=== PATIENT | female | born 1960 | race Caucasian/White ===

== ENCOUNTER 2020-05-25 11:56 | Outpatient (REF) | payer MEDICARE, MEDICAID, SELFPAY ==
--- NOTE | 2020-05-25 12:17 | XR_ITS ---
EXAMINATION: XR RIGHT FOOT XR LEFT FOOT CLINICAL INFORMATION: Bilateral pain COMPARISON: None TECHNIQUE: 3 weightbearing views of the right foot. 3 weightbearing views of the left foot. FINDINGS: Right Foot: There is a plate transfixed to the lateral aspect of the distal fibula by multiple screws. Additional screws transfix the expected region of the medial malleolus. There is hallux valgus deformity with some proliferative changes in the medial aspect of the distal 1st metatarsal. No abnormal soft tissue calcification. There is dorsiflexion at the MTP joint possibly sparing the 1st MTP joint. Left Foot: There are 2 screws transfixing the distal 1st metatarsal. There is remodeling deformity suggesting previous osteotomy. There is a faintly opaque prosthesis at the 2nd MTP joint. The 2nd proximal phalanx is not well evaluated. There is dorsiflexion at the MTP joint. XR/XR foot RT min 3V IMPRESSION: Evidence of instrumentation around the right ankle. Hallux valgus with proliferative changes in the region of the 1st MTP joint. Postoperative changes in the distal left 1st metatarsal and left 2nd MTP joint. Dorsiflexion at the MTP joint.
--- NOTE | 2020-05-25 12:17 | XR_ITS ---
EXAMINATION: XR RIGHT FOOT XR LEFT FOOT CLINICAL INFORMATION: Bilateral pain COMPARISON: None TECHNIQUE: 3 weightbearing views of the right foot. 3 weightbearing views of the left foot. FINDINGS: Right Foot: There is a plate transfixed to the lateral aspect of the distal fibula by multiple screws. Additional screws transfix the expected region of the medial malleolus. There is hallux valgus deformity with some proliferative changes in the medial aspect of the distal 1st metatarsal. No abnormal soft tissue calcification. There is dorsiflexion at the MTP joint possibly sparing the 1st MTP joint. Left Foot: There are 2 screws transfixing the distal 1st metatarsal. There is remodeling deformity suggesting previous osteotomy. There is a faintly opaque prosthesis at the 2nd MTP joint. The 2nd proximal phalanx is not well evaluated. There is dorsiflexion at the MTP joint. XR/XR foot LT min 3V IMPRESSION: Evidence of instrumentation around the right ankle. Hallux valgus with proliferative changes in the region of the 1st MTP joint. Postoperative changes in the distal left 1st metatarsal and left 2nd MTP joint. Dorsiflexion at the MTP joint.
== END 2020-05-25 11:57 | disposition home or self-care (01) ==
LOC: HO.XRAY 11:56
PROVIDERS: PCP Family Medicine; Visit Provider Podiatrist Foot & Ankle Surgery
DX: M20.12 Hallux valgus (acquired), left foot (principal); M20.42 Other hammer toe(s) (acquired), left foot; M20.11 Hallux valgus (acquired), right foot; M20.41 Other hammer toe(s) (acquired), right foot
CPT/HCPCS: 73630

== ENCOUNTER 2020-06-06 09:57 | Outpatient (REF) | payer MEDICARE, MEDICAID, SELFPAY ==
[2020-06-06 12:26] LABS: Free T4 (Free Thyroxine) 0.93 ng/dL (0.71-1.85); Thyroid Stimulating Hormone 0.01 uIU/mL (0.32-4.0)
[2020-06-07 08:12] LABS: Triiodothyronine T3 Total 158 ng/dL (76-181)
== END 2020-06-06 09:58 | disposition home or self-care (01) ==
LOC: HO.LAB 09:57
PROVIDERS: PCP Family Medicine; Visit Provider Internal Medicine
DX: E05.00 Thyrotoxicosis with diffuse goiter without thyrotoxic crisis or storm (principal)
CPT/HCPCS: 84439; 84443; 84480

== ENCOUNTER → 2020-06-13 09:23 | Outpatient (BNVA) | payer MEDICARE, MEDICAID, SELFPAY | PROVIDERS: PCP Family Medicine; Referring Provider Family Medicine; Visit Provider Internal Medicine | DX: Z13.89 Encounter for screening for other disorder (principal) | CPT/HCPCS: Q3014 ==

== ENCOUNTER 2020-07-08 09:11 | Outpatient (REF) | payer MEDICARE, MEDICAID, SELFPAY ==
--- NOTE | 2020-07-08 09:38 | XR_ITS ---
EXAMINATION: XR CHEST CLINICAL INFORMATION: Preop. COMPARISON: CT chest 01/01/2020 TECHNIQUE: 2 views of the chest were obtained. FINDINGS: The lungs are well-expanded and clear of acute pneumonic process. Mild increased interstitial markings seen without confluent infiltrate. Heart size and pulmonary vascularity is normal. There is mild dextroscoliosis of dorsal spine. There is old healed left eighth rib fracture. The fracture was noted on previous CT chest exam. XR/XR chest 2V IMPRESSION: No acute cardiopulmonary process.
[2020-07-08 10:19] LABS: MANUAL DIFF FLAG NO
[2020-07-08 10:29] LABS: INTERNATIONAL NORM RATIO 1.1 (0.9-1.1); Prothrombin Time 12.6 SEC (10.8-13.0)
[2020-07-08 10:34] LABS: Basophils Absolute Auto 0.1 X10*3/uL (0.0-0.2); Basophils Percent Auto 0.9 % (0-2); Eosinophils Absolute Auto 0.3 X10*3/uL (0.0-0.4); Eosinophils Percent Auto 3.7 % (0-4); Hematocrit 37.8 % (37-47); Hemoglobin 12.3 g/dl (12.0-16.0); Imm Gran Abs Auto 0.01 X10*3/uL (0.00-0.03); Imm Gran Pct Auto 0.1 % (0.0-0.4); Lymphocytes Absolute Auto 3.5 X10*3/uL (1.2-4.9); Lymphocytes Percent Auto 46.2 % (20-40); Mean Corpuscular HGB Conc 32.5 g/dl (31.0-35.0); Mean Corpuscular Hemoglobin 30.8 pg (27.0-33.0); Mean Corpuscular Volume 94.5 fL (80-98); Mean Platelet Volume 10.8 fL (9.4-12.3); Monocytes Absolute Auto 0.8 X10*3/uL (0.1-1.2); Monocytes Percent Auto 10.6 % (2-11); Neutrophils Absolute Auto 2.9 X10*3/uL (2.0-8.3); Neutrophils Percent Auto 38.5 % (45-73); Platelet Count 335 X10*3/uL (160-400); Red Cell Distribution Width 12.8 % (11.0-16.0); White Blood Count 7.5 X10*3/uL (4.8-10.8)
[2020-07-08 10:56] LABS: Anion Gap 12 (12-20); Blood Urea Nitrogen 11 mg/dL (9-16); Calcium 9.4 mg/dL (8.4-10.2); Carbon Dioxide 26 mmol/L (22-29); Chloride 106 mmol/L (96-108); Estimated Glomerular Filt Rate > 60; Glucose Random 91 mg/dL (60-115); Potassium 4.6 mmol/l (3.3-5.1); Sodium 139 mmol/L (135-145)
== END 2020-07-08 09:12 | disposition home or self-care (01) ==
LOC: HO.LAB 09:11
PROVIDERS: Absent Provider Podiatrist Foot & Ankle Surgery; PCP Family Medicine; Referring Provider Internal Medicine; Visit Provider Family Medicine
DX: Z01.810 Encounter for preprocedural cardiovascular examination (principal); Z87.09 Personal history of other diseases of the respiratory system
CPT/HCPCS: 36415; 71046; 80048; 85025; 85610

== ENCOUNTER 2020-07-27 11:48 | Outpatient (REF) | payer MEDICARE, MEDICAID, SELFPAY ==
[2020-07-27 13:18] LABS: Free T4 (Free Thyroxine) 0.96 ng/dL (0.71-1.85); Thyroid Stimulating Hormone < 0.01 uIU/mL (0.32-4.0)
[2020-07-28 02:32] LABS: Triiodothyronine T3 Total 149 ng/dL (76-181)
== END 2020-07-27 11:49 | disposition home or self-care (01) ==
LOC: HO.LAB 11:48
PROVIDERS: PCP Family Medicine; Visit Provider Internal Medicine
DX: E05.00 Thyrotoxicosis with diffuse goiter without thyrotoxic crisis or storm (principal)
CPT/HCPCS: 36415; 84439; 84443; 84480

== ENCOUNTER → 2020-07-28 08:47 | Outpatient (BNVA) | payer MEDICARE, MEDICAID, SELFPAY | PROVIDERS: PCP Family Medicine; Visit Provider Internal Medicine | DX: Z76.89 Persons encountering health services in other specified circumstances (principal) | CPT/HCPCS: Q3014 ==

== ENCOUNTER 2020-08-11 08:56 | Outpatient (REF) | payer MEDICARE, MEDICAID, SELFPAY ==
[2020-08-11 10:50] LABS: Free T4 (Free Thyroxine) 0.85 ng/dL (0.71-1.85)
[2020-08-12 04:51] LABS: Triiodothyronine T3 Total 164 ng/dL (76-181)
== END 2020-08-11 08:57 | disposition home or self-care (01) ==
LOC: HO.LAB 08:56
PROVIDERS: PCP Family Medicine; Visit Provider Internal Medicine
DX: E05.00 Thyrotoxicosis with diffuse goiter without thyrotoxic crisis or storm (principal)
CPT/HCPCS: 36415; 84439; 84480

== ENCOUNTER 2020-08-12 10:43 | Outpatient (REF) | payer MEDICARE, MEDICAID, SELFPAY | END 2020-08-12 10:44 | disposition home or self-care (01) | LOC: HO.LNP 10:43 | PROVIDERS: Visit Provider Family Medicine | DX: Z20.822 Contact with and (suspected) exposure to COVID-19 (principal); R05 Cough | CPT/HCPCS: U0003; U0005 ==

== ENCOUNTER → 2020-09-01 13:07 | Outpatient (BNVA) | payer MEDICARE, MEDICAID, SELFPAY | PROVIDERS: PCP Family Medicine; Visit Provider Internal Medicine | CPT/HCPCS: Q3014 ==

== ENCOUNTER 2020-09-07 10:40 | Outpatient (REF) | payer MEDICARE, MEDICAID, SELFPAY ==
--- NOTE | ~2020-09-07 | XR_ITS ---
EXAMINATION: XR FOOT, LEFT CLINICAL INFORMATION: Radha COMPARISON: Previous x-ray May 2020 TECHNIQUE: AP, lateral, and oblique views of the left foot. FINDINGS: Bone alignment is normal. No acute fracture or dislocation is seen. There are postsurgical changes to the right first metatarsal bone. There is postsurgical change to the second MTP joint. There is interval resection of the head of the fifth metatarsal bone. There are contractures of the toes, greatest at the second and fourth toes. Soft tissues are unremarkable. XR/XR foot LT min 3V IMPRESSION: Postsurgical changes. Contractures of the toes.
== END 2020-09-07 10:41 | disposition home or self-care (01) ==
LOC: HO.XRAY 10:40
PROVIDERS: PCP Family Medicine; Visit Provider Podiatrist Foot & Ankle Surgery
DX: M20.42 Other hammer toe(s) (acquired), left foot (principal)
CPT/HCPCS: 73630

== ENCOUNTER 2020-09-26 08:50 | Outpatient (REF) | payer MEDICARE, MEDICAID, SELFPAY ==
[2020-09-26 10:32] LABS: Free T4 (Free Thyroxine) 0.81 ng/dL (0.71-1.85); Thyroid Stimulating Hormone < 0.01 uIU/mL (0.32-4.0)
[2020-09-27 09:11] LABS: Triiodothyronine T3 Total 125 ng/dL (76-181)
== END 2020-09-26 08:51 | disposition home or self-care (01) ==
LOC: HO.LAB 08:50
PROVIDERS: PCP Family Medicine; Visit Provider Internal Medicine
DX: E05.00 Thyrotoxicosis with diffuse goiter without thyrotoxic crisis or storm (principal)
CPT/HCPCS: 36415; 84439; 84443; 84480

== ENCOUNTER 2020-10-14 07:35 | Outpatient (REF) | payer MEDICARE, MEDICAID, SELFPAY ==
--- NOTE | ~2020-10-14 | XR_ITS ---
EXAMINATION: XR SHOULDER, RIGHT CLINICAL INFORMATION: Pain COMPARISON: Previous x-ray July 2015 TECHNIQUE: Three views of the right shoulder. FINDINGS: Bone alignment is normal. No fracture or dislocation is seen. The glenohumeral joint is normal. There is arthritis at the acromioclavicular joint. There is a undersurface acromial osteophyte. XR/XR shoulder RT min 2V IMPRESSION: Arthritis at the acromioclavicular joint and undersurface acromial osteophyte.
== END 2020-10-14 07:36 | disposition home or self-care (01) ==
LOC: HO.HOSX 07:35
PROVIDERS: Visit Provider Physician Assistant
DX: M75.41 Impingement syndrome of right shoulder (principal); M19.011 Primary osteoarthritis, right shoulder; M25.511 Pain in right shoulder
CPT/HCPCS: 20610; 73030; 99202; J1040

== ENCOUNTER 2020-11-30 09:50 | Outpatient (REF) | payer MEDICARE, MEDICAID, SELFPAY ==
--- NOTE | ~2020-11-30 | US_ITS ---
EXAMINATION: US EXTRACRANIAL CAROTID DUPLEX, BILATERAL CLINICAL INFORMATION: Follow-up carotid stenosis COMPARISON: 10/13/2019 TECHNIQUE: Real-time ultrasound and Doppler techniques (integrating B-mode 2-D vascular images, Doppler spectral analysis and color-flow Doppler imaging) were utilized to interrogate the extracranial carotid arteries, the vertebral arteries and proximal subclavian arteries bilaterally. The degree of stenosis is determined by criteria similar to NASCET. FINDINGS: Right Side: 1. There is mild atherosclerotic plaque seen in the bifurcation/proximal ICA region. 2. The common carotid artery PSV proximally is 68 cm/s and distally 60 cm/s. 3. The proximal internal carotid artery velocities are 61 cm/s systolic and 32 cm/s diastolic. 4. The proximal external carotid artery PSV is 77 cm/s. 5. The vertebral artery shows antegrade flow. 6. The subclavian artery waveforms are normal. Left Side: 1. There is mild atherosclerotic plaque seen in the bifurcation/proximal ICA region. 2. The common carotid artery PSV proximally is 60 cm/s and distally 40 cm/s. 3. The proximal internal carotid artery velocities are 66 cm/s systolic and 27 cm/s diastolic. 4. The proximal external carotid artery PSV is 72 cm/s. 5. The vertebral artery shows antegrade flow. 6. The subclavian artery waveforms are normal. US/US carotid duplex BI IMPRESSION: 1. RIGHT: Minimal, non-hemodynamically significant stenosis of the proximal right internal carotid artery corresponding to a 0-49% stenosis by velocity criteria. 2. LEFT: Minimal, non-hemodynamically significant stenosis of the proximal left internal carotid artery corresponding to a 0-49% stenosis by velocity criteria. 3. There is no change in the category severity of disease when compared to the previous study dated 10/13/2019.
== END 2020-11-30 09:51 | disposition home or self-care (01) ==
LOC: HO.US 09:50
PROVIDERS: Visit Provider Surgery Vascular Surgery
DX: E05.00 Thyrotoxicosis with diffuse goiter without thyrotoxic crisis or storm (principal); I65.23 Occlusion and stenosis of bilateral carotid arteries; J44.9 Chronic obstructive pulmonary disease, unspecified; R63.5 Abnormal weight gain; Z79.82 Long term (current) use of aspirin; Z79.899 Other long term (current) drug therapy; Z98.890 Other specified postprocedural states
CPT/HCPCS: 93880; Q3014

== ENCOUNTER 2020-12-02 09:35 | Outpatient (REF) | payer MEDICARE, MEDICAID, SELFPAY ==
[2020-12-02 11:30] LABS: Free T4 (Free Thyroxine) 0.54 ng/dL (0.71-1.85); Thyroid Stimulating Hormone 4.24 uIU/mL (0.32-4.0)
[2020-12-03 07:37] LABS: Triiodothyronine T3 Total 69 ng/dL (76-181)
== END 2020-12-02 09:36 | disposition home or self-care (01) ==
LOC: HO.LAB 09:35
PROVIDERS: PCP Family Medicine; Visit Provider Internal Medicine
DX: E05.00 Thyrotoxicosis with diffuse goiter without thyrotoxic crisis or storm (principal)
CPT/HCPCS: 36415; 84439; 84443; 84480

== ENCOUNTER → 2020-12-06 09:31 | Outpatient (BNVA) | payer MEDICARE, MEDICAID, SELFPAY | PROVIDERS: PCP Family Medicine; Visit Provider Surgery Vascular Surgery | DX: I65.23 Occlusion and stenosis of bilateral carotid arteries (principal); I83.11 Varicose veins of right lower extremity with inflammation | CPT/HCPCS: 99212 ==

== ENCOUNTER 2020-12-14 12:56 | Outpatient (REF) | payer MEDICARE, MEDICAID, SELFPAY ==
--- NOTE | ~2020-12-14 | US_ITS ---
EXAMINATION: RIGHT and LEFT LOWER EXTREMITY VENOUS ULTRASOUND (Reflux Exam) CLINICAL INDICATION: leg pain and varicose veins, right. COMPARISON: None. TECHNIQUE: Color flow triplex imaging and compression Doppler was performed to evaluate both the deep and the superficial systems bilaterally. To evaluate the superficial system, the examination was performed in the upright position. Color-flow Doppler ultrasound and compression ultrasound were utilized. In addition, maneuvers were utilized to demonstrate reflux. FINDINGS: 1. DEEP VENOUS ULTRASOUND OF THE RIGHT LOWER EXTREMITY: Respiratory variation, normal compression and augmented flow are noted in the right common femoral vein as well as the right popliteal vein and there is no evidence of deep venous thrombosis at these locations. There is no evidence of reflux in the deep system in either the common femoral vein or the popliteal vein. There is no evidence of a Young's cyst. 2. SUPERFICIAL ULTRASOUND WITH DOPPLER OF RIGHT LOWER EXTREMITY: The right great saphenous vein at the saphenofemoral junction measures 9 mm, at the mid thigh 2 mm, [id number]-[id number] 2 mm, ftgbl-fla-[id number] 2 mm, at mid calf 2 mm and at the ankle measures 3 mm. There is a accessory lateral greater saphenous vein that measures 2 to 3 mm. There is no reflux demonstrated in the right great saphenous vein. The right small saphenous vein measures 2-3 mm and shows no reflux. There is a anesthesiology resident in the distal thigh that measures 2 mm and does not demonstrate reflux. There is a varicosity in the proximal 5 and measures 3 mm and does not demonstrate reflux. 3. DEEP VENOUS ULTRASOUND OF THE LEFT LOWER EXTREMITY: Respiratory variation, normal compression and augmented flow are noted in the left common femoral vein as well as the left popliteal vein and there is no evidence of deep venous thrombosis at these locations. There is no evidence of reflux in the deep system in either the common femoral vein or the popliteal vein. . There is no evidence of a Young's cyst. 4. SUPERFICIAL ULTRASOUND WITH DOPPLER OF LEFT LOWER EXTREMITY: Left great saphenous vein at the saphenofemoral junction measures 9 mm, at the mid thigh 6 mm, xulxg-dqf-fces 3 mm, puuxy-hdo-asro 3 mm, at mid calf 3 mm and at the ankle measures 3 mm. There is no reflux demonstrated in the left great saphenous vein. The left small saphenous vein measures 2 mm and shows no reflux. There is a anesthesiology resident in the calf that measures 2 mm and does not demonstrate reflux. There are varicosities in the thigh and calf that measure 3 mm and do not demonstrate reflux. US/US venous duplex LE BI IMPRESSION: 1. No evidence of reflux or thrombus in the common femoral veins or popliteal veins bilaterally. 2. The saphenous systems are competent bilaterally.
== END 2020-12-14 12:57 | disposition home or self-care (01) ==
LOC: HO.US 12:56
PROVIDERS: Visit Provider Surgery Vascular Surgery
DX: I83.893 Varicose veins of bilateral lower extremities with other complications (principal); I83.11 Varicose veins of right lower extremity with inflammation
CPT/HCPCS: 93970

== ENCOUNTER → 2020-12-20 09:37 | Outpatient (BNVA) | payer MEDICARE, MEDICAID, SELFPAY | PROVIDERS: PCP Family Medicine; Visit Provider Surgery Vascular Surgery | DX: I83.12 Varicose veins of left lower extremity with inflammation (principal) | CPT/HCPCS: 99212 ==

== ENCOUNTER → 2021-01-13 08:26 | Outpatient (BNVA) | payer MEDICARE, MEDICAID, SELFPAY | PROVIDERS: PCP Family Medicine; Visit Provider Surgery Vascular Surgery | DX: I83.12 Varicose veins of left lower extremity with inflammation (principal) | CPT/HCPCS: 37765 ==

== ENCOUNTER → 2021-01-31 08:52 | Outpatient (BNVA) | payer MEDICARE, MEDICAID, SELFPAY | PROVIDERS: PCP Family Medicine; Referring Provider Family Medicine; Visit Provider Surgery Vascular Surgery | DX: I83.12 Varicose veins of left lower extremity with inflammation (principal); I65.23 Occlusion and stenosis of bilateral carotid arteries | CPT/HCPCS: 99212 ==

== ENCOUNTER 2021-02-06 08:49 | Outpatient (REF) | payer MEDICARE, MEDICAID, SELFPAY ==
--- NOTE | ~2021-02-06 | MM_ITS ---
EXAMINATION: MM SCREENING DIGITAL BREAST TOMOSYNTHESIS, BILATERAL CLINICAL INFORMATION: Screening. Asymptomatic. The lifetime risk of breast cancer based on the Tyrer-Cuzick Model is 11%. COMPARISON: Mammography: 02/03/2020, 01/28/2019, 01/08/2018 TECHNIQUE: Digital breast tomosynthesis is performed in both the craniocaudal and mediolateral oblique views along with computer-aided detection (CAD). Synthesized 2D images are generated from the tomosynthesis. Additional left CC view is provided. FINDINGS: The breasts are almost entirely fatty (ACR BI-RADS breast composition Category a). There are no significant masses, abnormal calcifications, or other abnormalities. Stromal markings are stable. Mild asymmetry of the breasts, left larger, similar to prior studies. The axilla and skin contours are unremarkable. MM/MM tomosynthesis screening BI IMPRESSION: No mammographic evidence of malignancy. ASSESSMENT: BI-RADS 2: Benign RECOMMENDATION: Routine annual mammography screening. This patient's information was entered into a reminder system with a target due date for their next mammogram.
== END 2021-02-06 08:50 | disposition home or self-care (01) ==
LOC: HO.MAMMO 08:49
PROVIDERS: Visit Provider Family Medicine
DX: Z12.31 Encounter for screening mammogram for malignant neoplasm of breast (principal)
CPT/HCPCS: 77063; 77067

== ENCOUNTER 2021-04-04 11:35 | Outpatient (REF) | payer MEDICARE, MEDICAID, SELFPAY ==
[2021-04-04 12:22] LABS: COVID-19 Test Negative (Negative)
== END 2021-04-04 11:36 | disposition home or self-care (01) ==
LOC: HO.LAB 11:35
PROVIDERS: PCP Family Medicine; Visit Provider Internal Medicine
DX: Z20.822 Contact with and (suspected) exposure to COVID-19 (principal)
CPT/HCPCS: 36415; 87635; C9803

== ENCOUNTER 2021-07-17 09:00 | Outpatient (RCR) | payer MEDICARE, MEDICAID, SELFPAY ==
[2021-07-06 07:01] VITALS: BP 115/66; PULSE 69; O2SAT 95
== END 2021-08-08 09:19 | disposition home or self-care (01) ==
LOC: HO.PT 09:00
PROVIDERS: PCP Family Medicine; Visit Provider Podiatrist Foot & Ankle Surgery
DX: M76.812 Anterior tibial syndrome, left leg (principal)
CPT/HCPCS: 97110; 97140; 97162

== ENCOUNTER 2021-08-08 13:02 | Outpatient (REF) | payer MEDICARE, MEDICAID, SELFPAY ==
--- NOTE | ~2021-08-08 | CT_ITS ---
EXAMINATION: CT CHEST SCREENING CLINICAL INFORMATION: Smoking history COMPARISON: Previous chest CT December 2019 TECHNIQUE: Multidetector volumetric CT imaging of the chest is performed without contrast using low dose technique. Additional 2D coronal and sagittal reformatted images and axial 3D maximum intensity projection (MIP) images are generated on the CT workstation. This CT examination was performed using dose optimization techniques as appropriate, variously including the following: *Automated exposure control *Adjustment of mA and/or kV according to patient size (this includes techniques or standardized protocols for targeted exams where dose is matched to indication/reason for exam; i.e. extremities or head) *Use of iterative reconstruction technique DLP: 55 mGy-cm FINDINGS: LUNGS: There is evidence of emphysema. There is a new small peripheral or subpleural 4 mm left lower lobe nodule axial image 376 series 5. This probably represents a subpleural lymph node. There is minimal scarring or subsegmental atelectasis. The lungs are otherwise clear. No evidence of bronchiectasis or interstitial disease or endobronchial or endotracheal lesion is seen. MEDIASTINUM: The right lobe of the thyroid gland is prominent. There is mild coronary artery calcification. The mediastinum is otherwise normal. PLEURA: There is no pleural effusion. No pleural mass or thickening. AXILLA: No lymphadenopathy. UPPER ABDOMEN: Unremarkable OSSEOUS STRUCTURES: There is an old posterior lateral eighth rib fracture. There are degenerative changes of the spine. CT/CT lung screening IMPRESSION: Emphysema. Small left lower lobe nodule probably representing a subpleural lymph node. Prominent right lobe of the thyroid gland similar to previous exams. Mild coronary artery calcification. ASSESSMENT: Lung-RADS category 2: Benign RECOMMENDATION: Annual low-dose chest CT follow-up recommended.
== END 2021-08-08 13:03 | disposition home or self-care (01) ==
LOC: HO.CT 13:02
PROVIDERS: PCP Family Medicine; Visit Provider Physician Assistant Medical
DX: Z12.2 Encounter for screening for malignant neoplasm of respiratory organs (principal); Z87.891 Personal history of nicotine dependence
CPT/HCPCS: 71271

== ENCOUNTER 2021-08-20 12:03 | Inpatient (IN) | payer MEDICARE, MEDICAID, SELFPAY ==
[2021-08-20] VITALS (9 sets, daily range): BP systolic 112–156; BP diastolic 68–92; PULSE 91–133; RESP 16–22; TEMP 36.7–37.7; O2SAT 95–99; BMI 29.4
--- NOTE | 2021-08-20 | ECG_ITS ---
Test Reason : dyspnea Blood Pressure : / mmHG Vent. Rate : 138 BPM Atrial Rate : 000 BPM P-R Int : 000 ms QRS Dur : 070 ms QT Int : 298 ms P-R-T Axes : 000 002 -10 degrees QTc Int : 451 ms Atrial fibrillation with rapid ventricular response Abnormal ECG When compared with ECG of 08-MAR-2017 07:53, Atrial fibrillation has replaced Sinus rhythm Vent. rate has increased BY [address] now depressed in Inferior leads Referred By: Generic ED Physician Electronically Signed By:KINGS KRISHNAMURTHY MD
--- NOTE | ~2021-08-20 | XR_ITS ---
EXAMINATION: XR CHEST CLINICAL INFORMATION: Dyspnea, tachycardia COMPARISON: X-ray 07/08/2020 TECHNIQUE: Frontal view of the chest was obtained. FINDINGS: Stable cardiomediastinal silhouette. Lungs are symmetric expanded. Opacity projected over the left midlung, overlying the rib, appears slightly more prominent as compared to prior radiograph of 07/08/2020, could be related to overlapping densities superimposed on underlying rib abnormality.. No new focal consolidation is seen. No effusion, edema or pneumothorax. XR/XR chest 1V IMPRESSION: No new focal consolidation. Opacity projected over the left mid lung overlying the rib, appearing slightly more prominent as compared to the prior radiograph, could be related to overlapping densities overlying the underlying rib abnormality rather than airspace disease. Recommend short-term follow-up imaging for reassessment.
--- NOTE | 2021-08-20 12:40 | ED.SOB ---
HPI - SOB/Dyspnea General Chief Complaint: Dyspnea Stated Complaint: SOB Time Seen by Provider: 08/20/21 12:19 Source: patient Mode of arrival: ambulatory Limitations: no limitations History of Present Illness HPI Narrative: 61-year-old female with a history of depression, anxiety, COPD, former smoking history, high cholesterol here with reports of shortness of breath with palpitations for the last 4 days. Patient was seen at urgent care and was referred into the emergency department as she was noted to have an irregular pulse. Patient denies any history of AFib. She is taking an aspirin 81 mg daily. She denies any chest pain, cough, fever, leg swelling or pain. Related Data Home Medications Medication Instructions Recorded Confirmed aspirin 81 mg tablet,delayed 81 mg PO DAILY 06/13/20 08/20/21 release quetiapine 50 mg tablet 50 mg PO BEDTIME 08/20/21 08/20/21 ropinirole 5 mg tablet 5 mg PO DAILY@1230 08/20/21 08/20/21 sertraline 100 mg tablet 50 mg PO DAILY 08/20/21 08/20/21 Previous Rx's Medication Instructions Recorded furosemide 40 mg tablet 40 mg PO DAILY PRN #90 cap 06/20/21 lorazepam 1 mg tablet 1 mg PO BEDTIME PRN 30 Days #30 tab 06/20/21 rosuvastatin 20 mg tablet 20 mg PO DAILY #90 tab 08/07/21 meloxicam 15 mg tablet 15 mg PO DAILY 30 Days #30 tab 08/09/21 omeprazole 20 mg capsule,delayed 20 mg PO DAILY #90 cap 08/14/21 release valacyclovir 500 mg tablet 500 mg PO DAILY PRN 30 Days #30 tab 08/14/21 Allergies Allergy/AdvReac Type Severity Reaction Status Date / Time No Known Allergies Allergy Verified 08/20/21 12:16 Review of Systems Review of Systems: Yes all other systems are reviewed and are negative Constitutional: Constitutional: Reports no additional constitutional complaints, Denies body ache(s), Denies chills, Denies fever(s), Denies headache(s) and Denies weakness Eyes: Eyes: Reports no additional eye complaints and Denies change in vision ENT: Reports system reviewed and no additional complaints, except as documented, Denies dizziness, Denies headache(s), Denies nasal congestion, Denies nasal discharge and Denies neck pain Cardiovascular: Cardiovascular: Reports no additional cardiovascular complaints, Denies chest pain, Denies leg edema, Reports palpitations and Reports dyspnea Respiratory: Respiratory: Reports no additional respiratory complaints, Denies cough and Reports dyspnea Gastrointestinal: Gastrointestinal: Reports no additional gastrointestinal complaints, Denies abdominal pain, Denies diarrhea, Denies nausea and Denies vomiting Genitourinary: Genitourinary: Reports no additional female genitourinary complaints and Denies urinary incontinence Musculoskeletal: Musculoskeletal: Reports no additional musculoskeletal complaints, Denies back pain, Denies arthralgias, Denies joint swelling, Denies neck pain, Denies numbness and Denies tingling Integumentary/Breasts: Skin/Breast: Reports system reviewed and no additional complaints, except as docu and Denies rash Neurologic: Reports system reviewed and no additional complaints, except as documented, Denies Abnormal speech present, Denies dizziness, Denies headache(s), Denies numbness, Denies tingling and Denies weakness Endocrine: Endocrine: Reports palpitations PMFSH Past Medical History Attestation statement: The following information was validated with the patient. Source: old records reviewed and nursing notes reviewed Medical History (Updated 08/20/21 @ 15:01 by Marco Newell MD) Depression GERD (gastroesophageal reflux disease) Graves disease History of COPD HLD (hyperlipidemia) Surgical History H/O foot surgery History of ankle surgery History of back surgery History of carotid endarterectomy History of salpingectomy History of surgery on right wrist Hx of colonoscopy Hx of rotator cuff surgery Family History Family History Father CVD (cardiovascular disease) Hypertension Mother CVA (cerebral vascular accident) Paternal Grandmother Breast cancer Social History Social History Housing: House Patient Tobacco Use Status: Never used Tobacco e-Cigarette/Vaping Use: Never Used Advance Directives: No Advance Directives Information Provided: No Patient : No service: No Current occupational status: employed 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 Current occupational exposures/hazards: No Cognitive needs: No Hearing needs: No Vision needs: No Physical Exam Vital Signs: Vital Signs: Last Vital Signs Temp 98.5 F 08/20/21 15:04 Pulse 106 H 08/20/21 15:04 Resp 18 08/20/21 15:04 BP 130/82 08/20/21 15:04 Pulse Ox 95 08/20/21 15:04 BMI result Body Mass Index 29.4 Const: General: cooperative, healthy appearing, comfortable and no acute distress Orientation/consciousness: patient oriented x3 Limitations: no limitations HENMT: Head: Yes normal to inspection Ears: hearing grossly normal bilaterally General nose exam: Normal external nose present Face and sinus: Yes normal facial exam Mouth: Normal oral and palatal mucosa present Throat: Yes posterior oropharynx normal Eyes: General: appearance normal, both eyes and all related structures Pupils: Equal, round and reactive pupils present Neck: Neck: Yes normal visual inspection Chest: Chest palpation & inspection: normal inspection of the chest Resp: Other: Tachypnea with a rate of 22, inspiratory and expiratory wheezing throughout Cardio: Rate: regular rate Rhythm: abnormal rhythm irregularly irregular Peripheral pulses: Peripheral pulses 2+ throughout GI: Inspection: Yes normal to inspection Palpation (GI): Soft to palpation and nontender Auscultation: normal bowel sounds Back/Spine/Pelvis: Thoracic/Lumbar Spine: thoracic and lumbar spine normal to inspection Skin: General skin exam: no rashes or lesions noted Neuro: General: patient oriented x3, no focal motor deficits and normal sensation to monofilament Cranial nerves: Yes Equal, round and reactive pupils present Cognition (Neuro): normal cognition Speech: No Abnormal speech present Gait exam (Neuro): Normal gait present Motor exam (neuro): 5/5 motor strength present throughout Extrem: General: Yes normal to inspection, Yes no pedal edema and Yes no calf tenderness Course Course Course Narrative: 61-year-old female with a history of COPD here with reports of shortness of breath, palpitations for 4 days. On arrival the patient is noted to have an irregularly irregular pulse with tachypnea and wheezing. EKG shows AFib with RVR with a rate of 138. Blood pressure is stable. Patient has no history of same. Will check labs, chest x-ray, COVID screen. Plan for DuoNeb, Cardizem, aspirin Anticipate admission 1340-reviewed labs. Indeterminate troponin likely secondary tachycardia not for ischemia. Plan to trend. Heart rate initially was bonded down to 90-100 after 1 dose of Cardizem. After some time the rate elevated to 130 use 140s. Plan to initiate Cardizem drip. Will discuss with Medicine for admission Reviewed x-ray which read as possible left mid lobe opacity versus overlying densities. Patient has no reports of cough, fever. She does have some slight wheezing with underlying COPD. I independently reviewed the x-ray which does not appear to show pneumonia. Elevated respiratory rate is from chronic lung disease and not from infection. CHADS score 1 so AC therapy deferred to admission team. MDM - SOB/Dyspnea MDM Narrative Medical decision making narrative: AFib, COPD Medical Records Attestation: I reviewed the patient's medical records. Lab Data Attestation: I reviewed the patient's lab results. Result diagrams: 08/20/21 12:48 08/20/21 12:48 Labs: Lab Results 08/20/21 08/20/21 08/20/21 Range/Units 12:48 12:48 12:48 WBC 12.6 H (4.8-10.8) X10*3/uL RBC 4.17 L (4.20-5.50) X10*6/uL Hgb 12.5 (12.0-16.0) g/dl Hct 37.8 (37.0-47.0) % MCV 90.6 (80.0-98.0) fL MCH 30.0 (27.0-33.0) pg MCHC 33.1 (31.0-35.0) g/dl RDW 13.5 (11.0-16.0) % Plt Count 310 (160-400) X10*3/uL MPV 10.6 (9.4-12.3) fL Immature Gran % (Auto) 0.2 (0.0-0.4) % Neut % (Auto) 67.7 (45-73) % Lymph % (Auto) 21.5 (20-40) % Gregory % (Auto) 9.3 (2-11) % Eos % (Auto) 0.7 (0-4) % Baso % (Auto) 0.6 (0-2) % Lymph # (Auto) 2.7 (1.2-4.9) X10*3/uL Gregory # (Auto) 1.2 (0.1-1.2) X10*3/uL Eos # (Auto) 0.1 (0.0-0.4) X10*3/uL Baso # (Auto) 0.1 (0.0-0.2) X10*3/uL Abs Immat Gran (auto) 0.03 (0.00-0.03) X10*3/uL Absolute Neuts (auto) 8.6 H (2.0-8.3) x10*3/uL Absolute Nucleated RBC 0.000 (0.0-0.012) X10*3/uL Nucleated RBC % (auto) 0.0 (0.0-0.2) /100WBC PT 12.9 (9.9-13.0) SEC INR 1.1 (0.9-1.1) Sodium 138 (135-145) mmol/L Potassium 4.1 (3.3-5.1) mmol/L Chloride 107 (96-108) mmol/L Carbon Dioxide 22 (22-29) mmol/L Anion Gap 13 (12-20) BUN 15 (9-16) mg/dL Creatinine 0.63 (0.5-1.4) mg/dL Estim Creat Clear Calc 114.5 Estimated GFR > 60 Random Glucose 115 (60-115) mg/dL Calcium 10.0 D (8.4-10.2) mg/dL Magnesium 1.8 (1.6-2.6) mg/dL Total Bilirubin 0.6 (0.0-1.0) mg/dL Direct Bilirubin 0.3 (0.0-0.5) mg/dL AST 29 (5-31) U/L ALT 25 (0-31) U/L Alkaline Phosphatase 71 (39-117) U/L Troponin I High Sens (<3.5-17.0) ng/L Total Protein 6.6 (6.5-8.0) g/dL Albumin 4.0 (3.5-5.0) g/dL TSH < 0.01 L (0.32-4.0) uIU/mL COVID-19 ([facility]) (Negative) COVID-19 Clin Com 08/20/21 08/20/21 Range/Units 12:48 12:52 WBC (4.8-10.8) X10*3/uL RBC (4.20-5.50) X10*6/uL Hgb (12.0-16.0) g/dl Hct (37.0-47.0) % MCV (80.0-98.0) fL MCH (27.0-33.0) pg MCHC (31.0-35.0) g/dl RDW (11.0-16.0) % Plt Count (160-400) X10*3/uL MPV (9.4-12.3) fL Immature Gran % (Auto) (0.0-0.4) % Neut % (Auto) (45-73) % Lymph % (Auto) (20-40) % Gregory % (Auto) (2-11) % Eos % (Auto) (0-4) % Baso % (Auto) (0-2) % Lymph # (Auto) (1.2-4.9) X10*3/uL Gregory # (Auto) (0.1-1.2) X10*3/uL Eos # (Auto) (0.0-0.4) X10*3/uL Baso # (Auto) (0.0-0.2) X10*3/uL Abs Immat Gran (auto) (0.00-0.03) X10*3/uL Absolute Neuts (auto) (2.0-8.3) x10*3/uL Absolute Nucleated RBC (0.0-0.012) X10*3/uL Nucleated RBC % (auto) (0.0-0.2) /100WBC PT (9.9-13.0) SEC INR (0.9-1.1) Sodium (135-145) mmol/L Potassium (3.3-5.1) mmol/L Chloride (96-108) mmol/L Carbon Dioxide (22-29) mmol/L Anion Gap (12-20) BUN (9-16) mg/dL Creatinine (0.5-1.4) mg/dL Estim Creat Clear Calc Estimated GFR Random Glucose (60-115) mg/dL Calcium (8.4-10.2) mg/dL Magnesium (1.6-2.6) mg/dL Total Bilirubin (0.0-1.0) mg/dL Direct Bilirubin (0.0-0.5) mg/dL AST (5-31) U/L ALT (0-31) U/L Alkaline Phosphatase (39-117) U/L Troponin I High Sens 13.1 (<3.5-17.0) ng/L Total Protein (6.5-8.0) g/dL Albumin (3.5-5.0) g/dL TSH (0.32-4.0) uIU/mL COVID-19 ([facility]) Negative (Negative) COVID-19 Clin Com See Note Imaging Data Chest x-ray: Attestation: I personally reviewed and interpreted this imaging study as follows: Radiologist's impression: FINDINGS: Stable cardiomediastinal silhouette. Lungs are symmetric expanded. Opacity projected over the left midlung, overlying the rib, appears slightly more prominent as compared to prior radiograph of 07/08/2020, could be related to overlapping densities superimposed on underlying rib abnormality.. No new focal consolidation is seen. No effusion, edema or pneumothorax. XR/XR chest 1V IMPRESSION: No new focal consolidation. Opacity projected over the left mid lung overlying the rib, appearing slightly more prominent as compared to the prior radiograph, could be related to overlapping densities overlying the underlying rib abnormality rather than airspace disease. Recommend short-term follow-up imaging for reassessment. ECG Data Attestation: I personally reviewed and interpreted this ECG as follows: ECG interpretation date: 08/20/21 ECG interpretation time: 12:24 Interpretation: AFib with RVR with a rate of 138, normal QRS, normal QT Discharge Plan Discharge Clinical Impression: Atrial fibrillation Patient Disposition: Admitted As Inpatient
[2021-08-20] MEDS: dilTIAZem HCL 50 MG/10 ML VIAL 10 MG IVPUSH (12:46)
[2021-08-20] MEDS: 0.9 % Sodium Chloride 500 ML 999 ML IV (12:46)
[2021-08-20] MEDS: Aspirin 81 MG TAB.CHEW 243 MG PO (12:46)
[2021-08-20 12:52] LABS: MANUAL DIFF FLAG NO
[2021-08-20 12:56] LABS: Basophils Absolute Auto 0.1 X10*3/uL (0.0-0.2); Basophils Percent Auto 0.6 % (0-2); Eosinophils Absolute Auto 0.1 X10*3/uL (0.0-0.4); Eosinophils Percent Auto 0.7 % (0-4); Hematocrit 37.8 % (37.0-47.0); Hemoglobin 12.5 g/dl (12.0-16.0); Imm Gran Abs Auto 0.03 X10*3/uL (0.00-0.03); Imm Gran Pct Auto 0.2 % (0.0-0.4); Lymphocytes Absolute Auto 2.7 X10*3/uL (1.2-4.9); Lymphocytes Percent Auto 21.5 % (20-40); Mean Corpuscular HGB Conc 33.1 g/dl (31.0-35.0); Mean Corpuscular Volume 90.6 fL (80.0-98.0); Mean Platelet Volume 10.6 fL (9.4-12.3); Monocytes Absolute Auto 1.2 X10*3/uL (0.1-1.2); Monocytes Percent Auto 9.3 % (2-11); Neutrophils Absolute Auto 8.6 x10*3/uL (2.0-8.3); Neutrophils Percent Auto 67.7 % (45-73); Platelet Count 310 X10*3/uL (160-400); Red Blood Count 4.17 X10*6/uL (4.20-5.50); Red Cell Distribution Width 13.5 % (11.0-16.0); White Blood Count 12.6 X10*3/uL (4.8-10.8)
[2021-08-20 13:01] LABS: INTERNATIONAL NORM RATIO 1.1 (0.9-1.1); Prothrombin Time 12.9 SEC (9.9-13.0)
[2021-08-20 13:17] LABS: Troponin-I High Sensitivity 13.1 ng/L (<3.5-17.0)
[2021-08-20 13:18] LABS: COVID-19 Test Negative (Negative); IDNOW Serial# 16C4AD1C
[2021-08-20 13:23] LABS: Alanine Aminotransferase 25 U/L (0-31); Alkaline Phosphatase 71 U/L (39-117); Anion Gap 13 (12-20); Aspartate Amino Transferase 29 U/L (5-31); Bilirubin Direct 0.3 mg/dL (0.0-0.5); Bilirubin Total 0.6 mg/dL (0.0-1.0); Blood Urea Nitrogen 15 mg/dL (9-16); Carbon Dioxide 22 mmol/L (22-29); Chloride 107 mmol/L (96-108); Creatinine Clr Calc Pharmacy 114.5; Estimated Glomerular Filt Rate > 60; Glucose Random 115 mg/dL (60-115); Magnesium 1.8 mg/dL (1.6-2.6); Potassium 4.1 mmol/L (3.3-5.1); Sodium 138 mmol/L (135-145); Total Protein 6.6 g/dL (6.5-8.0)
[2021-08-20] MEDS: dilTIAZem HCL 125 MG in 0.9 % Sodium Chloride 100 ML IVCONT (14:16)
[2021-08-20] MEDS: rOPINIRole HCL 2 MG TABLET 5 MG PO (14:16)
--- NOTE | 2021-08-20 14:27 | PC.NURSE ---
Pt received: Pt AOX4 and offers c/o generalized abd pain. Heart sounds normal and lungs clear. Pt abd soft and non-tender. Pt denies N/V/D.
--- NOTE | 2021-08-20 14:29 | PC.NURSE ---
Pt received: Pt AOX4 and states after feeling some palpitations, she went to [facility] where she was noted to have irregular pulse. Baby ASN given prior to arrival. AFib with RVR noted on monitor. IVP cardizem given, pt remains in uncontrolled AFib, but improved HR. Lungs rhonchi and wet, moist cough. Pt abd soft and non-tender. Pt now receiving IV drip cardizem. Pt deneis any CP, SOB, N/V/D.
--- NOTE | 2021-08-20 14:52 | PM.IMHP ---
History of Present Illness Date of Service: 08/20/21 Chief Complaint: Palpitations 61-year-old female with a history of depression, anxiety, COPD, former smoking history, high cholesterol who is presenting to the ED with sob and palpitations. She has been having intermittent palpitations and SOB worse with exertion for the last 4 days and went to an Urgent care today and was advised to ED for further evaluation. ECG in the ED shows AFIB with RVR and this is new to her. She is given IV cardizem and heart rate remains high. She reports no fever or chills, no chest pain and no dizzness Review of Systems Review of Systems: Gen: no fever Resp: no sob, no cough CV: no chest, no MEDINA, no leg edema GI: No n/v, no abd pain Neuro: No confusion Yes all other systems are reviewed and are negative [facility] Medical History Depression GERD (gastroesophageal reflux disease) Graves disease History of COPD HLD (hyperlipidemia) Family History Father CVD (cardiovascular disease) Hypertension Mother CVA (cerebral vascular accident) Paternal Grandmother Breast cancer Surgical History H/O foot surgery History of ankle surgery History of back surgery History of carotid endarterectomy History of salpingectomy History of surgery on right wrist Hx of colonoscopy Hx of rotator cuff surgery Social History Housing: House Patient Tobacco Use Status: Never used Tobacco e-Cigarette/Vaping Use: Never Used Advance Directives: No Advance Directives Information Provided: No Patient : No service: No Current occupational status: employed 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 Current occupational exposures/hazards: No Cognitive needs: No Hearing needs: No Vision needs: No Meds Allergies Allergy/AdvReac Type Severity Reaction Status Date / Time No Known Allergies Allergy Verified 08/20/21 12:16 Active Medications: Current Medications Acetaminophen (Acetaminophen 325 Mg Tablet) 650 mg PO Q6H PRN PRN Reason: Pain, Mild (Pain Scale 1-3) Aspirin (Aspirin Enteric Coated 81 Mg Tablet.Dr) 81 mg PO DAILY [facility] Furosemide (Furosemide 40 Mg Tablet) 40 mg PO DAILY PRN; Protocol PRN Reason: edema Diltiazem HCl 125 mg/ Sodium (Chloride) 125 mls @ 0 mls/hr IVCONT .Q0M SYLWIA; Protocol Last Admin: 08/20/21 14:16 Dose: 5 mg/hr, 5 mls/hr Documented by: Lorazepam (Lorazepam 1 Mg Tablet) 1 mg PO BEDTIME PRN PRN Reason: anxiety Magnesium Hydroxide (Milk Of Magnesia 30 Ml Oral.Susp) 30 ml PO DAILY PRN PRN Reason: Constipation Melatonin (Melatonin 3 Mg Tablet) 6 mg PO BEDTIME PRN PRN Reason: Insomnia Non-Formulary Medication (Meloxicam) 15 mg PO DAILY [facility] Non-Formulary Medication (Ropinirole) 5 mg PO DAILY@1230 [facility] Non-Formulary Medication (Rosuvastatin) 20 mg PO DAILY [facility] Omeprazole (Omeprazole 20 Mg Capsule.Dr) 20 mg PO DAILY [facility] Ondansetron HCl (Ondansetron Hcl 4 Mg/2 Ml Vial) 4 mg IVPUSH Q8H PRN PRN Reason: Nausea and Vomiting Pharmacy Consult (Consult Rx Perform Med Rec) 1 each MISCELLANE ONCE PRN PRN Reason: Consult order Quetiapine Fumarate (Quetiapine Fumarate 50 Mg Tablet) 50 mg PO BEDTIME [facility] Sertraline HCl (Sertraline Hcl 50 Mg Tablet) 50 mg PO DAILY [facility] Sodium Chloride (0.9 % Sodium Chloride Flush 3 Ml Syringe) 3 ml IVFLUSH QSHIFT SYLWIA Valacyclovir HCl (Valacycyclovir Hcl 500 Mg Tablet) 500 mg PO DAILY PRN PRN Reason: cold sores Home Medications Medication Instructions Recorded Confirmed Last Taken Type aspirin 81 mg tablet,delayed 81 mg PO DAILY 06/13/20 08/20/21 Unknown History release quetiapine 50 mg tablet 50 mg PO BEDTIME 08/20/21 08/20/21 Unknown History ropinirole 5 mg tablet 5 mg PO DAILY@1230 08/20/21 08/20/21 Unknown History sertraline 100 mg tablet 50 mg PO DAILY 08/20/21 08/20/21 Unknown History Physical Exam Vital Signs and Narrative: Vital Signs: Last Vital Signs Temp 98.1 F 08/20/21 12:31 Pulse 106 H 08/20/21 14:21 Resp 20 08/20/21 14:21 BP 156/81 H 08/20/21 14:21 Pulse Ox 97 08/20/21 14:21 BMI result Body Mass Index 29.4 Const: Other: Constitutional: Alert, in no distress, Mental Status: Oriented to person, place and time. Eyes: Pupils are equal, Ear, Nose and Throat:no deformity, trachea midline Respiratory: Clear to auscultation. No wheezing, rales or rhonchi. Cardiovascular: S1 S2 ireregular. No murmurs, rubs or gallops. Gastrointestinal: Abdomen soft, non-tender, non-distended. Normal bowel sounds.? Neurologic: Cranial nerves II-XII grossly intact. No focal neurological deficits. Moves all extremities spontaneously.? Skin: No rashes or lesions.? Musculoskeletal: No cyanosis or clubbing. Psychiatric: Normal mood and affect? Results Labs CBC and Chem 7: 08/20/21 12:48 08/20/21 12:48 Labs: Laboratory Results - last 24 hr 08/20/21 08/20/21 08/20/21 12:48 12:48 12:48 MCV 90.6 MCH 30.0 MCHC 33.1 RDW 13.5 Plt Count 310 MPV 10.6 Immature Gran % (Auto) 0.2 Neut % (Auto) 67.7 Lymph % (Auto) 21.5 Cavalier % (Auto) 9.3 Eos % (Auto) 0.7 Baso % (Auto) 0.6 Lymph # (Auto) 2.7 Cavalier # (Auto) 1.2 Eos # (Auto) 0.1 Baso # (Auto) 0.1 Abs Immat Gran (auto) 0.03 Absolute Neuts (auto) 8.6 H Absolute Nucleated RBC 0.000 Nucleated RBC % (auto) 0.0 PT 12.9 INR 1.1 Anion Gap 13 Estim Creat Clear Calc 114.5 Estimated GFR > 60 Random Glucose 115 Calcium 10.0 D Magnesium 1.8 Total Bilirubin 0.6 Direct Bilirubin 0.3 AST 29 ALT 25 Alkaline Phosphatase 71 Total Protein 6.6 Albumin 4.0 COVID-19 ([facility]) COVID-19 Clin Com 08/20/21 12:52 MCV MCH MCHC RDW Plt Count MPV Immature Gran % (Auto) Neut % (Auto) Lymph % (Auto) Cavalier % (Auto) Eos % (Auto) Baso % (Auto) Lymph # (Auto) Cavalier # (Auto) Eos # (Auto) Baso # (Auto) Abs Immat Gran (auto) Absolute Neuts (auto) Absolute Nucleated RBC Nucleated RBC % (auto) PT INR Anion Gap Estim Creat Clear Calc Estimated GFR Random Glucose Calcium Magnesium Total Bilirubin Direct Bilirubin AST ALT Alkaline Phosphatase Total Protein Albumin COVID-19 ([facility]) Negative COVID-19 Clin Com See Note Imaging Radiologist's Impressions: Impressions Chest X-Ray 08/20/21 13:02 IMPRESSION: No new focal consolidation. Opacity projected over the left mid lung overlying the rib, appearing slightly more prominent as compared to the prior radiograph, could be related to overlapping densities overlying the underlying rib abnormality rather than airspace disease. Recommend short-term follow-up imaging for reassessment. Assessment and Plan (1) Atrial fibrillation: Status: Acute Plan 61/F with HLD, graves disease here with new onset of AFIB with RVR with symptoms of shortness of breath 1/New AFIB with RVR--IV cardiazem, check TSH, to get Echo tomorroow, cardiology consult, start anticoagulation with eliquis. Cardiology consult 2/ HLD--continue statin 3/Depression Seroquel, Sertraline 4/GERD--PPI 5/ Not sure why she is on lasix no signs of symptoms of heart failure Quality Stroke Does the patient have a stroke diagnosis?: No VTE Prior VTE?: No VTE Risk Level:: Medical - moderate - high VTE Device Contraindication: Treatment Not Indicated VTE Drug Contraindication: N/A - Med Ordered
[2021-08-20 15:24] LABS: Thyroid Stimulating Hormone < 0.01 uIU/mL (0.32-4.0)
[2021-08-20] MEDS: QUEtiapine Fumarate 50 MG TABLET PO (21:29)
[2021-08-20] MEDS: Apixaban 5 MG TABLET PO (21:29)
[2021-08-21] VITALS (7 sets, daily range): BP systolic 95–132; BP diastolic 62–85; PULSE 86–107; RESP 16–24; TEMP 36.6–36.7; O2SAT 94–97
--- NOTE | 2021-08-21 07:34 | PC.NURSE ---
Pt received from night shft: Pt AOX4 and offers no complaints. AFib noted and lungs diminished. Pt abd soft and non-tedner.
[2021-08-21] MEDS: Omeprazole 20 MG CAPSULE.DR PO (07:40)
[2021-08-21] MEDS: Aspirin Enteric Coated 81 MG TABLET.DR PO (09:08)
[2021-08-21] MEDS: Metoprolol Tartrate 25 MG TABLET PO ×3 (09:08→20:27)
[2021-08-21] MEDS: Apixaban 5 MG TABLET PO ×2 (09:09→20:28)
[2021-08-21] MEDS: NaPROXEN 500 MG TABLET PO ×2 (09:09→20:27)
[2021-08-21] MEDS: Sertraline HCL 50 MG TABLET PO (09:09)
--- NOTE | 2021-08-21 09:54 | P.CONCA_ITS ---
History of Present Illness History of Present Illness Date of Service: 08/21/21 Requesting physician: Marco [facility] Consult reason: atrial fibrillation and shortness of breath Chief complaint: new afib Narrative: I was consulted to see Matilde in cardiology consultation today for new onset atrial fibrillation. 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 She then decided to take her pulse and she was noted to be rapid and irregular. She therefore was advised by client to go to urgent care but urgent care said she should go to the emergency room via ambulance. Her brought with ambulance. She was note d to be in atrial fibrillation rapid ventricular response. She was then given medications to slower down. The symptoms have improved. However she says while walking to the bathroom status still gets short of breath. Denies any chest pain, lightheadedness, syncope. She says however she has been short of breath for about a week, associated with some wheezing at nighttime when she is lying down. She has no leg edema, abdominal distension, PND. She also has dry cough nonproductive of phlegm. No fever or chills at home. She has prior history of mild bilateral carotid disease. No history of hypertension, diabetes, stroke, heart attack. Review of Systems Constitutional: Constitutional: Reports no additional constitutional complaints Eyes: Eyes: Reports no additional eye complaints Cardiovascular: Cardiovascular: Denies chest pain, Denies syncope, Reports rapid heart rate, Reports irregular heart rhythm, Denies lightheadedness, Denies Loss of Consciousness, Reports palpitations, Reports dyspnea and Reports dyspnea on exertion Respiratory: Respiratory: Reports cough, Reports dyspnea and Reports dyspnea on exertion Gastrointestinal: Gastrointestinal: Reports no additional gastrointestinal complaints Genitourinary: Genitourinary: Reports no additional female genitourinary complaints Musculoskeletal: Musculoskeletal: Reports no additional musculoskeletal complaints Integumentary/Breasts: Skin/Breast: Reports system reviewed and no additional complaints, except as docu Neurologic: Reports system reviewed and no additional complaints, except as documented and Denies syncope Psychiatric: Psychiatric: Reports no additional psychiatric complaints Endocrine: Endocrine: Reports no additional endocrine complaints and Reports palpitations Hematologic/Lymphatic: Hematologic/Lymphatic: Reports no additional hematologic/lymphatic complaints PMFSH Past Medical History Medical History Depression GERD (gastroesophageal reflux disease) Graves disease History of COPD HLD (hyperlipidemia) Family History Family History Father CVD (cardiovascular disease) Hypertension Mother CVA (cerebral vascular accident) Paternal Grandmother Breast cancer Surgical History Surgical History H/O foot surgery History of ankle surgery History of back surgery History of carotid endarterectomy History of salpingectomy History of surgery on right wrist Hx of colonoscopy Hx of rotator cuff surgery Social History Social History Housing: House Patient Tobacco Use Status: Never used Tobacco e-Cigarette/Vaping Use: Never Used Advance Directives: No Advance Directives Information Provided: No Patient : No service: No Current occupational status: employed 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 Current occupational exposures/hazards: No Cognitive needs: No Hearing needs: No Vision needs: No Meds Allergies Allergy/AdvReac Type Severity Reaction Status Date / Time No Known Allergies Allergy Verified 08/20/21 12:16 Active Medications: Current Medications Acetaminophen (Acetaminophen 325 Mg Tablet) 650 mg PO Q6H PRN PRN Reason: Pain, Mild (Pain Scale 1-3) Apixaban (Apixaban 5 Mg Tablet) 5 mg PO BID [facility] Last Admin: 08/21/21 09:09 Dose: 5 mg Documented by: Aspirin (Aspirin Enteric Coated 81 Mg Tablet.) 81 mg PO DAILY [facility] Last Admin: 08/21/21 09:08 Dose: 81 mg Documented by: Atorvastatin Calcium (Atorvastatin Calcium 80 Mg Tablet) 80 mg PO BEDTIME [facility] Furosemide (Furosemide 40 Mg Tablet) 40 mg PO DAILY PRN; Protocol PRN Reason: edema Diltiazem HCl 125 mg/ Sodium (Chloride) 125 mls @ 0 mls/hr IVCONT .Q0M [facility]; Protocol Last Titration: 08/21/21 00:30 Dose: 0 mg/hr, 0 mls/hr Documented by: Lorazepam (Lorazepam 1 Mg Tablet) 1 mg PO BEDTIME PRN PRN Reason: anxiety Magnesium Hydroxide (Milk Of Magnesia 30 Ml Oral.Susp) 30 ml PO DAILY PRN PRN Reason: Constipation Melatonin (Melatonin 3 Mg Tablet) 6 mg PO BEDTIME PRN PRN Reason: Insomnia Metoprolol Tartrate (Metoprolol Tartrate 25 Mg Tablet) 25 mg PO TID [facility]; Protoc ol Last Admin: 08/21/21 09:08 Dose: 25 mg Documented by: Naproxen (Naproxen 500 Mg Tablet) 500 mg PO BID [facility] Last Admin: 08/21/21 09:09 Dose: 500 mg Documented by: Omeprazole (Omeprazole 20 Mg Capsule.Dr) 20 mg PO DAILY@0630 [facility] Last Admin: 08/21/21 07:40 Dose: 20 mg Documented by: Ondansetron HCl (Ondansetron Hcl 4 Mg/2 Ml Vial) 4 mg IVPUSH Q8H PRN PRN Reason: Nausea and Vomiting Pharmacy Consult (Consult Rx Perform Med Rec) 1 each MISCELLANE ONCE PRN PRN Reason: Consult order Quetiapine Fumarate (Quetiapine Fumarate 50 Mg Tablet) 50 mg PO BEDTIME [facility] Last Admin: 08/20/21 21:29 Dose: 50 mg Documented by: Ropinirole HCl (Ropinirole Hcl 2 Mg Tablet) 5 mg PO DAILY@1230 [facility] Sertraline HCl (Sertraline Hcl 50 Mg Tablet) 50 mg PO DAILY [facility] Last Admin: 08/21/21 09:09 Dose: 50 mg Documented by: Sodium Chloride (0.9 % Sodium Chloride Flush 3 Ml Syringe) 3 ml IVFLUSH QSHIFT [facility] Last Admin: 08/21/21 07:13 Dose: Not Given Documented by: Valacyclovir HCl (Valacycyclovir Hcl 500 Mg Tablet) 500 mg PO DAILY PRN PRN Reason: cold sores Home Medications Medication Instructions Recorded Confirmed Last Taken Type aspirin 81 mg tablet,delayed 81 mg PO DAILY 06/13/20 08/20/21 Unknown History release quetiapine 50 mg tablet 50 mg PO BEDTIME 08/20/21 08/20/21 Unknown History ropinirole 5 mg tablet 5 mg PO DAILY@1230 08/20/21 08/20/21 Unknown History sertraline 100 mg tablet 50 mg PO DAILY 08/20/21 08/20/21 Unknown History Physical Exam Vital Signs: Vital Signs: Last Vital Signs Temp 98.1 F 08/21/21 05:28 Pulse 96 08/21/21 07:34 Resp 18 08/21/21 07:34 BP 128/83 08/21/21 07:34 Pulse Ox 96 08/21/21 07:34 BMI result Body Mass Index 29.4 Const: General: cooperative, comfortable, no acute distress, well developed, a lert and awake Nutritional Appearance: overweight Orientat ion/consciousness: patient oriented x3 Limitations: no limitations HENMT: Head: Yes normocephalic and Yes atraumatic Neck: Neck: Yes trachea midline, Yes supple and Yes no JVD Chest: Chest palpation & inspection: normal inspection of the chest Resp: Effort & Inspection: normal respiratory effort Auscultation: clear to auscultation bilaterally Cardio: Jugular venous distension: no JVD Palpation: normal PMI Rate: regular rate Rhythm: abnormal rhythm irregularly irregular Heart sounds: S1 normal heart sound present, S2 normal heart sound present, no click, no gallops, no murmurs and no rubs GI: Auscultation: normal bowel sounds Skin: General skin exam: no rashes or lesions noted Neuro: General: patient oriented x3 and no focal motor deficits Extrem: General: Yes no clubbing, cyanosis or edema Psych: Appearance: grossly normal Objective Labs and Meds Result diagrams: 08/20/21 12:48 08/20/21 12:48 Lab results: Laboratory Results - last 24 hr 08/20/21 08/20/21 08/20/21 12:48 12:48 12:48 WBC 12.6 H RBC 4.17 L Hgb 12.5 Hct 37.8 MCV 90.6 MCH 30.0 MCHC 33.1 RDW 13.5 Plt Count 310 MPV 10.6 Immature Gran % (Auto) 0.2 Neut % (Auto) 67.7 Lymph % (Auto) 21.5 Love % (Auto) 9.3 Eos % (Auto) 0.7 Baso % (Auto) 0.6 Lymph # (Auto) 2.7 Love # (Auto) 1.2 Eos # (Auto) 0.1 Baso # (Auto) 0.1 Abs Immat Gran (auto) 0.03 Absolute Neuts (auto) 8.6 H Absolute Nucleated RBC 0.000 Nucleated RBC % (auto) 0.0 PT 12.9 INR 1.1 Sodium 138 Potassium 4.1 Chloride 107 Carbon Dioxide 22 Anion Gap 13 BUN 15 Creatinine 0.63 Estim Creat Clear Calc 114.5 Estimated GFR > 60 Random Glucose 115 Calcium 10.0 D Magnesium 1.8 Total Bilirubin 0.6 Direct Bilirubin 0.3 AST 29 ALT 25 Alkaline Phosphatase 71 Troponin I High Sens Total Protein 6.6 Albumin 4.0 TSH < 0.01 L COVID-19 ([facility]) COVID-19 Clin Com 08/20/21 08/20/21 12:48 12:52 WBC RBC Hgb Hct MCV MCH MCHC RDW Plt Count MPV Immature Gran % (Auto) Neut % (Auto) Lymph % (Auto) Love % (Auto) Eos % (Auto) Baso % (Auto) Lymph # (Auto) Love # (Auto) Eos # (Auto) Baso # (Auto) Abs Immat Gran (auto) Absolute Neuts (auto) Absolute Nucleated RBC Nucleated RBC % (auto) PT INR Sodium Potassium Chloride Carbon Dioxide Anion Gap BUN Creatinine Estim Creat Clear Calc Estimated GFR Random Glucose Calcium Magnesium Total Bilirubin Direct Bilirubin AST ALT Alkaline Phosphatase Troponin I High Sens 13.1 Total Protein Albumin TSH COVID-19 ([facility]) Negative COVID-19 Clin Com See Note Imaging Radiologist's impression: Impressions Chest X-Ray 08/20/21 13:02 IMPRESSION: No new focal consolidation. Opacity projected over the left mid lung overlying the rib, appearing slightly more prominent as compared to the prior radiograph, could be related to overlapping densities overlying the underlying rib abnormality rather than airspace disease. Recommend short-term follow-up imaging for reassessment. Assessment and Plan (1) Atrial fibrillation: Status: Acute Symptomatic new onset atrial fibrillation rapid ventricular response this symptoms of sudden-onset shortness of breath. No overt signs of congestive heart failure at this point in time. No signs of acute myocardial damage as well with rapid heart rate. Symptoms clearly only appear to be secondary to atrial fibrillation. She has been symptomatic for about a week with increasing shortness with exertion with some wheezing COPD exacerbation however she does not have any bronchospasm on today's exam. Rate is better controlled his symptoms are better controlled. However given that persistent shortness of was exertion going to the bathroom most likely related to loss of AV synchrony. She has been started on oral anticoagulation with Eliquis and got her 1st dose last night. Continue Eliquis 5 mg b.i.d.. Continue current rate control with metoprolol. Increased to 25 mg p.o. q.6 hours. Echocardiogram today. However I think patient will benefit from conversion to sinus rhythm. Exact duration of atrial fibrillation is unclear, appears to be clinically started yesterday ho wever she is not sure and could have been about a week ago when she started noticing exertional shortness of breath. However prior to cardioversion she will require a KRISHAN to rule out intracardiac thrombi. This was discussed with her. We discussed about risks, benefits, alternatives to the procedure. She understands and agrees. Will keep her NPO today and try to perform this later today. Will continue to follow with the patient. Thank you for allowing me to partake in the care Procedures Date of Service Date of Service: 08/21/21
--- NOTE | 2021-08-21 10:41 | PC.NURSE ---
Called made SSS to verify estimated time of cardioversion. SSS states it will be after 1600 as pt had breakfast this morning. Pt still pending KRISHAN and ECHO prior to. RN will continue to monitor. Until then, pt remains NPO.
--- NOTE | 2021-08-21 10:42 | P.PNIM_ITS ---
Subjective Subjective Date of Service: 08/21/21 Interval History: Seen in follow-up for AFib with RVR. Persistent atrial fibrillation rapid ventricular response although heart rate has improved overnight On IV Cardizem Review of Systems no chest, no palpitation, no fever no shortness Physical Exam Vital Signs: Vital Signs: Last Vital Signs Temp 98.1 F 08/21/21 05:28 Pulse 96 08/21/21 07:34 Resp 18 08/21/21 07:34 BP 128/83 08/21/21 07:34 Pulse Ox 96 08/21/21 07:34 BMI result Body Mass Index 29.4 Const: Other: General: AO X 3, no acute distress Resp: CTA bilateral CVS: S1,S2, irregular irregular GI: +BS, NT, no distention Skin: No rash Neuro: motor grossly intact Psych: appropriate affect Objective Data Active Medications Acetaminophen (Acetaminophen 325 Mg Tablet) 650 mg PO Q6H PRN PRN Reason: Pain, Mild (Pain Scale 1-3) Apixaban (Apixaban 5 Mg Tablet) 5 mg PO BID [facility] Last Admin: 08/21/21 09:09 Dose: 5 mg Documented by: HELENA Aspirin (Aspirin Enteric Coated 81 Mg Tablet.) 81 mg PO DAILY [facility] Last Admin: 08/21/21 09:08 Dose: 81 mg Documented by: HELENA Atorvastatin Calcium (Atorvastatin Calcium 80 Mg Tablet) 80 mg PO BEDTIME SYLWIA Furosemide (Furosemide 40 Mg Tablet) 40 mg PO DAILY PRN; Protocol PRN Reason: edema Diltiazem HCl 125 mg/ Sodium (Chloride) 125 mls @ 0 mls/hr IVCONT .Q0M [facility]; Protocol Last Titration: 08/21/21 00:30 Dose: 0 mg/hr, 0 mls/hr Documented by: DORIS Lorazepam (Lorazepam 1 Mg Tablet) 1 mg PO BEDTIME PRN PRN Reason: anxiety Magnesium Hydroxide (Milk Of Magnesia 30 Ml Oral.Susp) 30 ml PO DAILY PRN PRN Reason: Constipation Melatonin (Melatonin 3 Mg Tablet) 6 mg PO BEDTIME PRN PRN Reason: Insomnia Metoprolol Tartrate (Metoprolol Tartrate 25 Mg Tablet) 25 mg PO TID [facility]; Protocol Last Admin: 08/21/21 09:08 Dose: 25 mg Documented by: HELENA Naproxen (Naproxen 500 Mg Tablet) 500 mg PO BID [facility] Last Admin: 08/21/21 09:09 Dose: 500 mg Documented by: HELENA Omeprazole (Omeprazole 20 Mg Capsule.Dr) 20 mg PO DAILY@0630 [facility] Last Admin: 08/21/21 07:40 Dose: 20 mg Documented by: HELENA Ondansetron HCl (Ondansetron Hcl 4 Mg/2 Ml Vial) 4 mg IVPUSH Q8H PRN PRN Reason: Nausea and Vomiting Pharmacy Consult (Consult Rx Perform Med Rec) 1 each MISCELLANE ONCE PRN PRN Reason: Consult order Quetiapine Fumarate (Quetiapine Fumarate 50 Mg Tablet) 50 mg PO BEDTIME [facility] Last Admin: 08/20/21 21:29 Dose: 50 mg Documented by: DORIS Ropinirole HCl (Ropinirole Hcl 2 Mg Tablet) 5 mg PO DAILY@1230 [facility] Sertraline HCl (Sertraline Hcl 50 Mg Tablet) 50 mg PO DAILY [facility] Last Admin: 08/21/21 09:09 Dose: 50 mg Documented by: HELENA Sodium Chloride (0.9 % Sodium Chloride Flush 3 Ml Syringe) 3 ml IVFLUSH QSHIFT [facility] Last Admin: 08/21/21 07:13 Dose: Not Given Documented by: HELENA Non-Admin Reason: Med Not Available Valacyclovir HCl (Valacycyclovir Hcl 500 Mg Tablet) 500 mg PO DAILY PRN PRN Reason: cold sores Labs CBC & Chem 7: 08/20/21 12:48 08/20/21 12:48 Labs: Laboratory Results - last 24 hr 08/20/21 08/20/21 08/20/21 12:48 12:48 12:48 MCV 90.6 MCH 30.0 MCHC 33.1 RDW 13.5 Plt Count 310 MPV 10.6 Immature Gran % (Auto) 0.2 Neut % (Auto) 67.7 Lymph % (Auto) 21.5 [place] % (Auto) 9.3 Eos % (Auto) 0.7 Baso % (Auto) 0.6 Lymph # (Auto) 2.7 [place] # (Auto) 1.2 Eos # (Auto) 0.1 Baso # (Auto) 0.1 Abs Immat Gran (auto) 0.03 Absolute Neuts (auto) 8.6 H Absolute Nucleated RBC 0.000 Nucleated RBC % (auto) 0.0 PT 12.9 INR 1.1 Anion Gap 13 Estim Creat Clear Calc 114.5 Estimated GFR > 60 Random Glucose 115 Calcium 10.0 D Magnesium 1.8 Total Bilirubin 0.6 Direct Bilirubin 0.3 AST 29 ALT 25 Alkaline Phosphatase 71 Total Protein 6.6 Albumin 4.0 TSH < 0.01 L COVID-19 ([facility]) COVID-19 Clin Com 08/20/21 12:52 MCV MCH MCHC RDW Plt Count MPV Immature Gran % (Auto) Neut % (Auto) Lymph % (Auto) [place] % (Auto) Eos % (Auto) Baso % (Auto) Lymph # (Auto) [place] # (Auto) Eos # (Auto) Baso # (Auto) Abs Immat Gran (auto) Absolute Neuts (auto) Absolute Nucleated RBC Nucleated RBC % (auto) PT INR Anion Gap Estim Creat Clear Calc Estimated GFR Random Glucose Calcium Magnesium Total Bilirubin Direct Bilirubin AST ALT Alkaline Phosphatase Total Protein Albumin TSH COVID-19 ([facility]) Negative COVID-19 Clin Com See Note Assessment and Plan (1) Atrial fibrillation: Status: Acute (2) Hyperthyroidism: Status: Acute Plan 61/F with HLD, graves disease here with new onset of AFIB with RVR with symptoms of shortness of breath #New AFIB with RVR--IV cardiazem, start Meoprolol , to get Echo today, anticoagulation with eliquis. Cardiology to perform cardioversion later today. Keep NPO #Supressed TSH <0.01 (Hyperthyroidism), check FT4, could be trigering afib # HLD--continue statin #Depression Seroquel, Sertraline #GERD--PPI # Not sure why she is on lasix no signs of symptoms of heart failure Quality Stroke Does the patient have a stroke diagnosis?: No VTE Prior VTE?: No VTE Risk Level:: Medical - moderate - high VTE Device Contraindication: Treatment Not Indicated VTE Drug Contraindication: N/A - Med Ordered
[2021-08-21 11:44] LABS: Free T4 (Free Thyroxine) 2.73 ng/dL (0.71-1.85)
--- NOTE | 2021-08-21 12:22 | MHC.CM.PN ---
PT REPORTS SHE LIVES AT HOME WITH HER AND IS INDEPENDENT WITH CARE PT DENIES USE OF DME OR HOME/COMMUNITY SERVICES PT REPORTS SHE HAS A HCP SHE BELIEVES IN ON FILE, NAMING HER , ESEQUIEL, HER AGENT PT CONFIRMS HER PCP IS NIRAJ MORA PT REPORTS SHE IS VACCINATED AGAINST COVID-19 WITH MODERNA X 3 IMM DELIVERED, COPY SENT TO [facility] CURRENT DC PLAN IS HOME WITH NO SERVICES TO TRANSPORT
[2021-08-21] MEDS: rOPINIRole HCL 2 MG TABLET 5 MG PO (12:37)
--- NOTE | 2021-08-21 14:12 | PC.NURSE ---
Called received from MD Newell that pt will no longer be having a cardioversion, due to scheduling conflict. Pt no longer needing to be NPO. Pt made aware. Order for diet changed.
--- NOTE | 2021-08-21 16:15 | PC.NURSE ---
Pt A&Ox3, LCA, A fib on the monitor, no complaints of CP/SOB at this time. Pt ambulatory with no assistance. Plan for NPO at midnight and cardioversion tomorrow. Call calabrese within reach. Will continue to monitr.
[2021-08-21] MEDS: QUEtiapine Fumarate 50 MG TABLET PO (20:27)
[2021-08-21] MEDS: Atorvastatin Calcium 80 MG TABLET PO (20:28)
[2021-08-21] MEDS: 0.9 % Sodium Chloride Flush 3 ML SYRINGE IVFLUSH (22:46)
[2021-08-22] VITALS (10 sets, daily range): BP systolic 85–122; BP diastolic 51–75; PULSE 72–109; RESP 16–20; TEMP 36.3–36.8; O2SAT 93–98
--- NOTE | 2021-08-22 04:56 | PC.NURSE ---
This rn took over patient's care at 1900. Patient is alert and oriented x3, offers no complaints at this time. L/s clear, abd soft, vital signs stable. Patient ambulates to bathroom independently with steady gait, reports mild sob with ambulation. Patient aware of plan for npo at midnight 08/22, plan for cardioversion 08/22. Call calabrese within reach.
[2021-08-22] MEDS: Omeprazole 20 MG CAPSULE.DR PO (05:59)
--- NOTE | 2021-08-22 06:20 | PC.NURSE ---
Short stay called for report, report given to short stay rn, plan for patient to go to short stay at 0700. Patient updated
[2021-08-22] MEDS: Lactated Ringers 1,000 ML 50 ML IVCONT (07:16)
--- NOTE | 2021-08-22 07:17 | PC.NURSE ---
Pt off unit at short stay for cardioversion at this time.
--- NOTE | 2021-08-22 07:37 | HO.ANESPROP2 ---
HPI - Anesthesia Eval Consult details Narrative: New Onset A-fib PMFSH Active Problems Active Problems: All Active Problems (Updated 08/21/21 @ 10:54 by Marco Newell MD) Hyperthyroidism (Acute) Atrial fibrillation (Acute) Depression with anxiety (Acute) Shoulder pain (Acute) Right knee pain (Acute) Acne (Acute) Rash (Acute) Ringworm (Acute) Varicose veins of left lower extremity with inflammation (Acute) Varicose veins of right lower extremity with inflammation (Acute) Bilateral carotid artery stenosis (Acute) Herpes zoster infection of oral mucosa (Acute) Arthritis of shoulder region, right, degenerative (Acute) Impingement syndrome of right shoulder (Acute) Abscess (Acute) Furuncle, unspecified (Acute) Cough (Acute) Low back pain (Acute) Preop cardiovascular exam (Acute) Graves disease (Acute) Hammer toe of left foot (Acute) Plantar wart of both feet (Acute) Bilateral bunions (Acute) Foot pain, bilateral (Acute) Cellulitis of arm (Acute) Past Medical History Medical History Depression GERD (gastroesophageal reflux disease) Graves disease History of COPD HLD (hyperlipidemia) Family History Family History Father CVD (cardiovascular disease) Hypertension Mother CVA (cerebral vascular accident) Paternal Grandmother Breast cancer Family history of problems with anesthesia: No Surgical History Surgical History H/O foot surgery History of ankle surgery History of back surgery History of carotid endarterectomy History of salpingectomy History of surgery on right wrist Hx of colonoscopy Hx of rotator cuff surgery History of Problems with Anesthesia: No Social History Social History Housing: House Patient Tobacco Use Status: Never used Tobacco e-Cigarette/Vaping Use: Never Used Second Hand Smoke Exposure: No Use of substances other than those prescribed or required for medical reasons: Yes Substance Use Frequency: Daily Are you DNR?: No Advance Directives: No Advance Directives Information Provided: No Advance Directives on File: No Patient : No : No service: No Current occupational status: employed 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 Current occupational exposures/hazards: No Cognitive needs: No Hearing needs: No Vision needs: No Meds Allergies Allergy/AdvReac Type Severity Reaction Status Date / Time No Known Allergies Allergy Verified 08/20/21 12:16 Active Medications: Current Medications Acetaminophen (Acetaminophen 325 Mg Tablet) 650 mg PO Q6H PRN PRN Reason: Pain, Mild (Pain Scale 1-3) Apixaban (Apixaban 5 Mg Tablet) 5 mg PO BID [facility] Last Admin: 08/21/21 20:28 Dose: 5 mg Documented by: Aspirin (Aspirin Enteric Coated 81 Mg Tablet.) 81 mg PO DAILY [facility] Last Admin: 08/21/21 09:08 Dose: 81 mg Documented by: Atorvastatin Calcium (Atorvastatin Calcium 80 Mg Tablet) 80 mg PO BEDTIME [facility] Last Admin: 08/21/21 20:28 Dose: 80 mg Documented by: Furosemide (Furosemide 40 Mg Tablet) 40 mg PO DAILY PRN; Protocol PRN Reason: edema Diltiazem HCl 125 mg/ Sodium (Chloride) 125 mls @ 0 mls/hr IVCONT .Q0M [facility]; Protocol Last Titration: 08/21/21 00:30 Dose: 0 mg/hr, 0 mls/hr Documented by: Lactated Ringer's (Lr) 1,000 mls @ 50 mls/hr IVCONT .Q20H [facility] Last Admin: 08/22/21 07:16 Dose: 50 mls/hr Documented by: Lorazepam (Lorazepam 1 Mg Tablet) 1 mg PO BEDTIME PRN PRN Reason: anxiety Magnesium Hydroxide (Milk Of Magnesia 30 Ml Oral.Susp) 30 ml PO DAILY PRN PRN Reason: Constipation Melatonin (Melatonin 3 Mg Tablet) 6 mg PO BEDTIME PRN PRN Reason: Insomnia Metoprolol Tartrate (Metoprolol Tartrate 25 Mg Tablet) 25 mg PO TID [facility]; Protocol Last Admin: 08/21/21 20:27 Dose: 25 mg Documented by: Naproxen (Naproxen 500 Mg Tablet) 500 mg PO BID [facility] Last Admin: 08/21/21 20:27 Dose: 500 mg Documented by: Omeprazole (Omeprazole 20 Mg Capsule.) 20 mg PO DAILY@0630 [facility] Last Admin: 08/22/21 05:59 Dose: 20 mg Documented by: Ondansetron HCl (Ondansetron Hcl 4 Mg/2 Ml Vial) 4 mg IVPUSH Q8H PRN PRN Reason: Nausea and Vomiting Pharmacy Consult (Consult Rx Perform Med Rec) 1 each MISCELLANE ONCE PRN PRN Reason: Consult order Quetiapine Fumarate (Quetiapine Fumarate 50 Mg Tablet) 50 mg PO BEDTIME [facility] Last Admin: 08/21/21 20:27 Dose: 50 mg Documented by: Ropinirole HCl (Ropinirole Hcl 2 Mg Tablet) 5 mg PO DAILY@1230 [facility] Last Admin: 08/21/21 12:37 Dose: 5 mg Documented by: Sertraline HCl (Sertraline Hcl 50 Mg Tablet) 50 mg PO DAILY [facility] Last Admin: 08/21/21 09:09 Dose: 50 mg Documented by: Sodium Chloride (0.9 % Sodium Chloride Flush 3 Ml Syringe) 3 ml IVFLUSH QSHIFT [facility] Last Admin: 08/21/21 22:46 Dose: 3 ml Documented by: Valacyclovir HCl (Valacycyclovir Hcl 500 Mg Tablet) 500 mg PO DAILY PRN PRN Reason: cold sores Home Medications Medication Instructions Recorded Confirmed Last Taken Type aspirin 81 mg tablet,delayed 81 mg PO DAILY 06/13/20 08/20/21 Unknown History release quetiapine 50 mg tablet 50 mg PO BEDTIME 08/20/21 08/20/21 Unknown History ropinirole 5 mg tablet 5 mg PO DAILY@1230 08/20/21 08/20/21 Unknown History sertraline 100 mg tablet 50 mg PO DAILY 08/20/21 08/20/21 Unknown History Exam Exam Date and Time: August 22, 2021 0737 Height,Weight and Vital Signs: Height 5 ft 10 in Weight 93.1 kg Last Vital Signs Temp 97.4 F 08/22/21 07:13 Pulse 109 H 08/22/21 07:13 Resp 16 08/22/21 07:13 BP 103/75 08/22/21 07:13 Pulse Ox 96 08/22/21 07:13 Pertinent Lab Results Pertinent Lab Results: Laboratory Tests 08/20/21 08/20/21 08/20/21 12:48 12:48 12:48 WBC 12.6 H RBC 4.17 L Hgb 12.5 Hct 37.8 MCV 90.6 MCH 30.0 MCHC 33.1 RDW 13.5 Plt Count 310 MPV 10.6 Immature Gran % (Auto) 0.2 Neut % (Auto) 67.7 Lymph % (Auto) 21.5 Island % (Auto) 9.3 Eos % (Auto) 0.7 Baso % (Auto) 0.6 Lymph # (Auto) 2.7 Island # (Auto) 1.2 Eos # (Auto) 0.1 Baso # (Auto) 0.1 Abs Immat Gran (auto) 0.03 Absolute Neuts (auto) 8.6 H Absolute Nucleated RBC 0.000 Nucleated RBC % (auto) 0.0 PT 12.9 INR 1.1 Sodium 138 Potassium 4.1 Chloride 107 Carbon Dioxide 22 Anion Gap 13 BUN 15 Creatinine 0.63 Estim Creat Clear Calc 114.5 Estimated GFR > 60 Random Glucose 115 Calcium 10.0 D Magnesium 1.8 Total Bilirubin 0.6 Direct Bilirubin 0.3 AST 29 ALT 25 Alkaline Phosphatase 71 Troponin I High Sens Total Protein 6.6 Albumin 4.0 TSH < 0.01 L Free T4 2.73 H COVID-19 ([facility]) COVID-19 [facility] Com 08/20/21 08/20/21 12:48 12:52 WBC RBC Hgb Hct MCV MCH MCHC RDW Plt Count MPV Immature Gran % (Auto) Neut % (Auto) Lymph % (Auto) Island % (Auto) Eos % (Auto) Baso % (Auto) Lymph # (Auto) Island # (Auto) Eos # (Auto) Baso # (Auto) Abs Immat Gran (auto) Absolute Neuts (auto) Absolute Nucleated RBC Nucleated RBC % (auto) PT INR Sodium Potassium Chloride Carbon Dioxide Anion Gap BUN Creatinine Estim Creat Clear Calc Estimated GFR Random Glucose Calcium Magnesium Total Bilirubin Direct Bilirubin AST ALT Alkaline Phosphatase Troponin I High Sens 13.1 Total Protein Albumin TSH Free T4 COVID-19 ([facility]) Negative COVID-19 Clin Com See Note Airway Mallampati Class: II TM Dist: >3cm Neck ROM: Full Loose/Missing/Broken Teeth: No Heart: irreg irreg s1s2 Lungs: cta b/l Assessment and Plan Final Anesthetic Review Family History of Problems with Anesthesia: No History of Problems with Anesthesia: No NPO: Yes ASA Class: III Final Preanesthetic Review: No Changes in Pt Med Stat, Meds/Allgs Chart Reviewed, Consent Obtained/Reviewed and Anes Risks/Benef Reviewed Patient Risk: Intermediate Procedure Risk: Intermediate Assessment/Block/Sedation in SS: Assess/Block/Sedation-SS Anesthetic Plan Anesthetic Plan: MAC: and Agree w/ Assess. and Plan Disposition: Standard PACU
--- NOTE | 2021-08-22 08:35 | ECG_ITS ---
Test Reason : post cardioversion Blood Pressure : / mmHG Vent. Rate : 076 BPM Atrial Rate : 076 BPM P-R Int : 178 ms QRS Dur : 080 ms QT Int : 386 ms P-R-T Axes : 068 -01 034 degrees QTc Int : 434 ms Normal sinus rhythm Normal ECG When compared with ECG of 20-AUG-2021 12:24, Sinus rhythm has replaced Atrial fibrillation Vent. rate has decreased BY [address] no longer depressed in Inferior leads Referred By: Javier Sharp Electronically Signed By:JAVIER SHARP MD
--- NOTE | 2021-08-22 09:16 | HO.CARDIVERS ---
Cardioversion Procedure Note Cardioversion Date of Procedure: 08/22/2021 Ordering Provider: Myself Performing Provider: Myself Indication for Procedure: Symptomatic persistent atrial fibrillation Pre-Op Diagnosis: Same Post-Op Diagnosis: Sinus rhythm Performed with Transesophageal Echo: Yes KRISHAN findings (if KRISHAN Performed): Details dictated separately. No intracardiac thrombi noted History: See my consult from yesterday Consent: Verbal and Written consent was obtained from the patient before starting and confirming oral anticoagulation use The patient was made aware of the risk of of synchronized cardioversion including risk, benefits, alternatives and 2nd opinion to the procedure. Procedure: After consent obtained, cardioversion pads were attached in AP configuration and the patient was sedated by the anesthesia team. Once adequate sedation achieved, patient was delivered 200 joules of biphasic synchronized energy in anteroposterior configuration Complications: None Impression: Successful conversion to sinus rhythm Recommendations: 1. 12 lead EKG 2. Continue full oral anticoagulation 3. If QTC on post conversion EKG is less than 500 millisecond start Multaq 400 mg b.i.d.. Repeat EKG after 1st dose of Multaq.
--- NOTE | 2021-08-22 09:18 | PM.PNCARD ---
Subjective Subjective Date of Service: 08/22/21 Principal diagnosis: Persistent atrial fibrillation Interval history: Patient remains in rate control atrial fibrillation but symptoms of shortness of breath with going to the bathroom. Heart rate also goes up to 130 beats per minute. No new other symptoms. No orthopnea, PND, chest pain, palpitations. No lightheadedness, syncope. No bleeding issues. Review of Systems Constitutional: Reports no additional constitutional complaints Cardiovascular: Denies rapid heart rate, Denies leg edema, Denies lightheadedness, Denies palpitations and Reports dyspnea on exertion Respiratory: Reports no additional respiratory complaints and Reports dyspnea on exertion Gastrointestinal: Reports no additional gastrointestinal complaints Genitourinary: Reports no additional female genitourinary complaints Skin/Breast: Reports system reviewed and no additional complaints, except as docu Reports system reviewed and no additional complaints, except as documented Endocrine: Denies palpitations Physical Exam Vital Signs: Last Vital Signs Temp 98.3 F 08/22/21 09:07 Pulse 73 08/22/21 09:07 Resp 18 08/22/21 09:07 BP 98/74 08/22/21 09:07 Pulse Ox 98 08/22/21 09:07 BMI result Body Mass Index 29.4 Const General: cooperative, comfortable, no acute distress, alert and awake Nutritional Appearance: overweight Orientation/consciousness: patient oriented x3 Neck Neck: Yes trachea midline, Yes supple and Yes no JVD Chest Chest palpation & inspection: normal inspection of the chest Resp Effort & Inspection: normal respiratory effort Auscultation: clear to auscultation bilaterally Cardio Jugular venous distension: no JVD Palpation: normal PMI Rate: regular rate Rhythm: regular rhythm Heart sounds: S1 normal heart sound present, S2 normal heart sound present, no click, no gallops, no murmurs and no rubs GI Auscultation: normal bowel sounds Skin General skin exam: no rashes or lesions noted Neuro General: patient oriented x3 and no focal motor deficits Extrem General: Yes no clubbing, cyanosis or edema Objective Labs and Meds Result diagrams: 08/20/21 12:48 08/20/21 12:48 Lab results: Laboratory Results - last 24 hr 08/20/21 12:48 Free T4 2.73 H Progress Note: A&P Assessment and plan (1) Atrial fibrillation: Status: Acute Assessment and Plan: New onset atrial fibrillation with symptoms with persistent atrial fibrillation. Status post KRISHAN guided cardioversion. Converted to sinus rhythm. Noted low TSH and elevated T4. This is suggestive of hyperthyroidism. There is no listed replacement therapy. Should consult endocrine for possible starting of medicines to control her hyperthyroidism such as methimazole. From cardiac perspective 12 lead EKG and if this does not show any significant QTC prolongation, start Multaq 400 mg b.i.d.. Continue full oral anticoagulation with Eliquis 5 mg b.i.d.. If repeat EKG later today after Multaq does is showing normal QTC interval can be discharged home. Will follow up as outpatient. Fall Risk Details Current Medications: Current Medications Acetaminophen (Acetaminophen 325 Mg Tablet) 650 mg PO Q6H PRN PRN Reason: Pain, Mild (Pain Scale 1-3) Acetaminophen (Acetaminophen 325 Mg Tablet) 650 mg PO ONCE PRN PRN Reason: Pain, Mild (Pain Scale 1-3) Apixaban (Apixaban 5 Mg Tablet) 5 mg PO BID [facility] Last Admin: 08/21/21 20:28 Dose: 5 mg Documented by: Atorvastatin Calcium (Atorvastatin Calcium 80 Mg Tablet) 80 mg PO BEDTIME [facility] Last Admin: 08/21/21 20:28 Dose: 80 mg Documented by: Furosemide (Furosemide 40 Mg Tablet) 40 mg PO DAILY PRN; Protocol PRN Reason: edema Diltiazem HCl 125 mg/ Sodium (Chloride) 125 mls @ 0 mls/hr IVCONT .Q0M [facility]; Protocol Last Titration: 08/21/21 00:30 Dose: 0 mg/hr, 0 mls/hr Documented by: Lactated Ringer's (Lr) 1,000 mls @ 50 mls/hr IVCONT .Q20H [facility] Last Infusion: 08/22/21 09:11 Dose: Infused Documented by: Lorazepam (Lorazepam 1 Mg Tablet) 1 mg PO BEDTIME PRN PRN Reason: anxiety Magnesium Hydroxide (Milk Of Magnesia 30 Ml Oral.Susp) 30 ml PO DAILY PRN PRN Reason: Constipation Melatonin (Melatonin 3 Mg Tablet) 6 mg PO BEDTIME PRN PRN Reason: Insomnia Metoprolol Tartrate (Metoprolol Tartrate 25 Mg Tablet) 25 mg PO TID [facility]; Protocol Last Admin: 08/21/21 20:27 Dose: 25 mg Documented by: Naproxen (Naproxen 500 Mg Tablet) 500 mg PO BID [facility] Last Admin: 08/21/21 20:27 Dose: 500 mg Documented by: Omeprazole (Omeprazole 20 Mg Capsule.Dr) 20 mg PO DAILY@0630 [facility] Last Admin: 08/22/21 05:59 Dose: 20 mg Documented by: Ondansetron HCl (Ondansetron Hcl 4 Mg/2 Ml Vial) 4 mg IVPUSH Q8H PRN PRN Reason: Nausea and Vomiting Ondansetron HCl (Ondansetron Hcl 4 Mg/2 Ml Vial) 4 mg IVPUSH ONCE PRN PRN Reason: Nausea and Vomiting Oxycodone HCl (Oxycodone Hcl Immed Release 5 Mg Tablet) 10 mg PO ONCE PRN PRN Reason: Pain, Severe (Pain Scale 7-10) Pharmacy Consult (Consult Rx Perform Med Rec) 1 each MISCELLANE ONCE PRN PRN Reason: Consult order Quetiapine Fumarate (Quetiapine Fumarate 50 Mg Tablet) 50 mg PO BEDTIME [facility] Last Admin: 08/21/21 20:27 Dose: 50 mg Documented by: Ropinirole HCl (Ropinirole Hcl 2 Mg Tablet) 5 mg PO DAILY@1230 [facility] Last Admin: 08/21/21 12:37 Dose: 5 mg Documented by: Sertraline HCl (Sertraline Hcl 50 Mg Tablet) 50 mg PO DAILY [facility] Last Admin: 08/21/21 09:09 Dose: 50 mg Documented by: Sodium Chloride (0.9 % Sodium Chloride Flush 3 Ml Syringe) 3 ml IVFLUSH QSHIFT [facility] Last Admin: 08/22/21 09:15 Dose: Not Given Documented by: Valacyclovir HCl (Valacycyclovir Hcl 500 Mg Tablet) 500 mg PO DAILY PRN PRN Reason: cold sores Time Spent With Patient Time: Total time spent is greater than 50% in coordination of care (as documented) at patient's floor/unit and/or counseling patient: Time with patient: 25 - 35 minutes Progress Note: Quality Stroke Does the patient have a stroke diagnosis?: No Procedures Date of Service Date of Service: 08/22/21
--- NOTE | 2021-08-22 10:04 | CA_ITS ---
Transesophageal Echocardiogram Patient (Last, First, Middle): Matilde Son M Gender: Female Date of : 1960 Age: 61 Procedure Date: 08/22/2021 Procedure Type: Transesophageal Echocardiogram Location: [facility] [place] Height: 177.8 cm Weight: 92.99 kg BSA: 2.11 m2 Heart Rate: bpm Review Scheduling Coordinator: DENYS Referring MD: Javier Sharp MD Network Security Engineer: Javier Sharp MD Symptoms: Pre cardioversion Conclusion: ??? 1. No left atrial or left atrial appendage thrombi or intracardiac shunting 2. Normal LV systolic function 3. No intracardiac vegetation or masses 4. Mild mitral regurgitation 5. Mild atherosclerotic changes noted in descending thoracic aorta 6. No gross pericardial effusion Findings Procedure Information Consent was obtained prior to the procedure. Pre KRISHAN oral cavity was checked and revealed mild overcrowding. The adult 3D probe was passed with no difficulty. Left Ventricle Normal left ventricular size, thickness, and systolic function. The visually estimated ejection fraction is between 55-60%. E/E prime ratio is <8, consistent with normal filling pressures. Right Ventricle Normal right ventricular cavity size and systolic function. Atria The left atrium is mildly dilated. There is no evidence of interatrial shunt. There is no evidence of a patent foramen ovale. Left atrium was identified in multiple view. Left atrium showed no filling defect suggestive clot. There was no significant smoke formation seen. Left atrial appendage was identified in multiple view. There was no significant smoke formation or clots seen. The left atrial appendage ejection velocity is noted to be greater than 40 cm risk for 2nd. The left upper, right upper and right lower pulmonary vein drain normally into the left atrium. The right atrium is normal in size. The right atrium was identified in multiple views.. The right atrium shows no significant clot formation or smoke formation seen. There is a very prominent eustachian valve which extends from the IVC RA junction attached to the interatrial septum, very uncommon, But a normal variant. right atrial appendage is identified with no clot formation seen. The interatrial septum is intact. the IVC and SVC drain normally into the right atrium. Aortic Valve Normal aortic valve structure and function. There is no aortic valve stenosis. There is no evidence of a mass on the aortic valve. There is no aortic valve regurgitation. Mitral Valve Normal mitral valve structure and function. There is no mitral valve prolapse. There is no mitral valve regurgitation. There is no mitral valve stenosis. There is no mass noted on the mitral valve. Pulmonic Valve The pulmonic valve is likely normal. There is trace pulmonic valve regurgitation. Tricuspid Valve Normal tricuspid valve structure. There is no evidence of tricuspid valve prolapse. There is trace tricuspid valve regurgitation. There is no evidence of a mass on the tricuspid valve. Great Vessels All visible segments of the aorta are normal in size. Small plaque is seen in the arch and descending thoracic aorta. Venous The inferior vena cava is normal in size. Pericardium/Pleural There is no evidence of pericardial effusion. Measurements Mitral Valve MV Pk E: 0.69 MV Decel Time: 119.00 E'Lateral: 11.30 E'Medial: 10.10 E/E' Med: 6.90 E/E' Lat: 6.10 PHT: 35.00 MVA PHT: 6.29 Decel [place]: 5.83 Diastolic Function MV Pk E: 0.69 E'Medial: 10.10 E/E' Med: 6.90 E' Laterial: 11.30 E/E' Lat: 6.10 Updated by Javier Sharp on 05:22 PM with Status of Final Javier Sharp MD electronically signed on 08/22/2021 5:22:31 PM with status of Final
[2021-08-22] MEDS: methIMAzole 10 MG TABLET 20 MG PO (10:11)
[2021-08-22] MEDS: Apixaban 5 MG TABLET PO (10:11)
[2021-08-22] MEDS: NaPROXEN 500 MG TABLET PO (10:11)
[2021-08-22] MEDS: Sertraline HCL 50 MG TABLET PO (10:11)
[2021-08-22] MEDS: Metoprolol Tartrate 25 MG TABLET PO ×2 (10:11→16:54)
--- NOTE | 2021-08-22 11:37 | PC.NURSE ---
Pt back from SSS, A&Ox4, rhonchi and wet cough present, pt is a smoker. NSR on monitor, no c/o pain or SOB or palpatations. Ambulates with no assistance. Call calabrese within reach. Will continue to monitor.
[2021-08-22] MEDS: rOPINIRole HCL 2 MG TABLET 5 MG PO (12:58)
[2021-08-22] MEDS: Dronedarone HCl 400 MG TABLET PO (12:58)
--- NOTE | 2021-08-22 13:30 | ECG_ITS ---
Test Reason : CP Blood Pressure : / mmHG Vent. Rate : 079 BPM Atrial Rate : 079 BPM P-R Int : 192 ms QRS Dur : 078 ms QT Int : 366 ms P-R-T Axes : 071 006 057 degrees QTc Int : 419 ms Normal sinus rhythm Normal ECG When compared with ECG of 22-AUG-2021 08:51, No significant change was found Referred By: Chetna Arellano Electronically Signed By:KINGS KRISHNAMURTHY MD
--- NOTE | 2021-08-22 16:17 | PM.DS ---
DS: Providers Provider Date of Service: 08/22/21 Date of admission: 08/20/21 14:47 Primary care physician: Mil Hadley MD Consults: 08/20/21 14:47 Consult to Cardiology Routine Consulting Provider: Javier Sharp Reason for consultation: New AFIB Has provider been notified: No DS: Diagnosis Discharge Diagnosis (1) Atrial fibrillation: Status: Acute DS: Summary Hospital Course Hospital Course: 61-year-old female with a history of depression, anxiety, COPD, former smoking history, high cholesterol who is presenting to the ED with sob and palpitations. She has been having intermittent palpitations and SOB worse with exertion for the last 4 days and went to an Urgent care today and was advised to ED for further evaluation. ECG in the ED shows AFIB with RVR and this is new to her. ? She is given IV cardizem and heart rate remains high. She reports no fever or chills, no chest pain and no dizzness. Hospital course: Patient came to the hospital because of afib with rvr and started on IV cardizem , po metoprolol-her heart rate was fluctuating and subsequently seen by Cardiology and required cardioversion-afterwards her heart rate seems to be improved regular: Started medication Multaq- qtc seems in 430's after multaq and started on Eliquis for stroke prevention. In addition patient has history of hyperthyroidism(Graves disease): She said she was on for her methimazole-she she did not follow-up with her natural resources extension educator Dr. Partida: Discussed with Dr. Cornejo office: Recommended to start methimazole back-monitor CBC, BMP, LFT, TSH, free T4 outpatiently. Above management discussed with the patient in detail length her and her Mr Tee -they understand and in agreement with the above plan, time spent 50 minutes and 50% time spent on counseling. Significant findings: As above. Procedures performed: None. Treatment and response: As above. Complications: None. Time Spent with Patient Time attestation: Total time spent providing and/or coordinating discharge services: Discharge coordination time: Greater than 30 minutes Quality: Stroke Does the patient have a stroke diagnosis?: No Physical Exam Vital Signs: Vital Signs: Last Vital Signs Temp 98.0 F 08/22/21 16:00 Pulse 72 08/22/21 16:00 Resp 17 08/22/21 16:00 BP 119/73 03/08/22 16:00 Pulse Ox 98 08/22/21 16:00 BMI result Body Mass Index 29.4 Appearance: Alert.? Oriented X3.? not in distress.? Eyes: Pupils equal, round and reactive to light.? Sclera nonicteric.? ENT: Pharynx normal.? Moist mucous membranes. cvs: rrr, [id number]. res: clear to auscultation ,no rhonchii or wheezing abd: no rebound or guarding ,nt, bs present. ext pulses present , no cyanosis ,. neuro: axo3 , nonfocal. DS: Data Additional Comments Additional comments: 08/20/21 08/20/21 08/20/21 ? 12:48 12:48 12:48 MCV ?90.6 ? ? MCH ?30.0 ? ? MCHC ?33.1 ? ? RDW ?13.5 ? ? Plt Count ?310 ? ? MPV ?10.6 ? ? Immature Gran % (Auto) ?0.2 ? ? Neut % (Auto) ?67.7 ? ? Lymph % (Auto) ?21.5 ? ? [place] % (Auto) ?9.3 ? ? Eos % (Auto) ?0.7 ? ? Baso % (Auto) ?0.6 ? ? Lymph # (Auto) ?2.7 ? ? Madison # (Auto) ?1.2 ? ? Eos # (Auto) ?0.1 ? ? Baso # (Auto) ?0.1 ? ? Abs Immat Gran (auto) ?0.03 ? ? Absolute Neuts (auto) ?8.6 H ? ? Absolute Nucleated RBC ?0.000 ? ? Nucleated RBC % (auto) ?0.0 ? ? PT ? ?12.9 ? INR ? ?1.1 ? Anion Gap ? ? ?13 Estim Creat Clear Calc ? ? ?114.5 Estimated GFR ? ? ?> 60 Random Glucose ? ? ?115 Calcium ? ? ?10.0? D Magnesium ? ? ?1.8 Total Bilirubin ? ? ?0.6 Direct Bilirubin ? ? ?0.3 AST ? ? ?29 ALT ? ? ?25 Alkaline Phosphatase ? ? ?71 Total Protein ? ? ?6.6 Albumin ? ? ?4.0 TSH ? ? ?< 0.01 L COVID-19 ([facility]) ? ? ? COVID-19 Clin Com ? ? ? Discharge Plan Discharge Patient Disposition: Home, Self-Care Discharge Diagnosis: afib , hyperthyroidism ( graves dis) Referrals: Mil Hadley MD [Primary Care Provider] - 1 Week Adia Martinez DO [Physician] - 1 Week (Folllow up outpatiently) Discharge Medications: New Eliquis 5 mg Tablet 5 mg PO BID Qty: 60 0RF methimazole 10 mg Tablet 20 mg PO DAILY Qty: 60 0RF Multaq 400 mg Tablet 400 mg PO BID Qty: 60 0RF metoprolol succinate [Toprol XL] 50 mg tablet extended release 24 hr 75 mg PO DAILY Qty: 30 0RF Continued furosemide 40 mg tablet 40 mg PO DAILY PRN (Reason: edema) Qty: 90 1RF lorazepam 1 mg tablet 1 mg PO BEDTIME PRN (Reason: anxiety) 30 Days Qty: 30 0RF Rx Instructions: [facility] verified. Partial refill upon request. rosuvastatin 20 mg tablet 20 mg PO DAILY Qty: 90 3RF valacyclovir 500 mg tablet 500 mg PO DAILY PRN (Reason: cold sores) 30 Days Qty: 30 1RF omeprazole 20 mg capsule,delayed release(DR/EC) 20 mg PO DAILY Qty: 90 3RF sertraline 100 mg tablet 50 mg PO DAILY 0RF ropinirole 5 mg tablet 5 mg PO DAILY@1230 0RF Rx Instructions: administer 1-3 hours before bedtime quetiapine 50 mg tablet 50 mg PO BEDTIME 0RF meloxicam 15 mg tablet 15 mg PO DAILY 30 Days Qty: 30 1RF aspirin 81 mg tablet,delayed release (DR/EC) 81 mg PO DAILY 0RF Discharge Orders: Discharge Order (Routine); Ordered 08/22/21 Ordered By: Chetna Arellano Diet: advance to usual diet Activity on Discharge: As tolerated Stand Alone Forms: Patient Portal Discharge page Other Ambulatory Orders: Basic Metabolic Panel (Routine) Timeframe: 1 Week Facility: [facility] - Location: Laboratory Ordered By: Chetna Arellano Complete Blood Count no Diff (Routine) Timeframe: 1 Week Facility: [facility] - Location: Laboratory Ordered By: Chetna Arellano Liver Panel (Routine) Timeframe: 1 Week Facility: [facility] - Location: Laboratory Ordered By: Chetna Arellano Free T4 (Free Thyroxine) (Routine) Timeframe: 1 Week Facility: [facility] - Location: Laboratory Ordered By: Chetna Arellano Thyroid Stimulating Hormone (Routine) Timeframe: 1 Week Facility: [facility] - Location: Laboratory Ordered By: Chetna Arellano Care Plan Goals: Patient came to the hospital because of irregular heartbeat and started on IV heart rate control medication-her heart rate was fluctuating and subsequently seen by Cardiology and required cardioversion-afterwards her heart rate seems to be improved regular: Started on a new heart rate medication Multaq. Also patient was started on Eliquis for stroke prevention. In addition patient has history of hyperthyroidism(Graves disease): She said she was on for her methimazole-she she did not follow-up with her natural resources extension educator Dr. Partida: Discussed with Dr. Cornejo office: Recommended to start methimazole back-monitor CBC, BMP, LFT, TSH, free T4 outpatiently. Health Concerns: As above. Plan of Treatment: As above. Assessment: As above.
--- NOTE | 2021-08-22 16:18 | MHC.CM.PN ---
Patient has been medically cleared for dc to home, no services.
== END 2021-08-22 17:38 | disposition home or self-care (01) | DRG 309 ==
LOC: HO.ED 14:26 → HO.EDOVER 14:54
PROVIDERS: Internal Medicine Cardiovascular Disease; Nurse Practitioner Family; Admitting Provider Internal Medicine; Emergency Provider Emergency Medicine; PCP Family Medicine; Visit Provider Internal Medicine
PROC: 5A2204Z Restoration of Cardiac Rhythm, Single (ICD-10-PCS; principal; 2021-08-22 08:00)
DX: I48.91 Unspecified atrial fibrillation (principal); J47.0 Bronchiectasis with acute lower respiratory infection; B44.9 Aspergillosis, unspecified; K21.9 Gastro-esophageal reflux disease without esophagitis; E05.00 Thyrotoxicosis with diffuse goiter without thyrotoxic crisis or storm; F32.A Depression, unspecified; E78.5 Hyperlipidemia, unspecified; Z91.19 Patient's noncompliance with other medical treatment and regimen; Z20.822 Contact with and (suspected) exposure to COVID-19; Z79.1 Long term (current) use of non-steroidal anti-inflammatories (NSAID); Z79.01 Long term (current) use of anticoagulants; Z79.82 Long term (current) use of aspirin; Z79.899 Other long term (current) drug therapy
CPT/HCPCS: 36415; 71045; 80048; 80076; 83735; 84439; 84443; 84484; 85025; 85610; 87635; 92960; 93005; 93312; 94640; 99285; J2250

== ENCOUNTER 2021-08-29 06:36 | Outpatient (REF) | payer MEDICARE, MEDICAID, SELFPAY ==
[2021-08-29 07:36] LABS: Hematocrit 38.8 % (37.0-47.0); Mean Corpuscular HGB Conc 30.9 g/dl (31.0-35.0); Mean Corpuscular Hemoglobin 29.1 pg (27.0-33.0); Mean Corpuscular Volume 93.9 fL (80.0-98.0); Mean Platelet Volume 11.4 fL (9.4-12.3); Platelet Count 311 X10*3/uL (160-400); Red Blood Count 4.13 X10*6/uL (4.20-5.50); Red Cell Distribution Width 13.3 % (11.0-16.0); White Blood Count 7.6 X10*3/uL (4.8-10.8)
[2021-08-29 08:03] LABS: Alanine Aminotransferase 68 U/L (0-31); Albumin Level 3.8 g/dL (3.5-5.0); Alkaline Phosphatase 75 U/L (39-117); Anion Gap 13 (12-20); Aspartate Amino Transferase 67 U/L (5-31); Bilirubin Direct 0.4 mg/dL (0.0-0.5); Bilirubin Total 0.7 mg/dL (0.0-1.0); Blood Urea Nitrogen 14 mg/dL (9-16); Carbon Dioxide 25 mmol/L (22-29); Chloride 109 mmol/L (96-108); Cholesterol 99 mg/dL; Estimated Glomerular Filt Rate > 60; Glucose Random 126 mg/dL (60-115); HDL Cholesterol 39 mg/dL; LDL Cholesterol Calculated 46 mg/dl; Potassium 5.1 mmol/L (3.3-5.1); Sodium 142 mmol/L (135-145); Total Protein 6.6 g/dL (6.5-8.0); Triglycerides 70 mg/dL
[2021-08-29 08:14] LABS: Free T4 (Free Thyroxine) 2.42 ng/dL (0.71-1.85)
[2021-08-29 08:21] LABS: Thyroid Stimulating Hormone < 0.01 uIU/mL (0.32-4.0)
[2021-08-29 09:08] LABS: Appearance Urine HAZY; Color Urine YELLOW; Glucose Urine UA NEG (NEG); Leukocyte Esterase Urine TRACE (NEG); Nitrite Urine NEG (NEG); PH 5.5 (5.0-8.0); Specific Gravity - Urine >= 1.030 (1.005-1.025); Urine Blood 1+ (NEG); Urine Ketones NEG (NEG); Urine Protein NEG (NEG-TRACE)
[2021-08-29 09:44] LABS: Bacteria Urine TRACE /LPF; Calcium Oxalate Crystals Urine 2+ /LPF; RBC Urine 0-2 /HPF (0); Squamous Epithelial Cell Urine TRACE /LPF
[2021-08-29 09:45] LABS: Creatinine Urine 144.48 mg/dL; Microalbum/Creatinine Ratio Ur 7.6 ug/mg cr
[2021-08-30 20:37] LABS: Triiodothyronine T3 Total 386 ng/dL (76-181)
== END 2021-08-29 06:37 | disposition home or self-care (01) ==
LOC: HO.LAB 06:36
PROVIDERS: Internal Medicine; PCP Family Medicine; Visit Provider Family Medicine
DX: Z00.00 Encounter for general adult medical examination without abnormal findings (principal); E03.9 Hypothyroidism, unspecified; E05.00 Thyrotoxicosis with diffuse goiter without thyrotoxic crisis or storm; I10 Essential (primary) hypertension; I48.91 Unspecified atrial fibrillation
CPT/HCPCS: 36415; 80048; 80061; 80076; 81001; 81003; 82043; 84439; 84443; 84480; 85027

== ENCOUNTER 2021-08-30 10:36 | Outpatient (REF) | payer MEDICARE, MEDICAID, SELFPAY ==
--- NOTE | ~2021-08-30 | XR_ITS ---
EXAMINATION: XR CHEST CLINICAL INFORMATION: R09.89 - Other specified symptoms and signs. Opacity overlying left posterior eighth rib. Follow-up. COMPARISON: Chest radiographs 08/20/2021, 07/08/2020, 11/15/2016, 05/24/2016; CT lung screening 08/08/2021. TECHNIQUE: 2 views of the chest were obtained. FINDINGS: The subtle opacity overlying left posterior lateral eighth rib is similar to prior studies dating back to 05/24/2016 and corresponds to an ununited rib fracture on recent CT. There is no increasing density in this area. The lungs are clear. The vascularity is normal. The costophrenic sulci are well-defined. The heart is normal in size. The hilar and mediastinal contours are normal. No visible acute bony abnormality. XR/XR chest 2V IMPRESSION: 1. Lungs clear. No airspace consolidation or effusion. No acute intrathoracic disease. 2. 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
== END 2021-08-30 10:37 | disposition home or self-care (01) ==
LOC: HO.XRAY 10:36
PROVIDERS: PCP Family Medicine; Visit Provider Family Medicine
DX: J18.9 Pneumonia, unspecified organism (principal); R06.02 Shortness of breath; R09.89 Other specified symptoms and signs involving the circulatory and respiratory systems
CPT/HCPCS: 71046

== ENCOUNTER → 2021-09-07 08:56 | Outpatient (BNVA) | payer MEDICARE, MEDICAID, SELFPAY | PROVIDERS: PCP Family Medicine; Referring Provider Family Medicine; Visit Provider Internal Medicine | DX: I48.0 Paroxysmal atrial fibrillation (principal); I65.23 Occlusion and stenosis of bilateral carotid arteries; E05.90 Thyrotoxicosis, unspecified without thyrotoxic crisis or storm; Z51.81 Encounter for therapeutic drug level monitoring; Z79.899 Other long term (current) drug therapy | CPT/HCPCS: 93005; 99212 ==

== ENCOUNTER → 2021-11-22 07:39 | Outpatient (REF) | payer MEDICARE, MEDICAID, SELFPAY ==
--- NOTE | ~2021-11-22 | NM_ITS ---
Myocardial perfusion study Indication: Atrial fibrillation to evaluate for myocardial ischemia Technique: The patient was brought in for a Lexiscan perfusion study on 11/22/2021. Patient performed low-level exercise and was injected 0.4 mg of Lexiscan intravenously. Within a minute of injection, 30 mCi of sestamibi was given intravenously. Images were obtained using the SPECT gamma camera interlaced with the gating device. Images were obtained in supine position. Resting perfusion study was performed on 11/23/2021. Patient was administered 30 mCi of sestamibi intravenously at rest. Images were then obtained in supine position. Images obtained with and without CT attenuation. Total DLP 101 mGy-cm. Images were processed with the software and compared side to side in short axis, horizontal long axis and vertical long axis views. Findings: The stress perfusion study showed non attenuated images show mildly reduced uptake in the basal and mid inferior wall as well as minimally reduced septal wall of the LV myocardium. Remainder of the LV myocardium is normally perfused. Attenuation corrected images show mildly reduced uptake in the apex of LV myocardium as well as moderately reduced uptake in the basal inferior wall of the LV myocardium.. The gated study shows normal LV systolic function with calculated LVEF of 68%. LV cavity is normal in size. The gated study shows normal systolic wall thickening and contraction of segments. Resting study shows no change in perfusion pattern compared to stress perfusion study. Gating at rest reveals normal systolic wall motion with ejection fraction at 71%. The findings are consistent with normal myocardial perfusion. NM/NM dee perf SPECT rest & str Impression: 1. Myocardial perfusion imaging study shows normal myocardial perfusion 2. Gated LVEF is 68% 3. Transient ischemic dilatation not present EKG is nondiagnostic for ischemia
--- NOTE | 2021-11-22 07:42 | CA_ITS ---
Acquisition Time: 2021-11-22 08:12:09 Total Exercise Time: 00:02:00 Test Indications: AFIB Medications: ELIQUIS ASA MULTAQ LORAZAPAM MELOXICAM SERTRALINE ROSUVASTATIN METOPROLOL OMEPRAZOLE Protocol: LEXISCAN Max HR: 088 BPM 55% of Pred: 158 BPM Max BP: 116/066 mmHG Max Work Load: 1.6 METS Pharmacological stress test with Lexiscan injection, while walking slow on treadmill, with mild sob, no chest discomfort, with isolated PVC, with normotensive response to injection, with nondiagnostic EKG for ischemia. In recovery she reported abdominal cramping and was treated with Aminophylline 75mg IVP to reverse Lexiscan with resolution of symptom. Nuclear images pending. Test reviewed with Dr Gutierres. Referred By: Javier Sharp Overread By: YARITZA PRETTY
== END ==
LOC: HO.CARD 07:39
PROVIDERS: PCP Family Medicine; Visit Provider Internal Medicine Cardiovascular Disease
DX: I48.91 Unspecified atrial fibrillation (principal); Z79.82 Long term (current) use of aspirin; Z79.899 Other long term (current) drug therapy
CPT/HCPCS: 78452; 93017; A9500; J0280; J2785

== ENCOUNTER → 2021-11-23 08:07 | Outpatient (REF) | payer MEDICARE, MEDICAID, SELFPAY ==
--- NOTE | 2021-11-23 08:15 | HM_ITS ---
Conclusion: 1. Patient was monitored for total period of 3 days and 1 hour 2. Baseline was normal sinus rhythm with average heart of 82 beats per minute 3. No significant pauses or bradycardia noted 4. Occasional ectopy with total burden of about 0.5%, both for PACs and PVCs 5. Multiple short burst of SVT the longest lasting 21 beats at about 160 beats per minute 6. No patient reported events MTDD
== END ==
LOC: HO.CARD 08:07
PROVIDERS: PCP Family Medicine; Visit Provider Internal Medicine Cardiovascular Disease
DX: I48.91 Unspecified atrial fibrillation (principal)
CPT/HCPCS: 93242

== ENCOUNTER 2021-12-05 06:58 | Outpatient (REF) | payer MEDICARE, MEDICAID, SELFPAY ==
[2021-12-05 07:15] LABS: MANUAL DIFF FLAG NO
[2021-12-05 07:30] LABS: Basophils Percent Auto 0.6 % (0-2); Eosinophils Absolute Auto 0.4 X10*3/uL (0.0-0.4); Eosinophils Percent Auto 6.6 % (0-4); Hemoglobin 12.7 g/dl (12.0-16.0); Imm Gran Abs Auto 0.02 X10*3/uL (0.00-0.03); Imm Gran Pct Auto 0.3 % (0.0-0.4); Lymphocytes Absolute Auto 2.8 X10*3/uL (1.2-4.9); Mean Corpuscular HGB Conc 31.8 g/dl (31.0-35.0); Mean Corpuscular Hemoglobin 28.7 pg (27.0-33.0); Mean Corpuscular Volume 90.5 fL (80.0-98.0); Mean Platelet Volume 10.9 fL (9.4-12.3); Monocytes Absolute Auto 0.7 X10*3/uL (0.1-1.2); Monocytes Percent Auto 11.1 % (2-11); Neutrophils Absolute Auto 2.3 x10*3/uL (2.0-8.3); Neutrophils Percent Auto 36.4 % (45-73); Platelet Count 281 X10*3/uL (160-400); Red Blood Count 4.42 X10*6/uL (4.20-5.50); Red Cell Distribution Width 13.5 % (11.0-16.0); White Blood Count 6.2 X10*3/uL (4.8-10.8)
[2021-12-05 07:50] LABS: Appearance Urine CLEAR; Color Urine YELLOW; Glucose Urine UA 100 MG/DL (NEG); Leukocyte Esterase Urine 1+ (NEG); Nitrite Urine NEG (NEG); PH 5.5 (5.0-8.0); Urine Blood TRACE (NEG); Urine Ketones NEG (NEG); Urine Protein NEG (NEG-TRACE)
[2021-12-05 08:03] LABS: Alanine Aminotransferase 16 U/L (0-31); Albumin Level 3.8 g/dL (3.5-5.0); Alkaline Phosphatase 85 U/L (39-117); Anion Gap 11 (12-20); Aspartate Amino Transferase 15 U/L (5-31); Bilirubin Total 0.3 mg/dL (0.0-1.0); Blood Urea Nitrogen 11 mg/dL (9-16); Calcium 9.2 mg/dL (8.4-10.2); Carbon Dioxide 25 mmol/L (22-29); Chloride 110 mmol/L (96-108); Cholesterol 105 mg/dL; Estimated Glomerular Filt Rate > 60; Glucose Fasting 110 mg/dL (60-99); HDL Cholesterol 41 mg/dL; LDL Cholesterol Calculated 52 mg/dl; Potassium 5.3 mmol/L (3.3-5.1); Sodium 141 mmol/L (135-145); Total Protein 6.5 g/dL (6.5-8.0); Triglycerides 60 mg/dL
[2021-12-05 08:05] LABS: RBC Urine 0-2 /HPF (0); Squamous Epithelial Cell Urine 1+ /LPF
[2021-12-05 08:11] LABS: Free T4 (Free Thyroxine) 1.34 ng/dL (0.71-1.85); Thyroid Stimulating Hormone < 0.01 uIU/mL (0.32-4.0)
[2021-12-05 08:17] LABS: TSH reflex Free T4 < 0.01 uIU/mL (0.32-4.0)
[2021-12-07 08:21] LABS: Triiodothyronine T3 Total 328 ng/dL (76-181)
== END 2021-12-05 06:59 | disposition home or self-care (01) ==
LOC: HO.LAB 06:58
PROVIDERS: Absent Provider Internal Medicine; PCP Family Medicine; Visit Provider Family Medicine
DX: Z00.00 Encounter for general adult medical examination without abnormal findings (principal); E05.00 Thyrotoxicosis with diffuse goiter without thyrotoxic crisis or storm; E03.9 Hypothyroidism, unspecified
CPT/HCPCS: 36415; 80053; 80061; 81001; 84439; 84443; 84480; 85025

== ENCOUNTER → 2021-12-20 08:57 | Outpatient (BNVA) | payer MEDICARE, MEDICAID, SELFPAY | PROVIDERS: PCP Family Medicine; Visit Provider Internal Medicine | DX: E05.00 Thyrotoxicosis with diffuse goiter without thyrotoxic crisis or storm (principal); Z79.899 Other long term (current) drug therapy | CPT/HCPCS: Q3014 ==

== ENCOUNTER 2021-12-29 07:52 | Outpatient (REF) | payer MEDICARE, SELFPAY ==
[2021-12-29 09:28] LABS: Free T4 (Free Thyroxine) 1.37 ng/dL (0.71-1.85)
[2021-12-31 01:17] LABS: Triiodothyronine T3 Total 325 ng/dL (76-181)
== END 2021-12-29 07:53 | disposition home or self-care (01) ==
LOC: HO.LAB 07:52
PROVIDERS: PCP Family Medicine; Visit Provider Internal Medicine
DX: E05.00 Thyrotoxicosis with diffuse goiter without thyrotoxic crisis or storm (principal)
CPT/HCPCS: 36415; 84439; 84480

== ENCOUNTER 2022-01-15 06:30 | Outpatient (REF) | payer MEDICARE, SELFPAY ==
[2022-01-15 08:11] LABS: Free T4 (Free Thyroxine) 1.23 ng/dL (0.71-1.85); Thyroid Stimulating Hormone < 0.01 uIU/mL (0.32-4.0)
[2022-01-17 05:15] LABS: Triiodothyronine T3 Total 229 ng/dL (76-181)
== END 2022-01-15 06:31 | disposition home or self-care (01) ==
LOC: HO.LAB 06:30
PROVIDERS: PCP Family Medicine; Visit Provider Internal Medicine
DX: E05.00 Thyrotoxicosis with diffuse goiter without thyrotoxic crisis or storm (principal)
CPT/HCPCS: 36415; 84439; 84443; 84480

== ENCOUNTER → 2022-01-17 13:09 | Outpatient (BNVA) | payer MEDICARE, SELFPAY | PROVIDERS: PCP Family Medicine; Visit Provider Internal Medicine | DX: E05.00 Thyrotoxicosis with diffuse goiter without thyrotoxic crisis or storm (principal) | CPT/HCPCS: 99212 ==

== ENCOUNTER → 2022-01-24 07:53 | Outpatient (BNVA) | payer MEDICARE, SELFPAY | PROVIDERS: PCP Family Medicine; Referring Provider Family Medicine; Visit Provider Nurse Practitioner | DX: Z01.818 Encounter for other preprocedural examination (principal); I48.91 Unspecified atrial fibrillation; J44.9 Chronic obstructive pulmonary disease, unspecified; Z79.01 Long term (current) use of anticoagulants | CPT/HCPCS: 99202 ==

== ENCOUNTER → 2022-01-29 10:53 | Outpatient (BNVA) | payer MEDICARE, SELFPAY | PROVIDERS: PCP Family Medicine; Referring Provider Family Medicine; Visit Provider Internal Medicine | DX: I48.0 Paroxysmal atrial fibrillation (principal); E05.90 Thyrotoxicosis, unspecified without thyrotoxic crisis or storm; I65.23 Occlusion and stenosis of bilateral carotid arteries | CPT/HCPCS: 93005; 99212 ==

== ENCOUNTER → 2022-01-30 07:07 | Outpatient (REF) | payer MEDICARE, SELFPAY ==
--- NOTE | ~2022-01-30 | US_ITS ---
EXAMINATION: US EXTRACRANIAL CAROTID DUPLEX, BILATERAL CLINICAL INFORMATION: Occlusion and stenosis of bilateral carotid arteries, right carotid endarterectomy in 2017 COMPARISON: Carotid ultrasound on 11/30/2020 TECHNIQUE: Real-time ultrasound and Doppler techniques (integrating B-mode 2-D vascular images, Doppler spectral analysis and color-flow Doppler imaging) were utilized to interrogate the extracranial carotid arteries, the vertebral arteries and proximal subclavian arteries bilaterally. The degree of stenosis is determined by criteria similar to NASCET. FINDINGS: Right Side: 1. There is no significant atherosclerotic plaque seen in the bifurcation/proximal ICA region. 2. The common carotid artery PSV proximally is 97 cm/s and distally 95 cm/s. 3. The proximal internal carotid artery velocities are 79 cm/s systolic and 31 cm/s diastolic. 4. The proximal external carotid artery PSV is 108 cm/s. 5. The vertebral artery shows antegrade flow. 6. The subclavian artery waveforms are normal. Left Side: 1. There is mild atherosclerotic plaque seen in the bifurcation/proximal ICA region. 2. The common carotid artery PSV proximally is 102 cm/s and distally 88 cm/s. 3. The proximal internal carotid artery velocities are 112 cm/s systolic and 47 cm/s diastolic. 4. The proximal external carotid artery PSV is 134 cm/s. 5. The vertebral artery shows antegrade flow. 6. The subclavian artery waveforms are normal. US/US carotid duplex BI IMPRESSION: 1. RIGHT: Minimal, non-hemodynamically significant stenosis of the proximal right internal carotid artery corresponding to a 0-49% stenosis by velocity criteria. 2. LEFT: Minimal, non-hemodynamically significant stenosis of the proximal left internal carotid artery corresponding to a 0-49% stenosis by velocity criteria. 3. There is no change in the category severity of disease when compared to the previous study dated 11/30/2020.
--- NOTE | 2022-01-30 13:02 | HM_ITS ---
* Total monitoring time 2 days and 21 hours. * Underlying rhythm is atrial fibrillation. * Average rate 95/Min. Range 63 to 158/Min. * About 21% of the time, rate greater than 100/Min. * Rare ventricular ectopy with minimal burden. * No patient events. * Atrial fibrillation rate control less than optimal. MTDD
== END ==
LOC: HO.CARD 07:07
PROVIDERS: PCP Family Medicine; Visit Provider Internal Medicine
DX: I65.23 Occlusion and stenosis of bilateral carotid arteries (principal); I48.0 Paroxysmal atrial fibrillation
CPT/HCPCS: 93242; 93880

== ENCOUNTER 2022-02-02 12:02 | Outpatient (REF) | payer MEDICARE, SELFPAY ==
[2022-02-02 13:30] LABS: Free T4 (Free Thyroxine) 0.61 ng/dL (0.71-1.85); Thyroid Stimulating Hormone < 0.01 uIU/mL (0.32-4.0)
[2022-02-05 06:48] LABS: Triiodothyronine T3 Total 142 ng/dL (76-181)
== END 2022-02-02 12:03 | disposition home or self-care (01) ==
LOC: HO.LAB 12:02
PROVIDERS: PCP Family Medicine; Visit Provider Internal Medicine
DX: E05.90 Thyrotoxicosis, unspecified without thyrotoxic crisis or storm (principal)
CPT/HCPCS: 36415; 84439; 84443; 84480

== ENCOUNTER 2022-02-08 14:42 | Outpatient (REF) | payer MEDICARE, SELFPAY ==
--- NOTE | ~2022-02-08 | MM_ITS ---
EXAMINATION: MM SCREENING DIGITAL BREAST TOMOSYNTHESIS, BILATERAL CLINICAL INFORMATION: Screening. Asymptomatic. The lifetime risk of breast cancer based on the Tyrer-Cuzick Model is 14%. COMPARISON: Mammography: February 06, 2021 and studies dating back to September 16, 2013 TECHNIQUE: Digital breast tomosynthesis is performed in both the craniocaudal and mediolateral oblique views along with computer-aided detection (CAD). Synthesized 2D images are generated from the tomosynthesis. FINDINGS: The breasts are almost entirely fatty (ACR BI-RADS breast composition Category a). There are no significant masses, abnormal calcifications, or other abnormalities. MM/MM tomosynthesis screening BI IMPRESSION: No significant changes from prior exam. ASSESSMENT: BI-RADS 1: Negative RECOMMENDATION: Routine annual mammography screening. This patient's information was entered into a reminder system with a target due date for their next mammogram.
== END 2022-02-08 14:43 | disposition home or self-care (01) ==
LOC: HO.MAMMO 14:42
PROVIDERS: PCP Family Medicine; Visit Provider Family Medicine
DX: Z12.31 Encounter for screening mammogram for malignant neoplasm of breast (principal)
CPT/HCPCS: 77063; 77067

== ENCOUNTER → 2022-02-12 07:41 | Outpatient (BNVA) | payer MEDICARE, SELFPAY | PROVIDERS: PCP Family Medicine; Visit Provider Internal Medicine | DX: E05.00 Thyrotoxicosis with diffuse goiter without thyrotoxic crisis or storm (principal); Z79.899 Other long term (current) drug therapy | CPT/HCPCS: 99212 ==

== ENCOUNTER 2022-03-02 06:54 | Outpatient (REF) | payer MEDICARE, SELFPAY ==
[2022-03-04 18:46] LABS: Triiodothyronine T3 Total 46 ng/dL (76-181)
== END 2022-03-02 06:55 | disposition home or self-care (01) ==
LOC: HO.LAB 06:54
PROVIDERS: PCP Family Medicine; Visit Provider Internal Medicine
DX: E05.90 Thyrotoxicosis, unspecified without thyrotoxic crisis or storm (principal)
CPT/HCPCS: 36415; 84439; 84480

== ENCOUNTER 2022-03-20 11:30 | Outpatient (REF) | payer MEDICARE, SELFPAY ==
[2022-03-20 12:55] LABS: Free T4 (Free Thyroxine) 0.41 ng/dL (0.71-1.85)
[2022-03-22 03:13] LABS: Triiodothyronine T3 Total 29 ng/dL (76-181)
== END 2022-03-20 11:31 | disposition home or self-care (01) ==
LOC: HO.LAB 11:30
PROVIDERS: PCP Family Medicine; Visit Provider Internal Medicine
DX: E05.90 Thyrotoxicosis, unspecified without thyrotoxic crisis or storm (principal); I65.23 Occlusion and stenosis of bilateral carotid arteries; I83.11 Varicose veins of right lower extremity with inflammation
CPT/HCPCS: 36415; 84439; 84480; 99212

== ENCOUNTER → 2022-03-22 15:01 | Outpatient (BNVA) | payer MEDICARE, SELFPAY | PROVIDERS: PCP Family Medicine; Visit Provider Internal Medicine | DX: I48.0 Paroxysmal atrial fibrillation (principal); I65.23 Occlusion and stenosis of bilateral carotid arteries; E05.90 Thyrotoxicosis, unspecified without thyrotoxic crisis or storm | CPT/HCPCS: 93005; 99212 ==

== ENCOUNTER 2022-03-27 | Outpatient (REF) | payer MEDICARE, SELFPAY ==
--- NOTE | ~2022-03-27 | XR_ITS ---
EXAMINATION: XR SHOULDER, LEFT CLINICAL INFORMATION: Pain COMPARISON: Chest x-ray most recent August 2021 and left shoulder x-ray December 2018 TECHNIQUE: 3 views of the left shoulder. FINDINGS: Bone alignment is normal. No fracture or dislocation is seen. The glenohumeral joint is normal. There is arthritis at the acromioclavicular joint. There is old trauma of the left posterior eighth rib. There is a calcification with lucent center in the soft tissues of the left lateral breast or axilla. XR/XR shoulder LT min 2V IMPRESSION: Arthritis at the acromioclavicular joint.
== END 2022-03-27 00:01 ==
LOC: HO.HOSX
PROVIDERS: Visit Provider Physician Assistant
DX: M25.512 Pain in left shoulder (principal); M54.2 Cervicalgia
CPT/HCPCS: 73030; 99212

== ENCOUNTER 2022-03-29 06:45 | Outpatient (REF) | payer MEDICARE, SELFPAY ==
[2022-03-29 07:39] LABS: Anion Gap 20 (12-20); Blood Urea Nitrogen 13 mg/dL (9-16); Carbon Dioxide 26 mmol/L (22-29); Chloride 98 mmol/L (96-108); Estimated Glomerular Filt Rate 45; Glucose Random 133 mg/dL (60-115); Potassium 5.5 mmol/L (3.3-5.1); Sodium 138 mmol/L (135-145)
[2022-03-29 09:17] LABS: Free T4 (Free Thyroxine) 0.42 ng/dL (0.71-1.85)
== END 2022-03-29 06:46 | disposition home or self-care (01) ==
LOC: HO.LAB 06:45
PROVIDERS: Absent Provider Internal Medicine; PCP Family Medicine; Visit Provider Internal Medicine
DX: Z00.00 Encounter for general adult medical examination without abnormal findings (principal); R73.03 Prediabetes; I10 Essential (primary) hypertension; I48.0 Paroxysmal atrial fibrillation; E05.90 Thyrotoxicosis, unspecified without thyrotoxic crisis or storm
CPT/HCPCS: 36415; 80048; 84439; 84480

== ENCOUNTER 2022-03-30 12:43 | Day surgery (SDC) | payer MEDICARE, SELFPAY ==
--- NOTE | 2022-03-29 09:35 | P.CONAN_ITS ---
Documented by User: Anita Collins NP 03/29/22 09:37 HPI - Anesthesia Eval Consult details Narrative: 61yo F for Cardioversion s/p KRISHAN cardioversion 08/2021 with KELLEY Rios for afib ETOH abuse PMFSH Active Problems Active Problems: All Active Problems (Updated 03/27/22 @ 09:34 by Violet Carpenter PA-C) Cervicalgia (Acute) Preop examination (Acute) Thoracic degenerative disc disease (Acute) Degenerative disc disease, lumbar (Acute) Cervicalgia (Acute) Shoulder pain, left (Acute) Pre-diabetes (Acute) Screening for cervical cancer (Acute) Breast cancer screening by mammogram (Acute) Hyperkalemia (Acute) Screening for colon cancer (Acute) Elevated fasting glucose (Acute) Annual physical exam (Acute) Encounter for monitoring anti-arrhythmic therapy (Acute) Status post carotid endarterectomy (Acute) PAF (paroxysmal atrial fibrillation) (Acute) Pneumonia (Acute) Abnormal lung sounds (Acute) Shortness of breath (Acute) Atrial fibrillation status post cardioversion (Acute) Hyperthyroidism (Acute) Atrial fibrillation (Acute) Depression with anxiety (Acute) Shoulder pain (Acute) Right knee pain (Acute) Acne (Acute) Rash (Acute) Ringworm (Acute) Varicose veins of left lower extremity with inflammation (Acute) Varicose veins of right lower extremity with inflammation (Acute) Bilateral carotid artery stenosis (Acute) Herpes zoster infection of oral mucosa (Acute) Arthritis of shoulder region, right, degenerative (Acute) Impingement syndrome of right shoulder (Acute) Abscess (Acute) Furuncle, unspecified (Acute) Cough (Acute) Low back pain (Acute) Preop cardiovascular exam (Acute) Graves disease (Acute) Hammer toe of left foot (Acute) Plantar wart of both feet (Acute) Bilateral bunions (Acute) Foot pain, bilateral (Acute) Cellulitis of arm (Acute) Past Medical History Medical History Alcohol abuse Depression GERD (gastroesophageal reflux disease) Graves disease History of COPD HLD (hyperlipidemia) Hypothyroid PAF (paroxysmal atrial fibrillation) Pelvic fracture Family History Family History Father CVD (cardiovascular disease) Hypertension Mother CVA (cerebral vascular accident) Paternal Grandmother Breast cancer Family history of problems with anesthesia: No Surgical History Surgical History H/O foot surgery History of ankle surgery History of back surgery History of carotid endarterectomy History of salpingectomy History of surgery on right wrist Hx of colonoscopy Hx of rotator cuff surgery History of Problems with Anesthesia: No Social History Social History Housing: House Patient Tobacco Use Status: Former Tobacco user Quit Date: 4-5 years ago e-Cigarette/Vaping Use: Never Used Second Hand Smoke Exposure: No Use of substances other than those prescribed or required for medical reasons: Yes Are you DNR?: No Advance Directives: No Advance Directives Information Provided: Yes service: No Current occupational status: employed 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 Current occupational exposures/hazards: No Cognitive needs: No Hearing needs: No Vision needs: No Meds Allergies Allergy/AdvReac Type Severity Reaction Status Date / Time No Known Allergies Allergy Verified 03/27/22 09:07 Home Medications Medication Instructions Recorded Confirmed Last Taken Type aspirin 81 mg tablet,delayed 81 mg PO DAILY 06/13/20 03/26/22 03/30/22 History release methimazole 10 mg tablet 20 mg PO BID 03/20/22 03/26/22 Unknown History Exam Exam Date and Time: March 29, [id number] Assessment and Plan Assessment Anesthesia Assessment: Chart Reviewed Final Anesthetic Review Family History of Problems with Anesthesia: No History of Problems with Anesthesia: No Documented by User: Rayshawn Elaine MD 03/30/22 14:07 [facility] Past Medical History Medical History Alcohol abuse Depression GERD (gastroesophageal reflux disease) Graves disease History of COPD HLD (hyperlipidemia) Hypothyroid PAF (paroxysmal atrial fibrillation) Pelvic fracture Family History Family History Father CVD (cardiovascular disease) Hypertension Mother CVA (cerebral vascular accident) Paternal Grandmother Breast cancer Surgical History Surgical History H/O foot surgery History of ankle surgery History of back surgery History of carotid endarterectomy History of salpingectomy History of surgery on right wrist Hx of colonoscopy Hx of rotator cuff surgery Social History Social History Housing: House Patient Tobacco Use Status: Former Tobacco user Quit Date: 4-5 years ago e-Cigarette/Vaping Use: Never Used Second Hand Smoke Exposure: No Use of substances other than those prescribed or required for medical reasons: Yes Are you DNR?: No Advance Directives: No Advance Directives Information Provided: Yes service: No Current occupational status: employed 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 Current occupational exposures/hazards: No Cognitive needs: No Hearing needs: No Vision needs: No Meds Allergies Allergy/AdvReac Type Severity Reaction Status Date / Time No Known Allergies Allergy Verified 03/27/22 09:07 Home Medications Medication Instructions Recorded Confirmed Last Taken Type aspirin 81 mg tablet,delayed 81 mg PO DAILY 06/13/20 03/26/22 03/30/22 History release methimazole 10 mg tablet 20 mg PO BID 03/20/22 03/26/22 Unknown History Exam Airway Mallampati Class: III TM Dist: >3cm Neck ROM: Full Loose/Missing/Broken Teeth: No Heart: irre irreg s1s2 Lungs: cta b/l Assessment and Plan Assessment Anesthesia Assessment: Anesthesia Plan Discussed Final Anesthetic Review NPO: Yes ASA Class: III Final Preanesthetic Review: No Changes in Pt Med Stat, Meds/Allgs Chart Reviewed, Consent Obtained/Reviewed and Anes Risks/Benef Reviewed Patient Risk: Intermediate Procedure Risk: Intermediate Assessment/Block/Sedation in SS: Assess/Block/Sedation-SS Anesthetic Plan Anesthetic Plan: GA and Agree w/ Assess. and Plan Disposition: Standard PACU
[2022-03-30] VITALS (7 sets, daily range): BP systolic 96–113; BP diastolic 68–78; PULSE 60–92; RESP 18–20; TEMP 36.2–37.2; O2SAT 95–98; BMI 28.5
[2022-03-30] MEDS: Lactated Ringers 1,000 ML 100 ML IVCONT (13:44)
[2022-03-30 13:49] LABS: Anion Gap 18 (12-20); Blood Urea Nitrogen 18 mg/dL (9-16); Calcium 9.8 mg/dL (8.4-10.2); Carbon Dioxide 26 mmol/L (22-29); Chloride 97 mmol/L (96-108); Creatinine Clr Calc Pharmacy 60.9; Estimated Glomerular Filt Rate 44; Glucose Random 92 mg/dL (60-115); Sodium 136 mmol/L (135-145)
--- NOTE | 2022-03-30 14:10 | MHC.SHP ---
Pre-Procedural Eval Section A Date of Service: 03/30/22 The patient is an INPATIENT: No Section B Chief Complaint: afib Allergies: Allergies Allergy/AdvReac Type Severity Reaction Status Date / Time No Known Allergies Allergy Verified 03/27/22 09:07 Plan I have reviewed the history and physical and performed a pertinent physical examination on my patient. No changes have occurred unless specified.
--- NOTE | 2022-03-30 14:19 | ECG_ITS ---
Test Reason : post cardioversion Blood Pressure : / mmHG Vent. Rate : 063 BPM Atrial Rate : 063 BPM P-R Int : 220 ms QRS Dur : 096 ms QT Int : 420 ms P-R-T Axes : 052 -09 069 degrees QTc Int : 429 ms Sinus rhythm with 1st degree A-V block Incomplete right bundle branch block T wave abnormality, consider anterior ischemia Nonspecific ST abnormality Lateral leads Abnormal ECG When compared with ECG of 22-AUG-2021 14:57, ST-T wave changes have appeared Referred By: Nishant Gutierres Electronically Signed By:ROBYN FLOYD MD
[2022-03-30] MEDS: Flecainide Acetate 50 MG TABLET PO (14:34)
--- NOTE | 2022-03-30 15:00 | HO.CARDIVERS ---
Cardioversion Procedure Note Cardioversion Date of Procedure: 03/30/2022 Ordering Provider: Dr. Gutierres Performing Provider: Dr. Gutierres Indication for Procedure: Atrial fibrillation, highly symptomatic Pre-Op Diagnosis: Atrial fibrillation Post-Op Diagnosis: Sinus rhythm KRISHAN findings (if KRISHAN Performed): Not performed History: See office note Consent: Informed consent obtained. Procedure: After informed consent was obtained, patient was taken to the PACU. The patient was then positioned appropriately. The cardioversion pads were placed in anteroposterior position. Once under anesthesia, 120 joules of synchronized shock was administered. The rhythm converted from atrial fibrillation to sinus rhythm. Patient remained in sinus rhythm after the end of procedure. Complications: None Impression: Successful cardioversion from atrial fibrillation to sinus rhythm. Recommendations: Start flecainide 50 mg b.i.d.. Continue anticoagulation. Will get Holter monitor and sleep study. Outpatient follow-up.
== END 2022-03-30 16:05 | disposition home or self-care (01) ==
PROVIDERS: PCP Family Medicine; Visit Provider Internal Medicine
PROC: 5A2204Z Restoration of Cardiac Rhythm, Single (ICD-10-PCS; principal; 2022-03-30 14:30)
DX: I48.0 Paroxysmal atrial fibrillation (principal); Z79.01 Long term (current) use of anticoagulants; E05.90 Thyrotoxicosis, unspecified without thyrotoxic crisis or storm; K21.9 Gastro-esophageal reflux disease without esophagitis; Z79.899 Other long term (current) drug therapy; Z79.82 Long term (current) use of aspirin; Z87.891 Personal history of nicotine dependence
CPT/HCPCS: 36415; 80048; 92960; 93005; J0171; J0330; J0461; J2370

== ENCOUNTER → 2022-04-11 08:40 | Outpatient (REF) | payer MEDICARE, SELFPAY ==
--- NOTE | 2022-04-11 08:43 | HM_ITS ---
Conclusion: 1. Patient was monitored for total period of 3 days 2. Baseline was normal sinus rhythm with average heart rate of 55 beats per minute with lowest heart rate of 40 beats per minute 3. Frequent sinus bradycardia with 75% of the heart rate below 60 beats per minute 4. No significant pauses noted 5. Rare ectopy noted 6. Patient reported multiple symptoms, all shortness of breath correlated with sinus rhythm MTDD
== END ==
LOC: HO.CARD 08:40
PROVIDERS: PCP Family Medicine; Visit Provider Internal Medicine
DX: I48.91 Unspecified atrial fibrillation (principal)
CPT/HCPCS: 93242

== ENCOUNTER 2022-04-12 07:38 | Outpatient (REF) | payer MEDICARE, SELFPAY ==
[2022-04-12 09:48] LABS: Alanine Aminotransferase 17 U/L (0-31); Albumin Level 4.6 g/dL (3.5-5.0); Alkaline Phosphatase 104 U/L (39-117); Anion Gap 17 (12-20); Aspartate Amino Transferase 26 U/L (5-31); Bilirubin Total 0.5 mg/dL (0.0-1.0); Blood Urea Nitrogen 13 mg/dL (9-16); Calcium 9.5 mg/dL (8.4-10.2); Carbon Dioxide 26 mmol/L (22-29); Chloride 103 mmol/L (96-108); Estimated Glomerular Filt Rate 56; Glucose Fasting 89 mg/dL (60-99); Potassium 5.1 mmol/L (3.3-5.1); Sodium 141 mmol/L (135-145); Total Protein 7.6 g/dL (6.5-8.0)
[2022-04-12 09:53] LABS: Anion Gap 18 (12-20); Blood Urea Nitrogen 13 mg/dL (9-16); Calcium 9.5 mg/dL (8.4-10.2); Carbon Dioxide 26 mmol/L (22-29); Chloride 102 mmol/L (96-108); Estimated Glomerular Filt Rate 55; Glucose Random 89 mg/dL (60-115); Potassium 5.7 mmol/L (3.3-5.1); Sodium 140 mmol/L (135-145)
[2022-04-12 10:17] LABS: Free T4 (Free Thyroxine) < 0.40 ng/dL (0.71-1.85)
[2022-04-12 10:35] LABS: Creatinine Urine 144.38 mg/dL; Microalbum/Creatinine Ratio Ur 12.4 ug/mg cr
[2022-04-12 16:57] LABS: Free T4 (Free Thyroxine) < 0.40 ng/dL (0.71-1.85)
[2022-04-14 07:03] LABS: Triiodothyronine T3 Total <25 ng/dL (76-181)
[2022-04-14 07:03] LABS: Triiodothyronine T3 Total <25 ng/dL (76-181)
== END 2022-04-12 07:39 | disposition home or self-care (01) ==
LOC: HO.LAB 07:38
PROVIDERS: PCP Family Medicine; Visit Provider Internal Medicine
DX: Z00.00 Encounter for general adult medical examination without abnormal findings (principal); E87.5 Hyperkalemia; E05.90 Thyrotoxicosis, unspecified without thyrotoxic crisis or storm; I10 Essential (primary) hypertension; R73.03 Prediabetes
CPT/HCPCS: 36415; 80048; 80053; 82043; 84439; 84480

== ENCOUNTER → 2022-05-03 14:51 | Outpatient (BNVA) | payer MEDICARE, SELFPAY | PROVIDERS: PCP Family Medicine; Referring Provider Family Medicine; Visit Provider Internal Medicine | DX: I48.0 Paroxysmal atrial fibrillation (principal); I65.23 Occlusion and stenosis of bilateral carotid arteries; E78.5 Hyperlipidemia, unspecified; E05.90 Thyrotoxicosis, unspecified without thyrotoxic crisis or storm | CPT/HCPCS: 93005; 99212 ==

== ENCOUNTER → 2022-05-07 08:34 | Outpatient (REF) | payer MEDICARE, SELFPAY | LOC: HO.SL 08:34 | PROVIDERS: PCP Family Medicine; Visit Provider Internal Medicine | DX: G47.33 Obstructive sleep apnea (adult) (pediatric) (principal); M54.2 Cervicalgia; M48.12 Ankylosing hyperostosis [Forestier], cervical region; M62.838 Other muscle spasm; I48.0 Paroxysmal atrial fibrillation | CPT/HCPCS: 95806; 99202 ==

== ENCOUNTER 2022-05-16 07:15 | Outpatient (REF) | payer MEDICARE, SELFPAY ==
[2022-05-16 09:04] LABS: Anion Gap 15 (12-20); Blood Urea Nitrogen 14 mg/dL (9-16); Carbon Dioxide 25 mmol/L (22-29); Chloride 106 mmol/L (96-108); Estimated Glomerular Filt Rate > 60; Glucose Random 103 mg/dL (60-115); Potassium 5.5 mmol/L (3.3-5.1); Sodium 140 mmol/L (135-145)
[2022-05-16 09:18] LABS: Digoxin 0.6 ng/mL (0.8-2.0)
[2022-05-16 09:28] LABS: Free T4 (Free Thyroxine) 1.19 ng/dL (0.71-1.85)
[2022-05-18 03:39] LABS: Triiodothyronine T3 Total 236 ng/dL (76-181)
== END 2022-05-16 07:16 | disposition home or self-care (01) ==
LOC: HO.LAB 07:15
PROVIDERS: Absent Provider Internal Medicine; PCP Family Medicine; Visit Provider Internal Medicine
DX: E05.90 Thyrotoxicosis, unspecified without thyrotoxic crisis or storm (principal); I48.19 Other persistent atrial fibrillation; E87.5 Hyperkalemia
CPT/HCPCS: 36415; 80048; 80162; 84439; 84480

== ENCOUNTER 2022-05-18 12:47 | Outpatient (REF) | payer MEDICARE, SELFPAY ==
--- NOTE | ~2022-05-18 | US_ITS ---
EXAMINATION: US VENOUS REFLUX/INSUFFICIENCY CLINICAL INFORMATION: This is a 61-year-old woman with right lower extremity varicosities and inflammation. COMPARISON: Bilateral lower extremity venous ultrasound dated 12/15/2020. TECHNIQUE: Bilateral lower extremity and venous insufficiency ultrasound was performed with velocity measurements. Color flow Doppler imaging was performed. FINDINGS: RIGHT SIDE: GREATER SAPHENOUS VEIN: The saphenofemoral junction diameter is 0.7 cm. There is no reflux The proximal thigh diameter is 0.5 cm. There is no reflux. The mid thigh diameter is 0.1 cm. There is no reflux. The above-knee diameter is 0.1 cm. There is no reflux The at-knee and below-knee segments are not visualized. The mid calf diameter is 0.2 cm. There is no reflux. The ankle diameter is 0.5 cm. There is no reflux ACCESSORY GREATER SAPHENOUS VEIN (LATERAL): The saphenofemoral junction diameter is 0.4 cm. There is no reflux. The mid thigh diameter is 0.2 cm. There is no reflux. LESSER SAPHENOUS VEIN: The saphenopopliteal junction diameter is 0.3 cm. There is no reflux. The mid calf diameter is 0.2 cm. There is no reflux. The distal calf diameter is 0.2 cm there is no reflux. LEFT SIDE: GREATER SAPHENOUS VEIN: The saphenofemoral junction diameter is 0.8 cm. There is no reflux The proximal thigh diameter is 0.5 cm. There is no reflux. The mid thigh diameter is 0.3 cm. There is no reflux. The above-knee diameter is 0.3 cm. There is no reflux The at knee diameter is 0.3 cm. There is no reflux. The below-knee diameter is 0.2 cm. There is no reflux. The mid calf diameter is 0.2 cm. There is no reflux. The ankle diameter is 0.2 cm. There is no reflux ACCESSORY GREATER SAPHENOUS VEIN (LATERAL): The saphenofemoral junction diameter is 0.3 cm. There is no reflux. The mid thigh diameter is 0.2 cm. There is no reflux. LESSER SAPHENOUS VEIN: The saphenopopliteal junction diameter is 0.5 cm. There is no reflux. The mid calf diameter is 0.3 cm. There is no reflux. The distal calf diameter is 0.1 cm there is no reflux. BILATERAL DEEP VENOUS SYSTEMS: There is no deep insufficiency or thrombosis on the right. There is no deep insufficiency or thrombosis on the left. US/US venous duplex LE BI IMPRESSION: Unremarkable examination. No superficial or deep venous insufficiency is seen bilaterally. There is no deep venous thrombosis noted.
== END 2022-05-18 12:48 | disposition home or self-care (01) ==
LOC: HO.US 12:47
PROVIDERS: Visit Provider Surgery Vascular Surgery
DX: I83.11 Varicose veins of right lower extremity with inflammation (principal)
CPT/HCPCS: 93970

== ENCOUNTER → 2022-05-24 09:00 | Outpatient (BNVA) | payer MEDICARE, SELFPAY | PROVIDERS: PCP Family Medicine; Visit Provider Surgery Vascular Surgery | DX: I83.11 Varicose veins of right lower extremity with inflammation (principal); I65.23 Occlusion and stenosis of bilateral carotid arteries | CPT/HCPCS: 99212 ==

== ENCOUNTER 2022-06-05 07:27 | Day surgery (SDC) | payer MEDICARE, SELFPAY ==
--- NOTE | 2022-06-04 10:38 | HO.ANESPROP2 ---
Documented by User: Anita Collins NP 06/04/22 10:55 HPI - Anesthesia Eval Consult details Narrative: 61yo F for Colonoscopy Eliquis for afib s/p cardioversion 03/30/22 ETOH abuse PMFSH Active Problems Active Problems: All Active Problems (Updated 05/31/22 @ 13:32 by Randa Koenig RN) Cellulitis of arm (Acute) Foot pain, bilateral (Acute) Bilateral bunions (Acute) Plantar wart of both feet (Acute) Hammer toe of left foot (Acute) Preop cardiovascular exam (Acute) Low back pain (Acute) Cough (Acute) Furuncle, unspecified (Acute) Abscess (Acute) Impingement syndrome of right shoulder (Acute) Arthritis of shoulder region, right, degenerative (Acute) Herpes zoster infection of oral mucosa (Acute) Bilateral carotid artery stenosis (Acute) Varicose veins of right lower extremity with inflammation (Acute) Varicose veins of left lower extremity with inflammation (Acute) Ringworm (Acute) Rash (Acute) Acne (Acute) Right knee pain (Acute) Shoulder pain (Acute) Depression with anxiety (Acute) Atrial fibrillation (Acute) Hyperthyroidism (Acute) Atrial fibrillation status post cardioversion (Acute) Shortness of breath (Acute) Abnormal lung sounds (Acute) Pneumonia (Acute) Status post carotid endarterectomy (Acute) Encounter for monitoring anti-arrhythmic therapy (Acute) Annual physical exam (Acute) Elevated fasting glucose (Acute) Screening for colon cancer (Acute) Hyperkalemia (Acute) Breast cancer screening by mammogram (Acute) Screening for cervical cancer (Acute) Pre-diabetes (Acute) Shoulder pain, left (Acute) Cervicalgia (Acute) Degenerative disc disease, lumbar (Acute) Thoracic degenerative disc disease (Acute) Preop examination (Acute) Cervicalgia (Acute) Hyperkalemia (Acute) Cervical spondylosis (Acute) Muscle spasms of head or neck (Acute) PAF (paroxysmal atrial fibrillation) (Acute) Graves disease (Acute) Past Medical History Medical History Alcohol abuse Depression GERD (gastroesophageal reflux disease) Graves disease History of cardioversion History of COPD HLD (hyperlipidemia) Hypothyroid On anticoagulant therapy On beta sabine at home PAF (paroxysmal atrial fibrillation) Pelvic fracture Family History Family History Father CVD (cardiovascular disease) Hypertension Mother CVA (cerebral vascular accident) Paternal Grandmother Breast cancer Family history of problems with anesthesia: No Surgical History Surgical History H/O foot surgery History of ankle surgery History of back surgery History of carotid endarterectomy History of salpingectomy History of surgery on right wrist Hx of colonoscopy Hx of rotator cuff surgery History of Problems with Anesthesia: No Social History Social History Housing: House Patient Tobacco Use Status: Former Tobacco user Quit Date: 4-5 years ago e-Cigarette/Vaping Use: Never Used Second Hand Smoke Exposure: No Are you DNR?: No Advance Directives: No Advance Directives Information Provided: Yes service: No Current occupational status: employed 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 Current occupational exposures/hazards: No Cognitive needs: No Hearing needs: No Vision needs: No Meds Allergies Allergy/AdvReac Type Severity Reaction Status Date / Time No Known Allergies Allergy Verified 05/24/22 09:04 Home Medications Medication Instructions Recorded Confirmed Last Taken Type methimazole 10 mg tablet 10 mg PO DAILY 04/25/22 05/31/22 Unknown History ropinirole 5 mg tablet 5 mg PO BEDTIME 05/31/22 05/31/22 Unknown History Exam Exam Date and Time: June 04, 2022 1038 Pertinent Lab Results Pertinent Lab Results: Laboratory Tests 12/05/21 05/16/22 07:13 07:37 WBC 6.2 Hgb 12.7 Hct 40.0 Plt Count 281 Carbon Dioxide 25 BUN 14 Creatinine 0.71 Narrative Narrative: EKG 04/2022 atrial fibrillation or flutter with variable block at 98/Min Holter 03/2022 Conclusion: 1. Patient was monitored for total period of 3 days 2. Baseline was normal sinus rhythm with average heart rate of 55 beats per minute with lowest heart rate of 40 beats per minute 3. Frequent sinus bradycardia with 75% of the heart rate below 60 beats per minute 4. No significant pauses noted 5. Rare ectopy noted 6. Patient reported multiple symptoms, all shortness of breath correlated with sinus rhythm US carotid duplex BI 01/2022 IMPRESSION: 1. RIGHT: Minimal, non-hemodynamically significant stenosis of the proximal right internal carotid artery corresponding to a 0-49% stenosis by velocity criteria. ? 2. LEFT: Minimal, non-hemodynamically significant stenosis of the proximal left internal carotid artery corresponding to a 0-49% stenosis by velocity criteria. ? 3. There is no change in the category severity of disease when compared to the previous study dated 11/30/2020. US venous duplex LE 05/2022 IMPRESSION: Unremarkable examination. No superficial or deep venous insufficiency is seen bilaterally. There is no deep venous thrombosis noted. Assessment and Plan Assessment Anesthesia Assessment: Chart Reviewed Final Anesthetic Review Family History of Problems with Anesthesia: No History of Problems with Anesthesia: No Documented by User: Kosta Doty MD 06/05/22 08:29 [facility] Past Medical History Medical History Alcohol abuse Depression GERD (gastroesophageal reflux disease) Graves disease History of cardioversion History of COPD HLD (hyperlipidemia) Hypothyroid On anticoagulant therapy On beta sabine at home PAF (paroxysmal atrial fibrillation) Pelvic fracture Family History Family History Father CVD (cardiovascular disease) Hypertension Mother CVA (cerebral vascular accident) Paternal Grandmother Breast cancer Surgical History Surgical History H/O foot surgery History of ankle surgery History of back surgery History of carotid endarterectomy History of salpingectomy History of surgery on right wrist Hx of colonoscopy Hx of rotator cuff surgery Social History Social History Housing: House Patient Tobacco Use Status: Former Tobacco user Quit Date: 4-5 years ago e-Cigarette/Vaping Use: Never Used Second Hand Smoke Exposure: No Are you DNR?: No Advance Directives: No Advance Directives Information Provided: Yes service: No Current occupational status: employed 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 Current occupational exposures/hazards: No Cognitive needs: No Hearing needs: No Vision needs: No Meds Allergies Allergy/AdvReac Type Severity Reaction Status Date / Time No Known Allergies Allergy Verified 05/24/22 09:04 Home Medications Medication Instructions Recorded Confirmed Last Taken Type methimazole 10 mg tablet 10 mg PO DAILY 04/25/22 05/31/22 Unknown History ropinirole 5 mg tablet 5 mg PO BEDTIME 05/31/22 05/31/22 Unknown History Exam Airway Mallampati Class: III Loose/Missing/Broken Teeth: Yes Assessment and Plan Final Anesthetic Review NPO: Yes ASA Class: III Documented by User: Rayshawn Elaine MD 06/05/22 08:34 PMFSH Past Medical History Medical History Alcohol abuse Depression GERD (gastroesophageal reflux disease) Graves disease History of cardioversion History of COPD HLD (hyperlipidemia) Hypothyroid On anticoagulant therapy On beta sabine at home PAF (paroxysmal atrial fibrillation) Pelvic fracture Family History Family History Father CVD (cardiovascular disease) Hypertension Mother CVA (cerebral vascular accident) Paternal Grandmother Breast cancer Surgical History Surgical History H/O foot surgery History of ankle surgery History of back surgery History of carotid endarterectomy History of salpingectomy History of surgery on right wrist Hx of colonoscopy Hx of rotator cuff surgery Social History Social History Housing: House Patient Tobacco Use Status: Former Tobacco user Quit Date: 4-5 years ago e-Cigarette/Vaping Use: Never Used Second Hand Smoke Exposure: No Are you DNR?: No Advance Directives: No Advance Directives Information Provided: Yes service: No Current occupational status: employed 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 Current occupational exposures/hazards: No Cognitive needs: No Hearing needs: No Vision needs: No Meds Allergies Allergy/AdvReac Type Severity Reaction Status Date / Time No Known Allergies Allergy Verified 05/24/22 09:04 Home Medications Medication Instructions Recorded Confirmed Last Taken Type methimazole 10 mg tablet 10 mg PO DAILY 04/25/22 05/31/22 Unknown History ropinirole 5 mg tablet 5 mg PO BEDTIME 05/31/22 05/31/22 Unknown History Exam Airway TM Dist: >3cm Neck ROM: Full Heart: [id number] Lungs: cta b/l Assessment and Plan Assessment Anesthesia Assessment: Anesthesia Plan Discussed Final Anesthetic Review Final Preanesthetic Review: No Changes in Pt Med Stat, Meds/Allgs Chart Reviewed, Consent Obtained/Reviewed and Anes Risks/Benef Reviewed Patient Risk: Intermediate Procedure Risk: Intermediate Assessment/Block/Sedation in SS: Assess/Block/Sedation-SS Anesthetic Plan Anesthetic Plan: MAC: and Agree w/ Assess. and Plan Disposition: Standard PACU
[2022-06-05 06:11] VITALS: BMI 27.8
--- NOTE | 2022-06-05 06:51 | MHC.SHP ---
Pre-Procedural Eval Section A Date of Service: 06/05/22 Section B Chief Complaint: screening Relevant Family History (Specify if Yes): No Relevant Social History: Other (specify) (THC ) Present Medications: see Short Stay Collaborative assessment Medical History: Significant History (Alcohol abuse Depression GERD (gastroesophageal reflux disease) Graves disease History of cardioversion History of COPD HLD (hyperlipidemia) Hypothyroid On anticoagulant therapy On beta sabine at home PAF (paroxysmal atrial fibrillation) Pelvic fracture) History of Previous Operations: Relevant previous surgery/procedure and date(s) (H/O foot surgery History of ankle surgery History of back surgery History of carotid endarterectomy History of salpingectomy History of surgery on right wrist Hx of colonoscopy Hx of rotator cuff surgery) Allergies: Allergies Allergy/AdvReac Type Severity Reaction Status Date / Time No Known Allergies Allergy Verified 05/24/22 09:04 Review of Systems Sugical H&P ROS: Negative: Constitution, Cardiovascular, Respiratory, Neurological, Psychiatric, Hem-Onc, Allergic/Immunologic, Gastrointestinal, Genitourinary, Musculoskeletal, Integumentary, Endocrine and Eyes/Ears/Nose/Throat Exam Surgical H&P Exam: Normal: HEENT, Normal: Heart, Normal: Lungs, Normal: Extremities, Normal: Abdomen, Normal: Skin and Normal: Neurological Plan Diagnosis/Plan: Unchanged I have reviewed the history and physical and performed a pertinent physical examination on my patient. No changes have occurred unless specified. Time Spent With Patient Time: Total time managing care of this patient today ____ minutes.
[2022-06-05 07:33] VITALS: BP 124/77; PULSE 72; RESP 18; TEMP 36.6; O2SAT 97
[2022-06-05] MEDS: Lactated Ringers 1,000 ML 50 ML IVCONT (07:47)
[2022-06-05 08:08] LABS: Anion Gap 13 (12-20); Carbon Dioxide 26 mmol/L (22-29); Chloride 107 mmol/L (96-108); Potassium 4.8 mmol/L (3.3-5.1); Sodium 141 mmol/L (135-145)
--- NOTE | 2022-06-05 08:22 | W.PM.OPN ---
Operative Note Operative Note Date of Service: 06/05/22 Narrative: Operative Information Procedure Description: Colonoscopy Indication: screening Anesthesia: MAC COLONOSCOPY Instrument: Olympus variable stiffness pediatric scope 190L Colonoscopy Monitoring: Vital signs and clinical assessment, continuous EKG monitoring, Pulse oximetry, Carbon Dioxide monitoring and blood pressure monitoring were done throughout the procedure. Colon withdrawal time was 8 minutes. Procedure: The patient was placed in the left lateral decubitis position and pre-procedure medications were administered. After a digital rectal examination of the ano-rectum, the video colonoscope was inserted into the rectum and advanced through the colon to the cecum/TI. The colonoscope was slowly withdrawn in a retrograde panoramic fashion and the colon mucosa was carefully examined including a retroflexed view of the rectum. Findings and interventions are described below. Procedure Difficulty: easy Findings: Terminal Ileum-normal Cecum:normal Ascending Colon: normal Transverse Colon -normal Descending Colon:normal Sigmoid Colon: 10 mm sessile polyp removed with cold snare, mild diverticulosis noted Rectum: Retroflexion with small internal hemorrhoids, grade I Anorectum - normal Colon preparation: [place] Bowel Preparation Scale Right colon; 2 Transverse colon: 2 Left colon; 2 (0 = Unprepared colon segment with mucosa not seen due to solid stool that cannot be cleared. 1 = Portion of mucosa of the colon segment seen, but other areas of the colon segment not well seen due to staining, residual stool and/or opaque liquid. 2 = Minor amount of residual staining, small fragments of stool and/or opaque liquid, but mucosa of colon segment seen well. 3 = Entire mucosa of colon segment seen well with no residual staining, small fragments of stool or opaque liquid) Impression and Post Procedure Diagnosis: polyp internal hemorrhoids diverticular disease Plan: High fiber diet leaflet Avoid straining at stool, epsom salts and sitz bath, anusol supps or cream Repeat Colonoscopy in 5-7 years due to adenomatous appearing polyp removed or earlier if clinically indicated Above findings were reviewed with the patient and relevant handouts were provided if indicated.
[2022-06-05 08:59] VITALS: BP 92/51; PULSE 76; RESP 16; TEMP 36.1; O2SAT 98
[2022-06-05 09:14] VITALS: BP 114/80; PULSE 77; RESP 16; TEMP 36.1; O2SAT 100
== END 2022-06-05 09:39 | disposition home or self-care (01) ==
PROVIDERS: Nurse Practitioner; PCP Family Medicine; Visit Provider Internal Medicine Gastroenterology
PROC: 0DJD8ZZ Inspection of Lower Intestinal Tract, Via Natural or Artificial Opening Endoscopic (ICD-10-PCS; CPT 45378; principal; 2022-06-05 08:30)
DX: Z12.11 Encounter for screening for malignant neoplasm of colon (principal); D12.5 Benign neoplasm of sigmoid colon; K57.30 Diverticulosis of large intestine without perforation or abscess without bleeding; K64.0 First degree hemorrhoids; F10.10 Alcohol abuse, uncomplicated; K21.9 Gastro-esophageal reflux disease without esophagitis; E78.00 Pure hypercholesterolemia, unspecified; E78.5 Hyperlipidemia, unspecified; J44.9 Chronic obstructive pulmonary disease, unspecified; I48.0 Paroxysmal atrial fibrillation; E05.00 Thyrotoxicosis with diffuse goiter without thyrotoxic crisis or storm; R73.03 Prediabetes; Z79.01 Long term (current) use of anticoagulants; Z79.899 Other long term (current) drug therapy; Z87.891 Personal history of nicotine dependence
CPT/HCPCS: 45385; 36415; 80051; 88305

== ENCOUNTER 2022-06-08 06:55 | Outpatient (REF) | payer MEDICARE, SELFPAY ==
[2022-06-08 12:02] LABS: Alanine Aminotransferase 16 U/L (0-31); Albumin Level 4.1 g/dL (3.5-5.0); Alkaline Phosphatase 84 U/L (39-117); Anion Gap 14 (12-20); Aspartate Amino Transferase 17 U/L (5-31); Bilirubin Total 0.6 mg/dL (0.0-1.0); Blood Urea Nitrogen 10 mg/dL (9-16); Calcium 9.8 mg/dL (8.4-10.2); Carbon Dioxide 25 mmol/L (22-29); Chloride 109 mmol/L (96-108); Estimated Glomerular Filt Rate > 60; Glucose Random 124 mg/dL (60-115); Potassium 5.2 mmol/L (3.3-5.1); Sodium 143 mmol/L (135-145); Total Protein 6.6 g/dL (6.5-8.0)
[2022-06-08 12:24] LABS: Free T4 (Free Thyroxine) 1.38 ng/dL (0.71-1.85)
[2022-06-09 18:04] LABS: Triiodothyronine T3 Total 306 ng/dL (76-181)
== END 2022-06-08 06:56 | disposition home or self-care (01) ==
LOC: HO.LAB 06:55
PROVIDERS: PCP Family Medicine; Visit Provider Internal Medicine
DX: E87.5 Hyperkalemia (principal)
CPT/HCPCS: 36415; 80053; 84439; 84480

== ENCOUNTER 2022-06-13 14:34 | Emergency (ER) | payer MEDICARE, SELFPAY ==
--- NOTE | ~2022-06-13 | XR_ITS ---
EXAMINATION: XR ANKLE, RIGHT CLINICAL INFORMATION: Right ankle swelling. COMPARISON: None TECHNIQUE: AP, lateral, and mortise views of the right ankle. FINDINGS: The patient is status post distal fibular and medial malleolus ORIF showing good anatomic alignment and no evidence for hardware malfunction. Mild soft tissue swelling is seen laterally overlying of the lateral malleolus. No acute fracture or erosive changes are seen. The tarsal bones are normally aligned. XR/XR ankle RT min 3V IMPRESSION: Mild soft tissue swelling laterally without acute underlying osseous or hardware abnormality.
--- NOTE | ~2022-06-13 | XR_ITS ---
EXAMINATION: XR CHEST CLINICAL INFORMATION: Cough. COMPARISON: 08/30/2021 chest radiographs, chest CT scan dated 08/08/2021. TECHNIQUE: No acute cardiopulmonary process. 2 views of the chest were obtained. FINDINGS: The lungs are clear. There are no pleural effusions. The heart and mediastinal structures are unremarkable. Old left posterolateral eighth rib fracture without significant change. XR/XR chest 2V IMPRESSION: No acute cardiopulmonary process.
[2022-06-13 15:53] VITALS: BP 132/87; PULSE 92; RESP 16; TEMP 36.5; O2SAT 95; BMI 27.3
--- NOTE | 2022-06-13 15:53 | ED_ITS ---
HPI - Extremity Injury (Lower) General Chief Complaint: Extremity Problem <RUSSELL Bonilla - Last Filed: 06/13/22 15:59> Stated Complaint: R ankle swollen, old inj <RUSSELL Bonilla - Last Filed: 06/13/22 15:59> Time Seen by Provider: 06/13/22 18:59 <RUSSELL Bonilla - Last Filed: 06/13/22 15:59> Source: patient <Karen Preston MD - Last Filed: 06/13/22 21:09> Mode of arrival: ambulatory <Karen Preston MD - Last Filed: 06/13/22 21:09> Limitations: no limitations <Karen Preston MD - Last Filed: 06/13/22 21:09> History of Present Illness HPI Narrative: Patient comes to the emergency room complaining of right ankle swelling for about a week. Patient states that this is painful to touch, especially she wears a shoe over it. Patient denies fever or chills. <Karen Preston MD - Last Filed: 06/13/22 21:09> Related Data Home Medications: Home Medications Medication Instructions Recorded Confirmed methimazole 10 mg tablet 10 mg PO DAILY 04/25/22 05/31/22 ropinirole 5 mg tablet 5 mg PO BEDTIME 05/31/22 05/31/22 Previous Rx's Medication Instructions Recorded furosemide 40 mg tablet 40 mg PO DAILY PRN edema #90 caps 06/20/21 lorazepam 1 mg tablet 1 mg PO BEDTIME PRN anxiety 30 06/20/21 days #30 tabs rosuvastatin 20 mg tablet 20 mg PO DAILY #90 tabs 08/07/21 omeprazole 20 mg capsule,delayed 20 mg PO DAILY #90 caps 08/14/21 release valacyclovir 500 mg tablet 500 mg PO DAILY PRN cold sores 30 08/14/21 days #30 tabs apixaban 5 mg tablet (Eliquis) 5 mg PO BID 90 days #180 tabs 09/20/21 metoprolol tartrate 50 mg tablet 50 mg PO BID 90 days #180 tabs 01/29/22 quetiapine 50 mg tablet 50 mg PO BEDTIME 30 days #30 tabs 03/22/22 sertraline 100 mg tablet 50 mg PO DAILY 30 days #15 tabs 03/22/22 sodium zirconium cyclosilicate 10 10 g PO DAILY 30 days #30 ea 04/12/22 gram oral powder packet (Lokelma) digoxin 125 mcg (0.125 mg) tablet 125 mcg PO DAILY #90 tabs 05/03/22 (Digox) methocarbamol 500 mg tablet 500 mg PO TID PRN muscle spasm 30 05/07/22 days #90 tabs <RUSSELL Bonilla - Last Filed: 06/13/22 15:59> Allergies/Adverse Reactions: Allergies Allergy/AdvReac Type Severity Reaction Status Date / Time No Known Allergies Allergy Verified 06/13/22 15:58 <RUSSELL Bonilla - Last Filed: 06/13/22 15:59> Review of Systems Review of Systems: Constitutional : No Weight loss, No Fever, No Chills, No Night Sweats, No Fatigue, No Malaise ENT/Mouth : No Hearing loss, No Ear Pain, No Nasal Congestion, No Sinus Pain, No Hoarseness, No sore throat, No Rhinorrhea, No Swallowing Difficulty Eyes: No Eye Pain, No Swelling, No Redness, No Foreign Body, No Discharge, No Vision Changes Cardiovascular : No Chest Pain, No SOB, No Dyspnea on Exertion, No Orthopnea, No Edema, No Palpitations Respiratory : No Cough, No Sputum, No Wheezing, No Smoke Exposure, No Dyspnea Gastrointestinal : No Nausea, No Vomiting, No Diarrhea, No Constipation, No abdominal Pain, No Hematochezia, No Melena Genitourinary : no irregular bleeding, No Dysuria, No Urinary Frequency, No Hematuria, No Urinary Incontinence, No Urgency, No Flank Pain, No Urinary Flow Changes, No Hesitancy Musculoskeletal : No joint pain, No Myalgias, No Joint Swelling Skin : Abscess on the lateral aspect of the right ankle Neuro : No Weakness, No Numbness, No Paresthesias, No Loss of Consciousness, No Dizziness, No Headache Psych : No Anxiety/Panic, No Depression, No SI/HI/AH/VH, No Social Issues, Heme/Lymph: No Bruising, No Bleeding,No Lymphadenopathy Endocrine : No Polyuria, No Polydipsia, No Temperature Intolerance <Karen Preston MD - Last Filed: 06/13/22 21:09> FOR[facility]LY [facility] Past Medical History Medical History: Medical History Alcohol abuse Depression GERD (gastroesophageal reflux disease) Graves disease History of cardioversion History of COPD HLD (hyperlipidemia) Hypothyroid On anticoagulant therapy On beta sabine at home PAF (paroxysmal atrial fibrillation) Pelvic fracture <RUSSELL Bonilla - Last Filed: 06/13/22 15:59> Surgical History: Surgical History H/O foot surgery History of ankle surgery History of back surgery History of carotid endarterectomy History of salpingectomy History of surgery on right wrist Hx of colonoscopy Hx of rotator cuff surgery <RUSSELL Bonilla - Last Filed: 06/13/22 15:59> Family History Family History: Family History Father CVD (cardiovascular disease) Hypertension Mother CVA (cerebral vascular accident) Paternal Grandmother Breast cancer <RUSSELL Bonilla - Last Filed: 06/13/22 15:59> Social History Social History: Social History Housing: House Patient Tobacco Use Status: Former Tobacco user Quit Date: 4-5 years ago e-Cigarette/Vaping Use: Never Used Second Hand Smoke Exposure: No Advance Directives: Yes Advance Directives Information Provided: No Advance Directives on File: No service: No Current occupational status: employed 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 Current occupational exposures/hazards: No Cognitive needs: No Hearing needs: No Vision needs: No <RUSSELL Bonilla - Last Filed: 06/13/22 15:59> Physical Exam Vital Signs: Vital Signs: Last Vital Signs Temp 97.7 F 06/13/22 15:53 Pulse 85 06/13/22 20:04 Resp 18 06/13/22 20:04 BP 116/85 06/13/22 20:04 Pulse Ox 98 06/13/22 20:04 O2 Del Method 06/13/22 20:04 BMI result Body Mass Index 27.3 <RUSSELL Bonilla - Last Filed: 06/13/22 15:59> Vital Signs: Last Vital Signs Temp 97.7 F 06/13/22 15:53 Pulse 85 06/13/22 20:04 Resp 18 06/13/22 20:04 BP 116/85 06/13/22 20:04 Pulse Ox 98 06/13/22 20:04 O2 Del Method 06/13/22 20:04 BMI result Body Mass Index 27.3 <Karen Preston MD - Last Filed: 06/13/22 21:09> Const: Other: Appearance: Alert. Oriented X3. No acute distress. Eyes: Pupils equal, round and reactive to light. ENT: Pharynx normal. Neck: Normal inspection. Neck supple. No lymph nodes noted. No crepitus CVS: Normal heart rate and rhythm. Pulses normal. Normal S1 and S2 Respiratory: No respiratory distress. Breath sounds normal. No Wheezing. No rales Abdomen: Soft and nontender. No rigidity. No distention. Skin: Skin warm and dry. Normal skin color. Normal skin turgor. Extremities: No lower extremity edema. There is mild swelling around the left ankle with a 1 cm x 1 cm lump on the foot. Ultrasound shows small amount of fluid and cobblestone pattern Neuro: Oriented X 3. No motor deficit. No sensory deficit. Moving all extremities. No slurred speech. CN 2 through 12 grossly intact Psych: calm, cooperative, normal affect <Karen Preston MD - Last Filed: 06/13/22 21:09> Course Course Course Narrative: 15:54 - 61 yo female with history of afib on eliquis, hyperthyroidism with planned thyroidectomy in August, history of trimalleloar fracture and repair in 1991 at [facility] coming in with right ankle pain, swelling, redness and warmth that has been worsening for the last week. No recent trauma. Not feeling well and has been in bed the last few days. +cough and body aches as well. - concern for possible hardware infection. she is ambulatory however. will check labs, culture, inflammatory markers, x-rays and viral swabs. <RUSSELL Bonilla - Last Filed: 06/13/22 15:59> 15:54 - 61 yo female with history of afib on eliquis, hyperthyroidism with planned thyroidectomy in August, history of trimalleloar fracture and repair in 1991 at [facility] coming in with right ankle pain, swelling, redness and warmth that has been worsening for the last week. No recent trauma. Not feeling well and has been in bed the last few days. +cough and body aches as well. - concern for possible hardware infection. she is ambulatory however. will check labs, culture, inflammatory markers, x-rays and viral swabs. Patient's white blood cell count is slightly bumped, 11.7, ESR and CRP within normal limits, patient is able to flex and extend the ankle and rotate. Septic joint is not suspected. The lesion was infiltrated with 2% lidocaine. Initially, needle aspiration was attempted, no fluid obtained, then the wound was incised with a #11 blade, A small amount of pus was drained from the incision. Patient drove here, given p.o. doxycycline, Keflex, and Tylenol. Prescription sent to patient's pharmacy. <Karen Preston MD - Last Filed: 06/13/22 21:09> Medical Decision Making Differential Diagnosis Differential Diagnoses: The differential diagnosis associated with the presentation includes (Septic joint, abscess, tophus) <Karen Preston MD - Last Filed: 06/13/22 21:09> Lab Data MDM Lab Attestation statement: I reviewed the patient's lab results. <Karen Preston MD - Last Filed: 06/13/22 21:09> Result Diagrams: : 06/13/22 16:37 06/13/22 16:36 <RUSSELL Bonilla - Last Filed: 06/13/22 15:59> Labs: Lab Results 06/13/22 06/13/22 06/13/22 Range/Units 16:36 16:36 16:36 WBC (4.8-10.8) X10*3/uL RBC (4.20-5.50) X10*6/uL Hgb (12.0-16.0) g/dl Hct (37.0-47.0) % MCV (80.0-98.0) fL MCH (27.0-33.0) pg MCHC (31.0-35.0) g/dl RDW (11.0-16.0) % Plt Count (160-400) X10*3/uL MPV (9.4-12.3) fL Immature Gran % (Auto) (0.0-0.4) % Neut % (Auto) (45-73) % Lymph % (Auto) (20-40) % Butts % (Auto) (2-11) % Eos % (Auto) (0-4) % Baso % (Auto) (0-2) % Lymph # (Auto) (1.2-4.9) X10*3/uL Butts # (Auto) (0.1-1.2) X10*3/uL Eos # (Auto) (0.0-0.4) X10*3/uL Baso # (Auto) (0.0-0.2) X10*3/uL Abs Immat Gran (auto) (0.00-0.03) X10*3/uL Absolute Neuts (auto) (2.0-8.3) x10*3/uL Absolute Nucleated RBC (0.0-0.012) X10*3/uL Nucleated RBC % (auto) (0.0-0.2) /100WBC ESR (0-20) MM/HR Sodium 140 (135-145) mmol/L Potassium 4.2 (3.3-5.1) mmol/L Chloride 107 (96-108) mmol/L Carbon Dioxide 26 (22-29) mmol/L Anion Gap 11 L (12-20) BUN 13 (9-16) mg/dL Creatinine 0.66 (0.5-1.4) mg/dL Estim Creat Clear Calc 112.3 Estimated GFR > 60 Random Glucose 121 H (60-115) mg/dL Lactic Acid 0.9 (0.5-2.0) mmol/L Calcium 9.2 D (8.4-10.2) mg/dL Magnesium 1.7 (1.6-2.6) mg/dL Total Bilirubin 0.4 (0.0-1.0) mg/dL Direct Bilirubin 0.2 (0.0-0.5) mg/dL AST 17 (5-31) U/L ALT 14 (0-31) U/L Alkaline Phosphatase 82 (39-117) U/L C-Reactive Protein 0.16 (< or = 0.50) mg/dL B-Natriuretic Peptide 415 H (<100) pg/mL Total Protein 6.4 L (6.5-8.0) g/dL Albumin 3.8 (3.5-5.0) g/dL Influenza Type A (PCR) (Negative) Influenza Type B (PCR) (Negative) RSV RNA Qual (PCR) (Negative) SARS-CoV-2 RNA (RT-PCR) (Negative) 06/13/22 06/13/22 06/13/22 Range/Units 16:36 16:37 16:37 WBC 11.7 H (4.8-10.8) X10*3/uL RBC 4.00 L (4.20-5.50) X10*6/uL Hgb 12.3 (12.0-16.0) g/dl Hct 38.0 (37.0-47.0) % MCV 95.0 (80.0-98.0) fL MCH 30.8 (27.0-33.0) pg MCHC 32.4 (31.0-35.0) g/dl RDW 12.5 (11.0-16.0) % Plt Count 298 (160-400) X10*3/uL MPV 10.7 (9.4-12.3) fL Immature Gran % (Auto) 0.3 (0.0-0.4) % Neut % (Auto) 49.7 (45-73) % Lymph % (Auto) 37.4 (20-40) % Butts % (Auto) 8.7 (2-11) % Eos % (Auto) 3.4 (0-4) % Baso % (Auto) 0.5 (0-2) % Lymph # (Auto) 4.4 (1.2-4.9) X10*3/uL Butts # (Auto) 1.0 (0.1-1.2) X10*3/uL Eos # (Auto) 0.4 (0.0-0.4) X10*3/uL Baso # (Auto) 0.1 (0.0-0.2) X10*3/uL Abs Immat Gran (auto) 0.04 H (0.00-0.03) X10*3/uL Absolute Neuts (auto) 5.8 (2.0-8.3) x10*3/uL Absolute Nucleated RBC 0.000 (0.0-0.012) X10*3/uL Nucleated RBC % (auto) 0.0 (0.0-0.2) /100WBC ESR 10 (0-20) MM/HR Sodium (135-145) mmol/L Potassium (3.3-5.1) mmol/L Chloride (96-108) mmol/L Carbon Dioxide (22-29) mmol/L Anion Gap (12-20) BUN (9-16) mg/dL Creatinine (0.5-1.4) mg/dL Estim Creat Clear Calc Estimated GFR Random Glucose (60-115) mg/dL Lactic Acid (0.5-2.0) mmol/L Calcium (8.4-10.2) mg/dL Magnesium (1.6-2.6) mg/dL Total Bilirubin (0.0-1.0) mg/dL Direct Bilirubin (0.0-0.5) mg/dL AST (5-31) U/L ALT (0-31) U/L Alkaline Phosphatase (39-117) U/L C-Reactive Protein (< or = 0.50) mg/dL B-Natriuretic Peptide (<100) pg/mL Total Protein (6.5-8.0) g/dL Albumin (3.5-5.0) g/dL Influenza Type A (PCR) NEGATIVE (Negative) Influenza Type B (PCR) NEGATIVE (Negative) RSV RNA Qual (PCR) NEGATIVE (Negative) SARS-CoV-2 RNA (RT-PCR) NEGATIVE (Negative) <RUSSELL Bonilla - Last Filed: 06/13/22 15:59> Lab Results 06/13/22 06/13/22 06/13/22 Range/Units 16:36 16:36 16:36 WBC (4.8-10.8) X10*3/uL RBC (4.20-5.50) X10*6/uL Hgb (12.0-16.0) g/dl Hct (37.0-47.0) % MCV (80.0-98.0) fL MCH (27.0-33.0) pg MCHC (31.0-35.0) g/dl RDW (11.0-16.0) % Plt Count (160-400) X10*3/uL MPV (9.4-12.3) fL Immature Gran % (Auto) (0.0-0.4) % Neut % (Auto) (45-73) % Lymph % (Auto) (20-40) % Butts % (Auto) (2-11) % Eos % (Auto) (0-4) % Baso % (Auto) (0-2) % Lymph # (Auto) (1.2-4.9) X10*3/uL Butts # (Auto) (0.1-1.2) X10*3/uL Eos # (Auto) (0.0-0.4) X10*3/uL Baso # (Auto) (0.0-0.2) X10*3/uL Abs Immat Gran (auto) (0.00-0.03) X10*3/uL Absolute Neuts (auto) (2.0-8.3) x10*3/uL Absolute Nucleated RBC (0.0-0.012) X10*3/uL Nucleated RBC % (auto) (0.0-0.2) /100WBC ESR (0-20) MM/HR Sodium 140 (135-145) mmol/L Potassium 4.2 (3.3-5.1) mmol/L Chloride 107 (96-108) mmol/L Carbon Dioxide 26 (22-29) mmol/L Anion Gap 11 L (12-20) BUN 13 (9-16) mg/dL Creatinine 0.66 (0.5-1.4) mg/dL Estim Creat Clear Calc 112.3 Estimated GFR > 60 Random Glucose 121 H (60-115) mg/dL Lactic Acid 0.9 (0.5-2.0) mmol/L Calcium 9.2 D (8.4-10.2) mg/dL Magnesium 1.7 (1.6-2.6) mg/dL Total Bilirubin 0.4 (0.0-1.0) mg/dL Direct Bilirubin 0.2 (0.0-0.5) mg/dL AST 17 (5-31) U/L ALT 14 (0-31) U/L Alkaline Phosphatase 82 (39-117) U/L C-Reactive Protein 0.16 (< or = 0.50) mg/dL B-Natriuretic Peptide 415 H (<100) pg/mL Total Protein 6.4 L (6.5-8.0) g/dL Albumin 3.8 (3.5-5.0) g/dL Influenza Type A (PCR) (Negative) Influenza Type B (PCR) (Negative) RSV RNA Qual (PCR) (Negative) SARS-CoV-2 RNA (RT-PCR) (Negative) 06/13/22 06/13/22 06/13/22 Range/Units 16:36 16:37 16:37 WBC 11.7 H (4.8-10.8) X10*3/uL RBC 4.00 L (4.20-5.50) X10*6/uL Hgb 12.3 (12.0-16.0) g/dl Hct 38.0 (37.0-47.0) % MCV 95.0 (80.0-98.0) fL MCH 30.8 (27.0-33.0) pg MCHC 32.4 (31.0-35.0) g/dl RDW 12.5 (11.0-16.0) % Plt Count 298 (160-400) X10*3/uL MPV 10.7 (9.4-12.3) fL Immature Gran % (Auto) 0.3 (0.0-0.4) % Neut % (Auto) 49.7 (45-73) % Lymph % (Auto) 37.4 (20-40) % Butts % (Auto) 8.7 (2-11) % Eos % (Auto) 3.4 (0-4) % Baso % (Auto) 0.5 (0-2) % Lymph # (Auto) 4.4 (1.2-4.9) X10*3/uL Butts # (Auto) 1.0 (0.1-1.2) X10*3/uL Eos # (Auto) 0.4 (0.0-0.4) X10*3/uL Baso # (Auto) 0.1 (0.0-0.2) X10*3/uL Abs Immat Gran (auto) 0.04 H (0.00-0.03) X10*3/uL Absolute Neuts (auto) 5.8 (2.0-8.3) x10*3/uL Absolute Nucleated RBC 0.000 (0.0-0.012) X10*3/uL Nucleated RBC % (auto) 0.0 (0.0-0.2) /100WBC ESR 10 (0-20) MM/HR Sodium (135-145) mmol/L Potassium (3.3-5.1) mmol/L Chloride (96-108) mmol/L Carbon Dioxide (22-29) mmol/L Anion Gap (12-20) BUN (9-16) mg/dL Creatinine (0.5-1.4) mg/dL Estim Creat Clear Calc Estimated GFR Random Glucose (60-115) mg/dL Lactic Acid (0.5-2.0) mmol/L Calcium (8.4-10.2) mg/dL Magnesium (1.6-2.6) mg/dL Total Bilirubin (0.0-1.0) mg/dL Direct Bilirubin (0.0-0.5) mg/dL AST (5-31) U/L ALT (0-31) U/L Alkaline Phosphatase (39-117) U/L C-Reactive Protein (< or = 0.50) mg/dL B-Natriuretic Peptide (<100) pg/mL Total Protein (6.5-8.0) g/dL Albumin (3.5-5.0) g/dL Influenza Type A (PCR) NEGATIVE (Negative) Influenza Type B (PCR) NEGATIVE (Negative) RSV RNA Qual (PCR) NEGATIVE (Negative) SARS-CoV-2 RNA (RT-PCR) NEGATIVE (Negative) <Karen Preston MD - Last Filed: 06/13/22 21:09> Radiology Impression Discussion of test interpretation with radiology: I have reviewed the radiologist's reading. <Karen Preston MD - Last Filed: 06/13/22 21:09> Radiologist Impression: The patient is status post distal fibular and medial malleolus ORIF showing good anatomic alignment and no evidence for hardware malfunction. Mild soft tissue swelling is seen laterally overlying of the lateral malleolus. No acute fracture or erosive changes are seen. The tarsal bones are normally aligned. XR/XR ankle RT min 3V IMPRESSION: Mild soft tissue swelling laterally without acute underlying osseous or hardware abnormal FINDINGS: The lungs are clear. There are no pleural effusions. The heart and mediastinal structures are unremarkable. Old left posterolateral eighth rib fracture without significant change. XR/XR chest 2V IMPRESSION: No acute cardiopulmonary process. <Karen Preston MD - Last Filed: 06/13/22 21:09> Procedures Abscess I/D Site: foot <Karen Preston MD - Last Filed: 06/13/22 21:09> Side (if applicable): right <Karen Preston MD - Last Filed: 06/13/22 21:09> Local Anesthetic: lidocaine 2% <Karen Preston MD - Last Filed: 06/13/22 21:09> Amount of anesthesia used (mL): 10 <Kaern Preston MD - Last Filed: 06/13/22 21:09> Technique: needle aspiration and incised with blade <Karen Preston MD - Last Filed: 06/13/22 21:09> Amount of fluid expressed (mL): 1 <Karen Preston MD - Last Filed: 06/13/22 21:09> Sent for culture/gram staining?: No <Karen Preston MD - Last Filed: 06/13/22 21:09> Packing used?: none <Karen Preston MD - Last Filed: 06/13/22 21:09> Discharge Plan Discharge Clinical Impression: Abscess <RUSSELL Bonilla - Last Filed: 06/13/22 15:59> Patient Disposition: Home, Self-Care <RUSSELL Bonilla - Last Filed: 06/13/22 15:59> Instructions: Abscess (ED) <RUSSELL Bonilla - Last Filed: 06/13/22 15:59> Additional Instructions: Please follow-up with your primary care physician tomorrow. If you have any worsening or new symptoms, please return to the emergency room or call 911 <RUSSELL Bonilla - Last Filed: 06/13/22 15:59> Prescriptions: No Action furosemide 40 mg tablet 40 mg PO DAILY PRN (Reason: edema) Qty: 90 1RF lorazepam 1 mg tablet 1 mg PO BEDTIME PRN (Reason: anxiety) 30 Days Qty: 30 0RF Rx Instructions: [facility] verified. Partial refill upon request. rosuvastatin 20 mg tablet 20 mg PO DAILY Qty: 90 3RF valacyclovir 500 mg tablet 500 mg PO DAILY PRN (Reason: cold sores) 30 Days Qty: 30 1RF omeprazole 20 mg capsule,delayed release(DR/EC) 20 mg PO DAILY Qty: 90 3RF Eliquis 5 mg tablet 5 mg PO BID 90 Days Qty: 180 2RF quetiapine 50 mg tablet 50 mg PO BEDTIME 30 Days Qty: 30 3RF sertraline 100 mg tablet 50 mg PO DAILY 30 Days Qty: 15 3RF Lokelma 10 gram powder in packet 10 g PO DAILY 30 Days Qty: 30 0RF Rx Instructions: take today; tomorrow am. methimazole 10 mg tablet 10 mg PO DAILY ropinirole 5 mg tablet 5 mg PO BEDTIME Rx Instructions: administer 1-3 hours before bedtime metoprolol tartrate 50 mg tablet 50 mg PO BID 90 Days Qty: 180 3RF digoxin [Digox] 125 mcg (0.125 mg) tablet 125 mcg PO DAILY Qty: 90 3RF methocarbamol 500 mg tablet 500 mg PO TID PRN (Reason: muscle spasm) 30 Days Qty: 90 0RF <RUSSELL Bonilla - Last Filed: 06/13/22 15:59>
[2022-06-13 16:46] LABS: MANUAL DIFF FLAG NO
[2022-06-13 16:51] LABS: Basophils Absolute Auto 0.1 X10*3/uL (0.0-0.2); Basophils Percent Auto 0.5 % (0-2); Eosinophils Absolute Auto 0.4 X10*3/uL (0.0-0.4); Eosinophils Percent Auto 3.4 % (0-4); Hemoglobin 12.3 g/dl (12.0-16.0); Imm Gran Abs Auto 0.04 X10*3/uL (0.00-0.03); Imm Gran Pct Auto 0.3 % (0.0-0.4); Lymphocytes Absolute Auto 4.4 X10*3/uL (1.2-4.9); Lymphocytes Percent Auto 37.4 % (20-40); Mean Corpuscular HGB Conc 32.4 g/dl (31.0-35.0); Mean Corpuscular Hemoglobin 30.8 pg (27.0-33.0); Mean Platelet Volume 10.7 fL (9.4-12.3); Monocytes Percent Auto 8.7 % (2-11); Neutrophils Absolute Auto 5.8 x10*3/uL (2.0-8.3); Neutrophils Percent Auto 49.7 % (45-73); Platelet Count 298 X10*3/uL (160-400); Red Cell Distribution Width 12.5 % (11.0-16.0); White Blood Count 11.7 X10*3/uL (4.8-10.8)
[2022-06-13 17:02] LABS: Lactic Acid 0.9 mmol/L (0.5-2.0)
[2022-06-13 17:06] LABS: Alanine Aminotransferase 14 U/L (0-31); Albumin Level 3.8 g/dL (3.5-5.0); Alkaline Phosphatase 82 U/L (39-117); Anion Gap 11 (12-20); Aspartate Amino Transferase 17 U/L (5-31); Bilirubin Direct 0.2 mg/dL (0.0-0.5); Bilirubin Total 0.4 mg/dL (0.0-1.0); Blood Urea Nitrogen 13 mg/dL (9-16); C Reactive Protein 0.16 mg/dL (< or = 0.50); Calcium 9.2 mg/dL (8.4-10.2); Carbon Dioxide 26 mmol/L (22-29); Chloride 107 mmol/L (96-108); Creatinine Clr Calc Pharmacy 112.3; Estimated Glomerular Filt Rate > 60; Glucose Random 121 mg/dL (60-115); Magnesium 1.7 mg/dL (1.6-2.6); Potassium 4.2 mmol/L (3.3-5.1); Sodium 140 mmol/L (135-145); Total Protein 6.4 g/dL (6.5-8.0)
[2022-06-13 17:10] LABS: B Type Natriuretic Peptide 415 pg/mL (<100)
[2022-06-13 17:26] LABS: Influenza A PCR NEGATIVE (Negative); Influenza B PCR NEGATIVE (Negative); Resp Syncy Virus RNA Qual PCR NEGATIVE (Negative); SARS COV2 PCR INHOUSE NEGATIVE (Negative)
[2022-06-13 17:38] LABS: Erythrocyte Sedimentation Rate 10 MM/HR (0-20)
[2022-06-13 20:04] VITALS: BP 116/85; PULSE 85; RESP 18; O2SAT 98
[2022-06-13] MEDS: Lidocaine HCl 2 % MPF 5 ML VIAL 10 ML INFILTRATI (21:34)
[2022-06-13] MEDS: Acetaminophen 325 MG TABLET 975 MG PO (21:34)
[2022-06-13] MEDS: cephALEXin 500 MG CAPSULE PO (21:35)
[2022-06-13] MEDS: Doxycycline Monohydrate 100 MG CAPSULE PO (21:35)
== END 2022-06-13 21:43 | disposition home or self-care (01) ==
PROVIDERS: Physician Assistant; Emergency Provider Emergency Medicine; PCP Family Medicine
DX: L02.415 Cutaneous abscess of right lower limb (principal); M25.571 Pain in right ankle and joints of right foot; R60.0 Localized edema; R06.02 Shortness of breath; Z79.899 Other long term (current) drug therapy; Z20.822 Contact with and (suspected) exposure to COVID-19
CPT/HCPCS: 0241U; 10060; 36415; 71046; 73610; 80048; 80076; 83605; 83735; 83880; 85025; 85652; 86140; 87040; 99284

== ENCOUNTER → 2022-06-19 07:25 | Outpatient (REF) | payer MEDICARE, SELFPAY ==
--- NOTE | 2022-06-19 07:27 | HM_ITS ---
Conclusion: 1. Patient was monitored for total period of 3 days 2. Baseline was atrial fibrillation with average heart of 88 beats per minute with overall adequate rate control 3. No significant pauses noted 4. Rare PVCs noted 5. Patient reported 1 episode of shortness of breath after climbing 13 flights of stairs, associated with atrial fibrillation MTDD
== END ==
LOC: HO.CARD 07:25
PROVIDERS: PCP Family Medicine; Visit Provider Internal Medicine
DX: I48.91 Unspecified atrial fibrillation (principal)
CPT/HCPCS: 93242

== ENCOUNTER → 2022-06-26 10:01 | Outpatient (BNVA) | payer MEDICARE, SELFPAY | PROVIDERS: PCP Family Medicine; Visit Provider Internal Medicine | DX: G47.33 Obstructive sleep apnea (adult) (pediatric) (principal); I48.0 Paroxysmal atrial fibrillation | CPT/HCPCS: 99202 ==

== ENCOUNTER 2022-06-27 12:08 | Outpatient (REF) | payer MEDICARE, SELFPAY ==
--- NOTE | ~2022-06-27 | XR_ITS ---
EXAMINATION: XR CHEST CLINICAL INFORMATION: R06.2 - Wheezing. Cough, shortness of breath. COMPARISON: Chest radiographs 06/13/2022, 08/30/2021 TECHNIQUE: 2 views of the chest were obtained. FINDINGS: No airspace consolidation or groundglass opacity or effusion. The costophrenic sulci are clear. The heart is normal in size. The vascularity is normal. The hilar and mediastinal contours are unremarkable. No acute bony abnormality. XR/XR chest 2V IMPRESSION: No acute intrathoracic disease.
[2022-06-27 12:57] LABS: Basophils Absolute Auto 0.1 X10*3/uL (0.0-0.2); Basophils Percent Auto 0.6 % (0-2); Eosinophils Absolute Auto 0.5 X10*3/uL (0.0-0.4); Eosinophils Percent Auto 4.1 % (0-4); Hematocrit 39.9 % (37.0-47.0); Hemoglobin 12.9 g/dl (12.0-16.0); Imm Gran Pct Auto 0.9 % (0.0-0.4); Lymphocytes Absolute Auto 5.1 X10*3/uL (1.2-4.9); MANUAL DIFF FLAG SCAN; Mean Corpuscular HGB Conc 32.3 g/dl (31.0-35.0); Mean Corpuscular Hemoglobin 30.9 pg (27.0-33.0); Mean Corpuscular Volume 95.7 fL (80.0-98.0); Mean Platelet Volume 11.1 fL (9.4-12.3); Monocytes Absolute Auto 1.1 X10*3/uL (0.1-1.2); Monocytes Percent Auto 9.8 % (2-11); Neutrophils Absolute Auto 4.2 x10*3/uL (2.0-8.3); Neutrophils Percent Auto 38.2 % (45-73); Platelet Count 360 X10*3/uL (160-400); Red Blood Count 4.17 X10*6/uL (4.20-5.50); Red Cell Distribution Width 12.4 % (11.0-16.0); SCAN SMEAR FLAG 1
[2022-06-27 13:53] LABS: Lymphocytes Percent Auto 46.4 % (20-40)
[2022-06-27 13:54] LABS: SLIDE REVIEW VERIFIED
[2022-06-27 13:59] LABS: Alanine Aminotransferase 12 U/L (0-31); Alkaline Phosphatase 88 U/L (39-117); Anion Gap 14 (12-20); Aspartate Amino Transferase 18 U/L (5-31); Bilirubin Total 0.4 mg/dL (0.0-1.0); Blood Urea Nitrogen 13 mg/dL (9-16); Carbon Dioxide 27 mmol/L (22-29); Chloride 105 mmol/L (96-108); Estimated Glomerular Filt Rate > 60; Glucose Random 90 mg/dL (60-115); Potassium 5.2 mmol/L (3.3-5.1); Sodium 141 mmol/L (135-145); Total Protein 6.9 g/dL (6.5-8.0)
[2022-06-27 14:14] LABS: B Type Natriuretic Peptide 286 pg/mL (<100)
[2022-06-27 14:20] LABS: TSH reflex Free T4 < 0.01 uIU/mL (0.32-4.0)
[2022-06-27 15:18] LABS: Free T4 (Free Thyroxine) 1.41 ng/dL (0.71-1.85)
== END 2022-06-27 12:09 | disposition home or self-care (01) ==
LOC: HO.LAB 12:08
PROVIDERS: PCP Family Medicine; Visit Provider Family Medicine
DX: Z00.00 Encounter for general adult medical examination without abnormal findings (principal); R06.2 Wheezing; I50.9 Heart failure, unspecified; I48.91 Unspecified atrial fibrillation; E05.90 Thyrotoxicosis, unspecified without thyrotoxic crisis or storm; L02.91 Cutaneous abscess, unspecified
CPT/HCPCS: 36415; 71046; 80053; 83880; 84439; 84443; 85025

== ENCOUNTER 2022-07-10 08:22 | Outpatient (REF) | payer MEDICARE, SELFPAY ==
[2022-07-10 10:38] LABS: Free T4 (Free Thyroxine) 1.02 ng/dL (0.71-1.85)
[2022-07-11 09:33] LABS: Triiodothyronine T3 Total 194 ng/dL (76-181)
== END 2022-07-10 08:23 | disposition home or self-care (01) ==
LOC: HO.LAB 08:22
PROVIDERS: PCP Family Medicine; Visit Provider Internal Medicine
DX: E05.90 Thyrotoxicosis, unspecified without thyrotoxic crisis or storm (principal); M54.2 Cervicalgia; M47.812 Spondylosis without myelopathy or radiculopathy, cervical region; M25.471 Effusion, right ankle
CPT/HCPCS: 36415; 84439; 84480; 99212

== ENCOUNTER 2022-07-27 06:45 | Outpatient (REF) | payer MEDICARE, SELFPAY ==
[2022-07-27 08:31] LABS: Free T4 (Free Thyroxine) 0.75 ng/dL (0.71-1.85)
[2022-07-29 08:23] LABS: Triiodothyronine T3 Total 148 ng/dL (76-181)
== END 2022-07-27 06:46 | disposition home or self-care (01) ==
LOC: HO.LAB 06:45
PROVIDERS: PCP Family Medicine; Visit Provider Internal Medicine
DX: E05.90 Thyrotoxicosis, unspecified without thyrotoxic crisis or storm (principal)
CPT/HCPCS: 36415; 84439; 84480

== ENCOUNTER → 2022-07-30 08:42 | Outpatient (BNVA) | payer MEDICARE, SELFPAY | PROVIDERS: PCP Family Medicine; Visit Provider Internal Medicine | DX: I48.19 Other persistent atrial fibrillation (principal); I65.23 Occlusion and stenosis of bilateral carotid arteries; E87.5 Hyperkalemia; E05.00 Thyrotoxicosis with diffuse goiter without thyrotoxic crisis or storm; G47.33 Obstructive sleep apnea (adult) (pediatric) | CPT/HCPCS: 99212 ==

== ENCOUNTER 2022-08-02 06:45 | Outpatient (REF) | payer MEDICARE, SELFPAY ==
[2022-08-02 08:34] LABS: Free T4 (Free Thyroxine) 0.58 ng/dL (0.71-1.85); Thyroid Stimulating Hormone < 0.01 uIU/mL (0.32-4.0)
[2022-08-03 22:58] LABS: Triiodothyronine T3 Free 3.1 pg/mL (2.3-4.2)
== END 2022-08-02 06:46 | disposition home or self-care (01) ==
LOC: HO.LAB 06:45
PROVIDERS: PCP Family Medicine; Visit Provider Surgery
DX: E05.00 Thyrotoxicosis with diffuse goiter without thyrotoxic crisis or storm (principal)
CPT/HCPCS: 36415; 84439; 84443; 84481

== ENCOUNTER 2022-09-07 11:00 | Outpatient (REF) | payer MEDICARE, SELFPAY ==
--- NOTE | ~2022-09-07 | CT_ITS ---
EXAMINATION: LUNG CANCER SCREENING CT CHEST WITHOUT CONTRAST CLINICAL INFORMATION: Former smoker with 45 pack year history, quit 5 years ago COMPARISON: 08/08/2021 TECHNIQUE: Multidetector volumetric CT imaging of the chest was obtained noncontrast using low dose screening CT technique. Axial thin section 0.625 mm reformations in soft tissue and lung windows were obtained. Sagittal and coronal reformations were obtained. Axial MIP images were also created and reviewed. This CT examination was performed using dose optimization techniques as appropriate, variously including the following: *Automated exposure control *Adjustment of mA and/or kV according to patient size (this includes techniques or standardized protocols for targeted exams where dose is matched to indication/reason for exam; i.e. extremities or head) *Use of iterative reconstruction technique TOTAL EXAM DLP: 61 mGy-cm. FINDINGS: PULMONARY NODULES: No suspicious pulmonary nodules. Stable punctate nodule in the left upper lobe. LUNGS / PLEURA: Mild emphysema. Diffuse mild bronchial wall thickening without bronchiectasis. No pleural effusion or pneumothorax. MEDIASTINUM / KIMBERLY: Heart normal in size without pericardial effusion. Great vessels normal caliber. No lymphadenopathy. Coronary calcifications absent. Interval thyroidectomy. CHEST WALL / AXILLA: Unremarkable. UPPER ABDOMEN: Included portions grossly unremarkable allowing for limitations in technique. OSSEOUS STRUCTURES: No acute or suspicious osseous abnormalities. CT/CT lung screening IMPRESSION: * No evidence of pulmonary malignancy. * Mild emphysema and chronic airways disease. ASSESSMENT: Lung RADS category: 2. Benign appearance or behavior. Nodules with a very low likelihood of becoming a clinically active cancer due to size or lack of growth. Continue annual screening with low-dose CT in 12 months. Probability of malignancy less than 1%. INCIDENTAL FINDINGS (S CATEGORY): None. RECOMMENDATION: Follow up low dose CT chest in 1 year.
== END 2022-09-07 11:01 | disposition home or self-care (01) ==
LOC: HO.CT 11:00
PROVIDERS: Visit Provider Physician Assistant Medical
DX: Z12.2 Encounter for screening for malignant neoplasm of respiratory organs (principal); Z87.891 Personal history of nicotine dependence
CPT/HCPCS: 71271

== ENCOUNTER → 2022-09-10 08:56 | Outpatient (BNVA) | payer MEDICARE, SELFPAY | PROVIDERS: PCP Family Medicine; Visit Provider Orthopaedic Surgery | DX: L02.415 Cutaneous abscess of right lower limb (principal); Z87.81 Personal history of (healed) traumatic fracture; Z96.9 Presence of functional implant, unspecified | CPT/HCPCS: 99212 ==

== ENCOUNTER 2022-09-25 11:51 | Day surgery (SDC) | payer MEDICARE, SELFPAY ==
[2022-09-13 11:25] VITALS: BMI 28.7
--- NOTE | 2022-09-24 10:06 | P.CONAN_ITS ---
Documented by User: Anita Collins NP 09/24/22 10:07 HPI - Anesthesia Eval Consult details Narrative: 62yo F for Removal Orthopedic Hardware ankle Eliquis for afib ETOH abuse PMFSH Active Problems Active Problems: All Active Problems (Updated 09/10/22 @ 09:45 by Chente Mitchell) Cellulitis of arm (Acute) Foot pain, bilateral (Acute) Bilateral bunions (Acute) Plantar wart of both feet (Acute) Hammer toe of left foot (Acute) Preop cardiovascular exam (Acute) Low back pain (Acute) Cough (Acute) Furuncle, unspecified (Acute) Abscess (Acute) Impingement syndrome of right shoulder (Acute) Arthritis of shoulder region, right, degenerative (Acute) Herpes zoster infection of oral mucosa (Acute) Bilateral carotid artery stenosis (Acute) Varicose veins of right lower extremity with inflammation (Acute) Varicose veins of left lower extremity with inflammation (Acute) Ringworm (Acute) Rash (Acute) Acne (Acute) Right knee pain (Acute) Shoulder pain (Acute) Depression with anxiety (Acute) Atrial fibrillation (Acute) Hyperthyroidism (Acute) Atrial fibrillation status post cardioversion (Acute) Shortness of breath (Acute) Abnormal lung sounds (Acute) Pneumonia (Acute) Status post carotid endarterectomy (Acute) Encounter for monitoring anti-arrhythmic therapy (Acute) Annual physical exam (Acute) Elevated fasting glucose (Acute) Screening for colon cancer (Acute) Hyperkalemia (Acute) Breast cancer screening by mammogram (Acute) Screening for cervical cancer (Acute) Pre-diabetes (Acute) Shoulder pain, left (Acute) Cervicalgia (Acute) Degenerative disc disease, lumbar (Acute) Thoracic degenerative disc disease (Acute) Preop examination (Acute) Cervicalgia (Acute) Hyperkalemia (Acute) Cervical spondylosis (Acute) Muscle spasms of head or neck (Acute) Encounter for follow-up surveillance of skin cancer (Acute) Tubular adenoma of colon (Acute) Right ankle swelling (Acute) Persistent atrial fibrillation (Acute) Retained orthopedic hardware (Acute) History of fracture of right ankle (Acute) Cutaneous abscess of right ankle (Acute) Vitamin D deficiency (Acute) DARIUSZ (obstructive sleep apnea) (Acute) PAF (paroxysmal atrial fibrillation) (Acute) Graves disease (Acute) Past Medical History Medical History Alcohol abuse Depression GERD (gastroesophageal reflux disease) Graves disease History of cardioversion History of COPD HLD (hyperlipidemia) Hypothyroid On anticoagulant therapy On beta sabine at home DARIUSZ (obstructive sleep apnea) PAF (paroxysmal atrial fibrillation) Pelvic fracture Vitamin D deficiency Family History Family History Father CVD (cardiovascular disease) Hypertension Mother CVA (cerebral vascular accident) Paternal Grandmother Breast cancer Family history of problems with anesthesia: No Surgical History Surgical History H/O foot surgery History of ankle surgery History of back surgery History of carotid endarterectomy History of salpingectomy History of surgery on right wrist History of thyroidectomy (08/20/22) Hx of colonoscopy Hx of rotator cuff surgery History of Problems with Anesthesia: No Social History Social History Housing: House Are you a primary medical care administrator to a significant other at home: No Do you presently have visiting nurse or other home services: No Patient Tobacco Use Status: Former Tobacco user Quit Date: 5 yrs ago Tobacco use type: Cigarette e-Cigarette/Vaping Use: Never Used Second Hand Smoke Exposure: No Advance Directives Date on File: 04/03/17 service: No Current occupational status: employed 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 Current occupational exposures/hazards: No Cognitive needs: No Hearing needs: No Vision needs: No Meds Allergies Allergy/AdvReac Type Severity Reaction Status Date / Time No Known Allergies Allergy Verified 09/25/22 12:04 Home Medications Medication Instructions Recorded Confirmed Last Taken Type levothyroxine 150 mcg tablet 150 mcg PO DAILY 09/10/22 09/13/22 09/25/22 07:00 History ropinirole 5 mg tablet 5 mg PO 1100 09/13/22 09/13/22 Unknown History acetaminophen 325 mg tablet 650 mg PO Q4H PRN Pain 09/17/22 09/17/22 Unknown History Exam Exam Date and Time: September 24, 2022 1006 Height,Weight and Vital Signs: Height 6 ft Weight 96.162 kg Pertinent Lab Results Pertinent Lab Results: Laboratory Tests 06/27/22 12:21 WBC 11.0 H Hgb 12.9 Hct 39.9 Plt Count 360 Narrative Narrative: EKG 04/2022 atrial fibrillation or flutter with variable block at 98/Min Holter 03/2022 Conclusion: 1. Patient was monitored for total period of 3 days 2. Baseline was normal sinus rhythm with average heart rate of 55 beats per minute with lowest heart rate of 40 beats per minute 3. Frequent sinus bradycardia with 75% of the heart rate below 60 beats per minute 4. No significant pauses noted 5. Rare ectopy noted 6. Patient reported multiple symptoms, all shortness of breath correlated with sinus rhythm US carotid duplex 01/2022 IMPRESSION: 1. RIGHT: Minimal, non-hemodynamically significant stenosis of the proximal right internal carotid artery corresponding to a 0-49% stenosis by velocity criteria. ? 2. LEFT: Minimal, non-hemodynamically significant stenosis of the proximal left internal carotid artery corresponding to a 0-49% stenosis by velocity criteria. ? 3. There is no change in the category severity of disease when compared to the previous study dated 11/30/2020. US venous duplex LE 05/2022 IMPRESSION: Unremarkable examination. No superficial or deep venous insufficiency is seen bilaterally. There is no deep venous thrombosis noted. Assessment and Plan Assessment Anesthesia Assessment: Chart Reviewed Final Anesthetic Review Family History of Problems with Anesthesia: No History of Problems with Anesthesia: No Documented by User: Kosta Doty MD 09/25/22 17:02 HPI - Anesthesia Eval Consult details Narrative: 62yo F for Removal Orthopedic Hardware ankle right recent thyroid surgery Eliquis for afib ETOH abuse PMFSH Past Medical History Medical History Alcohol abuse Depression GERD (gastroesophageal reflux disease) Graves disease History of cardioversion History of COPD HLD (hyperlipidemia) Hypothyroid On anticoagulant therapy On beta sabine at home DARIUSZ (obstructive sleep apnea) PAF (paroxysmal atrial fibrillation) Pelvic fracture Vitamin D deficiency Functional capacity: independent ambulation Family History Family History Father CVD (cardiovascular disease) Hypertension Mother CVA (cerebral vascular accident) Paternal Grandmother Breast cancer Surgical History Surgical History H/O foot surgery History of ankle surgery History of back surgery History of carotid endarterectomy History of salpingectomy History of surgery on right wrist History of thyroidectomy (08/20/22) Hx of colonoscopy Hx of rotator cuff surgery Social History Social History Housing: House Are you a primary medical care administrator to a significant other at home: No Do you presently have visiting nurse or other home services: No Patient Tobacco Use Status: Former Tobacco user Quit Date: 5 yrs ago Tobacco use type: Cigarette e-Cigarette/Vaping Use: Never Used Second Hand Smoke Exposure: No Advance Directives Date on File: 04/03/17 service: No Current occupational status: employed 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 Current occupational exposures/hazards: No Cognitive needs: No Hearing needs: No Vision needs: No Meds Allergies Allergy/AdvReac Type Severity Reaction Status Date / Time No Known Allergies Allergy Verified 09/25/22 12:04 Home Medications Medication Instructions Recorded Confirmed Last Taken Type levothyroxine 150 mcg tablet 150 mcg PO DAILY 09/10/22 09/13/22 09/25/22 07:00 History ropinirole 5 mg tablet 5 mg PO 1100 09/13/22 09/13/22 Unknown History acetaminophen 325 mg tablet 650 mg PO Q4H PRN Pain 09/17/22 09/17/22 Unknown History Exam Airway Mallampati Class: IV Neck ROM: Full Loose/Missing/Broken Teeth: Yes Assessment and Plan Assessment Anesthesia Assessment: Anesthesia Plan Discussed Final Anesthetic Review NPO: Yes ASA Class: III Final Preanesthetic Review: Meds/Allgs Chart Reviewed, Consent Obtained/Reviewed and Anes Risks/Benef Reviewed Patient Risk: Intermediate Procedure Risk: Intermediate Anesthetic Plan Anesthetic Plan: GA Disposition: Standard PACU
[2022-09-25] VITALS (10 sets, daily range): BP systolic 103–148; BP diastolic 72–94; PULSE 73–98; RESP 12–17; TEMP 36.5–36.9; O2SAT 93–98
--- NOTE | ~2022-09-25 | FL_ITS ---
EXAMINATION: XR FLUOROSCOPY WITH IMAGES CLINICAL INFORMATION: Removal of orthopedic hardware right ankle. COMPARISON: 06/13/2022 TECHNIQUE: Fluoroscopy Supervised By: Dr. Baldemar Busby. Fluoroscopy Time: 0 minutes. Cumulative Dose: 0.028 mGy. DAP: 0.991063 Gy-cm2. Images: 1. FINDINGS: Single C-arm view demonstrates 3 screws about the medial aspect of the tibia. Since previous study plate and side screws have been removed from the fibula. FL/FL guidance in OR IMPRESSION: Intraoperative fluoroscopy for orthopedic procedure.
[2022-09-25] MEDS: Lactated Ringers 1,000 ML 100 ML IVCONT (12:30)
[2022-09-25 13:16] LABS: Anion Gap 12 (12-20); Blood Urea Nitrogen 11 mg/dL (9-16); Carbon Dioxide 27 mmol/L (22-29); Chloride 108 mmol/L (96-108); Estimated Glomerular Filt Rate > 60; Glucose Fasting 90 mg/dL (60-99); Sodium 142 mmol/L (135-145)
--- NOTE | 2022-09-25 13:47 | MHC.SHP ---
Pre-Procedural Eval Section A Date of Service: 09/25/22 The patient is an INPATIENT: No Changes since office visit: No Cold of Flu in the past 2 weeks, No New Medical Problems, No Changes in Medication and No Patient answered all questions The History & Physical has been completed within 30 days and I have reviewed it.: Yes Section B Chief Complaint: Presence of functional implant, unspecified Allergies: Allergies Allergy/AdvReac Type Severity Reaction Status Date / Time No Known Allergies Allergy Verified 09/25/22 12:04 Plan I have reviewed the history and physical and performed a pertinent physical examination on my patient. No changes have occurred unless specified. Time Spent With Patient Time: Total time managing care of this patient today ____ minutes.
[2022-09-25] MEDS: HYDROmorphone HCl 0.5 MG/0.5 ML SYRINGE 0.25 MG IVPUSH (15:29)
[2022-09-25] MEDS: oxyCODONE HCl Immed Release 5 MG TABLET PO (15:47)
--- NOTE | 2022-09-25 16:55 | P.BOP_ITS ---
Brief Operative Note Date of Service: 09/25/22 Pre-op diagnosis: RETAINED ORTHO HARDWARE Post-op diagnosis: same Procedure: Removal of hardware left ankle Surgeon: Baldemar Busby MD Anesthesia: GETA and local Was an Business Information Consultant used for this Procedure?: Yes Business Information Consultant: Estefani Mendoza Estimated blood loss (mL): 5 Tourniquet time (min): 25 Pathology: other (Culture x 2) Condition: stable Disposition: PACU
--- NOTE | 2022-09-27 14:38 | W.PM.OPN ---
Operative Note Operative Note Date of Service: 09/25/22 Narrative: Date of Service: 09/25/22 Pre-op diagnosis: RETAINED ORTHO HARDWARE Post-op diagnosis: same Procedure: Removal of hardware left ankle Surgeon: Baldemar Busby MD Anesthesia: GETA and local Was an Per Diem Physical Therapist used for this Procedure?: Yes Per Diem Physical Therapist: Estefani Mendoza Estimated blood loss (mL): 5 Tourniquet time (min): 25 Pathology: other (Culture x 2) Condition: stable Disposition: PACU Patient was brought to the operating room and placed supine on the surgical table. She was prepped and draped in standard sterile fashion and a time out was called to identify proper site, proper procedure and IV antibiotics were held. I made a standard lateral incision over the prior incision and dissected full-thickness flap down to the plate. Plate was easily removed. There was purulence fluid however over the plate approximately 3 cm from the distal tip of the lateral malleolus. There was no obvious fluid cul action per se but I definitely encountered abnormal appearing fluid. The bone did not appear abnormal and there was no obvious necrosis. I irrigated the screw holes out copiously and irrigated copiously with pulse lavage. I then closed with monofilament nylon. Patient was administered antibiotics after cultures were taken. She was placed in sterile dressing extubated brought to recovery room in a stable condition there were no known complications.
== END 2022-09-25 16:57 | disposition home or self-care (01) ==
PROVIDERS: Nurse Practitioner; PCP Family Medicine; Visit Provider Orthopaedic Surgery
PROC: (CPT 20680; principal; 2022-09-25 14:00)
DX: T84.84XA Pain due to internal orthopedic prosthetic devices, implants and grafts, initial encounter (principal); L02.415 Cutaneous abscess of right lower limb; Z96.9 Presence of functional implant, unspecified; M25.571 Pain in right ankle and joints of right foot; M25.471 Effusion, right ankle; Y79.3 Surgical instruments, materials and orthopedic devices (including sutures) associated with adverse incidents; Y92.9 Unspecified place or not applicable; J44.9 Chronic obstructive pulmonary disease, unspecified; G47.33 Obstructive sleep apnea (adult) (pediatric); I48.0 Paroxysmal atrial fibrillation; E03.9 Hypothyroidism, unspecified; E55.9 Vitamin D deficiency, unspecified; F10.10 Alcohol abuse, uncomplicated; Z87.81 Personal history of (healed) traumatic fracture; Z87.891 Personal history of nicotine dependence
CPT/HCPCS: 20680; 36415; 80048; 87070; 87077; 87186; 87205; J0690; J1170; J2250; J2370; J2405; J2795; J3010

== ENCOUNTER 2022-09-28 08:04 | Outpatient (REF) | payer MEDICARE, SELFPAY ==
[2022-09-28 09:19] LABS: Alanine Aminotransferase 7 U/L (0-31); Albumin Level 4.2 g/dL (3.5-5.0); Alkaline Phosphatase 90 U/L (39-117); Anion Gap 15 (12-20); Aspartate Amino Transferase 11 U/L (5-31); Blood Urea Nitrogen 10 mg/dL (9-16); Calcium 9.8 mg/dL (8.4-10.2); Carbon Dioxide 23 mmol/L (22-29); Chloride 109 mmol/L (96-108); Estimated Glomerular Filt Rate > 60; Glucose Random 113 mg/dL (60-115); Phosphorus 3.2 mg/dL (2.7-4.5); Potassium 4.6 mmol/L (3.3-5.1); Sodium 142 mmol/L (135-145)
[2022-09-28 09:31] LABS: Free T4 (Free Thyroxine) 1.67 ng/dL (0.71-1.85); Thyroid Stimulating Hormone 0.09 uIU/mL (0.32-4.0)
[2022-09-28 10:33] LABS: Vitamin D 25-OH Total 47.1 ng/mL (>30)
[2022-10-01 11:03] LABS: Calcium (PTHI) 9.8 mg/dL (8.6-10.4); PTHI 100 pg/mL (16-77)
== END 2022-09-28 08:05 | disposition home or self-care (01) ==
LOC: HO.LAB 08:04
PROVIDERS: PCP Family Medicine; Visit Provider Internal Medicine
DX: E55.9 Vitamin D deficiency, unspecified (principal); E05.00 Thyrotoxicosis with diffuse goiter without thyrotoxic crisis or storm; E05.90 Thyrotoxicosis, unspecified without thyrotoxic crisis or storm
CPT/HCPCS: 36415; 80053; 82306; 83970; 84100; 84439; 84443

== ENCOUNTER 2022-10-08 09:13 | Outpatient (REF) | payer MEDICARE, SELFPAY ==
--- NOTE | ~2022-10-08 | XR_ITS ---
EXAMINATION: XR ANKLE, LEFT CLINICAL INFORMATION: Pain COMPARISON: Previous x-ray most recent May 2022 TECHNIQUE: AP, lateral, and mortise views of the left ankle. FINDINGS: There are 3 screws seen in the medial malleolus that appear unchanged. Orthopedic hardware in the distal fibular shaft has been removed. No acute fracture or dislocation. The ankle mortise is normal. There is lateral soft tissue swelling. XR/XR ankle LT min 3V IMPRESSION: Interval removal of orthopedic hardware in the distal fibular shaft. Stable screws in the medial malleolus. Lateral soft tissue swelling.
== END 2022-10-08 09:14 | disposition home or self-care (01) ==
LOC: HO.HOSX 09:13
PROVIDERS: Visit Provider Physician Assistant
DX: L02.416 Cutaneous abscess of left lower limb (principal); Z87.81 Personal history of (healed) traumatic fracture
CPT/HCPCS: 73610

== ENCOUNTER → 2022-10-22 10:08 | Outpatient (BNVA) | payer MEDICARE, SELFPAY | PROVIDERS: PCP Family Medicine; Visit Provider Physician Assistant | DX: L02.415 Cutaneous abscess of right lower limb (principal); Z87.81 Personal history of (healed) traumatic fracture | CPT/HCPCS: 99212 ==

== ENCOUNTER 2022-11-09 13:36 | Outpatient (REF) | payer MEDICARE, SELFPAY ==
[2022-11-09 14:40] LABS: Alanine Aminotransferase 9 U/L (0-31); Albumin Level 4.1 g/dL (3.5-5.0); Alkaline Phosphatase 87 U/L (39-117); Anion Gap 11 (12-20); Aspartate Amino Transferase 14 U/L (5-31); Bilirubin Total 0.8 mg/dL (0.0-1.0); Blood Urea Nitrogen 10 mg/dL (9-16); Calcium 9.6 mg/dL (8.4-10.2); Carbon Dioxide 28 mmol/L (22-29); Chloride 106 mmol/L (96-108); Estimated Glomerular Filt Rate > 60; Glucose Random 87 mg/dL (60-115); Phosphorus 3.5 mg/dL (2.7-4.5); Sodium 140 mmol/L (135-145); Total Protein 6.9 g/dL (6.5-8.0)
[2022-11-09 14:59] LABS: Free T4 (Free Thyroxine) 0.91 ng/dL (0.71-1.85); Thyroid Stimulating Hormone 0.09 uIU/mL (0.32-4.0); Vitamin D 25-OH Total 38.9 ng/mL (>30)
[2022-11-12 07:24] LABS: Triiodothyronine T3 Total 105 ng/dL (76-181)
[2022-11-14 19:59] LABS: Calcium (PTHI) 9.5 mg/dL (8.6-10.4); PTHI 194 pg/mL (16-77)
== END 2022-11-09 13:37 | disposition home or self-care (01) ==
LOC: HO.LAB 13:36
PROVIDERS: PCP Family Medicine; Visit Provider Internal Medicine
DX: E05.00 Thyrotoxicosis with diffuse goiter without thyrotoxic crisis or storm (principal); E55.9 Vitamin D deficiency, unspecified; E89.0 Postprocedural hypothyroidism
CPT/HCPCS: 36415; 80053; 82306; 83970; 84100; 84439; 84443; 84480

== ENCOUNTER 2022-12-03 15:02 | Outpatient (REF) | payer MEDICARE, SELFPAY ==
[2022-12-03 17:10] LABS: Alanine Aminotransferase 10 U/L (0-31); Albumin Level 4.3 g/dL (3.5-5.0); Alkaline Phosphatase 93 U/L (39-117); Anion Gap 16 (12-20); Aspartate Amino Transferase 18 U/L (5-31); Bilirubin Total 0.8 mg/dL (0.0-1.0); Blood Urea Nitrogen 12 mg/dL (9-16); Calcium 9.5 mg/dL (8.4-10.2); Carbon Dioxide 21 mmol/L (22-29); Chloride 105 mmol/L (96-108); Estimated Glomerular Filt Rate > 60; Glucose Random 81 mg/dL (60-115); Potassium 4.2 mmol/L (3.3-5.1); Sodium 138 mmol/L (135-145); Total Protein 7.6 g/dL (6.5-8.0)
== END 2022-12-03 15:03 | disposition home or self-care (01) ==
LOC: HO.LAB 15:02
PROVIDERS: PCP Family Medicine; Visit Provider Internal Medicine Hypertension Specialist
DX: E87.5 Hyperkalemia (principal)
CPT/HCPCS: 36415; 80053

== ENCOUNTER 2022-12-06 08:14 | Outpatient (REF) | payer MEDICARE, SELFPAY ==
[2022-12-06 08:55] LABS: Appearance Urine Clear; Color Urine Yellow; Glucose Urine UA Negative (Negative); Leukocyte Esterase Urine Trace (Negative); Nitrite Urine Negative (Negative); Specific Gravity - Urine <= 1.005 (1.005-1.025); UMIC TRIGGER UA YES; Urine Blood Negative (Negative); Urine Ketones Negative (Negative); Urine Protein Negative (Neg-Trace)
[2022-12-06 08:59] LABS: Bacteria Urine None Seen (None Seen); Hyaline Casts Urine 0-2 /LPF (0-2); RBC Urine 0-2 /HPF (0-2); Squamous Epithelial Cell Urine 0-2 /HPF (0-2); WBC Urine 0-5 /HPF (0-5)
== END 2022-12-06 08:15 | disposition home or self-care (01) ==
LOC: HO.LNP 08:14
PROVIDERS: Visit Provider Internal Medicine Hypertension Specialist
DX: E87.5 Hyperkalemia (principal)
CPT/HCPCS: 81001

== ENCOUNTER 2022-12-13 13:44 | Outpatient (REF) | payer MEDICARE, SELFPAY ==
--- NOTE | ~2022-12-13 | US_ITS ---
EXAMINATION: US RETROPERITONEAL LIMITED (RENAL ONLY) CLINICAL INFORMATION: Hyperkalemia. COMPARISON: None available. TECHNIQUE: Real-time imaging of the kidneys. FINDINGS: RIGHT KIDNEY: 11.7 x 5.4 x 6.6 cm (SAG x AP x TRV). The kidney is normal in size, contour, and echogenicity. Renal cortical thickness is normal. No calculi or focal parenchymal lesions. No hydronephrosis. LEFT KIDNEY: 11.4 x 6.0 x 4.7 cm (SAG x AP x TRV). The kidney is normal in size, contour, and echogenicity. Renal cortical thickness is normal. No calculi or focal parenchymal lesions. No hydronephrosis. US/US renal BI IMPRESSION: Unremarkable examination.
== END 2022-12-13 13:45 | disposition home or self-care (01) ==
LOC: HO.US 13:44
PROVIDERS: PCP Family Medicine; Visit Provider Internal Medicine Hypertension Specialist
DX: E87.5 Hyperkalemia (principal)
CPT/HCPCS: 76775

== ENCOUNTER 2023-01-14 08:59 | Outpatient (AMB) | payer MEDICARE, SELFPAY ==
--- NOTE | 2023-01-14 09:53 | AM.OFFVISNUR ---
Intake Intake Visit Reasons: EKG Intake Note: EKG Allergies No Known Allergies Allergy (Verified 01/14/23 09:52) Nursing Note Patient stopped by office because she felt she was in AFIB w/ shortness of breath. EKG shows atrial fibrillation w/ a heart rate of [address] Gutierres reviewed EKG. Office Procedures EKG [id number], Complete Coding Diagnoses CPT Codes EKG - CPT: 20574-[id number], Complete ([id number]) Assessment & Plan Assessment & Plan Medications: Discontinued ropinirole administer 1-3 hours before bedtime 5 mg PO BEDTIME 90 days 90 tabs 3RF
== END 2023-01-14 09:15 | disposition home or self-care (01) ==
LOC: HO.HCS 08:59
PROVIDERS: PCP Family Medicine; Visit Provider Internal Medicine
DX: I48.91 Unspecified atrial fibrillation (principal); R94.31 Abnormal electrocardiogram [ECG] [EKG]
CPT/HCPCS: 93010

== ENCOUNTER → 2023-01-14 08:59 | Outpatient (BNVA) | payer MEDICARE, SELFPAY | PROVIDERS: PCP Family Medicine; Visit Provider Internal Medicine | DX: I48.91 Unspecified atrial fibrillation (principal); R06.02 Shortness of breath | CPT/HCPCS: 93005 ==

== ENCOUNTER 2023-02-11 10:05 | Outpatient (AMB) | payer MEDICARE, SELFPAY ==
--- NOTE | 2023-02-11 10:15 | MHC.OFFVIS ---
Intake Vital Signs 02/11/23 10:16 Height 6 ft Weight 220 lb 0.341 oz BMI 29.8 BP 112/64 Blood Pressure Location Lt brachial Position Sitting Pulse 63 Intake Visit Reasons: 6 mth fu Intake Note: 6 month follow up Emergency Department Nurse Required: No Accompanied by: Self / Same As Patient Allergies No Known Allergies Allergy (Verified 02/11/23 10:17) Medication List - Last Reconciled 02/11/23 by Nishant Gutierres MD acetaminophen 650 mg PO Q4H PRN apixaban (Eliquis) 5 mg PO BID 90 days digoxin (Digox) 125 mcg PO DAILY furosemide 40 mg PO DAILY PRN levothyroxine 137 mcg PO DAILY 30 days lorazepam 1 mg PO BEDTIME PRN 30 days methocarbamol 500 mg PO TID PRN metoprolol tartrate 50 mg PO BID 90 days omeprazole 20 mg PO DAILY oxycodone 5 mg PO Q8H PRN 7 days quetiapine 50 mg PO BEDTIME 30 days ropinirole 5 mg PO BEDTIME PRN 30 days rosuvastatin 20 mg PO DAILY sertraline 50 mg (1/2 x 100 mg) PO DAILY 30 days valacyclovir 500 mg PO DAILY PRN 30 days HPI HPI Comments History of Present Illness Details Matilde returns for follow-up regarding atrial fibrillation. To recall, in 2017 she had visual symptoms that led to a diagnosis of severe carotid disease requiring urgent right carotid endarterectomy. She was then doing okay from cardiac standpoint till recently when she had a hospitalization for atrial fibrillation and rapid rate. Then underwent KRISHAN and cardioversion. She was then placed on Multaq but in spite of this she had still had recurrent atrial fibrillation. Had another cardioversion and went on flecainide. However, still returned to atrial fibrillation. Hence now managed by rate control. Some shortness of breath off and on. She has also gained some weight. Still not having the CPAP although she has underlying obstructive sleep apnea. Had thyroid surgery for the hyperthyroidism and that seems improved. [facility] Medical History Alcohol abuse Depression GERD (gastroesophageal reflux disease) Graves disease History of cardioversion History of COPD HLD (hyperlipidemia) Hypothyroid On anticoagulant therapy On beta sabine at home DARIUSZ (obstructive sleep apnea) PAF (paroxysmal atrial fibrillation) Pelvic fracture Postoperative hypothyroidism Vitamin D deficiency Surgical History H/O foot surgery History of ankle surgery History of back surgery History of carotid endarterectomy History of salpingectomy History of surgery on right wrist History of thyroidectomy (08/20/22) Hx of colonoscopy Hx of rotator cuff surgery Family History Father CVD (cardiovascular disease) Hypertension Mother CVA (cerebral vascular accident) Paternal Grandmother Breast cancer Social History Housing: House Are you a primary child care coordinator to a significant other at home: No Do you presently have visiting nurse or other home services: No Patient Tobacco Use Status: Former Tobacco user Quit Date: 5 yrs ago Tobacco use type: Cigarette e-Cigarette/Vaping Use: Never Used Second Hand Smoke Exposure: No Advance Directives Date on File: 04/03/17 service: No Current occupational status: employed 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 Current occupational exposures/hazards: No Cognitive needs: No Hearing needs: No Vision needs: No Review of Systems Const Denies weakness ENT Denies dizziness Card Denies chest pain, Denies chest pain with activity, Denies syncope, Denies rapid heart rate, Denies pedal edema, Denies edema, Denies leg edema, Denies lightheadedness, Denies palpitations, Denies dyspnea, Denies dyspnea on exertion and Denies orthopnea Resp Denies cough, Denies dyspnea and Denies dyspnea on exertion GI Denies hematochezia and Denies change in stool character Musc Denies abnormal gait, Denies muscle cramps, Denies muscle weakness, Denies numbness, Denies radiating pain into limb and Denies tingling Neuro Denies abnormal gait, Denies dizziness, Denies syncope, Denies numbness, Denies tingling and Denies weakness Endo Denies palpitations Physical Exam Vital Signs: Last Vital Signs Pulse 63 02/11/23 10:16 BP 112/64 02/11/23 10:16 BMI result Body Mass Index 29.8 Const General: comfortable and no acute distress Orientation/consciousness: patient oriented x3 HEENT Other: Unremarkable Head: Yes normal to inspection Neck Neck: Yes normal visual inspection Chest Chest palpation & inspection: normal inspection of the chest Resp Auscultation: clear to auscultation bilaterally Cardio Palpation: normal PMI Heart sounds: S1 normal heart sound present, S2 normal heart sound present, no gallops, no murmurs and no rubs GI Palpation (GI): Soft to palpation Back/Spine/Pelvis Other: unremarkable Skin General skin exam: no rashes or lesions noted Neuro General: patient oriented x3 Extrem General: Yes normal to inspection Psych Mental Status: mental status grossly normal Assessment & Plan Assessment & Plan (1) Persistent atrial fibrillation: Code(s): I48.19 - Other persistent atrial fibrillation Plan: Has been cardioverted twice. Failed Multaq, flecainide. Hence continue rate control with beta-blockers and digoxin. Check digoxin levels. Continue anticoagulation. Most recent Holter with adequate rate control. At her age, still preferable to be under rhythm control than rate control. Hence we will refer to EP for consideration of atrial fibrillation ablation. We will check an echocardiogram as it has been awhile. Cardiac testing- Myocardial perfusion imaging shows normal perfusion. In the transesophageal echocardiogram seem to have normal LVEF, 55-60%. (2) Hyperthyroidism: Code(s): E05.90 - Thyrotoxicosis, unspecified without thyrotoxic crisis or storm Plan: Thyroid issues are likely causing atrial fibrillation. It seems that she underwent total thyroidectomy in August at [facility]. Will check with Endocrine if she is actually euthyroid or not. That is important before proceeding with any atrial fibrillation ablation. (3) Bilateral carotid artery stenosis: Comment: 11/16/2016 - right carotid endarterectomy Code(s): I65.23 - Occlusion and stenosis of bilateral carotid arteries Plan: Last carotid ultrasound does not show any significant stenosis. She can remain on statins. Last LDL 52 mg/dL (4) DARIUSZ (obstructive sleep apnea): Code(s): G47.33 - Obstructive sleep apnea (adult) (pediatric) Plan: She still does not have CPAP. Advised to go to pulmonary office today and ensure she gets it soon. Orders: Orders Digoxin Today I48.91 - Unspecified atrial fibrillation CA echo transthoracic complete Today I48.19 - Other persistent atrial fibrillation Referrals Cardiac Electrophysiology Referral I48.19 - Other persistent atrial fibrillation Medications: Changed From methocarbamol 500 mg PO TID 30 days PRN 90 tabs 0RF muscle spasm M47.812 - Spondylosis without myelopathy or radiculopathy, cervical region, M62.838 - Other muscle spasm To methocarbamol 500 mg PO TID PRN M47.812 - Spondylosis without myelopathy or radiculopathy, cervical region, M62.838 - Other muscle spasm Discontinued ropinirole administer 1-3 hours before bedtime 5 mg PO BEDTIME 90 days 90 tabs 3RF Coding Level of Care Code Est Pt Level 4 (84548) Diagnoses Persistent atrial fibrillation I48.19 Hyperthyroidism E05.90 Bilateral carotid artery stenosis I65.23 DARIUSZ (obstructive sleep apnea) G47.33
[2023-02-11 10:16] VITALS: BP 112/64; PULSE 63; BMI 29.8
== END 2023-02-11 10:50 | disposition home or self-care (01) ==
PROVIDERS: PCP Family Medicine; Referring Provider Family Medicine; Visit Provider Internal Medicine
DX: I48.19 Other persistent atrial fibrillation (principal); E05.90 Thyrotoxicosis, unspecified without thyrotoxic crisis or storm; I65.23 Occlusion and stenosis of bilateral carotid arteries; G47.33 Obstructive sleep apnea (adult) (pediatric)
CPT/HCPCS: 99214

== ENCOUNTER → 2023-02-11 10:05 | Outpatient (BNVA) | payer MEDICARE, SELFPAY | PROVIDERS: PCP Family Medicine; Referring Provider Family Medicine; Visit Provider Internal Medicine | DX: I48.19 Other persistent atrial fibrillation (principal); E05.90 Thyrotoxicosis, unspecified without thyrotoxic crisis or storm; I65.23 Occlusion and stenosis of bilateral carotid arteries; G47.33 Obstructive sleep apnea (adult) (pediatric); Z79.01 Long term (current) use of anticoagulants; Z79.899 Other long term (current) drug therapy | CPT/HCPCS: 99212 ==

== ENCOUNTER 2023-02-12 10:55 | Outpatient (AMB) | payer OTHER, SELFPAY ==
[2023-02-12 11:16] VITALS: BP 102/70; PULSE 75; O2SAT 96
--- NOTE | 2023-02-12 11:16 | MHC.OFFVIS ---
Intake Vital Signs 02/12/23 11:16 Height 6 ft Weight 221 lb 9.033 oz BMI 30.0 BP 102/70 Blood Pressure Location Lt brachial Position Sitting Pulse 75 Pulse Oximetry (%) 96 Oxygen Delivery Method Room Air Intake Visit Reasons: Obstructive sleep apnea Intake Note: pt is here for follow up and states she needs refill on her inhalers, she is aware she needs cpap per her photographer motion picture. Scanning Tech Required: No Allergies No Known Allergies Allergy (Verified 02/12/23 11:41) Medication List - Last Reconciled 02/12/23 by Avery Alonso MD acetaminophen 650 mg PO Q4H PRN apixaban (Eliquis) 5 mg PO BID 90 days betamethasone dipropionate 0.05% 1 appl topical DAILY PRN digoxin (Digox) 125 mcg PO DAILY furosemide 40 mg PO DAILY PRN levothyroxine 137 mcg PO DAILY 30 days lorazepam 1 mg PO BEDTIME PRN 30 days metoprolol tartrate 50 mg PO BID 90 days omeprazole 20 mg PO DAILY quetiapine 50 mg PO BEDTIME 30 days ropinirole 5 mg PO DAILY rosuvastatin 20 mg PO DAILY sertraline 50 mg (1/2 x 100 mg) PO DAILY 30 days valacyclovir 500 mg PO DAILY PRN 30 days Do you need a note to return to daycare/school/sports/work: No HPI Obstructive sleep apnea HPI Details 62 YEARS OLD FEMALE TALL AND MODERATELY OBESE, BMI 30, WAS LAST SEEN IN JUNE 2022, AFTER SHE HAD A HOME-BASED SLEEP STUDY, BECAUSE OF PAROXYSMAL ATRIAL FIBRILLATION. SHE HAD A MILD DEGREE OF OBSTRUCTIVE SLEEP APNEA WITH TOTAL SLEEP TIME AHI 8.9. HOWEVER BECAUSE OF HER HISTORY OF PAROXYSMAL ATRIAL FIBRILLATION, IT WAS FELT THAT SHE SHOULD BENEFIT FROM THE USE OF CPAP. CPAP WAS HER ORDERED, BUT UNFORTUNATELY SHE HAS NOT GOTTEN THE DEVICE YET DUE TO INSURANCE ISSUES. SHE STILL SAY IS SHE SLEEPS OKAY, BUT SHE DOES SNORE ACCORDING TO HER . SHE WAS RECENTLY SEEN BY SUPERVISOR CUTTING AND BONING DR. PENNINGTON, WHO HAS STRONGLY RECOMMENDED THAT SHE SHOULD GO ON CPAP THERAPY. TODAY SHE ALSO GIVES HISTORY OF GETTING SHORT OF BREATH ON MINIMAL EXERTION, AND INTERMITTENT WHEEZING. SHE SAY IS THAT MANY YEARS AGO SHE WAS ON A LONG-ACTING AND SHORT-ACTING BRONCHODILATOR INHALER. SHE IS ASKING FOR A PRESCRIPTION, THAT HER PRIMARY CARE PHYSICIAN DID NOT GIVE HER. I DO NOT HAVE ANY RECORD OF PREVIOUS PULMONARY FUNCTION TEST IN OUR [employer] [facility]. SO WILL DO A QUICK SPIROMETRY TODAY A BASELINE. [facility] Medical History (Updated 02/12/23 @ 12:11 by Avery Alonso MD) Alcohol abuse COPD (chronic obstructive pulmonary disease) Depression GERD (gastroesophageal reflux disease) Graves disease History of cardioversion History of COPD HLD (hyperlipidemia) Hypothyroid On anticoagulant therapy On beta sabine at home DARIUSZ (obstructive sleep apnea) PAF (paroxysmal atrial fibrillation) Pelvic fracture Postoperative hypothyroidism Vitamin D deficiency Surgical History H/O foot surgery History of ankle surgery History of back surgery History of carotid endarterectomy History of salpingectomy History of surgery on right wrist History of thyroidectomy (08/20/22) Hx of colonoscopy Hx of rotator cuff surgery Family History Father CVD (cardiovascular disease) Hypertension Mother CVA (cerebral vascular accident) Paternal Grandmother Breast cancer Social History (Reviewed 02/12/23 @ 11:22 by Kourtney Paez [facility]) Housing: House Are you a primary career development coordinator to a significant other at home: No Do you presently have visiting nurse or other home services: No Patient Tobacco Use Status: Former Tobacco user Quit Date: 5 yrs ago Tobacco use type: Cigarette e-Cigarette/Vaping Use: Never Used Second Hand Smoke Exposure: No Advance Directives Date on File: 04/03/17 service: No Current occupational status: employed 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 Current occupational exposures/hazards: No Cognitive needs: No Hearing needs: No Vision needs: No Review of Systems Const All systems reviewed & are unremarkable except as noted in HPI and below Eyes Reports no additional complaints ENT Reports no additional complaints Card Denies chest pain at rest, Reports irregular heart rhythm and Denies leg edema Resp Reports no additional complaints GI Reports heartburn (BEING TREATED WITH OMEPRAZOLE) Reports no additional complaints Musc Reports no additional complaints Skin/Breast Reports system reviewed and no additional complaints, except as documented Neuro Reports no additional complaints Psych Reports anxiety and Reports depression Endo Reports no additional complaints Nabil/Lymph Reports no additional complaints Aller/Immun Reports no additional complaints Physical Exam Vital Signs: Last Vital Signs Pulse 75 02/12/23 11:16 BP 102/70 02/12/23 11:16 Pulse Ox 96 02/12/23 11:16 Oxygen Delivery Method Room Air 02/12/23 11:16 BMI result Body Mass Index 30.0 Const General: healthy appearing, comfortable, no acute distress, alert and awake Orientation/consciousness: patient oriented x3 HEENT Other: PATIENT DOES HAVE PROMINENT RETROGANTHIA OF THE LOWER JAW. MALLAMPATI SCALE 3 Head: Yes normal to inspection General nose exam: No nasal polyps present and No nasal discharge present Face and sinus: Yes sinuses nontender Mouth: oropharynx normal Teeth and gingiva: other (RETROGANTHIA OF LOWER JAW) Throat: Yes posterior oropharynx normal Eyes General: appearance normal, both eyes and all related structures Neck Neck: Yes normal visual inspection, Yes no lymphadenopathy, Yes trachea midline and Yes no JVD Thyroid: Thyroid normal Chest Chest palpation & inspection: normal inspection of the chest, normal palpation of entire chest wall and no tenderness Resp Other: PERCUSSION NOTE IS RESONANT, SHE DOES HAVE EQUAL BREATH SOUNDS ON BOTH SIDES. I HEARD A FEW EXPIRATORY WHEEZES OVER THE RIGHT UPPER CHEST AREA, NO CREPITATIONS Cardio Palpation: normal PMI Rate: regular rate Rhythm: regular rhythm Heart sounds: Gallop heart sound present and Murmur heart sound present Peripheral pulses: Peripheral pulses 2+ throughout GI Palpation (GI): Soft to palpation, nontender, No hepatosplenomegaly present and no masses Auscultation: normal bowel sounds Back/Spine/Pelvis Thoracic/Lumbar Spine: thoracic and lumbar spine normal to inspection Skin General skin exam: no rashes or lesions noted Neuro General: patient oriented x3 and no focal motor deficits Cranial nerves: Yes CN's II-XII intact bilaterally Extrem General: Yes normal to inspection, Yes no clubbing, cyanosis or edema and Yes no calf tenderness Psych Appearance: grossly normal and well kempt Speech and movement: Normal speech and movement present Results Reviewed Results Reviewed: SPIROMETRY FVC=64 % FEV1= 56 % FEF 25-75 = 43 % C/W MODERATELY SEVERE OBSTRUCTIVE AIRWAY DISORDER. Assessment & Plan Assessment & Plan (1) PAF (paroxysmal atrial fibrillation): Comment: HISTORY OF PAROXYSMAL ATRIAL FIBRILLATION, PAST HISTORY OF CARDIOVERSION X2 IN 2021 PATIENT FOLLOWED BY CARDIOLOGY SERVICE. Code(s): I48.0 - Paroxysmal atrial fibrillation (2) DARIUSZ (obstructive sleep apnea): Comment: PATIENT DOES HAVE OBSTRUCTIVE SLEEP APNEA, MILD, PER HOME-BASED SLEEP STUDY. IN VIEW OF HER PAROXYSMAL ATRIAL FIBRILLATION, SHE DOES NEED TO USE CPAP. CPAP DEVICE HAS ALREADY BEEN ORDERED. THERE IS AN INSURANCE ISSUE WHICH WE ARE GOING TO LOOK INTO. PATIENT IS ENCOURAGED TO START USING THE CPAP SOON SHE CAN GET THE DEVICE. . WILL BE RECHECKED IN 2 MONTHS Code(s): G47.33 - Obstructive sleep apnea (adult) (pediatric) (3) COPD (chronic obstructive pulmonary disease): Comment: SHE HAS HISTORY OF GETTING SHORT OF BREATH ON MILD TO MODERATE EXERTION, SHE DOES HAVE HISTORY OF SMOKING IN THE PAST, CURRENTLY SMOKES ONLY PART. SPIROMETRY IN THE OFFICE TODAY IS CONSISTENT WITH MODERATE DEGREE OF OBSTRUCTIVE AIRWAY DISORDER. I WILL ORDER A LAMA/LABA AGENT A LONG-ACTING INHALER,( ANORO ELLIPTA ) AND PROAIR 2 PUFFS Q 6 HOURS P.R.N. A SHORT-ACTING INHALOR . Code(s): J44.9 - Chronic obstructive pulmonary disease, unspecified Medications: New albuterol sulfate 90 mcg/actuation 2 puffs inhalation Q4-6H PRN 8.5 grams 3RF shortness of breath or wheezing 30 days umeclidinium-vilanterol 62.5-25 mcg/actuation (Anoro Ellipta) 1 inh inhalation DAILY 60 ea 3RF COPD 30 days Discontinued ropinirole administer 1-3 hours before bedtime 5 mg PO BEDTIME 90 days 90 tabs 3RF Coding Level of Care Code Est Pt Level 4 (72288) Diagnoses PAF (paroxysmal atrial fibrillation) I48.0 DARIUSZ (obstructive sleep apnea) G47.33 COPD (chronic obstructive pulmonary disease) J44.9
== END 2023-02-12 12:04 | disposition home or self-care (01) ==
PROVIDERS: PCP Family Medicine; Visit Provider Internal Medicine
DX: I48.0 Paroxysmal atrial fibrillation (principal); G47.33 Obstructive sleep apnea (adult) (pediatric); J44.9 Chronic obstructive pulmonary disease, unspecified
CPT/HCPCS: 99214

== ENCOUNTER → 2023-02-12 10:55 | Outpatient (BNVA) | payer MEDICARE, SELFPAY | PROVIDERS: PCP Family Medicine; Visit Provider Internal Medicine ==

== ENCOUNTER 2023-02-13 08:16 | Outpatient (REF) | payer OTHER, SELFPAY | END 2023-02-13 08:17 | disposition home or self-care (01) | LOC: HO.MAMMO 08:16 | PROVIDERS: PCP Family Medicine; Visit Provider Family Medicine | DX: Z12.31 Encounter for screening mammogram for malignant neoplasm of breast (principal) | CPT/HCPCS: 77063; 77067 ==

== ENCOUNTER → 2023-02-13 08:30 | Outpatient (BNV) | payer OTHER, SELFPAY | PROVIDERS: PCP Family Medicine; Visit Provider Radiology Diagnostic Radiology | DX: Z12.31 Encounter for screening mammogram for malignant neoplasm of breast (principal) | CPT/HCPCS: 77063; 77067 ==

== ENCOUNTER 2023-03-18 06:00 | Outpatient (REF) | payer OTHER, SELFPAY ==
[2023-03-18 08:55] LABS: Alanine Aminotransferase 13 U/L (0-31); Albumin Level 4.3 g/dL (3.5-5.0); Alkaline Phosphatase 80 U/L (39-117); Anion Gap 16 (12-20); Aspartate Amino Transferase 19 U/L (5-31); Bilirubin Total 0.6 mg/dL (0.0-1.0); Blood Urea Nitrogen 17 mg/dL (9-16); Calcium 10.2 mg/dL (8.4-10.2); Carbon Dioxide 26 mmol/L (22-29); Chloride 106 mmol/L (96-108); Estimated Glomerular Filt Rate > 60; Glucose Random 87 mg/dL (60-115); Phosphorus 3.8 mg/dL (2.7-4.5); Potassium 4.9 mmol/L (3.3-5.1); Sodium 143 mmol/L (135-145); Total Protein 7.4 g/dL (6.5-8.0)
[2023-03-18 08:57] LABS: Free T4 (Free Thyroxine) 0.97 ng/dL (0.71-1.85); Thyroid Stimulating Hormone 0.76 uIU/mL (0.32-4.0); Vitamin D 25-OH Total 42.3 ng/mL (>30)
[2023-03-18 08:59] LABS: Digoxin 1.3 ng/mL (0.8-2.0)
[2023-03-19 14:43] LABS: Calcium (PTHI) 9.8 mg/dL (8.6-10.4); PTHI 83 pg/mL (16-77)
== END 2023-03-18 06:01 | disposition home or self-care (01) ==
LOC: HO.LAB 06:00
PROVIDERS: Internal Medicine; PCP Family Medicine; Referring Provider Family Medicine; Visit Provider Internal Medicine
DX: I48.91 Unspecified atrial fibrillation (principal); E55.9 Vitamin D deficiency, unspecified; E05.00 Thyrotoxicosis with diffuse goiter without thyrotoxic crisis or storm
CPT/HCPCS: 36415; 80053; 80162; 82306; 83970; 84100; 84439; 84443

== ENCOUNTER 2023-03-18 10:40 | Outpatient (AMB) | payer MEDICARE, SELFPAY ==
--- NOTE | 2023-03-18 11:06 | MHC.PC.OV ---
Vital Signs 03/18/23 11:07 Height 6 ft Weight 219 lb 6 oz BMI 29.7 BP 130/78 Blood Pressure Location Lt brachial Position Sitting Respiration 12 Pulse 84 Pulse Source Pulse Oximeter Temp 97 F Temp Source Temporal Artery Scan Pulse Oximetry (%) 98 Oxygen Delivery Method Room Air Intake Visit Reasons: Annual PE Intake Note: Patient would like a copy of [employer] physical for a job. Patient would like a refill for her ropinirole. Systems Analyst Required: No Accompanied by: Self / Same As Patient Allergies No Known Allergies Allergy (Verified 03/18/23 11:12) Tobacco use date assessed: 03/18/23 Dental Screening Dental Screen Date: 03/18/23 Did you have a dental visit in the last 12 months?: Yes Did you have a dental problem in the last 6 months where you did not have access to dental care?: No Was dental information given to patient?: Patient has dentist HPI Annual PE HPI Details 62 y/o female presents for a CPE with f/u labs and health maintenance. Hx of AFib and follows up with Cardiology Dr. Gutierres. No recent CPE-labs to review. Last A1c in pre-diabetes range. She notes she does not have the time to get her A1c checked today. Pt reports she had just gotten her CPAP machine last week. [facility] Medical History COPD (chronic obstructive pulmonary disease) Postoperative hypothyroidism Vitamin D deficiency DARIUSZ (obstructive sleep apnea) On anticoagulant therapy On beta sabine at home History of cardioversion Hypothyroid Pelvic fracture Alcohol abuse PAF (paroxysmal atrial fibrillation) GERD (gastroesophageal reflux disease) Depression HLD (hyperlipidemia) History of COPD Graves disease Surgical History History of thyroidectomy (08/20/22) H/O foot surgery History of carotid endarterectomy History of salpingectomy Hx of rotator cuff surgery History of surgery on right wrist Hx of colonoscopy History of back surgery History of ankle surgery Family History Father CVD (cardiovascular disease) Hypertension Mother CVA (cerebral vascular accident) Paternal Grandmother Breast cancer Social History Housing: House Are you a primary college and career counselor to a significant other at home: No Do you presently have visiting nurse or other home services: No Patient Tobacco Use Status: Former Tobacco user Quit Date: 5 yrs ago Tobacco use type: Cigarette e-Cigarette/Vaping Use: Never Used Second Hand Smoke Exposure: No Advance Directives Date on File: 04/03/17 service: No Current occupational status: employed 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 1. Little interest or pleasure in doing things: not at all 2. Feeling down, depressed, or hopeless: not at all 3. Trouble falling or staying asleep, or sleeping too much: not at all 4. Feeling tired or having little energy: not at all 5. Poor appetite or overeating: nearly every day 6. Feeling bad about yourself - or that you are a failure or have let yourself or your family down: not at all 7. Trouble concentrating on things, such as reading the newspaper or watching television: not at all 8. Moving or speaking so slowly that other people could have noticed. Or the opposite - being so fidgety or restless that you have been moving around a lot more than usual: not at all 9. Thoughts that you would be better off or of hurting yourself in some way: not at all Total score: 3 Depression Screening Interpretation: Negative 53759 - PHQ-9 Billing: Yes Source: Developed by Drs. Mickey Woods, Sophie Moore, Cristobal Franks and colleagues, with an educational khloe from [employer]. Thrive Questionnaire Date Thrive assessed: 03/18/23 I am a: Patient What is your living situation today?: I have a steady place to live Within the past 12 months, did the food you bought not last and you didn't have the money to get more?: Never true Within the past 12 months, did you worry whether your food would run out before you got money to buy more?: Never true Do you have trouble paying for medicines?: No Do you have trouble getting transportation to medical appointments?: No Do you have trouble paying your heating and electricity bill?: No Do you have trouble taking care of your child, family member or friend?: No Do you have trouble with day-to-day activities such as bathing, preparing meals, shopping, managing finances, etc.?: No Are you currently unemployed and looking for a job?: Yes Are you interested in more education?: No Please select the resources that you would like help with: None Currently or been in a relationship where the following occur: no concerns reported GEORGE-7 AMB Questionnaire GEORGE-7 Date GEORGE - 7 assessed: 03/18/23 Feeling nervous, anxious, or on edge: 0 = Not at all Not being able to stop or control worryin = Not at all Worrying too much about different things: 1 = Several days Trouble relaxin = Several days Being so restless that it is hard to sit still: 1 = Several days Becoming easily annoyed or irritable: 1 = Several days Feeling afraid as if something awful might happen: 0 = Not at all Total GEORGE-7 score (0-4 normal; 5-9 mild; 10-14 moderate; 15-21 severe): 4 Source: Developed by Drs. Mickey Woods, Sophie Moore, Cristobal Franks and colleagues, with an educational khloe from [employer]. GEORGE-7 Assessment Billing GEORGE-7 Assessment Tool: GEORGE-7 Assessment 13034 Review of Systems Const Denies chills, Denies fatigue, Denies fever(s), Denies headache(s) and Denies weakness Eyes Denies change in vision ENT Denies dizziness, Denies headache(s), Denies hearing loss, Denies nasal congestion, Denies sinus pain, Denies sinus pressure and Denies sore throat Card Denies chest pain, Denies lightheadedness, Denies dyspnea and Denies other (palpitations) Resp Denies cough, Denies dyspnea and Denies wheezing GI Denies abdominal pain, Denies melena, Denies hematochezia, Denies change in bowel habits, Denies dyspepsia and Denies nausea Denies hematuria and Denies dysuria Musc Denies abnormal gait, Denies myalgias, Denies arthralgias, Denies numbness and Denies tingling Skin/Breast Denies rash, Denies unusual bruising and Denies wounds Neuro Denies abnormal gait, Denies dizziness, Denies headache(s), Denies memory loss, Denies numbness, Denies Sensory deficit (Neuro), Denies tingling and Denies weakness Psych Denies anxiety, Denies depression and Denies memory loss Endo Denies cold intolerance, Denies fatigue, Denies heat intolerance, Denies polydipsia and Denies polyuria Nabil/Lymph Denies easy bleeding and Denies easy bruising Aller/Immun Denies wheezing Physical exam (Primary Care) Vital Signs: Last Vital Signs Temp 97 F 03/18/23 11:07 Pulse 84 03/18/23 11:07 Resp 12 03/18/23 11:07 BP 130/78 03/18/23 11:07 Pulse Ox 98 03/18/23 11:07 Oxygen Delivery Method Room Air 03/18/23 11:07 BMI result Body Mass Index 29.7 Tobacco/Smoking Status: Tobacco use Status Tobacco use date assessed 03/18/23 03/18/23 11:14 Patient Tobacco Use Status Former Tobacco user 03/18/23 11:14 Tobacco use type Cigarette 03/18/23 11:14 e-Cigarette/Vaping Use Never Used 03/18/23 11:14 PHQ-9: PHQ-9 Score PHQ-9: Total score 3 03/18/23 12:09 Depression Screening Interpretation: Negative Thrive Assessment: Date of Thrive Assessment Date Thrive assessed 03/18/23 03/18/23 11:31 Currently or been in a relationship where the following occur: no concerns reported Const General: no acute distress, well developed, alert and awake Nutritional Appearance: well nourished Orientation/consciousness: patient oriented x3 HENMT Head: Yes normocephalic and Yes atraumatic Ears: hearing grossly normal bilaterally and TM's normal bilaterally General nose exam: Normal external nose present and Normal nares present Mouth: Normal oral and palatal mucosa present and moist mucous membranes Teeth and gingiva: dentition normal Throat: Yes posterior oropharynx normal Eyes General: appearance normal, both eyes and all related structures Pupils: Equal, round and reactive pupils present and Pupil accommodation reflex normal EOM: EOMs intact bilaterally Neck Neck: Yes normal visual inspection, Yes no lymphadenopathy and Yes trachea midline Thyroid: Thyroid normal Carotids: no bruits Lymphatic: no lymphadenopathy noted Chest Chest palpation & inspection: normal inspection of the chest Resp Effort & Inspection: normal respiratory effort Auscultation: clear to auscultation bilaterally Cardio Rate: regular rate Rhythm: regular rhythm Heart sounds: S1 normal heart sound present, S2 normal heart sound present, no gallops, no murmurs and no rubs Bruits: no abdominal aortic bruits and no carotid bruits GI Palpation (GI): No Abdominal aortic bruit present, Soft to palpation, nontender, No hepatosplenomegaly present and No Rebound tenderness present Auscultation: normal bowel sounds General: Yes no CVA tenderness Back/Spine/Pelvis Back: no CVA tenderness Cervical Spine: cervical ROM normal and No Cervical spine tenderness Thoracic/Lumbar Spine: thoraco-lumbar ROM normal, No pain with thoraco-lumbar ROM, No thoracic spinal tenderness and No lumbar spinal tenderness Skin Lesions: no lesions Rashes: no rashes Trauma: no lacerations or abrasions Wounds: no wounds Nails: normal Neuro General: patient oriented x3 Cranial nerves: Yes Equal, round and reactive pupils present Cognition (Neuro): normal cognition Gait exam (Neuro): Normal gait present Motor exam (neuro): 5/5 motor strength present throughout Sensory Exam: No Sensory deficit (Neuro) Deep tendon reflexes (DTR's): Right patellar reflex intensity grade: 2+ and Left patellar reflex intensity grade: 2+ Extrem General: Yes normal to inspection and No edema Psych Appearance: grossly normal Affect: normal affect Attitude: cooperative Thought process: Normal thought process present Assessment and Plan Assessment & Plan (1) Annual physical exam: Code(s): Z00.00 - Encounter for general adult medical examination without abnormal findings (2) Atrial fibrillation: Code(s): I48.91 - Unspecified atrial fibrillation Plan: Rate?controlled.??Stable Continue?metoprolol,?digoxin?and?Eliquis (3) Hyperthyroidism: Code(s): E05.90 - Thyrotoxicosis, unspecified without thyrotoxic crisis or storm Plan: History?of?Graves?disease?and?thyroidectomy-now?hypothyroid Continue?levothyroxine?as?prescribed Most?recent?TSH?and?T4?are?within?normal?limits Follow-up?with?endocrinology (4) Pre-diabetes: Code(s): R73.03 - Prediabetes Plan: Last?A1c?5.8%.??Pre?diabetes?range She?will?get?an?A1c?test?with?her?upcoming?blood?draw - she?did?not?have?time?to?stay?today. Advised?diet?low?in?sugars?and?starches. (5) DARIUSZ (obstructive sleep apnea): Code(s): G47.33 - Obstructive sleep apnea (adult) (pediatric) Plan: Now?using?CPAP?machine.??Encouraged?regular?use Follow-up?with?pulmonology (6) Breast cancer screening by mammogram: Code(s): Z12.31 - Encounter for screening mammogram for malignant neoplasm of breast Plan: Up-to-date. (7) Screening for colon cancer: Code(s): Z12.11 - Encounter for screening for malignant neoplasm of colon Plan: Will?request?report (8) Screening for cervical cancer: Code(s): Z12.4 - Encounter for screening for malignant neoplasm of cervix Plan: Will?discuss?at?her?next?encounter (9) Screening for tuberculosis: Code(s): Z11.1 - Encounter for screening for respiratory tuberculosis Plan: Patient?needs?TB?testing?for?work.??Check?T?spot Orders: Orders UA and rflx microscopic Today Z00.00 - Encounter for general adult medical examination without abnormal findings Comprehensive [place]. Panel Fast Today Z00.00 - Encounter for general adult medical examination without abnormal findings Lipid Panel Today Z00.00 - Encounter for general adult medical examination without abnormal findings Hemoglobin A1c Today R73.01 - Impaired fasting glucose Complete Blood Count Auto Diff Today Z00.00 - Encounter for general adult medical examination without abnormal findings T Spot TB Today Z11.1 - Encounter for screening for respiratory tuberculosis Medications: Changed From ropinirole administer 1-3 hours before bedtime 5 mg PO DAILY RLS To ropinirole administer 1-3 hours before bedtime 5 mg PO DAILY 90 tabs 3RF RLS 90 days Coding Level of Care Code Est Pt Level 3 (00775) Est Pt Prev Care 40-64y(52077) Diagnoses Annual physical exam Z00.00 Atrial fibrillation I48.91 Hyperthyroidism E05.90 Pre-diabetes R73.03 DARIUSZ (obstructive sleep apnea) G47.33 Breast cancer screening by mammogram Z12.31 Screening for colon cancer Z12.11 Screening for cervical cancer Z12.4 Screening for tuberculosis Z11.1 Additional Codes GEORGE-7 Assessment Billing - GEORGE-7 Assessment Tool: GEORGE-7 Assessment [id number] ([id number])
[2023-03-18 11:07] VITALS: BP 130/78; PULSE 84; RESP 12; TEMP 36.1; O2SAT 98; BMI 29.7
== END 2023-03-18 12:06 | disposition home or self-care (01) ==
PROVIDERS: PCP Family Medicine; Visit Provider Family Medicine
DX: Z00.00 Encounter for general adult medical examination without abnormal findings (principal); I48.91 Unspecified atrial fibrillation; E05.90 Thyrotoxicosis, unspecified without thyrotoxic crisis or storm; R73.03 Prediabetes; G47.33 Obstructive sleep apnea (adult) (pediatric); Z12.31 Encounter for screening mammogram for malignant neoplasm of breast; Z12.11 Encounter for screening for malignant neoplasm of colon; Z11.1 Encounter for screening for respiratory tuberculosis
CPT/HCPCS: 99396

== ENCOUNTER 2023-03-19 06:48 | Outpatient (REF) | payer OTHER, SELFPAY ==
[2023-03-19 07:02] LABS: MANUAL DIFF FLAG NO
[2023-03-19 07:25] LABS: Basophils Absolute Auto 0.1 X10*3/uL (0.0-0.2); Eosinophils Absolute Auto 0.3 X10*3/uL (0.0-0.4); Eosinophils Percent Auto 2.7 % (0-4); Hematocrit 44.9 % (37.0-47.0); Hemoglobin 14.2 g/dl (12.0-16.0); Imm Gran Abs Auto 0.04 X10*3/uL (0.00-0.03); Imm Gran Pct Auto 0.4 % (0.0-0.4); Lymphocytes Absolute Auto 3.6 X10*3/uL (1.2-4.9); Lymphocytes Percent Auto 32.7 % (20-40); Mean Corpuscular HGB Conc 31.6 g/dl (31.0-35.0); Mean Corpuscular Volume 94.7 fL (80.0-98.0); Mean Platelet Volume 11.2 fL (9.4-12.3); Monocytes Absolute Auto 0.9 X10*3/uL (0.1-1.2); Monocytes Percent Auto 7.9 % (2-11); Neutrophils Percent Auto 55.3 % (45-73); Platelet Count 342 X10*3/uL (160-400); Red Blood Count 4.74 X10*6/uL (4.20-5.50); White Blood Count 10.9 X10*3/uL (4.8-10.8)
[2023-03-19 07:31] LABS: Estimated Average Glucose 117 mg/dL; Hemoglobin A1c % 5.7 % (<6.0)
[2023-03-19 07:44] LABS: Alanine Aminotransferase 13 U/L (0-31); Albumin Level 4.2 g/dL (3.5-5.0); Alkaline Phosphatase 77 U/L (39-117); Anion Gap 12 (12-20); Aspartate Amino Transferase 21 U/L (5-31); Bilirubin Total 0.7 mg/dL (0.0-1.0); Blood Urea Nitrogen 12 mg/dL (9-16); Calcium 9.8 mg/dL (8.4-10.2); Carbon Dioxide 27 mmol/L (22-29); Chloride 107 mmol/L (96-108); Cholesterol 138 mg/dL (<200); Estimated Glomerular Filt Rate > 60; Glucose Fasting 118 mg/dL (60-99); HDL Cholesterol 48 mg/dL (>40); LDL Cholesterol Calculated 73 mg/dL (<100); Potassium 4.5 mmol/L (3.3-5.1); Sodium 141 mmol/L (135-145); Total Protein 7.2 g/dL (6.5-8.0); Triglycerides 85 mg/dL (<150)
[2023-03-19 09:41] LABS: Appearance Urine Cloudy; Color Urine Dark Yellow; Glucose Urine UA Negative (Negative); Leukocyte Esterase Urine Moderate (2+) (Negative); Nitrite Urine Negative (Negative); PH 5.5 (5.0-9.0); UMIC TRIGGER UA YES; Urine Blood Small (1+) (Negative); Urine Ketones Trace mg/dL (Negative); Urine Protein Trace mg/dL (Neg-Trace)
[2023-03-19 10:28] LABS: Bacteria Urine 4+ (None Seen); Hyaline Casts Urine 0-2 /LPF (0-2); Squamous Epithelial Cell Urine >20 /HPF (0-2); WBC Urine 21-50 /HPF (0-5)
[2023-03-22 00:09] LABS: TS Negative Control Passed; TS Panel A 0; TS Panel B 1; TS Positive Control Passed; TSpotTB Negative (Negative)
== END 2023-03-19 06:49 | disposition home or self-care (01) ==
LOC: HO.LAB 06:48
PROVIDERS: PCP Family Medicine; Visit Provider Family Medicine
DX: Z00.00 Encounter for general adult medical examination without abnormal findings (principal); R73.01 Impaired fasting glucose; Z11.1 Encounter for screening for respiratory tuberculosis
CPT/HCPCS: 36415; 80053; 80061; 81001; 83036; 85025; 86481

== ENCOUNTER 2023-04-16 09:08 | Outpatient (AMB) | payer OTHER, SELFPAY ==
[2023-04-16 09:16] VITALS: BP 110/60; PULSE 69; O2SAT 98; BMI 30.4
--- NOTE | 2023-04-16 09:16 | A.OFFVIS_ITS ---
Intake Vital Signs 04/16/23 09:16 Height 6 ft Weight 224 lb BMI 30.4 BP 110/60 Blood Pressure Location Lt brachial Position Sitting Pulse 69 Pulse Source Pulse Oximeter Pulse Oximetry (%) 98 Oxygen Delivery Method Room Air Intake Visit Reasons: Obstructive sleep apnea Intake Note: pt is here for follow up of starting cpap and is doing okay but she would like mask with front end tubing rather than top of head tubing. Bull Chain Operator Required: No Allergies No Known Allergies Allergy (Verified 04/16/23 09:33) Medication List - Last Reconciled 04/16/23 by Avery Alonso MD acetaminophen 650 mg PO Q4H PRN albuterol sulfate 90 mcg/actuation 2 puffs inhalation Q4-6H PRN 30 days apixaban (Eliquis) 5 mg PO BID 90 days betamethasone dipropionate 0.05% 1 appl topical DAILY 30 days digoxin (Digox) 125 mcg PO DAILY furosemide 40 mg PO DAILY PRN incontinence pad, liner, disp As directed, 90 days levothyroxine 137 mcg PO DAILY lorazepam 1 mg PO BEDTIME PRN 30 days metoprolol tartrate 50 mg PO BID 90 days omeprazole 20 mg PO DAILY quetiapine 50 mg PO BEDTIME 30 days ropinirole 5 mg PO DAILY 90 days rosuvastatin 20 mg PO DAILY sertraline 50 mg (1/2 x 100 mg) PO DAILY 30 days umeclidinium-vilanterol 62.5-25 mcg/actuation (Anoro Ellipta) 1 inh inhalation DAILY 30 days valacyclovir 500 mg PO DAILY PRN 30 days Do you need a note to return to daycare/school/sports/work: No HPI Obstructive sleep apnea HPI Details This 62 years old pleasant female, comes for follow-up after starting the CPAP, . She is using the CPAP almost every night missed only 2 nights in the whole month, however she uses only for 3-4 hours, in the mask slips of during the night. She has some issues with the fullface mask and would like to change it to fullface mask with front and tubing connection . Breathing has been fairly good, she is using Anoro Ellipta once a day and hardly needs to use the albuterol inh. [facility] Medical History COPD (chronic obstructive pulmonary disease) Postoperative hypothyroidism Vitamin D deficiency DARIUSZ (obstructive sleep apnea) On anticoagulant therapy On beta sabine at home History of cardioversion Hypothyroid Pelvic fracture Alcohol abuse PAF (paroxysmal atrial fibrillation) GERD (gastroesophageal reflux disease) Depression HLD (hyperlipidemia) History of COPD Graves disease Surgical History History of thyroidectomy (08/20/22) H/O foot surgery History of carotid endarterectomy History of salpingectomy Hx of rotator cuff surgery History of surgery on right wrist Hx of colonoscopy History of back surgery History of ankle surgery Family History Father CVD (cardiovascular disease) Hypertension Mother CVA (cerebral vascular accident) Paternal Grandmother Breast cancer Social History Housing: House Are you a primary post acute care nurse practitioner to a significant other at home: No Do you presently have visiting nurse or other home services: No Patient Tobacco Use Status: Former Tobacco user Quit Date: 5 yrs ago Tobacco use type: Cigarette e-Cigarette/Vaping Use: Never Used Second Hand Smoke Exposure: No Advance Directives Date on File: 04/03/17 service: No Current occupational status: employed 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 Current occupational exposures/hazards: No Cognitive needs: No Hearing needs: No Vision needs: No Review of Systems Const All systems reviewed & are unremarkable except as noted in HPI and below Eyes Reports no additional complaints ENT Reports no additional complaints Card Denies chest pain at rest, Reports irregular heart rhythm and Denies leg edema Resp Reports no additional complaints GI Reports heartburn (BEING TREATED WITH OMEPRAZOLE) Reports no additional complaints Musc Reports no additional complaints Skin/Breast Reports system reviewed and no additional complaints, except as documented Neuro Reports no additional complaints Psych Reports anxiety and Reports depression Endo Reports no additional complaints Nabil/Lymph Reports no additional complaints Aller/Immun Reports no additional complaints Physical Exam Vital Signs: Last Vital Signs Pulse 69 04/16/23 09:16 BP 110/60 04/16/23 09:16 Pulse Ox 98 04/16/23 09:16 Oxygen Delivery Method Room Air 04/16/23 09:16 BMI result Body Mass Index 30.4 Const General: healthy appearing, comfortable, no acute distress, alert and awake Orientation/consciousness: patient oriented x3 HEENT Other: PATIENT DOES HAVE PROMINENT RETROGANTHIA OF THE LOWER JAW. MALLAMPATI SCALE 3 Head: Yes normal to inspection General nose exam: No nasal polyps present and No nasal discharge present Face and sinus: Yes sinuses nontender Mouth: oropharynx normal Teeth and gingiva: other (RETROGANTHIA OF LOWER JAW) Throat: Yes posterior oropharynx normal Eyes General: appearance normal, both eyes and all related structures Neck Neck: Yes normal visual inspection, Yes no lymphadenopathy, Yes trachea midline and Yes no JVD Thyroid: Thyroid normal Chest Chest palpation & inspection: normal inspection of the chest, normal palpation of entire chest wall and no tenderness Resp Other: PERCUSSION NOTE IS RESONANT, SHE DOES HAVE EQUAL BREATH SOUNDS ON BOTH SIDES. I HEARD A FEW EXPIRATORY WHEEZES OVER THE RIGHT UPPER CHEST AREA, NO CREPITATIONS Cardio Palpation: normal PMI Rate: regular rate Rhythm: regular rhythm Heart sounds: Gallop heart sound present and Murmur heart sound present Peripheral pulses: Peripheral pulses 2+ throughout GI Palpation (GI): Soft to palpation, nontender, No hepatosplenomegaly present and no masses Auscultation: normal bowel sounds Back/Spine/Pelvis Thoracic/Lumbar Spine: thoracic and lumbar spine normal to inspection Skin General skin exam: no rashes or lesions noted Neuro General: patient oriented x3 and no focal motor deficits Cranial nerves: Yes CN's II-XII intact bilaterally Extrem General: Yes normal to inspection, Yes no clubbing, cyanosis or edema and Yes no calf tenderness Psych Appearance: grossly normal and well kempt Speech and movement: Normal speech and movement present Results Reviewed Results Reviewed: COMPLIANCE REPORT FOR THE LAST 30 NIGHTS REVIEWED USED 28/30 NIGHTS, 93%. AVERAGE USE PER NIGHT IS 3 HOURS 43 MINUTES, PRESSURE USED IS THE ABOUT 9 CM. THERE IS MODERATE AMOUNT OF AIR LEAK. RESIDUAL AHI IS STILL 12.4 Assessment & Plan Assessment & Plan (1) PAF (paroxysmal atrial fibrillation): Comment: HISTORY OF PAROXYSMAL ATRIAL FIBRILLATION, PAST HISTORY OF CARDIOVERSION X2 IN 2021 PATIENT FOLLOWED BY CARDIOLOGY SERVICE. Code(s): I48.0 - Paroxysmal atrial fibrillation (2) DARIUSZ (obstructive sleep apnea): Comment: PATIENT HAS MILD OBSTRUCTIVE SLEEP APNEA BUT , NEEDS TO USE CPAP BECAUSE SHE HAS PAROXYSMAL ATRIAL FIBRILLATION. SHE HAS STARTED USING THE CPAP REGULARLY HOWEVER HER COMPLIANCE IS SOMEWHAT SUBOPTIMAL, HE NEEDS TO USE MORE THAN 4 HOURS EVERY NIGHT. EDUCATED ABOUT , THE COMPLIANCE STANDARD AND BENEFITS OF CONTINUED USING CPAP. SHE WILL GET MORE COMFORTABLE FULLFACE MASK. Code(s): G47.33 - Obstructive sleep apnea (adult) (pediatric) (3) COPD (chronic obstructive pulmonary disease): Comment: SHE DOES HAVE MILD TO MODERATE DEGREE OF COPD. FEELS BETTER WITH USING ANORO ELLIPTA ONCE A DAY. ADVISED TO CONTINUE IT AND USE ALBUTEROL ONLY P.R.N.. Code(s): J44.9 - Chronic obstructive pulmonary disease, unspecified Coding Level of Care Code Est Pt Level 3 (15179) Diagnoses PAF (paroxysmal atrial fibrillation) I48.0 DARIUSZ (obstructive sleep apnea) G47.33 COPD (chronic obstructive pulmonary disease) J44.9
== END 2023-04-16 09:34 | disposition home or self-care (01) ==
PROVIDERS: PCP Family Medicine; Visit Provider Internal Medicine
DX: I48.0 Paroxysmal atrial fibrillation (principal); G47.33 Obstructive sleep apnea (adult) (pediatric); J44.9 Chronic obstructive pulmonary disease, unspecified
CPT/HCPCS: 99213

== ENCOUNTER → 2023-04-16 09:08 | Outpatient (BNVA) | payer OTHER, SELFPAY | PROVIDERS: PCP Family Medicine; Visit Provider Internal Medicine ==

== ENCOUNTER 2023-05-03 09:38 | Outpatient (AMB) | payer MEDICARE, MEDICAID, SELFPAY ==
--- NOTE | 2023-05-03 09:44 | A.OFFPC_ITS ---
Vital Signs 05/03/23 09:45 Height 6 ft Weight 219 lb BMI 29.7 BP 92/60 Blood Pressure Location Lt brachial Position Sitting Respiration 12 Pulse 96 Pulse Source Pulse Oximeter Pulse Oximetry (%) 100 Oxygen Delivery Method Room Air Intake Visit Reasons: f/u labs and pre-diabetes Intake Note: Patient is here to follow up on labs. Patient would like a refill for Levothyroxine 137mcg and Digoxin 125mcg. Goldbeater Required: No Accompanied by: Self / Same As Patient Allergies No Known Allergies Allergy (Verified 05/03/23 09:54) Tobacco use date assessed: 03/18/23 HPI f/u labs and pre-diabetes HPI Details 62 y/o female presents to f/u labs and p re-diabetes. Labs were drawn 03/19/23. Reviewed labs with pt. Elevated fasting glucose of 118. A1c 5.7%. Triglycerides 85. TC 138. LDL 73. HDL 48. TSH level 0.76. Free T4 0.97. PFSH Medical History COPD (chronic obstructive pulmonary disease) Postoperative hypothyroidism Vitamin D deficiency DARIUSZ (obstructive sleep apnea) On anticoagulant therapy On beta sabine at home History of cardioversion Hypothyroid Pelvic fracture Alcohol abuse PAF (paroxysmal atrial fibrillation) GERD (gastroesophageal reflux disease) Depression HLD (hyperlipidemia) History of COPD Graves disease Surgical History History of thyroidectomy (08/20/22) H/O foot surgery History of carotid endarterectomy History of salpingectomy Hx of rotator cuff surgery History of surgery on right wrist Hx of colonoscopy History of back surgery History of ankle surgery Family History Father CVD (cardiovascular disease) Hypertension Mother CVA (cerebral vascular accident) Paternal Grandmother Breast cancer Social History Housing: House Are you a primary point of care specialist to a significant other at home: No Do you presently have visiting nurse or other home services: No Patient Tobacco Use Status: Former Tobacco user Quit Date: 5 yrs ago Tobacco use type: Cigarette e-Cigarette/Vaping Use: Never Used Second Hand Smoke Exposure: No Advance Directives Date on File: 04/03/17 service: No Current occupational status: employed 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 Mickey Woods, Sophie Moore, Cristobal Franks and colleagues, with an educational khloe from [employer]. Review of Systems Const Denies chills, Denies fatigue, Denies fever(s), Denies headache(s) and Denies weakness ENT Denies dizziness and Denies headache(s) Card Denies chest pain, Denies lightheadedness, Denies dyspnea and Denies other (Palpitations) Resp Denies cough, Denies dyspnea, Denies wheezing and Denies other ( shortness of breath) Musc Denies numbness and Denies tingling Skin/Breast Details: Lump?on?right?calf Neuro Denies dizziness, Denies headache(s), Denies numbness, Denies tingling, Denies paresthesias and Denies weakness Psych Denies anxiety and Denies depression Endo Denies fatigue Aller/Immun Denies wheezing Physical exam (Primary Care) Vital Signs: Last Vital Signs Pulse 96 05/03/23 09:45 Resp 12 05/03/23 09:45 BP 92/60 05/03/23 09:45 Pulse Ox 100 05/03/23 09:45 Oxygen Delivery Method Room Air 05/03/23 09:45 BMI result Body Mass Index 29.7 Tobacco/Smoking Status: Tobacco use Status Tobacco use date assessed 03/18/23 05/03/23 09:56 Patient Tobacco Use Status Former Tobacco user 05/03/23 09:56 Tobacco use type Cigarette 05/03/23 09:56 e-Cigarette/Vaping Use Never Used 05/03/23 09:56 Thrive Assessment: Date of Thrive Assessment Date Thrive assessed 03/18/23 05/03/23 09:56 Const General: no acute distress and well developed Nutritional Appearance: well nourished Orientation/consciousness: patient oriented x3 HENMT Head: Yes normocephalic and Yes atraumatic Eyes General: appearance normal, both eyes and all related structures Pupils: Equal, round and reactive pupils present EOM: EOMs intact bilaterally Resp Effort & Inspection: normal respiratory effort Auscultation: clear to auscultation bilaterally Cardio Rate: regular rate Rhythm: regular rhythm Heart sounds: S1 normal heart sound present, S2 normal heart sound present, no gallops, no murmurs and no rubs Neuro General: patient oriented x3 and gait normal Cranial nerves: Yes Equal, round and reactive pupils present Psych Affect: normal affect Assessment and Plan Assessment & Plan (1) Pre-diabetes: Code(s): R73.03 - Prediabetes Plan: A1c?stable?at?5.7% Encouraged?diet?low?in?sugars?and?starches Encouraged?weight?loss?and?exercise (2) Postoperative hypothyroidism: Code(s): E89.0 - Postprocedural hypothyroidism Plan: Stable (3) Screening for cervical cancer: Code(s): Z12.4 - Encounter for screening for malignant neoplasm of cervix Plan: No?recent?Pap?smears ?Will?refer?to?property valuer (4) Screening for colon cancer: Code(s): Z12.11 - Encounter for screening for malignant neoplasm of colon Plan: Followed?by??Tyrone Up-to-date (5) Neoplasm of uncertain behavior of skin: Code(s): D48.5 - Neoplasm of uncertain behavior of skin Plan: Referred?to?dermatology?for?1?cm?lesion?on?right?calf Orders: Referrals DIRECTOR SUPPLIER QUALITY Referral Z12.4 - Encounter for screening for malignant neoplasm of cervix Dermatology Referral D48.5 - Neoplasm of uncertain behavior of skin Coding Level of Care Code Est Pt Level 4 (49351) Diagnoses Pre-diabetes R73.03 Postoperative hypothyroidism E89.0 Screening for cervical cancer Z12.4 Screening for colon cancer Z12.11 Neoplasm of uncertain behavior of skin D48.5
[2023-05-03 09:45] VITALS: BP 92/60; PULSE 96; RESP 12; O2SAT 100; BMI 29.7
== END 2023-05-03 10:38 | disposition home or self-care (01) ==
PROVIDERS: PCP Family Medicine; Visit Provider Family Medicine
DX: R73.03 Prediabetes (principal); E89.0 Postprocedural hypothyroidism; Z12.11 Encounter for screening for malignant neoplasm of colon; D48.5 Neoplasm of uncertain behavior of skin
CPT/HCPCS: 99214

== ENCOUNTER 2023-05-20 09:45 | Outpatient (REF) | payer MEDICARE, MEDICAID, SELFPAY ==
--- NOTE | ~2023-05-20 | US_ITS ---
EXAMINATION: US EXTRACRANIAL CAROTID DUPLEX, BILATERAL CLINICAL INFORMATION: Carotid stenosis COMPARISON: 01/30/2022 TECHNIQUE: Real-time ultrasound and Doppler techniques (integrating B-mode 2-D vascular images, Doppler spectral analysis and color-flow Doppler imaging) were utilized to interrogate the extracranial carotid arteries, the vertebral arteries and proximal subclavian arteries bilaterally. The degree of stenosis is determined by criteria similar to NASCET. `` FINDINGS: Right Side: 1. There is no significant atherosclerotic plaque seen in the bifurcation/proximal ICA region. 2. The common carotid artery PSV proximally is 57 cm/s and distally 55 cm/s. 3. The proximal internal carotid artery velocities are 58.9 cm/s systolic and 36.5 cm/s diastolic. 4. The proximal external carotid artery PSV is 77 cm/s. 5. The vertebral artery shows antegrade flow. 6. The subclavian artery waveforms are normal. Left Side: 1. There is mild atherosclerotic plaque seen in the bifurcation/proximal ICA region. 2. The common carotid artery PSV proximally is 53.8 cm/s and distally 50.5 cm/s. 3. The proximal internal carotid artery velocities are 71.9 cm/s systolic and 39.3 cm/s diastolic. 4. The proximal external carotid artery PSV is 71.5 cm/s. 5. The vertebral artery shows 45.7 flow. 6. The subclavian artery waveforms are normal. US/US carotid duplex BI IMPRESSION: 1. RIGHT: Normal right internal carotid artery without atherosclerotic plaque or hemodynamically significant stenosis. 2. LEFT: Minimal, non-hemodynamically significant stenosis of the proximal left internal carotid artery corresponding to a 0-49% stenosis by velocity criteria. 3. There is no change in the category severity of disease when compared to the previous study dated 01/30/2022.
== END 2023-05-20 09:46 | disposition home or self-care (01) ==
LOC: HO.US 09:45
PROVIDERS: PCP Family Medicine; Visit Provider Surgery Vascular Surgery
DX: I65.23 Occlusion and stenosis of bilateral carotid arteries (principal)
CPT/HCPCS: 93880

== ENCOUNTER 2023-05-23 08:55 | Outpatient (AMB) | payer MEDICARE, MEDICAID, SELFPAY ==
[2023-05-23 09:00] VITALS: BP 98/60; BMI 29.7
--- NOTE | 2023-05-23 09:00 | MHC.OFFVIS ---
Intake Vital Signs 05/23/23 09:00 05/23/23 09:08 Height 6 ft Weight 219 lb BMI 29.7 BP 98/60 100/80 Blood Pressure Location Rt brachial Lt brachial Position Sitting Sitting Intake Visit Reasons: 1 year follow up carotid US 05/20/2023 Intake Note: 1 year follow up carotid stenosis s/p carotid US 05/20/2023 w/ Hx of Right CEA 11/16/2016. Pt states she does have some similar symptoms to before she had before she had her CEA surgery. Vision changes, in the left eye, with pain above eye similar to last time. Accompanied by: Self / Same As Patient Allergies No Known Allergies Allergy (Verified 05/23/23 09:06) HPI 1 year follow up carotid US 05/20/2023 HPI Details Very pleasant 62-year-old female presents for annual surveillance follow-up regarding her carotids. She has had no interval issues. She reports that she has been doing well after her thyroidectomy. She is being maintained on Eliquis for her AFib. Other than that doing extremely well. Now for follow-up with carotid ultrasound [facility] Medical History COPD (chronic obstructive pulmonary disease) Postoperative hypothyroidism Vitamin D deficiency DARIUSZ (obstructive sleep apnea) On anticoagulant therapy On beta sabine at home History of cardioversion Hypothyroid Pelvic fracture Alcohol abuse PAF (paroxysmal atrial fibrillation) GERD (gastroesophageal reflux disease) Depression HLD (hyperlipidemia) History of COPD Graves disease Surgical History History of thyroidectomy (08/20/22) H/O foot surgery History of carotid endarterectomy History of salpingectomy Hx of rotator cuff surgery History of surgery on right wrist Hx of colonoscopy History of back surgery History of ankle surgery Family History Father CVD (cardiovascular disease) Hypertension Mother CVA (cerebral vascular accident) Paternal Grandmother Breast cancer Social History Housing: House Are you a primary director of health care marketing to a significant other at home: No Do you presently have visiting nurse or other home services: No Patient Tobacco Use Status: Former Tobacco user Quit Date: 5 yrs ago Tobacco use type: Cigarette e-Cigarette/Vaping Use: Never Used Second Hand Smoke Exposure: No Advance Directives Date on File: 04/03/17 service: No Current occupational status: employed 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 Current occupational exposures/hazards: No Cognitive needs: No Hearing needs: No Vision needs: No Review of Systems Const All systems reviewed & are unremarkable except as noted in HPI and below Reports no additional complaints ENT Reports Normal hearing present Card Denies chest pain, Denies chest pain at rest, Denies chest pain with activity and Denies pedal edema Resp Denies cough GI Denies abdominal pain Musc Denies abnormal gait, Denies muscle cramps and Denies radiating pain into limb Skin/Breast Denies skin ulcer and Denies wounds Neuro Reports Normal hearing present and Denies abnormal gait Psych Reports no additional complaints Physical Exam Vital Signs: Last Vital Signs BP 100/80 05/23/23 09:08 BMI result Body Mass Index 29.7 Const General: cooperative, healthy appearing and comfortable Orientation/consciousness: oriented to person, oriented to place and oriented to time HEENT Head: Yes normal to inspection Neck Neck: Yes normal visual inspection Carotids: no bruits Chest Chest palpation & inspection: normal inspection of the chest Resp Effort & Inspection: normal respiratory effort and able to speak in complete sentences Auscultation: clear to auscultation bilaterally, no crackles, no rales, no rhonchi and no wheezes Cardio Rate: regular rate Rhythm: regular rhythm Heart sounds: S1 normal heart sound present and S2 normal heart sound present Bruits: no carotid bruits Peripheral pulses: Peripheral pulses 2+ throughout GI Inspection: Yes normal to inspection Skin Wounds: no wounds Hair: normal Neuro General: oriented to person, oriented to place and oriented to time Cranial nerves: Yes CN's II-XII intact bilaterally and Yes Normal hearing present Cognition (Neuro): normal cognition Motor exam (neuro): 5/5 motor strength present throughout Extrem Other: venous exam: No significant superficial varicosities or spider telangiectasias, minimal edema General: No clubbing, No cyanosis and No edema Psych Appearance: grossly normal Mental Status: mental status grossly normal Speech and movement: Normal speech and movement present Results Reviewed Results Reviewed: Carotid ultrasound dated 05/20/2023 demonstrates right-sided 0-49 left side 0-49 as well. Written report and images were reviewed Assessment & Plan Assessment & Plan (1) Bilateral carotid artery stenosis: Comment: 11/16/2016 - right carotid endarterectomy Code(s): I65.23 - Occlusion and stenosis of bilateral carotid arteries Plan: In short patient has asymptomatic carotid disease. We have reviewed signs and symptoms of a stroke. We also discussed risk factor modification inclusive a healthy diet low in cholesterol. The patient will follow up with us with surveillance ultrasound of the carotids 1 year. Should there be any changes or signs or symptoms of a stroke we will be happy to see them back sooner. Thank you for allowing us to participate in this patient's care. If there are any questions or concerns please do not hesitate to contact us. Orders: Orders US carotid duplex BI 364 Days I65.23 - Occlusion and stenosis of bilateral carotid arteries Coding Level of Care Code Est Pt Level 4 (93032) Diagnoses Bilateral carotid artery stenosis I65.23
[2023-05-23 09:08] VITALS: BP 100/80
== END 2023-05-23 09:22 | disposition home or self-care (01) ==
PROVIDERS: PCP Family Medicine; Visit Provider Surgery Vascular Surgery
DX: I65.23 Occlusion and stenosis of bilateral carotid arteries (principal)
CPT/HCPCS: 99213

== ENCOUNTER → 2023-05-23 08:55 | Outpatient (BNVA) | payer MEDICARE, MEDICAID, SELFPAY | PROVIDERS: PCP Family Medicine; Visit Provider Surgery Vascular Surgery | DX: I65.23 Occlusion and stenosis of bilateral carotid arteries (principal) | CPT/HCPCS: 99212 ==

== ENCOUNTER 2023-07-04 07:56 | Outpatient (AMB) | payer MEDICARE, MEDICAID, SELFPAY ==
--- NOTE | 2023-07-04 07:57 | MHC.OFFVIS ---
Intake Vital Signs 07/04/23 07:59 Height 6 ft Weight 226 lb 10.163 oz BMI 30.7 BP 94/60 Blood Pressure Location Lt brachial Position Sitting Pulse 73 Pulse Source Pulse Oximeter Intake Visit Reasons: F/U Grave's Disease-lvm Intake Note: Patient presents for Grave's Disease follow up. Last seen by Dr. Partida on 07/25/2022. Phd Intern Required: No Accompanied by: Self / Same As Patient Allergies No Known Allergies Allergy (Verified 07/04/23 08:06) Medication List - Last Reconciled 07/04/23 by Mickey Bueno MD acetaminophen 650 mg PO Q4H PRN albuterol sulfate 90 mcg/actuation 2 puffs inhalation Q4-6H PRN 30 days apixaban (Eliquis) 5 mg PO BID 90 days betamethasone dipropionate 0.05% 1 appl topical DAILY 30 days digoxin (Digox) 125 mcg PO DAILY furosemide 40 mg PO DAILY PRN incontinence pad, liner, disp As directed, 90 days levothyroxine 137 mcg PO DAILY lorazepam 1 mg PO BEDTIME PRN 30 days metoprolol tartrate 50 mg PO BID 90 days metoprolol tartrate 25 mg PO BID omeprazole 20 mg PO DAILY quetiapine 50 mg PO BEDTIME 30 days ropinirole 5 mg PO DAILY 90 days rosuvastatin 20 mg PO DAILY sertraline 50 mg (1/2 x 100 mg) PO DAILY 30 days umeclidinium-vilanterol 62.5-25 mcg/actuation (Anoro Ellipta) 1 inh inhalation DAILY 30 days valacyclovir 500 mg PO DAILY PRN 30 days HPI HPI Comments History of Present Illness Details 62 YO F with PMHx ETOH Dependence, now in remission who is seen in F/U for Hyperthyroidism due to Grave's Disease. The patient last saw Dr. Partida on 07/30/2022 Had labs checked by PCP 04/07/19 which revealed TSH < 0.01, with FT4 1.72 and FT3 7.8. These were repeated by me 05/06/19 with TSH <0.01, TT3 350 (elevated) and FT4 at the upper limit of normal at 1.85. She was also found to have significant elevations of TSI, TRAB, TPO and TG antibodies. She did undergo a thyroid US 05/20/19 which revealed no nodules (images were independently reviewed), and also a thyroid uptake and scan 06/03/19 which revealed increased uptake of 35% at 24 hours in a homogenous distribution consistent with Grave's disease. She was started on Methimazole 10 mg PO daily on 06/18/2019, which was then titrated upward to 30 mg PO daily. She shortly after developed hypothyroidism based on symptoms of weight gain and a FT4 below the lower limit of normal. Her dose of Methimazole was decreased to 20 mg PO daily (once a day in the morning). She then became hyperthyroid again, and dose was further increased to 30 mg PO daily and she was asked to repeat labs in 2 weeks. Labs reveal persistently elevated TT3 and hyperthyroidism. She admitted at that time to noncompliance. She was resumed back on her methimazole 30 mg PO daily and repeated labs in 2 weeks, which revealed persistently elevated TT3. Her Methimazole was changed to 20 mg PO TID and her labs then revealed FT4 low and TT3 WNL. Medication has been continually adjusted since that time. She is currently using Methimazole 20 mg PO BID and FT4 and TT3 are currently at goal. She does report she had 2 admissions for AFib with RVR in late 2021. She is tolerating Methimazole well without rash, abdominal pain, jaundice, darkening of the urine, cough or frequent infection. Thyroid US: 05/20/19 Right Thyroid Lobe: 5.4 x 2.4 x 2.7 cm, volume 18.3 mL. Parenchyma: The gland echotexture is heterogeneous. Thyroid vascularity is increased. Left Thyroid Lobe: 4.1 x 1.3 x 1.6 cm, volume 4.5 mL. Parenchyma: The gland echotexture is heterogeneous. Thyroid vascularity is increased. Isthmus: 0.5 cm in maximum AP dimension. RIGHT THYROID LOBE: No nodules. ISTHMUS: No nodules. LEFT THYROID LOBE: No nodules. NODES: There is a lymph node superior to the thyroid isthmus. This is normal in size measuring 0.8 cm transverse dimension and demonstrates normal ultrasound morphology and flow. Thyroid Uptake and Scan: 06/03/19 FINDINGS: The uptake is 15% at 4 hours and 35% at 24 hours. The radioiodine uptake is mildly elevated. The radiopertechnetate thyroid scintigram shows the thyroid gland to be asymmetrical with the right lobe significantly larger than the left. This also shows increased activity relative to the left, probably due to its larger volume. The left lobe appears normal in size. A very faint barely perceptible pyramidal lobe is visualized attaching medially to the mid right lobe. There is homogeneous distribution of activity within both lobes, although the activity is significantly more intense on the right. A single anterior radioiodine image obtained at the time of the 24-hour uptake measurement is similar to the radio pertechnetate image. The thyroid ultrasound study dated 05/20/2019 also showed an asymmetrical thyroid gland with the right lobe much larger than the left. No nodules are visualized. Labs: Laboratory Tests 07/27/22 07/27/22 06:48 06:48 Free T4 0.75 Total T3 148 Status post total thyroidectomy in 08/20/2022 with benign pathology. Patient is currently on levothyroxine 137 mcg [facility] Medical History COPD (chronic obstructive pulmonary disease) Postoperative hypothyroidism Vitamin D deficiency DARIUSZ (obstructive sleep apnea) On anticoagulant therapy On beta sabine at home History of cardioversion Hypothyroid Pelvic fracture Alcohol abuse PAF (paroxysmal atrial fibrillation) GERD (gastroesophageal reflux disease) Depression HLD (hyperlipidemia) History of COPD Graves disease Surgical History History of thyroidectomy (08/20/22) H/O foot surgery History of carotid endarterectomy History of salpingectomy Hx of rotator cuff surgery History of surgery on right wrist Hx of colonoscopy History of back surgery History of ankle surgery Family History Father CVD (cardiovascular disease) Hypertension Mother CVA (cerebral vascular accident) Paternal Grandmother Breast cancer Social History Housing: House Are you a primary dog day care attendant to a significant other at home: No Do you presently have visiting nurse or other home services: No Patient Tobacco Use Status: Former Tobacco user Quit Date: 5 yrs ago Tobacco use type: Cigarette e-Cigarette/Vaping Use: Never Used Second Hand Smoke Exposure: No Advance Directives Date on File: 04/03/17 service: No Current occupational status: employed 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 Assessment & Plan Assessment & Plan (1) Postoperative hypothyroidism: Code(s): E89.0 - Postprocedural hypothyroidism Plan: 62-year-old white female with a history of post-surgical hypothyroidism after total thyroidectomy for Graves disease. She is currently on levothyroxine 137 mcg . She appears to be clinically euthyroid. Plan is to check TSH and free T4 and adjust levothyroxine accordingly. Orders: Orders Free T4 (Free Thyroxine) Today E89.0 - Postprocedural hypothyroidism Thyroid Stimulating Hormone Today E89.0 - Postprocedural hypothyroidism Coding Level of Care Code Est Pt Level 3 (89644) Diagnoses Postoperative hypothyroidism E89.0
[2023-07-04 07:59] VITALS: BP 94/60; PULSE 73; BMI 30.7
== END 2023-07-04 08:14 | disposition home or self-care (01) ==
PROVIDERS: PCP Family Medicine; Visit Provider Internal Medicine Endocrinology, Diabetes & Metabolism
DX: E89.0 Postprocedural hypothyroidism (principal)
CPT/HCPCS: 99213

== ENCOUNTER → 2023-07-04 07:56 | Outpatient (BNVA) | payer MEDICARE, MEDICAID, SELFPAY | PROVIDERS: Visit Provider Internal Medicine Endocrinology, Diabetes & Metabolism | DX: E89.0 Postprocedural hypothyroidism (principal) | CPT/HCPCS: 99212 ==

== ENCOUNTER 2023-07-04 08:17 | Outpatient (REF) | payer MEDICARE, SELFPAY ==
[2023-07-04 11:16] LABS: Free T4 (Free Thyroxine) 0.99 ng/dL (0.71-1.85); Thyroid Stimulating Hormone 0.17 uIU/mL (0.32-4.0)
== END 2023-07-04 08:18 | disposition home or self-care (01) ==
LOC: HO.10HDL 08:17
PROVIDERS: Visit Provider Internal Medicine Endocrinology, Diabetes & Metabolism
DX: E89.0 Postprocedural hypothyroidism (principal)
CPT/HCPCS: 36415; 84439; 84443

== ENCOUNTER 2023-08-13 07:32 | Outpatient (REF) | payer MEDICARE, MEDICAID, SELFPAY ==
[2023-08-13 09:13] LABS: Free T4 (Free Thyroxine) 0.84 ng/dL (0.71-1.85); Thyroid Stimulating Hormone 0.71 uIU/mL (0.32-4.0)
== END 2023-08-13 07:33 | disposition home or self-care (01) ==
LOC: HO.LAB 07:32
PROVIDERS: Absent Provider Family Medicine; PCP Family Medicine; Visit Provider Internal Medicine Endocrinology, Diabetes & Metabolism
DX: E89.0 Postprocedural hypothyroidism (principal)
CPT/HCPCS: 36415; 84439; 84443

== ENCOUNTER → 2023-08-28 07:47 | Outpatient (REF) | payer MEDICARE, MEDICAID, SELFPAY ==
--- NOTE | 2023-08-28 08:59 | CA_ITS ---
Transthoracic Echocardiogram Patient (Last, First, Middle): Matilde Son M Gender: Female Date of : 1960 Age: 63 Procedure Date: 08/28/2023 Procedure Type: Transthoracic Echocardiogram Location: OP Height: 182.88 cm Weight: 99.79 kg BSA: 2.22 m2 Heart Rate: bpm BP: 108 / 76 mmHg Steel Inspector: DENYS Referring MD: Nishant Gutierres MD Substitute School Nurse: Javier Sharp MD Symptoms: I48.19 - Other persistent atrial fibrillation Study Quality: Fair ECG Rhythm: Atrial Fibrillation Conclusions: - 1. Normal LV ejection fraction of 60-65% 2. At least moderate left atrial enlargement 3. Mild mitral regurgitation 4. Normal RV systolic pressure 5. Mildly dilated ascending aorta 3.9 cm 6. No pericardial effusion Findings Left Ventricle Normal left ventricular size, thickness, and systolic function. The visually estimated ejection fraction is between 60-65%. Diastolic function is indeterminate on the basis of available data. Right Ventricle Normal right ventricular cavity size. There is normal right ventricular systolic function. Atria The left atrium is moderately dilated. Interatrial shunt cannot be excluded. The right atrium is mildly dilated. Aortic Valve There is mild calcification of the aortic valve. There is no aortic valve stenosis. There is no aortic valve regurgitation. Mitral Valve There is mild anterior and posterior mitral leaflet thickening. There is mild mitral valve regurgitation. There is no mitral valve stenosis. Pulmonic Valve The pulmonic valve is likely normal. Tricuspid Valve Normal tricuspid valve structure. There is mild tricuspid valve regurgitation. The right ventricular systolic pressure is normal. The right ventricular systolic pressure is 26 mmHg. Normal right atrial pressure. There is no evidence of pulmonary hypertension. Great Vessels The pulmonary artery was not well visualized. There is mild dilatation of the ascending aorta measuring 3.90 cm. Venous The inferior vena cava is normal in size and collapses greater than 50% with inspiration. Pericardium/Pleural There is no evidence of pericardial effusion. Measurements 2D Linear Measurements IVSd: 1.09 0.6-0.9/0.6-1.0 cm LVIDd: 4.44 3.9-5.3/4.2-5.9 cm LVIDd Index: 2.00 2.4-3.2/2.2-3.1 cm/m2 LVIDs: 2.77 2.0-3.6 cm LVPWd: 1.05 0.7-1.1 cm LA Diam: 4.20 2.7-3.8/3.0-4.0 cm LAIDs Index: 1.89 1.5-2.3 cm/m2 LV Mass: 205.26 67-162/88-224 g LV Mass Index: 92.46 43-95/49-115 g/m2 LVOT Diam: 2.10 3.0+(-)1.3 cm 2D Systolic Function EF 4C: 62.60 >55% EF 2C: 56.50 >55% EF BiP: 60.80 >55% Mitral Valve MV Pk E: 1.06 MV Decel Time: 175.00 E'Lateral: 10.50 E'Medial: 7.44 E/E' Med: 14.20 E/E' Lat: 10.10 PHT: 51.00 MVA PHT: 4.31 Decel Lares: 6.06 Aortic Valve AoV Pk True: 1.21 AoV Pk Grad: 6.00 LVOT LVOT Pk True: 0.84 LVOT Pk Grad: 3.00 LVOT Diam: 2.10 LVOT Area: 3.46 Diastolic Function MV Pk E: 1.06 E'Medial: 7.44 E/E' Med: 14.20 E' Laterial: 10.50 E/E' Lat: 10.10 Right Ventricle TAPSE (mm): 19.60 TVS' True: 9.92 Tricuspid Valve TR Pk True: 2.41 TR Pk Grad: 23.00 RA Press: 3.00 RVSP: 26.00 Great Vessels Aorta Sinus of Valsalva: 3.66 2.0-3.[address] [place]: 2.92 1.7-3.4 cm Ao Asc: 3.90 2.1-3.4 cm Updated in Other Vendor System with Status of Final Javier Sharp MD electronically signed on 08/29/2023 5:19:12 PM with status of Final
[2023-08-28 09:43] LABS: Appearance Urine Clear; Color Urine Yellow; Glucose Urine UA Negative (Negative); Leukocyte Esterase Urine Negative (Negative); Nitrite Urine Negative (Negative); Specific Gravity - Urine <= 1.005 (1.005-1.025); Urine Blood Negative (Negative); Urine Ketones Negative (Negative); Urine Protein Negative (Neg-Trace)
== END ==
LOC: HO.CARD 07:47
PROVIDERS: Absent Provider Family Medicine; PCP Family Medicine; Visit Provider Internal Medicine
DX: I48.19 Other persistent atrial fibrillation (principal); Z00.00 Encounter for general adult medical examination without abnormal findings
CPT/HCPCS: 81003; 93017; 93306

== ENCOUNTER → 2023-08-28 08:59 | Outpatient (BNV) | payer MEDICARE, MEDICAID, SELFPAY | PROVIDERS: Absent Provider Family Medicine; PCP Family Medicine; Visit Provider Internal Medicine Cardiovascular Disease | DX: I34.0 Nonrheumatic mitral (valve) insufficiency (principal); I36.1 Nonrheumatic tricuspid (valve) insufficiency | CPT/HCPCS: 93306 ==

== ENCOUNTER 2023-08-30 08:17 | Outpatient (AMB) | payer MEDICARE, MEDICAID, SELFPAY ==
[2023-08-30 08:25] VITALS: BP 113/67; PULSE 88; O2SAT 97; BMI 30.8
--- NOTE | 2023-08-30 08:25 | A.OFFPC_ITS ---
Vital Signs 08/30/23 08:25 Height 6 ft Weight 227 lb 6 oz BMI 30.8 BP 113/67 Blood Pressure Location Lt brachial Position Sitting Pulse 88 Pulse Source Pulse Oximeter Pulse Oximetry (%) 97 Oxygen Delivery Method Room Air Intake Visit Reasons: f/u labs and pre-diabetes Intake Note: Pt presents to the office today for a f/u labs and pre diabetes. Pt states she has been feeling well but states she has been having issues with shortness of breath. Allergies No Known Allergies Allergy (Verified 08/30/23 08:28) Tobacco use date assessed: 08/30/23 Fall risk assessment: No Falls in past year Last assessed Fall Risk: 08/30/23 Dental Screening Dental Screen Date: 08/30/23 Did you have a dental visit in the last 12 months?: No Did you have a dental problem in the last 6 months where you did not have access to dental care?: No Was dental information given to patient?: Patient has dentist HPI f/u labs and pre-diabetes HPI Details 63 y/o female presents to f/u labs and p re-diabetes. A1c today 08/30/23 is 5.8%. Last TSH level checked 08/13/23 and improved from 0.17 uIU/mL to 0.71 uIU/mL. Pt reports shortness of breath. Has had an echocardiogram yesterday and pt notes she sees her counterintelligence agent next week. She quit cigs 6 years ago. Pt reports she continues smoking [facility] Medical History (Updated 08/30/23 @ 08:50 by Malachi Mckeon) COPD (chronic obstructive pulmonary disease) Postoperative hypothyroidism Vitamin D deficiency DARIUSZ (obstructive sleep apnea) On anticoagulant therapy On beta sabine at home History of cardioversion Hypothyroid Pelvic fracture Alcohol abuse PAF (paroxysmal atrial fibrillation) GERD (gastroesophageal reflux disease) Depression HLD (hyperlipidemia) History of COPD Graves disease Surgical History History of thyroidectomy (08/20/22) H/O foot surgery History of carotid endarterectomy History of salpingectomy Hx of rotator cuff surgery History of surgery on right wrist Hx of colonoscopy History of back surgery History of ankle surgery Family History Father CVD (cardiovascular disease) Hypertension Mother CVA (cerebral vascular accident) Paternal Grandmother Breast cancer Social History Housing: House Are you a primary health care marketing specialist to a significant other at home: No Do you presently have visiting nurse or other home services: No Patient Tobacco Use Status: Former Tobacco user Quit Date: 5 yrs ago Tobacco use type: Cigarette e-Cigarette/Vaping Use: Never Used Second Hand Smoke Exposure: No Advance Directives Date on File: 04/03/17 service: No Current occupational status: employed 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 1. Little interest or pleasure in doing things: not at all 2. Feeling down, depressed, or hopeless: not at all 3. Trouble falling or staying asleep, or sleeping too much: not at all 4. Feeling tired or having little energy: not at all 5. Poor appetite or overeating: nearly every day 6. Feeling bad about yourself - or that you are a failure or have let yourself or your family down: not at all 7. Trouble concentrating on things, such as reading the newspaper or watching television: not at all 8. Moving or speaking so slowly that other people could have noticed. Or the opposite - being so fidgety or restless that you have been moving around a lot more than usual: not at all 9. Thoughts that you would be better off or of hurting yourself in some way: not at all Total score: 3 Depression Screening Interpretation: Negative Depression Screening Done: Yes 71486 - PHQ-9 Billing: Yes Source: Developed by Drs. Mickey Woods, Sophie Moore, Cristobal Franks and colleagues, with an educational khloe from [employer]. Thrive Questionnaire Date Thrive assessed: 03/18/23 I am a: Patient What is your living situation today?: I have a steady place to live Within the past 12 months, did the food you bought not last and you didn't have the money to get more?: Never true Within the past 12 months, did you worry whether your food would run out before you got money to buy more?: Never true Do you have trouble paying for medicines?: No Do you have trouble getting transportation to medical appointments?: No Do you have trouble paying your heating and electricity bill?: No Do you have trouble taking care of your child, family member or friend?: No Do you have trouble with day-to-day activities such as bathing, preparing meals, shopping, managing finances, etc.?: No Are you currently unemployed and looking for a job?: Yes Are you interested in more education?: No Please select the resources that you would like help with: None Currently or been in a relationship where the following occur: no concerns reported THRIVE Score: 0 AUDIT C Alcohol Use Questionnaire (AUDIT-C) 1. How often do you have a drink containing alcohol?: Never 3. How often do you have six or more drinks on one occasion?: Never Total Score: 0 GEORGE-7 AMB Questionnaire GEORGE-7 Date GEORGE - 7 assessed: 03/18/23 Feeling nervous, anxious, or on edge: 0 = Not at all Not being able to stop or control worryin = Not at all Worrying too much about different things: 1 = Several days Trouble relaxin = Several days Being so restless that it is hard to sit still: 1 = Several days Becoming easily annoyed or irritable: 1 = Several days Feeling afraid as if something awful might happen: 0 = Not at all Total GEORGE-7 score (0-4 normal; 5-9 mild; 10-14 moderate; 15-21 severe): 4 Source: Developed by Drs. Mickey Woods, Sophie Moore, Cristobal Franks and colleagues, with an educational khloe from [employer]. GEORGE-7 Assessment Billing GEORGE-7 Assessment Tool: GEORGE-7 Assessment 35215 Review of Systems Const Denies chills, Denies fatigue, Denies fever(s), Denies headache(s) and Denies weakness ENT Denies dizziness and Denies headache(s) Card Denies chest pain, Denies lightheadedness, Denies dyspnea and Denies other (Palpitations) Resp Denies cough, Denies dyspnea, Denies wheezing and Denies other ( shortness of breath) Musc Denies numbness and Denies tingling Neuro Denies dizziness, Denies headache(s), Denies numbness, Denies tingling, Denies paresthesias and Denies weakness Psych Denies anxiety and Denies depression Endo Denies fatigue Aller/Immun Denies wheezing Physical exam (Primary Care) Vital Signs: Last Vital Signs Pulse 88 08/30/23 08:25 BP 113/67 08/30/23 08:25 Pulse Ox 97 08/30/23 08:25 Oxygen Delivery Method Room Air 08/30/23 08:25 BMI result Body Mass Index 30.8 Tobacco/Smoking Status: Tobacco use Status Tobacco use date assessed 08/30/23 08/30/23 08:31 Patient Tobacco Use Status Former Tobacco user 08/30/23 08:31 Tobacco use type Cigarette 08/30/23 08:31 e-Cigarette/Vaping Use Never Used 08/30/23 08:31 PHQ-9: PHQ-9 Score PHQ-9: Total score 3 08/30/23 08:49 Depression Screening Interpretation: Negative Thrive Assessment: Date of Thrive Assessment Date Thrive assessed 03/18/23 08/30/23 08:31 Currently or been in a relationship where the following occur: no concerns reported Const General: no acute distress and well developed Nutritional Appearance: well nourished Orientation/consciousness: patient oriented x3 HENMT Head: Yes normocephalic and Yes atraumatic Eyes General: appearance normal, both eyes and all related structures Pupils: Equal, round and reactive pupils present EOM: EOMs intact bilaterally Resp Effort & Inspection: normal respiratory effort Auscultation: clear to auscultation bilaterally Cardio Rate: regular rate Rhythm: regular rhythm Heart sounds: S1 normal heart sound present, S2 normal heart sound present, no gallops, no murmurs and no rubs Neuro General: patient oriented x3 and gait normal Cranial nerves: Yes Equal, round and reactive pupils present Psych Affect: normal affect Results AMB Hemoglobin A1c AMB Hemoglobin A1c 5.8 % Last Edit by Pallavi Garay MA on 08/30/23 08:45 Results Reviewed Results Reviewed: Laboratory Last Values Hgb A1c (Clinic) 5.8 % (4.0-6.0) 08/30/23 08:44 Assessment and Plan Assessment & Plan (1) Postoperative hypothyroidism: Code(s): E89.0 - Postprocedural hypothyroidism Plan: Thyroid?levels?checked?last?month?were?within?normal?range Euthyroid Will?continue?to?monitor?about?every?six-months Continue?levothyroxine?as?prescribed (2) Shortness of breath: Code(s): R06.02 - Shortness of breath Plan: History?of?AFib?and?COPD Recent?echo?and?has?an?appointment?with??Bhavik?coming?up Quit?cigarettes?6?years?ago?but?still?smokes?mJ?daily.??Encouraged?cessation. Encouraged?only?clean?air?in?lungs (3) Pre-diabetes: Code(s): R73.03 - Prediabetes Plan: A1c?5.8% Encouraged?diet?lower?in?sugars?and?starches.??Encouraged?exercise?and?weight?lo ss Orders: Orders AMB Hemoglobin A1c Today R73.03 - Prediabetes Coding Level of Care Code Est Pt Level 4 (54175) Diagnoses Postoperative hypothyroidism E89.0 Shortness of breath R06.02 Pre-diabetes R73.03 Additional Codes GEORGE-7 Assessment Billing - GEORGE-7 Assessment Tool: GEORGE-7 Assessment 48299 ([id number])
== END 2023-08-30 08:58 | disposition home or self-care (01) ==
PROVIDERS: PCP Family Medicine; Visit Provider Family Medicine
DX: E89.0 Postprocedural hypothyroidism (principal); R06.02 Shortness of breath; R73.03 Prediabetes
CPT/HCPCS: 83036; 99214

== ENCOUNTER 2023-09-19 08:50 | Outpatient (REF) | payer MEDICARE, MEDICAID, SELFPAY ==
--- NOTE | ~2023-09-19 | CT_ITS ---
EXAMINATION: CT CHEST SCREENING CLINICAL INFORMATION: Quit smoking 6 years ago. History of 1 pack per day with 40 pack year history. COMPARISON: CT lung screening 09/07/2022. TECHNIQUE: Multidetector volumetric CT imaging of the chest is performed without contrast using low dose technique. Additional 2D coronal and sagittal reformatted images and axial 3D maximum intensity projection (MIP) images are generated on the CT workstation. This CT examination was performed using dose optimization techniques as appropriate, variously including the following: *Automated exposure control. *Adjustment of mA and/or kV according to patient size (this includes techniques or standardized protocols for targeted exams where dose is matched to indication/reason for exam; i.e. extremities or head). *Use of iterative reconstruction technique. DLP: 64 mGy-cm FINDINGS: LUNGS: The lungs are clear with no evidence of inflammation or worrisome nodules. There is a stable 2 mm left upper lobe nodule (5:178 compare prior 5:186). Mild emphysema and bronchial thickening is present. MEDIASTINUM: The mediastinum is normal. CORONARY ARTERY CALCIFICATION: None visualized on this study. PLEURA: There is no pleural effusion. No pleural mass or thickening. AXILLA: No lymphadenopathy. UPPER ABDOMEN: Unremarkable. OSSEOUS STRUCTURES: Unremarkable. CT/CT lung screening IMPRESSION: No findings seen suspicious for malignancy. ASSESSMENT: Lung-RADS category 2: Benign. RECOMMENDATION: Routine annual low-dose CT screening in 12 months.
== END 2023-09-19 08:51 | disposition home or self-care (01) ==
LOC: HO.CT 08:50
PROVIDERS: PCP Family Medicine; Visit Provider Nurse Practitioner Family
DX: Z87.891 Personal history of nicotine dependence (principal); Z12.2 Encounter for screening for malignant neoplasm of respiratory organs
CPT/HCPCS: 71271; 99212

== ENCOUNTER 2023-09-19 10:46 | Outpatient (AMB) | payer MEDICARE, MEDICAID, SELFPAY ==
--- NOTE | 2023-09-19 10:52 | A.OFFVIS_ITS ---
Intake Vital Signs 09/19/23 10:53 Height 6 ft Weight 227 lb 1.218 oz BMI 30.8 BP 116/80 Blood Pressure Location Lt brachial Position Sitting Pulse 61 Intake Visit Reasons: follow-up after echo Intake Note: follow up Consolidator Required: No Accompanied by: Self / Same As Patient Allergies No Known Allergies Allergy (Verified 09/19/23 10:54) Medication List - Last Reconciled 09/19/23 by Nishant Gutierres MD acetaminophen 650 mg PO Q4H PRN albuterol sulfate 90 mcg/actuation 2 puffs inhalation Q4-6H PRN 30 days apixaban (Eliquis) 5 mg PO BID 90 days betamethasone dipropionate 0.05% 1 appl topical DAILY 30 days digoxin (Digox) 125 mcg PO DAILY furosemide 40 mg PO DAILY PRN incontinence pad, liner, disp As directed, 90 days levothyroxine 125 mcg PO DAILY lorazepam 1 mg PO BEDTIME PRN 30 days metoprolol tartrate 25 mg PO BID 90 days omeprazole 20 mg PO DAILY quetiapine 50 mg PO BEDTIME 30 days ropinirole 5 mg PO DAILY 90 days rosuvastatin 20 mg PO DAILY sertraline 50 mg (1/2 x 100 mg) PO DAILY 30 days umeclidinium-vilanterol 62.5-25 mcg/actuation (Anoro Ellipta) 1 inh inhalation DAILY 30 days valacyclovir 500 mg PO DAILY PRN 30 days HPI HPI Comments History of Present Illness Details Matilde returns for follow-up regarding atrial fibrillation. To recall, in 2017 she had visual symptoms that led to a diagnosis of severe carotid disease requiring urgent right carotid endarterectomy. She was then doing okay from cardiac standpoint, but then had hospitalization for atrial fibrillation and rapid rate. Then underwent KRISHAN and cardioversion. She was then placed on Multaq but in spite of this she had still had recurrent atrial fibrillation. Had another cardioversion and went on flecainide. However, still returned to atrial fibrillation. Hence now managed by rate control. She also saw EP but recommendation was to just do rate control. Since last seen, no new complaints. For the most part she is doing fine. [facility] Medical History (Updated 08/30/23 @ 08:50 by Malachi Mckeon) COPD (chronic obstructive pulmonary disease) Postoperative hypothyroidism Vitamin D deficiency DARIUSZ (obstructive sleep apnea) On anticoagulant therapy On beta sabine at home History of cardioversion Hypothyroid Pelvic fracture Alcohol abuse PAF (paroxysmal atrial fibrillation) GERD (gastroesophageal reflux disease) Depression HLD (hyperlipidemia) History of COPD Graves disease Surgical History History of thyroidectomy (08/20/22) H/O foot surgery History of carotid endarterectomy History of salpingectomy Hx of rotator cuff surgery History of surgery on right wrist Hx of colonoscopy History of back surgery History of ankle surgery Family History Father CVD (cardiovascular disease) Hypertension Mother CVA (cerebral vascular accident) Paternal Grandmother Breast cancer Social History Housing: House Are you a primary manager wound care to a significant other at home: No Do you presently have visiting nurse or other home services: No Patient Tobacco Use Status: Former Tobacco user Quit Date: 5 yrs ago Tobacco use type: Cigarette e-Cigarette/Vaping Use: Never Used Second Hand Smoke Exposure: No Advance Directives Date on File: 04/03/17 service: No Current occupational status: employed 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 Current occupational exposures/hazards: No Cognitive needs: No Hearing needs: No Vision needs: No Review of Systems Const Denies weakness ENT Denies dizziness Card Denies chest pain, Denies chest pain with activity, Denies syncope, Denies rapid heart rate, Denies pedal edema, Denies edema, Denies leg edema, Denies lightheadedness, Denies palpitations, Denies dyspnea, Denies dyspnea on exertion and Denies orthopnea Resp Denies cough, Denies dyspnea and Denies dyspnea on exertion GI Denies hematochezia and Denies change in stool character Musc Denies abnormal gait, Denies muscle cramps, Denies muscle weakness, Denies numbness, Denies radiating pain into limb and Denies tingling Neuro Denies abnormal gait, Denies dizziness, Denies syncope, Denies numbness, Denies tingling and Denies weakness Endo Denies palpitations Physical Exam Vital Signs: Last Vital Signs Pulse 61 09/19/23 10:53 BP 116/80 09/19/23 10:53 BMI result Body Mass Index 30.8 Const General: comfortable and no acute distress Orientation/consciousness: patient oriented x3 HEENT Other: Unremarkable Head: Yes normal to inspection Neck Neck: Yes normal visual inspection Chest Chest palpation & inspection: normal inspection of the chest Resp Auscultation: clear to auscultation bilaterally Cardio Palpation: normal PMI Heart sounds: S1 normal heart sound present, S2 normal heart sound present, no gallops, no murmurs and no rubs GI Palpation (GI): Soft to palpation Back/Spine/Pelvis Other: unremarkable Skin General skin exam: no rashes or lesions noted Neuro General: patient oriented x3 Extrem General: Yes normal to inspection Psych Mental Status: mental status grossly normal Assessment & Plan Assessment & Plan (1) Persistent atrial fibrillation: Code(s): I48.19 - Other persistent atrial fibrillation Plan: Has failed cardioversions as well as antiarrhythmic drugs including Multaq and flecainide. She has been evaluated by EP and recommended rate control only. Continue current meds including beta-blockers/digoxin. Check digoxin levels and BNP. Continue anticoagulation. Cardiac testing- Myocardial perfusion imaging shows normal perfusion. In the KRISHAN seem to have normal LVEF, 55-60%. (2) Hyperthyroidism: Code(s): E05.90 - Thyrotoxicosis, unspecified without thyrotoxic crisis or storm Plan: Suspected thyroid issues are playing a role in atrial fibrillation. Status post thyroidectomy. (3) Bilateral carotid artery stenosis: Comment: 11/16/2016 - right carotid endarterectomy Code(s): I65.23 - Occlusion and stenosis of bilateral carotid arteries Plan: Last carotid ultrasound does not show any significant stenosis. She can remain on statins. Last LDL 52 mg/dL (4) DARIUSZ (obstructive sleep apnea): Comment: PATIENT HAS MILD OBSTRUCTIVE SLEEP APNEA BUT , NEEDS TO USE CPAP BECAUSE SHE HAS PAROXYSMAL ATRIAL FIBRILLATION. SHE HAS STARTED USING THE CPAP REGULARLY HOWEVER HER COMPLIANCE IS SOMEWHAT SUBOPTIMAL, HE NEEDS TO USE MORE THAN 4 HOURS EVERY NIGHT. EDUCATED ABOUT , THE COMPLIANCE STANDARD AND BENEFITS OF CONTINUED USING CPAP. SHE WILL GET MORE COMFORTABLE FULLFACE MASK. Code(s): G47.33 - Obstructive sleep apnea (adult) (pediatric) Plan: Recommend CPAP. Orders: Orders Basic Metabolic Panel Today I48.91 - Unspecified atrial fibrillation Digoxin Today I48.19 - Other persistent atrial fibrillation Coding Level of Care Code Est Pt Level 4 (42959) Diagnoses Persistent atrial fibrillation I48.19 Hyperthyroidism E05.90 Bilateral carotid artery stenosis I65.23 DARIUSZ (obstructive sleep apnea) G47.33
[2023-09-19 10:53] VITALS: BP 116/80; PULSE 61; BMI 30.8
== END 2023-09-19 11:05 | disposition home or self-care (01) ==
PROVIDERS: PCP Family Medicine; Visit Provider Internal Medicine
DX: I48.19 Other persistent atrial fibrillation (principal); E05.90 Thyrotoxicosis, unspecified without thyrotoxic crisis or storm; I65.23 Occlusion and stenosis of bilateral carotid arteries; G47.33 Obstructive sleep apnea (adult) (pediatric)
CPT/HCPCS: 99214

== ENCOUNTER 2023-09-26 07:57 | Outpatient (REF) | payer MEDICARE, MEDICAID, SELFPAY ==
[2023-10-03 23:29] LABS: HPV mRNA E6/E7 rflx Not Detected (Not Detected)
== END 2023-09-26 07:58 | disposition home or self-care (01) ==
LOC: HO.LNP 07:57
PROVIDERS: PCP Family Medicine; Visit Provider Obstetrics & Gynecology
DX: Z01.419 Encounter for gynecological examination (general) (routine) without abnormal findings (principal); N90.89 Other specified noninflammatory disorders of vulva and perineum; Z11.51 Encounter for screening for human papillomavirus (HPV); Z78.0 Asymptomatic menopausal state
CPT/HCPCS: 87624; 88142; 99212; Q0091

== ENCOUNTER 2023-09-26 07:57 | Outpatient (AMB) | payer MEDICARE, MEDICAID, SELFPAY ==
--- NOTE | 2023-09-26 08:03 | MHC.OFFVIS ---
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 No complaints. Last Pap/HPV was negative in 2014 Last Mammogram was BI-RADS 1 in 02/06 Last Colonoscopy in 06/07, the recommendation was to repeat in 5 years [facility] Medical History COPD (chronic obstructive pulmonary disease) Postoperative hypothyroidism Vitamin D deficiency DARIUSZ (obstructive sleep apnea) On anticoagulant therapy On beta sabine at home History of cardioversion Hypothyroid Pelvic fracture Alcohol abuse PAF (paroxysmal atrial fibrillation) GERD (gastroesophageal reflux disease) Depression HLD (hyperlipidemia) History of COPD Graves disease Surgical History History of thyroidectomy (08/20/22) H/O foot surgery History of carotid endarterectomy History of salpingectomy Hx of rotator cuff surgery History of surgery on right wrist Hx of colonoscopy History of back surgery History of ankle surgery Family History Father CVD (cardiovascular disease) Hypertension Mother CVA (cerebral vascular accident) Paternal Grandmother Breast cancer Social History Housing: House Are you a primary wound care coordinator to a significant other at home: No Do you presently have visiting nurse or other home services: No Patient Tobacco Use Status: Former Tobacco user Quit Date: 5 yrs ago Tobacco use type: Cigarette e-Cigarette/Vaping Use: Never Used Second Hand Smoke Exposure: No Substance Use Type: Marijuana Advance Directives Date on File: 04/03/17 service: No Current occupational status: employed 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 Current occupational exposures/hazards: No Cognitive needs: No Hearing needs: No Vision needs: No Female Reproductive History Menstrual Age of Menarche: 11 control method: none Total pregnancies: 1 Ectopics: 1 Date of last pap smear: 10/12/14 (negative) History of abnormal pap smear: Yes (2013 JASPAL 1) Date of Mammogram: 02/13/23 Review of Systems Const All systems reviewed & are unremarkable except as noted in HPI and below Card Reports as per HPI Resp Reports as per HPI GI Reports as per HPI and Reports no additional complaints Reports as per HPI Physical Exam Vital Signs: BMI result Body Mass Index 30.4 Const General: cooperative, healthy appearing and comfortable Chest Chest palpation & inspection: normal inspection of the chest and normal palpation of entire chest wall Breast/axilla inspection: normal inspection of the breasts and normal inspection of the axillae Breast/axilla palpation: normal palpation of the breasts, normal palpation of the axillae and no axillary lymphadenopathy Resp Effort & Inspection: normal respiratory effort Auscultation: clear to auscultation bilaterally Percussion: percussion normal Cardio Palpation: normal PMI Rate: regular rate Rhythm: regular rhythm Heart sounds: no murmurs and no rubs Peripheral pulses: Peripheral pulses 2+ throughout GI Inspection: Yes normal to inspection Palpation (GI): Soft to palpation, nontender, no guarding, not rigid and No hepatosplenomegaly present Percussion: Yes normal to percussion Auscultation: normal bowel sounds Rectal Exam - Female: deferred General: Yes bladder normal to palpation External Female Exam: lesion (Right periclitoral 0.3 cm lesion) Speculum Exam - Vagina: normal appearance of the vagina, normal palpation, normal vaginal discharge and not erythematous Speculum Exam - Cervix: normal appearance of the cervix and normal palpation Bimanual exam- vagina & uterus: normal bimanual exam, normal palpation, uterine size normal, bladder normal to palpation, consistency normal and normal palpation Bimanual Exam- Adnexa, other: normal adnexae, no masses and no tenderness Assessment & Plan Assessment & Plan (1) Well woman exam: Code(s): Z01.419 - Encounter for gynecological examination (general) (routine) without abnormal findings Plan: Co testing done. Counseled the patient about the recommended dietary allowance of 1200 mg of Calcium & 600 IU of vitamin D. Instructions given the patient to schedule next screening Mammogram in 02/07. The patient was instructed to perform monthly self-breast exams and schedule annual exam in a year. All questions answered and the patient verbalized understanding. (2) Vulvar lesion: Comment: Right periclitoral 0.3 cm Code(s): N90.89 - Other specified noninflammatory disorders of vulva and perineum Plan: Discussed with the patient the finding on pelvic exam showing a 0.3 cm right labia lesion, recommended excisional biopsy to rule out DANNI. Instructions given the patient to schedule a 2 week labial lesion excisional biopsy appointment. All questions answered, the patient verbalized understanding Coding Level of Care Code New Pt Prev Care 40-64y(62145) Diagnoses Well woman exam Z01.419 Vulvar lesion N90.89
[2023-09-26 08:11] VITALS: BP 92/66; BMI 30.4
== END 2023-09-26 09:54 | disposition home or self-care (01) ==
PROVIDERS: PCP Family Medicine; Referring Provider Family Medicine; Visit Provider Obstetrics & Gynecology
DX: N90.89 Other specified noninflammatory disorders of vulva and perineum (principal); Z01.419 Encounter for gynecological examination (general) (routine) without abnormal findings
CPT/HCPCS: 99214; G0101; Q0091

== ENCOUNTER 2023-10-10 08:02 | Outpatient (REF) | payer MEDICARE, MEDICAID, SELFPAY | END 2023-10-10 08:03 | disposition home or self-care (01) | LOC: HO.LNP 08:02 | PROVIDERS: PCP Family Medicine; Visit Provider Obstetrics & Gynecology | DX: N90.89 Other specified noninflammatory disorders of vulva and perineum (principal) | CPT/HCPCS: 56605; 88305; 88312; 88342; 88360 ==

== ENCOUNTER 2023-10-10 08:02 | Outpatient (AMB) | payer MEDICARE, MEDICAID, SELFPAY ==
--- NOTE | 2023-10-10 08:05 | MHC.OFFVIS ---
Vital Signs 10/10/23 08:11 Height 6 ft Weight 222 lb 10.67 oz BMI 30.2 BP 100/60 Intake Visit Reasons: vulvar mass excision check per Dr. martinez Risk Tech Required: No Information Interpreted: non-clinical & clinical Contractor Broomcorn Threshing: Contractor Broomcorn Threshing Present (Magalie PARTIDA) Accompanied by: Self / Same As Patient Allergies No Known Allergies Allergy (Verified 10/10/23 08:22) Post menopausal: Yes HPI Comments Details: Presenting for left periclitoral lesion excisional biopsy [facility] Medical History COPD (chronic obstructive pulmonary disease) Postoperative hypothyroidism Vitamin D deficiency DARIUSZ (obstructive sleep apnea) On anticoagulant therapy On beta sabine at home History of cardioversion Hypothyroid Pelvic fracture Alcohol abuse PAF (paroxysmal atrial fibrillation) GERD (gastroesophageal reflux disease) Depression HLD (hyperlipidemia) History of COPD Graves disease Surgical History History of thyroidectomy (08/20/22) H/O foot surgery History of carotid endarterectomy History of salpingectomy Hx of rotator cuff surgery History of surgery on right wrist Hx of colonoscopy History of back surgery History of ankle surgery Family History Father CVD (cardiovascular disease) Hypertension Mother CVA (cerebral vascular accident) Paternal Grandmother Breast cancer Social History Housing: House Are you a primary critical care educator to a significant other at home: No Do you presently have visiting nurse or other home services: No Patient Tobacco Use Status: Former Tobacco user Quit Date: 5 yrs ago Tobacco use type: Cigarette e-Cigarette/Vaping Use: Never Used Second Hand Smoke Exposure: No Substance Use Type: Marijuana Advance Directives Date on File: 04/03/17 service: No Current occupational status: employed 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 Current occupational exposures/hazards: No Cognitive needs: No Hearing needs: No Vision needs: No Female Reproductive History Menstrual Age of Menarche: 11 Review of Systems Const All systems reviewed & are unremarkable except as noted in HPI and below Reports as per HPI and Reports no additional complaints GI Reports no additional complaints Reports no additional complaints Physical Exam External Female Exam: other (Left periclitoral lesion 0.3 cm) Office Procedures BORE MINER OPERATOR Biopsy Before the procedure was started d/w patient the procedure, alternatives ( do nothing, medical rx), & all the risks associated with the procedure ( bleeding , infection, vulvar scarring, painful intercourse, injury to vessels, possible need for transfusion with all its risks) then patient signed the consent. Preop dx: Left periclitoral lesion Op: Left periclitoral lesion excision Post op: Same Anesthesia: Lidocaine 1% 3cc used Procedure: Using betadine the area was scrubbed and draped in the usual manner. 3 cc of lidocaine was used for anesthesia at the left vulvar lesion area ; using scissors and pickup the Left periclitoral lesion was excised. Pressure was used for hemostasis. The patient tolerated the procedure well. Discharge Instructions: The patient was instructed to schedule an appointment in 2 weeks for follow-up and to call if temp>100.4, area of the biopsy redness or pain, nausea/vomiting. This note was generated with a voice recognition program. Some errors may have been overlooked during the review of this note. Sometimes these errors may affect the content or meaning of a given sentence. [id number] of Vulva/Perineum Procedure code (CPT) selection complete Assessment & Plan Assessment & Plan (1) Vulvar lesion: Comment: Left periclitoral 0.3 cm Code(s): N90.89 - Other specified noninflammatory disorders of vulva and perineum Category: Medical Plan: Left periclitoral lesion excised, see procedure note Orders: Orders AMB BORE MINER OPERATOR Biopsy Today N90.89 - Other specified noninflammatory disorders of vulva and perineum Coding Level of Care Code Procedure Only Diagnoses Vulvar lesion N90.89 CPT Codes BORE MINER OPERATOR Biopsy - CPT: 40044-Jktxaa of Vulva/Perineum ([id number])
[2023-10-10 08:11] VITALS: BP 100/60; BMI 30.2
== END 2023-10-10 09:26 | disposition home or self-care (01) ==
PROVIDERS: PCP Family Medicine; Visit Provider Obstetrics & Gynecology
DX: N90.89 Other specified noninflammatory disorders of vulva and perineum (principal)
CPT/HCPCS: 56605

== ENCOUNTER 2023-10-16 08:49 | Outpatient (AMB) | payer MEDICARE, MEDICAID, SELFPAY ==
--- NOTE | 2023-10-16 08:49 | A.OFFVIS_ITS ---
Vital Signs 10/16/23 08:50 Height 6 ft Weight 222 lb 10.67 oz BMI 30.2 BP 102/66 Intake Visit Reasons: biopsy results Allergies No Known Allergies Allergy (Verified 10/10/23 08:22) HPI Comments Details: Presenting for follow-up vulvar biopsy doing well with no complaints. The pathology showed the following: Vulva, lesion, biopsy: Low grade squamous intraepithelial lesion (DANNI I) [facility] Medical History COPD (chronic obstructive pulmonary disease) Postoperative hypothyroidism Vitamin D deficiency DARIUSZ (obstructive sleep apnea) On anticoagulant therapy On beta sabine at home History of cardioversion Hypothyroid Pelvic fracture Alcohol abuse PAF (paroxysmal atrial fibrillation) GERD (gastroesophageal reflux disease) Depression HLD (hyperlipidemia) History of COPD Graves disease Surgical History History of thyroidectomy (08/20/22) H/O foot surgery History of carotid endarterectomy History of salpingectomy Hx of rotator cuff surgery History of surgery on right wrist Hx of colonoscopy History of back surgery History of ankle surgery Family History Father CVD (cardiovascular disease) Hypertension Mother CVA (cerebral vascular accident) Paternal Grandmother Breast cancer Social History Housing: House Are you a primary health care manager to a significant other at home: No Do you presently have visiting nurse or other home services: No Patient Tobacco Use Status: Former Tobacco user Quit Date: 5 yrs ago Tobacco use type: Cigarette e-Cigarette/Vaping Use: Never Used Second Hand Smoke Exposure: No Substance Use Type: Marijuana Advance Directives Date on File: 04/03/17 service: No Current occupational status: employed 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 Current occupational exposures/hazards: No Cognitive needs: No Hearing needs: No Vision needs: No Female Reproductive History Menstrual Age of Menarche: 11 Review of Systems Const All systems reviewed & are unremarkable except as noted in HPI and below Reports as per HPI and Reports no additional complaints GI Reports no additional complaints Reports no additional complaints Physical Exam Vital Signs: Last Vital Signs BP 102/66 10/16/23 08:50 BMI result Body Mass Index 30.2 Assessment & Plan Assessment & Plan (1) DANNI I (vulvar intraepithelial neoplasia I): Code(s): N90.0 - Mild vulvar dysplasia Category: Medical Plan: Discussed with the patient the results of pathology of the vulvar excision biopsy, showing DANNI 1. Explained to the patient risk of DANNI persistent regression and progression to cancer, recommended inspection in 1 year. Instructions given to the patient to inspect her perineal area periodically and to call for an evaluation in case of abnormal lesions, nonhealing sores, hard areas or any other concerns and to schedule a 1 year reinspection appointment. All questions answered, the patient verbalized understanding Coding Level of Care Code Est Pt Level 3 (20828) Diagnoses DANNI I (vulvar intraepithelial neoplasia I) N90.0
[2023-10-16 08:50] VITALS: BP 102/66; BMI 30.2
== END 2023-10-16 09:21 | disposition home or self-care (01) ==
LOC: HO.HWS 08:49
PROVIDERS: PCP Family Medicine; Visit Provider Obstetrics & Gynecology
DX: N90.0 Mild vulvar dysplasia (principal)
CPT/HCPCS: 99213

== ENCOUNTER → 2023-10-16 08:49 | Outpatient (BNVA) | payer MEDICARE, MEDICAID, SELFPAY | PROVIDERS: PCP Family Medicine; Visit Provider Obstetrics & Gynecology | DX: N90.0 Mild vulvar dysplasia (principal) | CPT/HCPCS: 99212 ==

== ENCOUNTER 2023-11-08 08:33 | Outpatient (REF) | payer MEDICARE, MEDICAID, SELFPAY ==
--- NOTE | ~2023-11-08 | XR_ITS ---
EXAMINATION: XR SHOULDER, RIGHT CLINICAL INFORMATION: Pain in the right shoulder COMPARISON: X-rays of the right shoulder September 2020 TECHNIQUE: AP external rotation, Grashey, scapular Y, and axillary views of the right shoulder. FINDINGS: Minimal joint: Mild osteoarthritis manifested by marginal osteophytes along the inferior aspect of humeral head unchanged. Chronic clavicular joint mild osteoarthritis manifested by marginal osteophytes likely unchanged. Surrounding bone and soft tissues unremarkable. XR/XR shoulder RT min 2V IMPRESSION: Mild degenerative changes of the right shoulder unchanged.
== END 2023-11-08 08:34 | disposition home or self-care (01) ==
LOC: HO.HOSX 08:33
PROVIDERS: PCP Family Medicine; Visit Provider Physician Assistant
DX: M75.41 Impingement syndrome of right shoulder (principal); M19.011 Primary osteoarthritis, right shoulder
CPT/HCPCS: 20610; 73030; 99212; J1010

== ENCOUNTER 2023-11-08 08:33 | Outpatient (AMB) | payer MEDICARE, MEDICAID, SELFPAY ==
--- NOTE | 2023-11-08 08:41 | MHC.OFFVIS ---
Intake Visit Reasons: OV - Right Shoulder - Injection Request Intake Note: Matilde a 63 year old female who presents today for a follow up of right shoulder pain, last injection 10/14/20. Patient reports that she is unsure if injection helped as it has been a while. She has intermittent pain that radiates down to her bicep area for about 2 months. States discomfort with ROM and hears a pop. Denies injury. No numbness or tingling. Finds very little relief with Tylenol. Allergies No Known Allergies Allergy (Verified 11/08/23 08:56) HPI HPI OV - Right Shoulder - Injection Request: Details: 63-year-old female who returns to the office today for a follow-up of right shoulder pain. She states she has intermittent pain in her shoulder that radiates down to her bicep area. She also experiences discomfort with ROM and hears a ?pop.? She denies any numbness, tingling, or pain at night. She has not had injury in the past. She finds minimal relief with Tylenol. She had her last injection on 10/14/20 that provided her relief until about 2 months ago. She is interested in having a cortisone injection. COUNT INCLUDES THE [facility] Medical History COPD (chronic obstructive pulmonary disease) Postoperative hypothyroidism Vitamin D deficiency DARIUSZ (obstructive sleep apnea) On anticoagulant therapy On beta sabine at home History of cardioversion Hypothyroid Pelvic fracture Alcohol abuse PAF (paroxysmal atrial fibrillation) GERD (gastroesophageal reflux disease) Depression HLD (hyperlipidemia) History of COPD Graves disease Surgical History History of thyroidectomy (08/20/22) H/O foot surgery History of carotid endarterectomy History of salpingectomy Hx of rotator cuff surgery History of surgery on right wrist Hx of colonoscopy History of back surgery History of ankle surgery Family History Father CVD (cardiovascular disease) Hypertension Mother CVA (cerebral vascular accident) Paternal Grandmother Breast cancer Social History Housing: House Are you a primary director of healthcare systems to a significant other at home: No Do you presently have visiting nurse or other home services: No Patient Tobacco Use Status: Former Tobacco user Quit Date: 5 yrs ago Tobacco use type: Cigarette e-Cigarette/Vaping Use: Never Used Second Hand Smoke Exposure: No Substance Use Type: Marijuana Advance Directives Date on File: 04/03/17 service: No Current occupational status: employed 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 Tenderness over the bicipital groove and along the deltoid region of the shoulder. Forward flexion to 175, external rotation to 90, internal rotation to S1. 5/5 RTC strength. Negative Person and cross body abduction. NVI. Office Procedures Joint Injection/Drain Joint Injection/Drain Primary Site: right shoulder Prep: site was prepped using aseptic technique, ethochloride spray was applied and injection warnings given Injected: 80 mg of, DepoMedrol, with 8 mL of, 1% plain lidocaine and in the subcromial space Approach Used: posterolateral Procedure: The patient tolerated the procedure well and there was some relief with the local anesthesia Coding 37697 - Glenohumeral/Tronchanteric Bursa/Intraarticular Procedure code (CPT) selection complete Results Reviewed Results Reviewed: Xrays were obtained in the office today and personally reviewed by me of the right shoulder show acj oa with type two acromion Assessment & Plan Assessment & Plan (1) Impingement syndrome of right shoulder: Code(s): M75.41 - Impingement syndrome of right shoulder Category: Medical (2) Arthritis of shoulder region, right, degenerative: Code(s): M19.011 - Primary osteoarthritis, right shoulder Category: Medical Qualifiers: Osteoarthritis type: primary Qualified Code(s): M19.011 - Primary osteoarthritis, right shoulder Plan We discussed options today which include steroid injection. They did consent to move forward with the right shoulder injection, which was tolerated well. I recommended rest, ice and elevation and OTC anti-inflammatories PRN for discomfort. If symptoms persist or worsens over the next 6-8 weeks, patient will contact the office, otherwise follow-up as needed. Orders: Orders XR shoulder RT min 2V Today M25.511 - Pain in right shoulder Patient Instructions: Scribed for Estefani Mendoza PA-C, by Laurent Stearns medical practice administrator, on 11/08/2023 at 8:45 AM EST.? I, Estefani Mendoza PA-C, have personally reviewed and agree with the information entered by the scribe. Coding Level of Care Code Est Pt Level 3 (77968) Diagnoses Impingement syndrome of right shoulder M75.41 Primary osteoarthritis of right shoulder M19.011 Osteoarthritis type: primary CPT Codes Coding - Joint 7: 79504 - Glenohumeral/Tronchanteric Bursa/Intraarticular ([id number])
== END 2023-11-08 09:29 | disposition home or self-care (01) ==
PROVIDERS: PCP Family Medicine; Visit Provider Physician Assistant
DX: M75.41 Impingement syndrome of right shoulder (principal); M19.011 Primary osteoarthritis, right shoulder
CPT/HCPCS: 20610; 99213

== ENCOUNTER 2023-12-04 09:40 | Outpatient (AMB) | payer MEDICARE, MEDICAID, SELFPAY ==
[2023-12-04 09:49] VITALS: BP 118/72; PULSE 84; O2SAT 98
--- NOTE | 2023-12-04 09:49 | A.OFFPC_ITS ---
Vital Signs 12/04/23 09:49 Height 6 ft Weight 221 lb 4 oz BMI 30.0 BP 118/72 Blood Pressure Location Lt brachial Position Sitting Pulse 84 Pulse Source Pulse Oximeter Pulse Oximetry (%) 98 Oxygen Delivery Method Room Air Intake Visit Reasons: f/u hypertension, and pre diabetes Intake Note: Patient is here for follow up on hypertension and prediabetes. Allergies No Known Allergies Allergy (Verified 12/04/23 09:53) Medication List - Last Reconciled 12/04/23 by Mil Hadley MD acetaminophen 650 mg PO Q4H PRN albuterol sulfate 90 mcg/actuation 2 puffs inhalation Q4-6H PRN 30 days apixaban (Eliquis) 5 mg PO BID 90 days betamethasone dipropionate 0.05% 1 appl topical DAILY 30 days digoxin (Digox) 125 mcg PO DAILY furosemide 40 mg PO DAILY PRN incontinence pad, liner, disp As directed, 90 days levothyroxine 125 mcg PO DAILY lorazepam 1 mg PO BEDTIME PRN 30 days metoprolol tartrate 25 mg PO BID 90 days omeprazole 20 mg PO DAILY quetiapine 50 mg PO BEDTIME 30 days ropinirole 5 mg PO DAILY 90 days rosuvastatin 20 mg PO DAILY sertraline 50 mg (1/2 x 100 mg) PO DAILY 30 days umeclidinium-vilanterol 62.5-25 mcg/actuation (Anoro Ellipta) 1 inh inhalation DAILY 30 days valacyclovir 500 mg PO DAILY PRN 30 days Tobacco use date assessed: 12/04/23 Fall risk assessment: No Falls in past year Last assessed Fall Risk: 12/04/23 Dental Screening Dental Screen Date: 08/30/23 HPI f/u hypertension, and pre diabetes HPI Details 63 y/o female presents to f/u hypertensi on, pre-diabetes. Blood pressure today 118/72. She is on metoprolol 25mg b.i.d. A1c today 12/04/23 is 6.1%. [facility] Medical History COPD (chronic obstructive pulmonary disease) Postoperative hypothyroidism Vitamin D deficiency DARIUSZ (obstructive sleep apnea) On anticoagulant therapy On beta sabine at home History of cardioversion Hypothyroid Pelvic fracture Alcohol abuse PAF (paroxysmal atrial fibrillation) GERD (gastroesophageal reflux disease) Depression HLD (hyperlipidemia) History of COPD Graves disease Surgical History History of thyroidectomy (08/20/22) H/O foot surgery History of carotid endarterectomy History of salpingectomy Hx of rotator cuff surgery History of surgery on right wrist Hx of colonoscopy History of back surgery History of ankle surgery Family History (Updated 12/04/23 @ 09:56 by Mary Galeano [facility]) Father CVD (cardiovascular disease) Hypertension Mother CVA (cerebral vascular accident) Paternal Grandmother Breast cancer Maternal Grandfather Mental health disorder Other Substance abuse in family Social History Housing: House Are you a primary special needs caregiver to a significant other at home: No Do you presently have visiting nurse or other home services: No Patient Tobacco Use Status: Former Tobacco user Tobacco use type: Cigarette e-Cigarette/Vaping Use: Never Used Second Hand Smoke Exposure: No Substance Use Type: Marijuana Advance Directives Date on File: 04/03/17 service: No Current occupational status: employed 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 Mickey Woods, Sophie Moore, Cristobal Franks and colleagues, with an educational khloe from [employer]. Review of Systems Const Denies chills, Denies fatigue, Denies fever(s), Denies headache(s) and Denies weakness ENT Denies dizziness and Denies headache(s) Card Denies dyspnea Resp Denies cough, Denies dyspnea, Denies wheezing and Denies other (shortness of breath) Musc Denies numbness and Denies tingling Neuro Denies dizziness, Denies headache(s), Denies numbness, Denies tingling and Denies weakness Psych Denies anxiety and Denies depression Endo Denies fatigue Aller/Immun Denies wheezing Physical exam (Primary Care) Vital Signs: Last Vital Signs Pulse 84 12/04/23 09:49 BP 118/72 12/04/23 09:49 Pulse Ox 98 12/04/23 09:49 Oxygen Delivery Method Room Air 12/04/23 09:49 BMI result Body Mass Index 30.0 Tobacco/Smoking Status: Tobacco use Status Tobacco use date assessed 12/04/23 12/04/23 09:57 Patient Tobacco Use Status Former Tobacco user 12/04/23 09:50 Tobacco use type Cigarette 12/04/23 09:50 e-Cigarette/Vaping Use Never Used 12/04/23 09:50 Thrive Assessment: Date of Thrive Assessment Date Thrive assessed 03/18/23 12/04/23 09:50 Const General: well developed; No acute distress Nutritional Appearance: well nourished Orientation/consciousness: patient oriented x3 HENMT Head: Yes normocephalic and Yes atraumatic Eyes General: appearance normal, both eyes and all related structures Pupils: Equal, round and reactive pupils present EOM: EOMs intact bilaterally Resp Effort & Inspection: normal respiratory effort Neuro General: patient oriented x3 and gait normal Cranial nerves: Yes Equal, round and reactive pupils present Psych Affect: normal affect Assessment and Plan Assessment & Plan (1) Hypertension: Code(s): I10 - Essential (primary) hypertension Plan: Blood?pressure?is?well?controlled.??Goal?is?less?than?130/80 Continue?current?medication (2) Pre-diabetes: Code(s): R73.03 - Prediabetes Plan: A1c?has?climbed?from?5.8%?to?6.1%.??Mid?pre?diabetes?range Encouraged?improved?diet?lower?in?sugars?and?starches Encouraged?exercise?if?tolerated. She?says?she?has?difficulty?tolerating?exercise?so?I?recommended?she?try?to?find ?something?that?will?help?keep?her?away?from?snacks?such?as?taking?a?cla ss?or?other?activity?in?the?evenings. (3) Atrial fibrillation: Code(s): I48.91 - Unspecified atrial fibrillation Plan: Stable Continue?Eliquis,?digoxin?and?metoprolol Checking?digoxin?level?and?BNP?as?well?as?BMP Orders: Orders Digoxin Today I48.91 - Unspecified atrial fibrillation Complete Blood Count Auto Diff 3 Months I48.91 - Unspecified atrial fi brillation, Z00.00 - Encounter for general adult medical examination without abnormal findings TSH reflex Free T4 3 Months I48. - Unspecified atrial fibrillation, Z00.00 - Encounter for general adult medical examination without abnormal findings B Type Natriuretic Peptide Today I48.91 - Unspecified atrial fibrillation, I50.9 - Heart failure, unspecified Basic Metabolic Panel Today I48.91 - Unspecified atrial fibrillation, Z00.00 - Encounter for general adult medical examination without abnormal findings Comprehensive [place]. Panel Fast 3 Months I48. - Unspecified atrial fibrillation, Z00.00 - Encounter for general adult medical examination without abnormal findings Lipid Panel 3 Months I48.91 - Unspecified atrial fibrillation, Z00.00 - Encounter for general adult medical examination without abnormal findings Microalbumin, Random (w Creat) 3 Months I10 - Essential (primary) hypertension, I48. - Unspecified atrial fibrillation UA and rflx microscopic 3 Months I48. - Unspecified atrial fibrillation, Z00.00 - Encounter for general adult medical examination without abnormal findings Hemoglobin A1c 3 Months I48. - Unspecified atrial fibrillation, R73.01 - Impaired fasting glucose Digoxin 3 Months I48. - Unspecified atrial fibrillation Coding Level of Care Code Est Pt Level 3 (15485) Diagnoses Hypertension I10 Pre-diabetes R73.03 Atrial fibrillation I48.91
== END 2023-12-04 10:21 | disposition home or self-care (01) ==
PROVIDERS: PCP Family Medicine; Visit Provider Family Medicine
DX: I10 Essential (primary) hypertension (principal); R73.03 Prediabetes; I48.91 Unspecified atrial fibrillation
CPT/HCPCS: 83036; 99213

== ENCOUNTER 2023-12-04 10:24 | Outpatient (REF) | payer MEDICARE, MEDICAID, SELFPAY ==
[2023-12-04 11:45] LABS: B Type Natriuretic Peptide 237 pg/mL (<100)
[2023-12-04 12:06] LABS: Anion Gap 11 (12-20); Blood Urea Nitrogen 10 mg/dL (9-16); Calcium 9.4 mg/dL (8.4-10.2); Carbon Dioxide 28 mmol/L (22-29); Chloride 106 mmol/L (96-108); Estimated Glomerular Filt Rate > 60; Glucose Random 91 mg/dL (60-115); Potassium 4.5 mmol/L (3.3-5.1); Sodium 140 mmol/L (135-145)
[2023-12-04 12:13] LABS: Digoxin 0.3 ng/mL (0.8-2.0)
== END 2023-12-04 10:25 | disposition home or self-care (01) ==
LOC: HO.WFDLDS 10:24
PROVIDERS: Visit Provider Family Medicine
DX: Z00.00 Encounter for general adult medical examination without abnormal findings (principal); I48.91 Unspecified atrial fibrillation; I50.9 Heart failure, unspecified
CPT/HCPCS: 36415; 80048; 80162; 83880

== ENCOUNTER 2024-01-23 08:54 | Outpatient (AMB) | payer MEDICARE, MEDICAID, SELFPAY ==
[2024-01-23 08:57] VITALS: BP 98/74; PULSE 68; BMI 29.9
--- NOTE | 2024-01-23 08:57 | MHC.OFFVIS ---
Vital Signs 01/23/24 08:57 Height 6 ft Weight 220 lb 10.923 oz BMI 29.9 BP 98/74 Blood Pressure Location Lt brachial Position Sitting Pulse 68 Pulse Source Pulse Oximeter Intake Visit Reasons: f/u post-operative hypothyroidism Intake Note: Patient present today for post operative Hypothyroidism follow up visit. Fibre C[place] Required: No Accompanied by: Self / Same As Patient Allergies No Known Allergies Allergy (Verified 01/23/24 09:02) Medication List - Last Reconciled 01/23/24 by Mickey Beuno MD acetaminophen 650 mg PO Q4H PRN albuterol sulfate 90 mcg/actuation 2 puffs inhalation Q4-6H PRN 30 days apixaban (Eliquis) 5 mg PO BID 90 days betamethasone dipropionate 0.05% 1 appl topical DAILY 30 days digoxin 125 mcg PO DAILY furosemide 40 mg PO DAILY PRN incontinence pad, liner, disp As directed, 90 days levothyroxine 125 mcg PO DAILY lorazepam 1 mg PO BEDTIME PRN 30 days metoprolol tartrate 25 mg PO BID 90 days omeprazole 20 mg PO DAILY quetiapine 50 mg PO BEDTIME 30 days ropinirole 5 mg PO DAILY 90 days rosuvastatin 20 mg PO DAILY sertraline 50 mg (1/2 x 100 mg) PO DAILY 30 days umeclidinium-vilanterol 62.5-25 mcg/actuation (Anoro Ellipta) 1 inh inhalation DAILY 30 days valacyclovir 500 mg PO DAILY PRN 30 days HPI Comments Details: 63 YO F with PMHx ETOH Dependence, now in remission who is seen in F/U for Hyperthyroidism due to Grave's Disease. Had labs checked by PCP 04/07/19 which revealed TSH < 0.01, with FT4 1.72 and FT3 7.8. These were repeated by me 05/06/19 with TSH <0.01, TT3 350 (elevated) and FT4 at the upper limit of normal at 1.85. She was also found to have significant elevations of TSI, TRAB, TPO and TG antibodies. She did undergo a thyroid US 05/20/19 which revealed no nodules (images were independently reviewed), and also a thyroid uptake and scan 06/03/19 which revealed increased uptake of 35% at 24 hours in a homogenous distribution consistent with Grave's disease. She was started on Methimazole 10 mg PO daily on 06/18/2019, which was then titrated upward to 30 mg PO daily. She shortly after developed hypothyroidism based on symptoms of weight gain and a FT4 below the lower limit of normal. Her dose of Methimazole was decreased to 20 mg PO daily (once a day in the morning). She then became hyperthyroid again, and dose was further increased to 30 mg PO daily and she was asked to repeat labs in 2 weeks. Labs reveal persistently elevated TT3 and hyperthyroidism. She admitted at that time to noncompliance. She was resumed back on her methimazole 30 mg PO daily and repeated labs in 2 weeks, which revealed persistently elevated TT3. Her Methimazole was changed to 20 mg PO TID and her labs then revealed FT4 low and TT3 WNL. Medication has been continually adjusted since that time. She is currently using Methimazole 20 mg PO BID and FT4 and TT3 are currently at goal. She does report she had 2 admissions for AFib with RVR in late 2021. She is tolerating Methimazole well without rash, abdominal pain, jaundice, darkening of the urine, cough or frequent infection. Thyroid US: 05/20/19 Right Thyroid Lobe: 5.4 x 2.4 x 2.7 cm, volume 18.3 mL. Parenchyma: The gland echotexture is heterogeneous. Thyroid vascularity is increased. Left Thyroid Lobe: 4.1 x 1.3 x 1.6 cm, volume 4.5 mL. Parenchyma: The gland echotexture is heterogeneous. Thyroid vascularity is increased. Isthmus: 0.5 cm in maximum AP dimension. RIGHT THYROID LOBE: No nodules. ISTHMUS: No nodules. LEFT THYROID LOBE: No nodules. NODES: There is a lymph node superior to the thyroid isthmus. This is normal in size measuring 0.8 cm transverse dimension and demonstrates normal ultrasound morphology and flow. Thyroid Uptake and Scan: 06/03/19 FINDINGS: The uptake is 15% at 4 hours and 35% at 24 hours. The radioiodine uptake is mildly elevated. The radiopertechnetate thyroid scintigram shows the thyroid gland to be asymmetrical with the right lobe significantly larger than the left. This also shows increased activity relative to the left, probably due to its larger volume. The left lobe appears normal in size. A very faint barely perceptible pyramidal lobe is visualized attaching medially to the mid right lobe. There is homogeneous distribution of activity within both lobes, although the activity is significantly more intense on the right. A single anterior radioiodine image obtained at the time of the 24-hour uptake measurement is similar to the radio pertechnetate image. The thyroid ultrasound study dated 05/20/2019 also showed an asymmetrical thyroid gland with the right lobe much larger than the left. No nodules are visualized. Labs: Laboratory Tests 07/27/22 07/27/22 06:48 06:48 Free T4 0.75 Total T3 148 Status post total thyroidectomy in 08/20/2022 with benign pathology. Patient is currently on levothyroxine 125 mcg [facility] Medical History COPD (chronic obstructive pulmonary disease) Postoperative hypothyroidism Vitamin D deficiency DARIUSZ (obstructive sleep apnea) On anticoagulant therapy On beta sabine at home History of cardioversion Hypothyroid Pelvic fracture Alcohol abuse PAF (paroxysmal atrial fibrillation) GERD (gastroesophageal reflux disease) Depression HLD (hyperlipidemia) History of COPD Graves disease Surgical History History of thyroidectomy (08/20/22) H/O foot surgery History of carotid endarterectomy History of salpingectomy Hx of rotator cuff surgery History of surgery on right wrist Hx of colonoscopy History of back surgery History of ankle surgery Family History (Updated 12/04/23 @ 09:56 by Mary Gaelano CMA) Father CVD (cardiovascular disease) Hypertension Mother CVA (cerebral vascular accident) Paternal Grandmother Breast cancer Maternal Grandfather Mental health disorder Other Substance abuse in family Social History Housing: House Are you a primary manager managed care to a significant other at home: No Do you presently have visiting nurse or other home services: No Patient Tobacco Use Status: Former Tobacco user Tobacco use type: Cigarette e-Cigarette/Vaping Use: Never Used Second Hand Smoke Exposure: No Substance Use Type: Marijuana Advance Directives Date on File: 04/03/17 service: No Current occupational status: employed 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 Assessment & Plan Assessment & Plan (1) Postoperative hypothyroidism: Code(s): E89.0 - Postprocedural hypothyroidism Category: Medical Plan: 62-year-old white female with a history of post-surgical hypothyroidism after total thyroidectomy for Graves disease. She is currently on levothyroxine 125 mcg . She appears to be clinically euthyroid. Plan is to check TSH and free T4 . If above is normal, patient can follow up with primary care provider returned back to endocrinology as needed Orders: Orders Free T4 (Free Thyroxine) Today E89.0 - Postprocedural hypothyroidism Thyroid Stimulating Hormone Today E89.0 - Postprocedural hypothyroidism Coding Level of Care Code Est Pt Level 3 (51059) Diagnoses Postoperative hypothyroidism E89.0
== END 2024-01-23 10:03 | disposition home or self-care (01) ==
PROVIDERS: PCP Family Medicine; Visit Provider Internal Medicine Endocrinology, Diabetes & Metabolism
DX: E89.0 Postprocedural hypothyroidism (principal)
CPT/HCPCS: 99213

== ENCOUNTER → 2024-01-23 08:54 | Outpatient (BNVA) | payer MEDICARE, SELFPAY | PROVIDERS: PCP Family Medicine; Visit Provider Internal Medicine Endocrinology, Diabetes & Metabolism ==

== ENCOUNTER 2024-01-23 09:10 | Outpatient (REF) | payer MEDICARE, SELFPAY ==
[2024-01-23 11:54] LABS: Free T4 (Free Thyroxine) 1.02 ng/dL (0.71-1.85); Thyroid Stimulating Hormone 0.03 uIU/mL (0.32-4.0)
== END 2024-01-23 09:11 | disposition home or self-care (01) ==
LOC: HO.10HDL 09:10
PROVIDERS: Visit Provider Internal Medicine Endocrinology, Diabetes & Metabolism
DX: E89.0 Postprocedural hypothyroidism (principal)
CPT/HCPCS: 36415; 84439; 84443; 99212

== ENCOUNTER 2024-01-30 10:34 | Outpatient (REF) | payer MEDICARE, MEDICAID, SELFPAY ==
[2024-01-30 11:57] LABS: Appearance Urine Clear; Color Urine Yellow; Glucose Urine UA Negative (Negative); Leukocyte Esterase Urine Negative (Negative); Nitrite Urine Negative (Negative); PH 5.5 (5.0-9.0); Urine Blood Negative (Negative); Urine Ketones Negative (Negative); Urine Protein Negative (Neg-Trace)
== END 2024-01-30 10:35 | disposition home or self-care (01) ==
LOC: HO.LAB 10:34
PROVIDERS: PCP Family Medicine; Visit Provider Family Medicine
DX: R30.0 Dysuria (principal)
CPT/HCPCS: 81003; 87086

== ENCOUNTER 2024-02-12 13:47 | Outpatient (AMB) | payer MEDICARE, MEDICAID, SELFPAY ==
--- NOTE | 2024-02-12 13:50 | MHC.OFFVIS ---
Vital Signs 02/12/24 13:52 Height 6 ft Weight 220 lb BMI 29.8 Intake Visit Reasons: OV- Right Shoulder Injection Request Intake Note: Matilde a 63 year old female who presents today for a follow up of right shoulder, last injection 11/08/23. Patient reports injection provided her with relief for about 2 months. Her is located at the anterior aspect of shoulder that radiates into her bicep area. She would like to repeat injection today. Allergies No Known Allergies Allergy (Verified 02/12/24 13:55) Medication List - Last Reconciled 02/12/24 by Estefani Mendoza PA-C acetaminophen 650 mg PO Q4H PRN albuterol sulfate 90 mcg/actuation 2 puffs inhalation Q4-6H PRN 30 days apixaban (Eliquis) 5 mg PO BID 90 days betamethasone dipropionate 0.05% 1 appl topical DAILY 30 days cephalexin 500 mg PO Q12H 10 days digoxin 125 mcg PO DAILY furosemide 40 mg PO DAILY PRN incontinence pad, liner, disp As directed, 90 days levothyroxine 112 mcg PO DAILY lorazepam 1 mg PO BEDTIME PRN 30 days metoprolol tartrate 25 mg PO BID 90 days omeprazole 20 mg PO DAILY quetiapine 50 mg PO BEDTIME 30 days ropinirole 5 mg PO DAILY 90 days rosuvastatin 20 mg PO DAILY sertraline 50 mg (1/2 x 100 mg) PO DAILY 30 days umeclidinium-vilanterol 62.5-25 mcg/actuation (Anoro Ellipta) 1 inh inhalation DAILY 30 days valacyclovir 500 mg PO DAILY PRN 30 days HPI HPI OV- Right Shoulder Injection Request: Details: 63-year-old female who returns to the office today for a follow-up of right shoulder pain. She currently states she has pain at the anterior aspect of her shoulder that radiates into her bicep area. She had her last injection on 11/08/23 that provided her relief for about 2 months. She would like to repeat the injection today. [facility] Medical History COPD (chronic obstructive pulmonary disease) Postoperative hypothyroidism Vitamin D deficiency DARIUSZ (obstructive sleep apnea) On anticoagulant therapy On beta sabine at home History of cardioversion Hypothyroid Pelvic fracture Alcohol abuse PAF (paroxysmal atrial fibrillation) GERD (gastroesophageal reflux disease) Depression HLD (hyperlipidemia) History of COPD Graves disease Surgical History History of thyroidectomy (08/20/22) H/O foot surgery History of carotid endarterectomy History of salpingectomy Hx of rotator cuff surgery History of surgery on right wrist Hx of colonoscopy History of back surgery History of ankle surgery Family History Father CVD (cardiovascular disease) Hypertension Mother CVA (cerebral vascular accident) Paternal Grandmother Breast cancer Maternal Grandfather Mental health disorder Other Substance abuse in family Social History Housing: House Are you a primary healthcare corporate account director to a significant other at home: No Do you presently have visiting nurse or other home services: No Patient Tobacco Use Status: Former Tobacco user Tobacco use type: Cigarette e-Cigarette/Vaping Use: Never Used Second Hand Smoke Exposure: No Substance Use Type: Marijuana Advance Directives Date on File: 04/03/17 service: No Current occupational status: employed 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 Tenderness over the bicipital groove and along the deltoid region of the shoulder. Forward flexion to 175, external rotation to 90, internal rotation to S1. 5/5 RTC strength. Negative Person and cross body abduction. NVI. Office Procedures Joint Injection/Aspiration Joint Injection/Aspiration Primary Site: right shoulder Prep: site was prepped using aseptic technique, ethochloride spray was applied and injection warnings given Injected: 80 mg of, DepoMedrol, with 8 mL of, 1% plain lidocaine and in the subcromial space Approach Used: posterolateral Procedure: The patient tolerated the procedure well and there was some relief with the local anesthesia Coding 35127 - Glenohumeral/Tronchanteric Bursa/Intraarticular Procedure code (CPT) selection complete Assessment & Plan Assessment & Plan (1) Impingement syndrome of right shoulder: Code(s): M75.41 - Impingement syndrome of right shoulder Category: Medical (2) Arthritis of shoulder region, right, degenerative: Code(s): M19.011 - Primary osteoarthritis, right shoulder Category: Medical Qualifiers: Osteoarthritis type: primary Qualified Code(s): M19.011 - Primary osteoarthritis, right shoulder Plan We discussed options today, which include steroid injection. The patient did consent to move forward with the right shoulder injection, which was tolerated well. I recommended rest, ice, and elevation and OTC anti-inflammatories as needed for discomfort. If symptoms persist or worsen over the next 6-8 weeks, patient will contact the office, otherwise follow-up as needed. ? Patient Instructions: Scribed for Estefani Mendoza PA-C, by Laurent Stearns manager medical affairs, on 02/12/2024 at 2:00 PM EST.? I, Estefani Mendoza PA-C, have personally reviewed and agree with the information entered by the scribe. Coding Level of Care Code Est Pt Level 3 (87706) Diagnoses Impingement syndrome of right shoulder M75.41 Primary osteoarthritis of right shoulder M19.011 Osteoarthritis type: primary CPT Codes Coding - Joint 7: 19119 - Glenohumeral/Tronchanteric Bursa/Intraarticular ([id number])
[2024-02-12 13:52] VITALS: BMI 29.8
== END 2024-02-12 14:13 | disposition home or self-care (01) ==
LOC: HO.HOS 13:47
PROVIDERS: PCP Family Medicine; Visit Provider Physician Assistant
DX: M75.41 Impingement syndrome of right shoulder (principal); M19.011 Primary osteoarthritis, right shoulder
CPT/HCPCS: 20610; 99213

== ENCOUNTER → 2024-02-12 13:47 | Outpatient (BNVA) | payer MEDICARE, MEDICAID, SELFPAY | PROVIDERS: PCP Family Medicine; Visit Provider Physician Assistant | DX: M75.41 Impingement syndrome of right shoulder (principal); M19.011 Primary osteoarthritis, right shoulder | CPT/HCPCS: 20610; 99212; J1010 ==

== ENCOUNTER 2024-02-19 08:29 | Outpatient (REF) | payer MEDICARE, MEDICAID, SELFPAY ==
--- NOTE | ~2024-02-19 | MM_ITS ---
EXAMINATION: MM SCREENING DIGITAL BREAST TOMOSYNTHESIS, BILATERAL CLINICAL INFORMATION: Screening. Asymptomatic. COMPARISON: Mammography: Comparison is made with available priors TECHNIQUE: Digital breast mammography with tomosynthesis is performed in both the craniocaudal and mediolateral oblique views along with computer-aided detection (CAD). FINDINGS: There are scattered areas of fibroglandular density (ACR BI-RADS breast composition Category b). There are no significant masses, abnormal calcifications, or other abnormalities. MM/MM tomosynthesis screening BI IMPRESSION: No mammographic evidence of malignancy. ASSESSMENT: BI-RADS BI-RADS 1 - Negative RECOMMENDATION: Routine annual mammography screening. 1 year F/U This examination should not preclude the clinical evaluation of a suspicious palpable abnormality. This patient's information was entered into a reminder system with a target due date for their next mammogram. Electronically signed by: Shira Rose DO 03/08/2024 09:32 AM EDT
== END 2024-02-19 08:30 | disposition home or self-care (01) ==
LOC: HO.MAMMO 08:29
PROVIDERS: PCP Family Medicine; Visit Provider Family Medicine
DX: Z12.31 Encounter for screening mammogram for malignant neoplasm of breast (principal)
CPT/HCPCS: 77063; 77067

== ENCOUNTER → 2024-02-19 09:15 | Outpatient (BNV) | payer MEDICARE, MEDICAID, SELFPAY | PROVIDERS: PCP Family Medicine; Visit Provider Internal Medicine | DX: Z12.31 Encounter for screening mammogram for malignant neoplasm of breast (principal) | CPT/HCPCS: 77063; 77067 ==

== ENCOUNTER 2024-03-24 07:14 | Outpatient (REF) | payer MEDICARE, MEDICAID, SELFPAY ==
[2024-03-24 07:32] LABS: MANUAL DIFF FLAG NO
[2024-03-24 08:03] LABS: Basophils Absolute Auto 0.1 X10*3/uL (0.0-0.2); Basophils Percent Auto 1.3 % (0-2); Eosinophils Absolute Auto 0.3 X10*3/uL (0.0-0.4); Eosinophils Percent Auto 2.6 % (0-4); Hematocrit 41.2 % (37.0-47.0); Hemoglobin 13.6 g/dl (12.0-16.0); Imm Gran Abs Auto 0.04 X10*3/uL (0.00-0.03); Imm Gran Pct Auto 0.4 % (0.0-0.4); Lymphocytes Absolute Auto 3.2 X10*3/uL (1.2-4.9); Lymphocytes Percent Auto 29.8 % (20-40); Mean Corpuscular Volume 93.8 fL (80.0-98.0); Mean Platelet Volume 10.8 fL (9.4-12.3); Monocytes Absolute Auto 0.9 X10*3/uL (0.1-1.2); Neutrophils Absolute Auto 6.3 x10*3/uL (2.0-8.3); Neutrophils Percent Auto 57.9 % (45-73); Platelet Count 342 X10*3/uL (160-400); Red Blood Count 4.39 X10*6/uL (4.20-5.50); Red Cell Distribution Width 13.4 % (11.0-16.0); White Blood Count 10.8 X10*3/uL (4.8-10.8)
[2024-03-24 08:08] LABS: Appearance Urine Clear; Color Urine Yellow; Glucose Urine UA Negative (Negative); Leukocyte Esterase Urine Trace (Negative); Nitrite Urine Negative (Negative); PH 5.5 (5.0-9.0); UMIC TRIGGER UA YES; Urine Blood Small (1+) (Negative); Urine Ketones Negative (Negative); Urine Protein Negative (Neg-Trace)
[2024-03-24 08:16] LABS: Bacteria Urine None Seen (None Seen); Hyaline Casts Urine 0-2 /LPF (0-2); RBC Urine 0-2 /HPF (0-2); Squamous Epithelial Cell Urine 0-2 /HPF (0-2); WBC Urine 0-5 /HPF (0-5)
[2024-03-24 09:02] LABS: Creatinine Urine 163.06 mg/dL; Microalbum/Creatinine Ratio Ur 20.2 ug/mg cr (<30)
[2024-03-24 09:06] LABS: Digoxin 0.4 ng/mL (0.8-2.0)
[2024-03-24 09:21] LABS: Alanine Aminotransferase 16 U/L (0-31); Albumin Level 4.2 g/dL (3.5-5.0); Alkaline Phosphatase 70 U/L (39-117); Anion Gap 13 (12-20); Aspartate Amino Transferase 21 U/L (5-31); Blood Urea Nitrogen 13 mg/dL (9-16); Calcium 9.8 mg/dL (8.4-10.2); Carbon Dioxide 26 mmol/L (22-29); Chloride 109 mmol/L (96-108); Cholesterol 126 mg/dL (<200); Estimated Glomerular Filt Rate > 60; Glucose Fasting 129 mg/dL (60-99); HDL Cholesterol 47 mg/dL (>40); LDL Cholesterol Calculated 52 mg/dL (<100); Potassium 5.1 mmol/L (3.3-5.1); Sodium 143 mmol/L (135-145); Total Protein 7.1 g/dL (6.5-8.0); Triglycerides 139 mg/dL (<150)
[2024-03-24 09:23] LABS: Free T4 (Free Thyroxine) 1.32 ng/dL (0.71-1.85)
[2024-03-24 09:25] LABS: TSH reflex Free T4 0.04 uIU/mL (0.32-4.0); Thyroid Stimulating Hormone 0.04 uIU/mL (0.32-4.0)
[2024-03-24 09:27] LABS: Estimated Average Glucose 117 mg/dL; Hemoglobin A1C 134.2609 umol/L; Hemoglobin A1c % 5.7 % (<6.0); Total Hemoglobin (HGBA1C) 3469.2233 umol/L
== END 2024-03-24 07:15 | disposition home or self-care (01) ==
LOC: HO.LAB 07:14
PROVIDERS: Internal Medicine Endocrinology, Diabetes & Metabolism; Absent Provider Internal Medicine; PCP Family Medicine; Visit Provider Family Medicine
DX: Z00.00 Encounter for general adult medical examination without abnormal findings (principal); R30.0 Dysuria; I48.91 Unspecified atrial fibrillation; R73.01 Impaired fasting glucose; I10 Essential (primary) hypertension; E03.9 Hypothyroidism, unspecified
CPT/HCPCS: 36415; 80053; 80061; 80162; 81001; 81003; 82043; 82570; 83036; 84439; 84443; 85025; 87086

== ENCOUNTER 2024-03-25 08:11 | Outpatient (AMB) | payer MEDICARE, MEDICAID, SELFPAY ==
[2024-03-25 08:19] VITALS: BP 90/60; PULSE 60; BMI 31.0
--- NOTE | 2024-03-25 08:19 | A.OFFVIS_ITS ---
Vital Signs 03/25/24 08:19 Height 6 ft Weight 228 lb 13.437 oz BMI 31.0 BP 90/60 Blood Pressure Location Lt brachial Position Sitting Pulse 60 Intake Visit Reasons: 6m follow up Management Trainee Marketing Required: No Accompanied by: Self / Same As Patient Allergies No Known Allergies Allergy (Verified 02/12/24 13:55) Medication List - Last Reconciled 03/25/24 by Nishant Gutierres MD acetaminophen 650 mg PO Q4H PRN albuterol sulfate 90 mcg/actuation 2 puffs inhalation Q4-6H PRN 30 days apixaban (Eliquis) 5 mg PO BID 90 days betamethasone dipropionate 0.05% 1 appl topical DAILY 30 days digoxin 125 mcg PO DAILY incontinence pad, liner, disp As directed, 90 days levothyroxine 112 mcg PO DAILY lorazepam 1 mg PO BEDTIME PRN 30 days metoprolol tartrate 25 mg PO BID 90 days omeprazole 20 mg PO DAILY quetiapine 50 mg PO BEDTIME 30 days ropinirole 5 mg PO DAILY 90 days rosuvastatin 20 mg PO DAILY sertraline 50 mg (1/2 x 100 mg) PO DAILY 30 days umeclidinium-vilanterol 62.5-25 mcg/actuation (Anoro Ellipta) 1 inh inhalation DAILY 30 days valacyclovir 500 mg PO DAILY PRN 30 days HPI Comments Details: Matilde returns for follow-up regarding atrial fibrillation. To recall, in 2017 she had visual symptoms that led to a diagnosis of severe carotid disease requiring urgent right carotid endarterectomy. She was then doing okay from cardiac standpoint, but then had hospitalization for atrial fibrillation and rapid rate. Then underwent KRISHAN and cardioversion. She was then placed on Multaq but in spite of this she had still had recurrent atrial fibrillation. Had another cardioversion and went on flecainide. However, still returned to atrial fibrillation. Hence now managed by rate control. She also saw EP but recommendation was to just do rate control. Overall, she states she feels fine. No specific symptoms like angina or shortness of breath or any other cardiac concerns. Getting along fine. Fairly active without any limitations. [facility] Medical History COPD (chronic obstructive pulmonary disease) Postoperative hypothyroidism Vitamin D deficiency DARIUSZ (obstructive sleep apnea) On anticoagulant therapy On beta sabine at home History of cardioversion Hypothyroid Pelvic fracture Alcohol abuse PAF (paroxysmal atrial fibrillation) GERD (gastroesophageal reflux disease) Depression HLD (hyperlipidemia) History of COPD Graves disease Surgical History History of thyroidectomy (08/20/22) H/O foot surgery History of carotid endarterectomy History of salpingectomy Hx of rotator cuff surgery History of surgery on right wrist Hx of colonoscopy History of back surgery History of ankle surgery Family History Father CVD (cardiovascular disease) Hypertension Mother CVA (cerebral vascular accident) Paternal Grandmother Breast cancer Maternal Grandfather Mental health disorder Other Substance abuse in family Social History (Updated 03/25/24 @ 08:25 by Soraya Begum CMA) Housing: House Are you a primary healthcare corporate account director to a significant other at home: No Do you presently have visiting nurse or other home services: No Alcohol intake: former Patient Tobacco Use Status: Former Tobacco user Tobacco use type: Cigarette e-Cigarette/Vaping Use: Never Used Second Hand Smoke Exposure: No Substance Use Type: Marijuana Advance Directives Date on File: 04/03/17 service: No Current occupational status: employed 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 Current occupational exposures/hazards: No Cognitive needs: No Hearing needs: No Vision needs: No Female Reproductive History Menstrual Age of Menarche: 11 Review of Systems Const Denies chills, Denies fatigue, Denies fever(s), Denies weight gain and Denies weight loss ENT Denies dizziness Card Denies chest pain, Denies leg edema, Denies lightheadedness, Denies palpitations, Reports dyspnea, Denies dyspnea on exertion, Denies orthopnea and Denies other Resp Denies cough, Reports dyspnea and Denies dyspnea on exertion GI Denies hematochezia and Denies change in stool character Musc Denies abnormal gait, Denies muscle weakness, Denies numbness, Denies radiating pain into limb and Denies tingling Neuro Denies abnormal gait, Denies dizziness, Denies numbness and Denies tingling Endo Denies fatigue and Denies palpitations Physical Exam Vital Signs: Last Vital Signs Pulse 60 03/25/24 08:19 BP 90/60 03/25/24 08:19 BMI result Body Mass Index 31.0 Const General: comfortable and no acute distress Orientation/consciousness: patient oriented x3 HEENT Other: Unremarkable Head: Yes normal to inspection Neck Neck: Yes normal visual inspection Chest Chest palpation & inspection: normal inspection of the chest Resp Auscultation: clear to auscultation bilaterally Cardio Palpation: normal PMI Heart sounds: S1 normal heart sound present, S2 normal heart sound present, no gallops, no murmurs and no rubs GI Palpation (GI): Soft to palpation Back/Spine/Pelvis Other: unremarkable Skin General skin exam: no rashes or lesions noted Neuro General: patient oriented x3 Extrem General: Yes normal to inspection Psych Mental Status: mental status grossly normal Office Procedures EKG Details: EKG with atrial fibrillation at a rate of 60/Min; low-voltage QRS complexes. 72021-[id number], Complete Assessment & Plan Assessment & Plan (1) Persistent atrial fibrillation: Code(s): I48.19 - Other persistent atrial fibrillation Category: Medical Plan: Has failed cardioversions as well as antiarrhythmic drugs including Multaq and flecainide. She has been evaluated by EP and recommended rate control only. Continue current meds including beta-blockers/digoxin. Continue anticoagulation. Recent digoxin level 0.4. Creatinine 0.78. Cardiac testing- Myocardial perfusion imaging shows normal perfusion. In the KRISHAN seem to have normal LVEF, 55-60%. (2) Hyperthyroidism: Code(s): E05.90 - Thyrotoxicosis, unspecified without thyrotoxic crisis or storm Category: Medical Plan: Suspected thyroid issues are playing a role in atrial fibrillation. Status post thyroidectomy. (3) Bilateral carotid artery stenosis: Comment: 11/16/2016 - right carotid endarterectomy Code(s): I65.23 - Occlusion and stenosis of bilateral carotid arteries Category: Medical Plan: Last carotid ultrasound does not show any significant stenosis. She can remain on statins. Last LDL 52 mg/dL (4) DARIUSZ (obstructive sleep apnea): Code(s): G47.33 - Obstructive sleep apnea (adult) (pediatric) Category: Medical Plan: Ideally should be on CPAP but not using it. Discussed about it today. Coding Level of Care Code Est Pt Level 4 (76159) Diagnoses Persistent atrial fibrillation I48.19 Hyperthyroidism E05.90 Bilateral carotid artery stenosis I65.23 DARIUSZ (obstructive sleep apnea) G47.33 CPT Codes EKG - CPT: 69492-Rjqifnljslallgbol, Complete ([id number])
== END 2024-03-25 08:39 | disposition home or self-care (01) ==
PROVIDERS: PCP Family Medicine; Visit Provider Internal Medicine
DX: I48.19 Other persistent atrial fibrillation (principal); E05.90 Thyrotoxicosis, unspecified without thyrotoxic crisis or storm; I65.23 Occlusion and stenosis of bilateral carotid arteries; G47.33 Obstructive sleep apnea (adult) (pediatric)
CPT/HCPCS: 93010; 99214

== ENCOUNTER → 2024-03-25 08:11 | Outpatient (BNVA) | payer MEDICARE, MEDICAID, SELFPAY | PROVIDERS: PCP Family Medicine; Visit Provider Internal Medicine | DX: I48.19 Other persistent atrial fibrillation (principal); I65.23 Occlusion and stenosis of bilateral carotid arteries; E05.90 Thyrotoxicosis, unspecified without thyrotoxic crisis or storm; G47.33 Obstructive sleep apnea (adult) (pediatric) | CPT/HCPCS: 93005; 99212 ==

== ENCOUNTER 2024-04-14 11:36 | Outpatient (REF) | payer MEDICARE, MEDICAID, SELFPAY | END 2024-04-14 11:37 | disposition home or self-care (01) | LOC: HO.LAB 11:36 | PROVIDERS: PCP Family Medicine; Visit Provider Internal Medicine Endocrinology, Diabetes & Metabolism | DX: Z13.89 Encounter for screening for other disorder (principal) ==

== ENCOUNTER 2024-04-28 13:00 | Outpatient (AMB) | payer MEDICARE, MEDICAID, SELFPAY ==
[2024-04-28 13:24] VITALS: BP 106/68; PULSE 81; TEMP 36.9; O2SAT 97; BMI 31.3
--- NOTE | 2024-04-28 13:24 | MHC.OFFWIV ---
Intake Vital Signs 04/28/24 13:24 Height 6 ft Weight 231 lb BMI 31.3 BP 106/68 Blood Pressure Location Lt brachial Position Sitting Pulse 81 Pulse Source Pulse Oximeter Temp 98.5 F Temp Source Oral Pulse Oximetry (%) 97 Oxygen Delivery Method Room Air Intake Visit Reasons: EP Pain back/lung area Intake Note: Patient here for cough and lung pain that has been present for 4 days. Patient Tobacco Use Status: Former Tobacco user Allergies No Known Allergies Allergy (Verified 04/28/24 13:29) Do you need a note to return to daycare/school/sports/work: No HPI HPI Comments History of Present Illness Details 63 y/o female patient presents to the walk in clinic with c/o cough for 3 days. [facility] Medical History COPD (chronic obstructive pulmonary disease) Postoperative hypothyroidism Vitamin D deficiency DARIUSZ (obstructive sleep apnea) On anticoagulant therapy On beta sabine at home History of cardioversion Hypothyroid Pelvic fracture Alcohol abuse PAF (paroxysmal atrial fibrillation) GERD (gastroesophageal reflux disease) Depression HLD (hyperlipidemia) History of COPD Graves disease Surgical History History of thyroidectomy (08/20/22) H/O foot surgery History of carotid endarterectomy History of salpingectomy Hx of rotator cuff surgery History of surgery on right wrist Hx of colonoscopy History of back surgery History of ankle surgery Family History Father CVD (cardiovascular disease) Hypertension Mother CVA (cerebral vascular accident) Paternal Grandmother Breast cancer Maternal Grandfather Mental health disorder Other Substance abuse in family Social History (Updated 03/25/24 @ 08:25 by Soraya Bgeum CMA) Housing: House Are you a primary clinical manager home care to a significant other at home: No Do you presently have visiting nurse or other home services: No Alcohol intake: former Patient Tobacco Use Status: Former Tobacco user Tobacco use type: Cigarette e-Cigarette/Vaping Use: Never Used Second Hand Smoke Exposure: No Substance Use Type: Marijuana Advance Directives Date on File: 04/03/17 service: No Current occupational status: employed 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 Current occupational exposures/hazards: No Cognitive needs: No Hearing needs: No Vision needs: No Female Reproductive History Menstrual Age of Menarche: 11 Review of Systems Const All systems reviewed & are unremarkable except as noted in HPI and below Physical Exam Vital Signs: Last Vital Signs Temp 98.5 F 04/28/24 13:24 Pulse 81 04/28/24 13:24 BP 106/68 04/28/24 13:24 Pulse Ox 97 04/28/24 13:24 Oxygen Delivery Method Room Air 04/28/24 13:24 BMI result Body Mass Index 31.3 Const General: cooperative and no acute distress Nutritional Appearance: obese Orientation/consciousness: patient oriented x3 HEENT Head: Yes normocephalic Ears: external ears normal and TM's normal bilaterally General nose exam: Normal nasal mucous membranes and turbinates present Face and sinus: Yes sinuses nontender Mouth: moist mucous membranes Throat: Yes tonsils normal and Yes uvula midline Resp Effort & Inspection: normal respiratory effort and able to speak in complete sentences Auscultation: clear to auscultation bilaterally, no crackles, no rales, no rhonchi and no wheezes Cardio Heart sounds: S1 normal heart sound present and S2 normal heart sound present Neuro General: patient oriented x3 Assessment & Plan Assessment & Plan (1) Cough: Code(s): R05 - Cough Qualifiers: Cough type: acute Qualified Code(s): R05.1 - Acute cough Plan: Ordered SARs OTC cough remedies Acetaminophen for pain relief. (2) Acute respiratory disease: Code(s): J06.9 - Acute upper respiratory infection, unspecified Plan: Ordered SARs OTC cough remedies Acetaminophen for pain relief. Orders: Orders SARS-CoV2/FLU/RSV Today R09.89 - Other specified symptoms and signs involving the circulatory and respiratory systems Medications: New benzonatate 100 mg PO TID 90 caps 0RF J06.9 - Acute upper respiratory infection, unspecified, R05.1 - Acute cough Coding Level of Care Code Est Pt Level 3 (04079) Diagnoses Acute cough R05.1 Cough type: acute Acute respiratory disease J06.9 Time Spent (min) 15
== END 2024-04-28 14:21 | disposition home or self-care (01) ==
PROVIDERS: PCP Family Medicine; Visit Provider Nurse Practitioner Family
DX: R05.1 Acute cough (principal); J06.9 Acute upper respiratory infection, unspecified

== ENCOUNTER 2024-04-28 13:00 | Outpatient (REF) | payer MEDICARE, MEDICAID, SELFPAY ==
[2024-04-28 17:45] LABS: Influenza A PCR NEGATIVE (Negative); Influenza B PCR NEGATIVE (Negative); Resp Syncy Virus RNA Qual PCR NEGATIVE (Negative); SARS COV2 PCR INHOUSE POSITIVE (Negative)
== END 2024-04-28 13:01 | disposition home or self-care (01) ==
LOC: HO.LNP 13:00
PROVIDERS: PCP Family Medicine; Visit Provider Nurse Practitioner Family
DX: J06.9 Acute upper respiratory infection, unspecified (principal); R09.89 Other specified symptoms and signs involving the circulatory and respiratory systems
CPT/HCPCS: 0241U; 99212

== ENCOUNTER 2024-05-04 10:52 | Outpatient (AMB) | payer MEDICARE, MEDICAID, SELFPAY ==
--- NOTE | 2024-05-04 10:58 | MHC.OFFVIS ---
Vital Signs 05/04/24 11:10 Height 6 ft Weight 231 lb BMI 31.3 Intake Visit Reasons: New problem Lt Shoulder pain Intake Note: Matilde a 63 year old female who presents today for a follow up of left shoulder pain. Patient reports her pain has been present for about 2 months, howver the past couple of days her pain has improved. She has constant pain in her shoulder that increases with ROM. Denies numbness or tingling. Finds no relief with Tylenol arthritis. Hx of left RTC surgery 2011. Allergies No Known Allergies Allergy (Verified 05/04/24 11:11) Medication List - Last Reconciled 05/04/24 by Estefani Mendoza PA-C acetaminophen 650 mg PO Q4H PRN albuterol sulfate 90 mcg/actuation 2 puffs inhalation Q4-6H PRN 30 days apixaban (Eliquis) 5 mg PO BID 90 days benzonatate 100 mg PO TID betamethasone dipropionate 0.05% 1 appl topical DAILY 30 days digoxin 125 mcg PO DAILY incontinence pad, liner, disp As directed, 90 days levothyroxine 110 mcg PO DAILY lorazepam 1 mg PO BEDTIME PRN 30 days metoprolol tartrate 25 mg PO BID 90 days omeprazole 20 mg PO DAILY quetiapine 50 mg PO BEDTIME 30 days ropinirole 5 mg PO DAILY 90 days rosuvastatin 20 mg PO DAILY sertraline 50 mg (1/2 x 100 mg) PO DAILY 30 days umeclidinium-vilanterol 62.5-25 mcg/actuation (Anoro Ellipta) 1 inh inhalation DAILY 30 days valacyclovir 500 mg PO DAILY PRN 30 days HPI HPI New problem Lt Shoulder pain: Details: 63-year-old female presents to the office today for left shoulder pain. RTC repair done [place] [address] Busby, she states recently the left shoulder started to hurt , she had difficulty with raising the left shoulder. She did notice the pain was improved over the last few days. She lays on the right shoulder so she does not have much pain in the left at night. [facility] Medical History COPD (chronic obstructive pulmonary disease) Postoperative hypothyroidism Vitamin D deficiency DARIUSZ (obstructive sleep apnea) On anticoagulant therapy On beta sabine at home History of cardioversion Hypothyroid Pelvic fracture Alcohol abuse PAF (paroxysmal atrial fibrillation) GERD (gastroesophageal reflux disease) Depression HLD (hyperlipidemia) History of COPD Graves disease Surgical History History of thyroidectomy (08/20/22) H/O foot surgery History of carotid endarterectomy History of salpingectomy Hx of rotator cuff surgery History of surgery on right wrist Hx of colonoscopy History of back surgery History of ankle surgery Family History Father CVD (cardiovascular disease) Hypertension Mother CVA (cerebral vascular accident) Paternal Grandmother Breast cancer Maternal Grandfather Mental health disorder Other Substance abuse in family Social History (Updated 03/25/24 @ 08:25 by Soraya Begum CMA) Housing: House Are you a primary vehicle care specialist to a significant other at home: No Do you presently have visiting nurse or other home services: No Alcohol intake: former Patient Tobacco Use Status: Former Tobacco user Tobacco use type: Cigarette e-Cigarette/Vaping Use: Never Used Second Hand Smoke Exposure: No Substance Use Type: Marijuana Advance Directives Date on File: 04/03/17 service: No Current occupational status: employed 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 She has mild discomfort with Person and cross-body abduction. Rotator cuff strength 5/5 in all directions. Office Procedures AMB Joint Injection/Aspiration Joint Injection/Aspiration Primary Site: left shoulder Prep: site was prepped using aseptic technique, ethochloride spray was applied and injection warnings given Injected: 80 mg of, DepoMedrol, with 8 mL of, 1% plain lidocaine and in the subcromial space Approach Used: posterolateral Procedure: The patient tolerated the procedure well and there was some relief with the local anesthesia Coding 22894 - Glenohumeral/Tronchanteric Bursa/Intraarticular Procedure code (CPT) selection complete Results Reviewed Results Reviewed: X-rays of the left shoulder obtained in the office today show glenohumeral joint arthritis with type 2 acromion Assessment & Plan Assessment & Plan (1) Arthritis of left shoulder region: Code(s): M19.012 - Primary osteoarthritis, left shoulder Category: Medical Plan We discussed options today, which include steroid injection. The patient did consent to move forward with the injection, which was tolerated well.? I recommended rest, ice and elevation and OTC antiinflammatories prn for discomfort. If symptoms persist over the next 6-8 weeks, they will contact our office, otherwise, prn Orders: Orders XR shoulder LT min 2V Today M25.512 - Pain in left shoulder Coding Level of Care Code Est Pt Level 3 (17696) Complex EM visit Add On G2211 Diagnoses Arthritis of left shoulder region M19.012 CPT Codes Coding - Joint 7: 59546 - Glenohumeral/Tronchanteric Bursa/Intraarticular ([id number])
[2024-05-04 11:10] VITALS: BMI 31.3
== END 2024-05-04 11:29 | disposition home or self-care (01) ==
PROVIDERS: PCP Family Medicine; Visit Provider Physician Assistant
DX: M19.012 Primary osteoarthritis, left shoulder (principal)
CPT/HCPCS: 20610; 99213

== ENCOUNTER 2024-05-04 14:36 | Outpatient (REF) | payer MEDICARE, MEDICAID, SELFPAY | END 2024-05-04 14:37 | disposition home or self-care (01) | LOC: HO.HOSX 14:36 | PROVIDERS: Visit Provider Physician Assistant | DX: M19.012 Primary osteoarthritis, left shoulder (principal) | CPT/HCPCS: 20610; 73030; 99212; J1010; J2003 ==

== ENCOUNTER 2024-05-19 07:37 | Outpatient (REF) | payer MEDICARE, MEDICAID, SELFPAY ==
[2024-05-19 08:45] LABS: Free T4 (Free Thyroxine) 1.04 ng/dL (0.71-1.85)
== END 2024-05-19 07:38 | disposition home or self-care (01) ==
LOC: HO.LAB 07:37
PROVIDERS: PCP Family Medicine; Visit Provider Internal Medicine Endocrinology, Diabetes & Metabolism
DX: E89.0 Postprocedural hypothyroidism (principal)
CPT/HCPCS: 36415; 84439; 84443

== ENCOUNTER 2024-05-21 13:22 | Outpatient (REF) | payer MEDICARE, MEDICAID, SELFPAY ==
--- NOTE | ~2024-05-21 | US_ITS ---
EXAMINATION: US EXTRACRANIAL CAROTID DUPLEX, BILATERAL CLINICAL INFORMATION: Occlusion and stenosis of the bilateral carotid arteries COMPARISON: Carotid ultrasound dated 05/20/2023 and 01/30/2022 TECHNIQUE: Real-time ultrasound and Doppler techniques (integrating B-mode 2-D vascular images, Doppler spectral analysis and color-flow Doppler imaging) were utilized to interrogate the extracranial carotid arteries, the vertebral arteries and proximal subclavian arteries bilaterally. The degree of stenosis is determined by criteria similar to NASCET. FINDINGS: Right Side: 1. There is no atherosclerotic plaque seen in the bifurcation/proximal ICA region. 2. The common carotid artery PSV proximally is 43 cm/s and distally 42 cm/s. 3. The proximal internal carotid artery velocities are 49 cm/s systolic and 25 cm/s diastolic. 4. The proximal external carotid artery PSV is 70 cm/s. 5. The vertebral artery shows antegrade flow. 6. The subclavian artery waveforms are normal. Left Side: 1. There is moderate atherosclerotic plaque seen in the bifurcation/proximal ICA region. 2. The common carotid artery PSV proximally is 51 cm/s and distally 29 cm/s. 3. The proximal internal carotid artery velocities are 113 cm/s systolic and 59 cm/s diastolic. 4. The proximal external carotid artery PSV is 77 cm/s. 5. The vertebral artery shows antegrade flow. 6. The subclavian artery waveforms are normal. US/US carotid duplex BI IMPRESSION: 1. RIGHT: Normal right internal carotid artery without atherosclerotic plaque or hemodynamically significant stenosis. 2. LEFT: Minimal, non-hemodynamically significant stenosis of the proximal left internal carotid artery corresponding to a 0-49% stenosis by velocity criteria. 3. There is no change in the category severity of disease when compared to the previous study dated 05/20/2023. Electronically signed by: Vero Ayala MD 05/28/2024 06:18 PM [facility] [place]
== END 2024-05-21 13:23 | disposition home or self-care (01) ==
LOC: HO.US 13:22
PROVIDERS: PCP Family Medicine; Visit Provider Surgery Vascular Surgery
DX: I65.23 Occlusion and stenosis of bilateral carotid arteries (principal)
CPT/HCPCS: 93880

== ENCOUNTER 2024-05-25 08:26 | Outpatient (AMB) | payer MEDICARE, SELFPAY ==
--- NOTE | 2024-05-25 08:27 | A.OFFVIS_ITS ---
Vital Signs 05/25/24 08:28 Height 6 ft Weight 230 lb 9.656 oz BMI 31.3 BP 104/70 Blood Pressure Location Rt brachial Position Sitting Pulse 82 Pulse Source Pulse Oximeter Intake Visit Reasons: f/u post-operative hypothyroidism Intake Note: Patient present today for post operative Hypothyroidism follow up visit. Preparation Department Supervisor Required: No Accompanied by: Self / Same As Patient Allergies No Known Allergies Allergy (Verified 05/25/24 08:30) HPI Comments Details: 63 YO F with PMHx ETOH Dependence, now in remission who is seen in F/U for Hyperthyroidism due to Grave's Disease. Had labs checked by PCP 04/07/19 which revealed TSH < 0.01, with FT4 1.72 and FT3 7.8. These were repeated by me 05/06/19 with TSH <0.01, TT3 350 (elevated) and FT4 at the upper limit of normal at 1.85. She was also found to have significant elevations of TSI, TRAB, TPO and TG antibodies. She did undergo a thyroid US 05/20/19 which revealed no nodules (images were independently reviewed), and also a thyroid uptake and scan 06/03/19 which revealed increased uptake of 35% at 24 hours in a homogenous distribution consistent with Grave's disease. She was started on Methimazole 10 mg PO daily on 06/18/2019, which was then titrated upward to 30 mg PO daily. She shortly after developed hypothyroidism based on symptoms of weight gain and a FT4 below the lower limit of normal. Her dose of Methimazole was decreased to 20 mg PO daily (once a day in the morning). She then became hyperthyroid again, and dose was further increased to 30 mg PO daily and she was asked to repeat labs in 2 weeks. Labs reveal persistently elevated TT3 and hyperthyroidism. She admitted at that time to noncompliance. She was resumed back on her methimazole 30 mg PO daily and repeated labs in 2 weeks, which revealed persistently elevated TT3. Her Methimazole was changed to 20 mg PO TID and her labs then revealed FT4 low and TT3 WNL. Medication has been continually adjusted since that time. She is currently using Methimazole 20 mg PO BID and FT4 and TT3 are currently at goal. She does report she had 2 admissions for AFib with RVR in late 2022. She is tolerating Methimazole well without rash, abdominal pain, jaundice, darkening of the urine, cough or frequent infection. Thyroid US: 05/20/19 Right Thyroid Lobe: 5.4 x 2.4 x 2.7 cm, volume 18.3 mL. Parenchyma: The gland echotexture is heterogeneous. Thyroid vascularity is increased. Left Thyroid Lobe: 4.1 x 1.3 x 1.6 cm, volume 4.5 mL. Parenchyma: The gland echotexture is heterogeneous. Thyroid vascularity is increased. Isthmus: 0.5 cm in maximum AP dimension. RIGHT THYROID LOBE: No nodules. ISTHMUS: No nodules. LEFT THYROID LOBE: No nodules. NODES: There is a lymph node superior to the thyroid isthmus. This is normal in size measuring 0.8 cm transverse dimension and demonstrates normal ultrasound morphology and flow. Thyroid Uptake and Scan: 06/03/19 FINDINGS: The uptake is 15% at 4 hours and 35% at 24 hours. The radioiodine uptake is mildly elevated. The radiopertechnetate thyroid scintigram shows the thyroid gland to be asymmetrical with the right lobe significantly larger than the left. This also shows increased activity relative to the left, probably due to its larger volume. The left lobe appears normal in size. A very faint barely perceptible pyramidal lobe is visualized attaching medially to the mid right lobe. There is homogeneous distribution of activity within both lobes, although the activity is significantly more intense on the right. A single anterior radioiodine image obtained at the time of the 24-hour uptake measurement is similar to the radio pertechnetate image. The thyroid ultrasound study dated 05/20/2019 also showed an asymmetrical thyroid gland with the right lobe much larger than the left. No nodules are visualized. Labs: Laboratory Tests 07/27/22 07/27/22 06:48 06:48 Free T4 0.75 Total T3 148 Status post total thyroidectomy in 08/20/2022 with benign pathology. Patient is currently on levothyroxine mcg [facility] Medical History COPD (chronic obstructive pulmonary disease) Postoperative hypothyroidism Vitamin D deficiency DARIUSZ (obstructive sleep apnea) On anticoagulant therapy On beta sabine at home History of cardioversion Hypothyroid Pelvic fracture Alcohol abuse PAF (paroxysmal atrial fibrillation) GERD (gastroesophageal reflux disease) Depression HLD (hyperlipidemia) History of COPD Graves disease Surgical History History of thyroidectomy (08/20/22) H/O foot surgery History of carotid endarterectomy History of salpingectomy Hx of rotator cuff surgery History of surgery on right wrist Hx of colonoscopy History of back surgery History of ankle surgery Family History Father CVD (cardiovascular disease) Hypertension Mother CVA (cerebral vascular accident) Paternal Grandmother Breast cancer Maternal Grandfather Mental health disorder Other Substance abuse in family Social History Housing: House Are you a primary post acute care nurse practitioner to a significant other at home: No Do you presently have visiting nurse or other home services: No Alcohol intake: former Patient Tobacco Use Status: Former Tobacco user Tobacco use type: Cigarette e-Cigarette/Vaping Use: Never Used Second Hand Smoke Exposure: No Substance Use Type: Marijuana Advance Directives Date on File: 04/03/17 service: No Current occupational status: employed 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 Assessment & Plan Assessment & Plan (1) Postoperative hypothyroidism: Code(s): E89.0 - Postprocedural hypothyroidism Category: Medical Plan: 62-year-old white female with a history of post-surgical hypothyroidism after total thyroidectomy for Graves disease. She is currently on levothyroxine mcg . She appears to be clinically and biochemically euthyroid. Plan is to continue the current therapy. At this point, patient can follow up with primary care provider returned back to endocrinology as needed Coding Level of Care Code Est Pt Level 3 (42593) Diagnoses Postoperative hypothyroidism E89.0
[2024-05-25 08:28] VITALS: BP 104/70; PULSE 82; BMI 31.3
== END 2024-05-25 08:40 | disposition home or self-care (01) ==
PROVIDERS: PCP Family Medicine; Visit Provider Internal Medicine Endocrinology, Diabetes & Metabolism
DX: E89.0 Postprocedural hypothyroidism (principal)
CPT/HCPCS: 99213

== ENCOUNTER → 2024-05-25 08:26 | Outpatient (BNVA) | payer MEDICARE, SELFPAY | PROVIDERS: PCP Family Medicine; Visit Provider Internal Medicine Endocrinology, Diabetes & Metabolism | DX: E89.0 Postprocedural hypothyroidism (principal) | CPT/HCPCS: 99212 ==

== ENCOUNTER 2024-06-26 09:22 | Outpatient (AMB) | payer MEDICARE, MEDICAID, SELFPAY ==
--- NOTE | 2024-06-26 09:29 | A.OFFVIS_ITS ---
Intake Visit Reasons: Inj-Right shoulder inj-last 02/12/24 Intake Note: Matilde is a 63 year old female who presents today for a right shoulder injection. Patient reports last injection on 02/12/24 provided her with relief for about 3 months Allergies No Known Allergies Allergy (Verified 06/26/24 09:34) Medication List - Last Reconciled 06/26/24 by Estefani Mendoza PA-C acetaminophen 650 mg PO Q4H PRN albuterol sulfate 90 mcg/actuation 2 puffs inhalation Q4-6H PRN 30 days apixaban (Eliquis) 5 mg PO BID 90 days benzonatate 100 mg PO TID PRN betamethasone dipropionate 0.05% 1 appl topical DAILY 30 days digoxin 125 mcg PO DAILY incontinence pad, liner, disp As directed, 90 days levothyroxine 100 mcg PO DAILY lorazepam 1 mg PO BEDTIME PRN 30 days metoprolol tartrate 25 mg PO BID 90 days omeprazole 20 mg PO DAILY quetiapine 50 mg PO BEDTIME 30 days ropinirole 5 mg PO DAILY 90 days rosuvastatin 20 mg PO DAILY sertraline 50 mg (1/2 x 100 mg) PO DAILY 30 days umeclidinium-vilanterol 62.5-25 mcg/actuation (Anoro Ellipta) 1 inh inhalation DAILY 30 days valacyclovir 500 mg PO DAILY PRN 30 days HPI HPI Inj-Right shoulder inj-last 02/12/24: Details: 63-year-old female returns to the office today for follow-up right shoulder pain. Last injection was January of 2024. She states she had good relief lasting approximately 3 months. She was able to perform most activities without discomfort. She states over the last several weeks her pain has returned and she has been significantly limited with activity. [facility] Medical History COPD (chronic obstructive pulmonary disease) Postoperative hypothyroidism Vitamin D deficiency DARIUSZ (obstructive sleep apnea) On anticoagulant therapy On beta sabine at home History of cardioversion Hypothyroid Pelvic fracture Alcohol abuse PAF (paroxysmal atrial fibrillation) GERD (gastroesophageal reflux disease) Depression HLD (hyperlipidemia) History of COPD Graves disease Surgical History History of thyroidectomy (08/20/22) H/O foot surgery History of carotid endarterectomy History of salpingectomy Hx of rotator cuff surgery History of surgery on right wrist Hx of colonoscopy History of back surgery History of ankle surgery Family History Father CVD (cardiovascular disease) Hypertension Mother CVA (cerebral vascular accident) Paternal Grandmother Breast cancer Maternal Grandfather Mental health disorder Other Substance abuse in family Social History Housing: House Are you a primary social worker palliative care to a significant other at home: No Do you presently have visiting nurse or other home services: No Alcohol intake: former Patient Tobacco Use Status: Former Tobacco user Tobacco use type: Cigarette e-Cigarette/Vaping Use: Never Used Second Hand Smoke Exposure: No Substance Use Type: Marijuana Advance Directives Date on File: 04/03/17 service: No Current occupational status: employed 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 Tenderness over the bicipital groove and along the deltoid region of the shoulder. Forward flexion to 175, external rotation to 90, internal rotation to S1. 5/5 RTC strength. Negative Person and cross body abduction. NVI. Office Procedures AMB Joint Injection/Aspiration Joint Injection/Aspiration Primary Site: right shoulder Prep: site was prepped using aseptic technique, ethochloride spray was applied and injection warnings given Injected: 80 mg of, DepoMedrol, with 8 mL of, 1% plain lidocaine and in the subcromial space Approach Used: posterolateral Procedure: The patient tolerated the procedure well and there was some relief with the local anesthesia Coding 65743 - Glenohumeral/Tronchanteric Bursa/Intraarticular Procedure code (CPT) selection complete Assessment & Plan Assessment & Plan (1) Arthritis of shoulder region, right, degenerative: Code(s): M19.011 - Primary osteoarthritis, right shoulder Category: Medical Qualifiers: Osteoarthritis type: primary Qualified Code(s): M19.011 - Primary osteoarthritis, right shoulder (2) Impingement syndrome of right shoulder: Code(s): M75.41 - Impingement syndrome of right shoulder Category: Medical Plan We discussed options today, which include steroid injection. The patient did consent to move forward with the right shoulder injection, which was tolerated well. I recommended rest, ice, and elevation and OTC anti-inflammatories as needed for discomfort. If symptoms persist or worsen over the next 6-8 weeks, patient will contact the office, otherwise follow-up as needed. ? Medications: Changed From benzonatate 100 mg PO TID 90 caps 0RF J06.9 - Acute upper respiratory infection, unspecified, R05.1 - Acute cough To benzonatate 100 mg PO TID PRN J06.9 - Acute upper respiratory infection, unspecified, R05.1 - Acute cough Coding Level of Care Code Est Pt Level 3 (77317) Complex EM visit Add On G2211 Diagnoses Primary osteoarthritis of right shoulder M19.011 Osteoarthritis type: primary Impingement syndrome of right shoulder M75.41 CPT Codes Coding - Joint 7: 79627 - Glenohumeral/Tronchanteric Bursa/Intraarticular ([id number])
== END 2024-06-26 09:47 | disposition home or self-care (01) ==
PROVIDERS: PCP Family Medicine; Visit Provider Physician Assistant
DX: M19.011 Primary osteoarthritis, right shoulder (principal); M75.41 Impingement syndrome of right shoulder
CPT/HCPCS: 20610; 99213

== ENCOUNTER → 2024-06-26 09:22 | Outpatient (BNVA) | payer MEDICARE, MEDICAID, SELFPAY | PROVIDERS: PCP Family Medicine; Visit Provider Physician Assistant | DX: M19.011 Primary osteoarthritis, right shoulder (principal); M75.41 Impingement syndrome of right shoulder | CPT/HCPCS: 20610; 99212; J1010; J2003 ==

== ENCOUNTER 2024-07-14 13:02 | Outpatient (AMB) | payer MEDICARE, SELFPAY ==
--- NOTE | 2024-07-14 13:21 | MHC.OFFVIS ---
Vital Signs 07/14/24 13:22 Height 6 ft Weight 294 lb BMI 39.9 Intake Visit Reasons: 1 yr follow up s/p Carotid US 05/21/24 Intake Note: 1 yr follow up carotid US 05/21/25 w/ hx of Right CEA 11/16/16. Accompanied by: Self / Same As Patient Allergies No Known Allergies Allergy (Verified 07/14/24 13:26) HPI HPI 1 yr follow up s/p Carotid US 05/21/24: Details: Matilde is presenting today for 1 year follow up for carotid ultrasound. She states she has been feeling good and has been asymptomatic. She denies any concerns for stroke/TIA. She states she continues on Eliquis for AFib. [facility] Medical History COPD (chronic obstructive pulmonary disease) Postoperative hypothyroidism Vitamin D deficiency DARIUSZ (obstructive sleep apnea) On anticoagulant therapy On beta sabine at home History of cardioversion Hypothyroid Pelvic fracture Alcohol abuse PAF (paroxysmal atrial fibrillation) GERD (gastroesophageal reflux disease) Depression HLD (hyperlipidemia) History of COPD Graves disease Surgical History History of thyroidectomy (08/20/22) H/O foot surgery History of carotid endarterectomy History of salpingectomy Hx of rotator cuff surgery History of surgery on right wrist Hx of colonoscopy History of back surgery History of ankle surgery Family History Father CVD (cardiovascular disease) Hypertension Mother CVA (cerebral vascular accident) Paternal Grandmother Breast cancer Maternal Grandfather Mental health disorder Other Substance abuse in family Social History Housing: House Are you a primary school childcare attendant to a significant other at home: No Do you presently have visiting nurse or other home services: No Alcohol intake: former Patient Tobacco Use Status: Former Tobacco user Tobacco use type: Cigarette e-Cigarette/Vaping Use: Never Used Second Hand Smoke Exposure: No Substance Use Type: Marijuana Advance Directives Date on File: 04/03/17 service: No Current occupational status: employed 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 Current occupational exposures/hazards: No Cognitive needs: No Hearing needs: No Vision needs: No Female Reproductive History Menstrual Age of Menarche: 11 Review of Systems Const Reports as per HPI and Denies weakness ENT Reports Normal hearing present and Denies dizziness Card Reports as per HPI, Denies chest pain, Denies chest pain at rest, Denies chest pain with activity, Denies dyspnea and Denies dyspnea on exertion Resp Reports as per HPI, Denies cough, Denies dyspnea and Denies dyspnea on exertion GI Reports as per HPI, Denies abdominal pain, Denies nausea and Denies vomiting Musc Denies numbness Skin/Breast Reports as per HPI, Denies erythema and Denies wounds Neuro Reports Normal hearing present, Denies dizziness, Denies numbness, Denies Sensory deficit (Neuro) and Denies weakness Psych Reports no additional complaints Endo Reports no additional complaints Physical Exam Vital Signs: BMI result Body Mass Index 39.9 Const General: healthy appearing and no acute distress Orientation/consciousness: patient oriented x3 HEENT Head: Yes normal to inspection Ears: hearing grossly normal bilaterally Mouth: Normal oral and palatal mucosa present Resp Effort & Inspection: normal respiratory effort and able to speak in complete sentences Auscultation: clear to auscultation bilaterally Cardio Jugular venous distension: no JVD Rate: regular rate Rhythm: regular rhythm Heart sounds: S1 normal heart sound present and S2 normal heart sound present Bruits: no abdominal aortic bruits, no carotid bruits, no femoral bruits and no renal bruits Peripheral pulses: Peripheral pulses 2+ throughout GI Inspection: Yes normal to inspection Palpation (GI): No Abdominal aortic bruit present Skin General skin exam: no rashes or lesions noted Wounds: no wounds Hair: normal Neuro General: patient oriented x3 Cranial nerves: Yes Normal hearing present Cognition (Neuro): normal cognition Gait exam (Neuro): Normal gait present Motor exam (neuro): 5/5 motor strength present throughout Sensory Exam: No Sensory deficit (Neuro) Extrem General: Yes normal to inspection, Yes full ROM, Yes capillary refill normal and Yes normal gait Results Reviewed Results Reviewed: Bilateral arterial duplex ultrasound of the carotids: 1. RIGHT: Normal right internal carotid artery without atherosclerotic plaque or hemodynamically significant stenosis. 2. LEFT: Minimal, non-hemodynamically significant stenosis of the proximal left internal carotid artery corresponding to a 0-49% stenosis by velocity criteria. 3. There is no change in the category severity of disease when compared to the previous study dated 05/20/2023. Assessment & Plan Assessment & Plan (1) Bilateral carotid artery stenosis: Comment: 11/16/2016 - right carotid endarterectomy Code(s): I65.23 - Occlusion and stenosis of bilateral carotid arteries Category: Medical Plan: Matilde is presenting today for her 1 year follow up for carotid stenosis surveillance. She recently had a duplex ultrasound on 05/21/2024, which revealed no changes from the previous years study. She continues to remain asymptomatic. We did discuss the signs and symptoms of a stroke/TIA. We discussed the importance of a well-balanced diet and continuing with her current medications to control blood pressure and hyperlipidemia. We will have her follow up in 1 year for carotid artery surveillance with duplex imaging. There are any changes or concerns were some signs and symptoms of a TIA or CVA, she should reach out to our office sooner. Thank you for allowing us to participate in the patient's care. There are any questions or concerns, please do not hesitate to reach out to us. Orders: Orders US carotid duplex BI 1 Year I65.23 - Occlusion and stenosis of bilateral carotid arteries Coding Level of Care Code Est Pt Level 4 (46028) Diagnoses Bilateral carotid artery stenosis I65.23 Comment Review of carotid artery ultrasound
[2024-07-14 13:22] VITALS: BMI 39.9
--- OUTSIDE RECORDS SUMMARY | 2024-07-14 14:00 | XMS_ITS | Clinical Summary ---
Author Organization [facility] Address [address] [place] [address] Care Team Providers Care Concrete Batcher Name Role Phone Unavailable Primary Care Provider Unavailabl e Source Comments PLEASE NOTE, if this patient is a minor, it may be UNLAWFUL to discuss sensitive information that is contained in these records (such as FAMILY PLANNING, MENTAL HEALTH or SUBSTANCE ABUSE) with the minor patient's parent or other person without the patient's specific authorization.[facility] Social History Tobacco Use Types Packs/Day Years Used Date Smoking Tobacco: Never Assessed Social Connections Answer Date Recorded Social Connections and Isolation 0 09/23/2020 Financial Resource Strain Answer Date R ecorded Financial Resource Strain 0 2020 Stress Answer Date Recorded Stress 0 09/23/2020 Physical Activity Answer Date Recorded Physical Activity 0 09/23/2020 Food Insecurity Answer Date Recorded Food 0 09/23/2020 Transportation Needs Answer Date Record ed Transportation 0 09/23/2020 Housing Stability Answer Date Recorded Housing 0 09/23/2020 Safety and Environment Answer Date James rded Safety 0 09/23/2020 Utilities Answer Date Recorded Utilities 0 09/23/2020 Employment Answer Date Recorded Employment 0 09/23/2020 Comments Unknown Sex and Gender Information Value Date Recorded Sex Assigned at Not on file Legal Sex Female 10:16 AM PDT Gender Identity Not on file Sexual Orientation Not on file Plan of Treatment Not on file Insurance [place] [facility] D[facility]
--- OUTSIDE RECORDS SUMMARY | 2024-07-14 14:00 | XMS_ITS | Clinical Summary ---
Author Organization [facility] Facility Address [address] [address] Care Team Providers Care Laborer [employer] Name Role Phone Mil Hadley MD Primary Care Provider [phone] Allergies No known active allergies Medications Eliquis 5 MG tablet Take 5 mg by mouth 2 (two) times a day 11/06/2022 Active digoxin (LANOXIN) 125 MCG tablet Take 125 mcg by mouth 1 (one) time each day 11/01/2022 Active doxycycline (VIBRA-TABS) 100 MG tablet TAKE ONE TABLET BY MOUTH TWICE A DAY FOR 14 DAYS 09/27/2022 Active levothyroxine (SYNTHROID, LEVOTHROID) 137 MCG tablet Take 137 mcg by mouth 1 (one) time each day 11/10/2022 Active metoprolol tartrate (LOPRESSOR) 50 MG tablet Take 50 mg by mouth in the morning and 50 mg in the evening. 11/10/2022 Active omeprazole (PriLOSEC) [address] capsule TAKE ONE CAPSULE BY MOUTH ONCE DAILY 10/27/2022 Active oxyCODONE (ROXICODONE) 5 MG immediate release tablet TAKE ONE TABLET BY MOUTH EVERY 8 HOURS NEEDED FOR PAIN 09/25/2022 Active QUEtiapine (SEROquel) 50 MG tablet Take 50 mg by mouth at bed time 11/03/2022 Active rOPINIRole (REQUIP) 5 MG tablet 11/18/2022 Active rosuvastatin (CRESTOR) 20 MG tablet Take 20 mg by mouth 1 (one) time each day 10/27/2022 Active sertraline (ZOLOFT) 100 MG tablet Take 50 mg by mouth 1 (one) time each day 11/08/2022 Active LORazepam (ATIVAN) 0.5 MG tablet Take 0.5 mg by mouth every 6 (six) hours if needed for anxiety Active docusate sodium (COLACE) 100 MG capsule Take 100 mg by mouth 08/20/2022 Active valACYclovir (VALTREX) 500 MG tablet TAKE ONE TABLET BY MOUTH ONCE DAILY NEEDED FOR COLD SORES 07/27/2022 Active cyclobenzaprine (FLEXERIL) 10 MG tablet Take 10 mg by mouth 3 (three) times a day if needed for muscle spasms Active furosemide (LASIX) 20 MG tablet Take 20 mg by mouth in the morning and 20 mg in the evening. Active Active Problems Problem Noted Date Diagnosed Date Hyperkalemia 03/21/2023 Chronic obstructive pulmonary disease 01/31/2023 01/31/2023 Hyperlipidemia 01/31/2023 01/31/2023 Hypertension 01/31/2023 01/31/2023 Smoker 01/31/2023 01/31/2023 Resolved Problems Problem Noted Date Diagnosed Date Resolved Date Alcohol abuse 01/31/2023 01/31/2023 01/31/2023 Back pain 01/31/2023 01/31/2023 01/31/2023 Immunizations Name Administration Dates Next Due Moderna SARS-COV-2 05/23/2021,11/04/2020, 021 Social History Tobacco Use Types Packs/Day Years Used Date Smoking Tobacco: Former Cigarettes Smokeless Tobacco: Never Tobacco Cessation:Counseling Given: Not Answered Alcohol Use Standard Drinks/Week Comments Not Currently 0 (1 standard drink = 0.6 oz pur e alcohol) Comments Unknown Sex and Gender Information Value Date Recorded Sex Assigned at Not on file Legal Sex Female 10:31 AM EDT Gender Identity Not on file Sexual Orientation Not on file Last Filed Vital Signs Vital Sign Reading Time Taken Comments Blood Pressure 98/60 03/21/2023 3:24 PM EDT Pulse 59 03/21/2023 3:24 PM EDT Temperature - - Respiratory Rate - - Oxygen Saturation 97% 03/21/2023 3:24 PM EDT Inhaled Oxygen Concentration - - Weight - - Height - - Body Mass Index - - Plan of Treatment Health Maintenance Due Date Last Done Comments Breast Cancer Screening 1959 Pneumococcal Vaccine: 65+ Ye ars (1 of 2 - PCV) 1965 Pneumococcal Vaccine: Pediat rics (0 to 5 Years) and At-Risk Patients (6 to 64 Years) (1 of 2 - PCV) 1965 Colorectal Cancer Screening: Annual FOBT 2008 Colorectal Cancer Screening: Colonoscopy 2008 Colorectal Cancer Screening: Sigmoidoscopy 2008 Influenza Vaccine (#1) 2024 Hepatitis B Vaccine Aged Out No longe r eligible based on patient's age to complete this topic Insurance [facility] Care Teams Laborer [employer] Relationship Specialty Start Date End Date Mil Hadley MD [address] [address] PCP - General Family Medicine 04/17/22
== END 2024-07-14 13:49 | disposition home or self-care (01) ==
PROVIDERS: PCP Family Medicine; Visit Provider Physician Assistant Surgical
DX: I65.23 Occlusion and stenosis of bilateral carotid arteries (principal)
CPT/HCPCS: 99214

== ENCOUNTER → 2024-07-14 13:02 | Outpatient (BNVA) | payer MEDICARE, SELFPAY | PROVIDERS: PCP Family Medicine; Visit Provider Surgery Vascular Surgery | DX: I65.23 Occlusion and stenosis of bilateral carotid arteries (principal); I48.91 Unspecified atrial fibrillation; Z79.01 Long term (current) use of anticoagulants | CPT/HCPCS: 99212 ==

== ENCOUNTER 2024-07-20 10:15 | Outpatient (AMB) | payer MEDICARE, MEDICAID, SELFPAY ==
[2024-07-20 10:23] VITALS: BP 102/70; PULSE 74; O2SAT 99; BMI 31.7
--- NOTE | 2024-07-20 10:23 | MHC.OFFVIS ---
Vital Signs 07/20/24 10:23 Height 6 ft Weight 233 lb 11.04 oz BMI 31.7 BP 102/70 Blood Pressure Location Lt brachial Position Sitting Pulse 74 Pulse Source Pulse Oximeter Pulse Oximetry (%) 99 Oxygen Delivery Method Room Air Intake Visit Reasons: COPD Intake Note: pt is here for follow up and states she has short of breath with any exertion, parking lot to door, had to stop to catch breath. pt would like to try F40. [employer] is supplier. pt needs refills on Anoro and albuterol HFA. Allergies No Known Allergies Allergy (Verified 07/20/24 10:45) Medication List - Last Reconciled 07/20/24 by Avery Alonso MD acetaminophen 650 mg PO Q4H PRN albuterol sulfate 90 mcg/actuation 2 puffs inhalation Q4-6H PRN 30 days apixaban (Eliquis) 5 mg PO BID 90 days benzonatate 100 mg PO TID PRN betamethasone dipropionate 0.05% 1 appl topical DAILY 30 days digoxin 125 mcg PO DAILY incontinence pad, liner, disp As directed, 90 days levothyroxine 100 mcg PO DAILY lorazepam 1 mg PO BEDTIME PRN 30 days metoprolol tartrate 25 mg PO BID 90 days omeprazole 20 mg PO DAILY quetiapine 50 mg PO BEDTIME 30 days ropinirole 5 mg PO DAILY 90 days rosuvastatin 20 mg PO DAILY sertraline 50 mg (1/2 x 100 mg) PO DAILY 30 days umeclidinium-vilanterol 62.5-25 mcg/actuation (Anoro Ellipta) 1 inh inhalation DAILY 30 days valacyclovir 500 mg PO DAILY PRN 30 days Do you need a note to return to daycare/school/sports/work: No HPI HPI COPD: Details: This 64 years old female is coming for follow-up after more than a year. She has chronic obstructive pulmonary disease, which has remained under good control. But she does get short of breath on walking a few blocks. For example coming from the parking lot to our office she had to stop once because of shortness of breath. When at rest she has no cough or wheezing. She does use Anoro Ellipta once a day and uses albuterol inhaler only once in a while. Her other problem is moderate obesity and obstructive sleep apnea, diagnosed since 2021. She has been using CPAP. Regularly and benefiting However since November of last year she did not have the proper mask and her usage of the CPAP has been somewhat sporadic. She has come here to get an order for the appropriate fullface mask. [facility] Medical History COPD (chronic obstructive pulmonary disease) Postoperative hypothyroidism Vitamin D deficiency DARIUSZ (obstructive sleep apnea) On anticoagulant therapy On beta sabine at home History of cardioversion Hypothyroid Pelvic fracture Alcohol abuse PAF (paroxysmal atrial fibrillation) GERD (gastroesophageal reflux disease) Depression HLD (hyperlipidemia) History of COPD Graves disease Surgical History History of thyroidectomy (08/20/22) H/O foot surgery History of carotid endarterectomy History of salpingectomy Hx of rotator cuff surgery History of surgery on right wrist Hx of colonoscopy History of back surgery History of ankle surgery Family History Father CVD (cardiovascular disease) Hypertension Mother CVA (cerebral vascular accident) Paternal Grandmother Breast cancer Maternal Grandfather Mental health disorder Other Substance abuse in family Social History Housing: House Are you a primary health care legal assistant to a significant other at home: No Do you presently have visiting nurse or other home services: No Alcohol intake: former Patient Tobacco Use Status: Former Tobacco user Tobacco use type: Cigarette e-Cigarette/Vaping Use: Never Used Second Hand Smoke Exposure: No Substance Use Type: Marijuana Advance Directives Date on File: 04/03/17 service: No Current occupational status: employed 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 Current occupational exposures/hazards: No Cognitive needs: No Hearing needs: No Vision needs: No Female Reproductive History Menstrual Age of Menarche: 11 Review of Systems Const All systems reviewed & are unremarkable except as noted in HPI and below Eyes Reports no additional complaints ENT Reports no additional complaints Card Denies chest pain at rest, Reports irregular heart rhythm and Denies leg edema Resp Reports no additional complaints GI Reports heartburn (BEING TREATED WITH OMEPRAZOLE) Reports no additional complaints Musc Reports no additional complaints Skin/Breast Reports system reviewed and no additional complaints, except as documented Neuro Reports no additional complaints Psych Reports anxiety and Reports depression Endo Reports no additional complaints Nabil/Lymph Reports no additional complaints Aller/Immun Reports no additional complaints Physical Exam Vital Signs: Last Vital Signs Pulse 74 07/20/24 10:23 BP 102/70 07/20/24 10:23 Pulse Ox 99 07/20/24 10:23 Oxygen Delivery Method Room Air 07/20/24 10:23 BMI result Body Mass Index 31.7 Const General: healthy appearing, comfortable, no acute distress, alert and awake Orientation/consciousness: patient oriented x3 HEENT Other: PATIENT DOES HAVE PROMINENT RETROGANTHIA OF THE LOWER JAW. MALLAMPATI SCALE 3 Head: Yes normal to inspection General nose exam: No nasal polyps present and No nasal discharge present Face and sinus: Yes sinuses nontender Mouth: oropharynx normal Teeth and gingiva: other (RETROGANTHIA OF LOWER JAW) Throat: Yes posterior oropharynx normal Eyes General: appearance normal, both eyes and all related structures Neck Neck: Yes normal visual inspection, Yes no lymphadenopathy, Yes trachea midline and Yes no JVD Thyroid: Thyroid normal Chest Chest palpation & inspection: normal inspection of the chest, normal palpation of entire chest wall and no tenderness Resp Other: PERCUSSION NOTE IS RESONANT, BREATH SOUNDS ARE MODERATELY DISTANT WITH PROLONGED EXPIRATORY PHASE. SHE HAS NO AUDIBLE WHEEZES RHONCHI OR CREPITATIONS . Cardio Palpation: normal PMI Rate: regular rate Rhythm: regular rhythm Heart sounds: Gallop heart sound present and Murmur heart sound present Peripheral pulses: Peripheral pulses 2+ throughout GI Palpation (GI): Soft to palpation, nontender, No hepatosplenomegaly present and no masses Auscultation: normal bowel sounds Back/Spine/Pelvis Thoracic/Lumbar Spine: thoracic and lumbar spine normal to inspection Skin General skin exam: no rashes or lesions noted Neuro General: patient oriented x3 and no focal motor deficits Cranial nerves: Yes CN's II-XII intact bilaterally Extrem General: Yes normal to inspection, Yes no clubbing, cyanosis or edema and Yes no calf tenderness Psych Appearance: grossly normal and well kempt Speech and movement: Normal speech and movement present Results Reviewed Results Reviewed: COMPLIANCE REPORT REVIEWED AND IT SHOWS THAT SHE HAS NOT USED HER CPAP REGULARLY SINCE AFTER JULY 2023. Assessment & Plan Assessment & Plan (1) COPD (chronic obstructive pulmonary disease): Comment: SHE DOES HAVE MILD TO MODERATE DEGREE OF COPD. FEELS BETTER WITH USING ANORO ELLIPTA ONCE A DAY. ALSO NEEDS TO USE ALBUTEROL ONCE IN A WHILE. Code(s): J44.9 - Chronic obstructive pulmonary disease, unspecified Category: Medical Plan: CONTINUE USING ANORO ELLIPTA 1 INHALATION DAILY ALBUTEROL HFA 2 PUFFS Q 6 HOURS P.R.N. PRESCRIPTIONS ARE RENEWED. (2) DARIUSZ (obstructive sleep apnea): Comment: PATIENT HAS DIAGNOSIS DARIUSZ SINCE 2021, IT WAS MILD BUT SHE HAS ASSOCIATED CARDIAC DISEASE SO SHE WAS STARTED ON CPAP THERAPY, INITIALLY SHE WAS VERY COMPLIANT AND BENEFITING FROM THE USE OF CPAP. SINCE NOVEMBER OF 2023 SHE HAS NOT BEEN USING THE CPAP REGULARLY SHE DID NOT HAVE PROPERLY FITTING FULLFACE MASK. SHE WANTS TO START USING THE CPAP. Code(s): G47.33 - Obstructive sleep apnea (adult) (pediatric) Category: Medical Plan: FULLFACE MASK (F 40 ) IS ORDERED. SHE IS INSTRUCTED TO START USING THE CPAP REGULARLY , EVERY NIGHT . IMPORTANCE OF CONTINUED USE AND GOOD COMPLIANCE IS EXPLAINED. Coding Level of Care Code Est Pt Level 3 (48290) Diagnoses COPD (chronic obstructive pulmonary disease) J44.9 DARIUSZ (obstructive sleep apnea) G47.33
--- OUTSIDE RECORDS SUMMARY | 2024-07-20 10:58 | XMS_ITS | Clinical Summary ---
Author Organization [facility] Facility Address [address] [address] Care Team Providers Care Mild Disabilities Teacher Name Role Phone Mil Hadley MD Primary Care Provider Allergies No known active allergies Medications Eliquis [...] patient's age to complete this topic Insurance [facility] Care Teams Mild Disabilities Teacher Relationship Specialty Start Date End Date Mil Hadley MD [address] [address] PCP - General Family Medicine 04/17/22
--- OUTSIDE RECORDS SUMMARY | 2024-07-20 10:58 | XMS_ITS | Clinical Summary ---
Author Organization [facility] Address [address] [place] [address] Care Team Providers Care Cross Enterprise Integrator Name Role Phone Unavailable Primary Care Provider [...] Plan of Treatment Not on file Insurance [place] MED[place]ENT[place] [facility] D[facility]
== END 2024-07-20 10:45 | disposition home or self-care (01) ==
PROVIDERS: PCP Family Medicine; Visit Provider Internal Medicine
DX: J44.9 Chronic obstructive pulmonary disease, unspecified (principal); G47.33 Obstructive sleep apnea (adult) (pediatric)
CPT/HCPCS: 99213

== ENCOUNTER → 2024-07-20 10:15 | Outpatient (BNVA) | payer MEDICARE, MEDICAID, SELFPAY | PROVIDERS: PCP Family Medicine; Visit Provider Internal Medicine | DX: J44.9 Chronic obstructive pulmonary disease, unspecified (principal); G47.33 Obstructive sleep apnea (adult) (pediatric) | CPT/HCPCS: 99212 ==

== ENCOUNTER 2024-09-29 15:35 | Outpatient (REF) | payer MEDICARE, MEDICAID, SELFPAY ==
--- NOTE | ~2024-09-29 | CT_ITS ---
CLINICAL HISTORY: Z87.891 - Personal history of nicotine dependence Examination CT lung cancer screening History Screening examination performed for pulmonary nodules Technique Axial CT images of the chest using low-dose technique. Effective radiation dose total: 75.3 mGy-cm, CTDIvol 2 mGy. Referring provider counseled the patient on shared decision-making for LDCT screening. Additional counseling was provided on smoking cessation. Comparison: CT/REG/VT/SR - CT LUNG SCREENING - 09/19/23 09:06 EDT Findings: Lungs: Stable solid pulmonary nodules measure up to 3 mm (series 4, image 56, left upper lobe). 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 ##L2# Category 1: Normal; continue annual screening Category 2: Benign appearance or behavior, continue annual screening Category 3: Probably benign, [address] recommended Category 4A: Suspicious, [address] recommended; may consider PET/CT Category 4B: Suspicious, Additional diagnostics and/or tissue sampling recommended Category 4X: Suspicious, Additional diagnostics and/or tissue sampling recommended Category 0: Recalls (incomplete screen due to Incomplete coverage, Noise, Respiratory motion, Expiration, Obscured by acute abnormality) This document has been electronically signed by: Shannon Hudson MD on 10/01/2024 14:09:11
--- OUTSIDE RECORDS SUMMARY | 2024-09-29 18:41 | XMS_ITS | Clinical Summary ---
Author Organization [facility] Facility Address [address] [address] Care Team Providers Care Construction Technology Instructor Name Role Phone Mil Hadley MD Primary Care Provider [phone] Allergies No known active allergies Medications Eliquis [...] 01/31/2023 Back pain 01/31/2023 01/31/2023 01/31/2023 Immunizations Immunization Administration Dates Next Due Moderna SARS-COV-2 05/23/2021,11/04/2020, [...] Comments Breast Cancer Screening 1959 Pneumococcal Vaccine: 50+ Ye ars (1 of 2 - PCV) 1978 Colorectal Cancer Screening: Annual FOBT 2008 Colorectal Cancer Screening: Colonoscopy 2008 Colorectal Cancer Screening: Sigmoidoscopy 2008 Influenza Vaccine (Season Ended) 2025 Hepatitis B Vaccine Aged Out No longe r eligible based on patient's age to complete this topic Insurance [facility] Care Teams Construction Technology Instructor Relationship Specialty Start Date End Date Mil Hadley MD 10 [facility] [address] [place] [id number] PCP - General Family Medicine 04/17/22
--- OUTSIDE RECORDS SUMMARY | 2024-09-29 18:41 | XMS_ITS | Clinical Summary ---
Author Organization [facility] Address [address] [place] [address] Care Team Providers Care Search Engineer Name Role Phone Unavailable Primary Care Provider [...] Plan of Treatment Not on file Insurance [place] [facility] DENTAL
== END 2024-09-29 15:36 | disposition home or self-care (01) ==
LOC: HO.CT 15:35
PROVIDERS: PCP Family Medicine; Visit Provider Physician Assistant Medical
DX: Z12.2 Encounter for screening for malignant neoplasm of respiratory organs (principal); Z87.891 Personal history of nicotine dependence
CPT/HCPCS: 71271

== ENCOUNTER → 2024-09-29 15:38 | Outpatient (BNV) | payer MEDICARE, MEDICAID, SELFPAY | PROVIDERS: PCP Family Medicine; Visit Provider Radiology Diagnostic Radiology | DX: Z87.891 Personal history of nicotine dependence (principal) | CPT/HCPCS: 71271 ==

== ENCOUNTER 2024-10-21 08:24 | Outpatient (AMB) | payer MEDICARE, MEDICAID, SELFPAY ==
--- OUTSIDE RECORDS SUMMARY | 2024-10-21 08:35 | XMS_ITS | Clinical Summary ---
Author Organization [facility] Facility Address [address] [address] Care Team Providers Care Poultry Feed Supervisor Name Role Phone Mil Hadley MD Primary Care Provider [phone] Allergies No known active allergies Medications Eliquis [...] patient's age to complete this topic Insurance [facility] Care Teams Poultry Feed Supervisor Relationship Specialty Start Date End Date Mil Hadley MD 10 [facility] [address] [place] [id number] PCP - General Family Medicine 04/17/22
--- OUTSIDE RECORDS SUMMARY | 2024-10-21 08:35 | XMS_ITS | Clinical Summary ---
Author Organization [facility] Address [address] [place] [address] Care Team Providers Care Spotter Name Role Phone Unavailable Primary Care Provider [...] Plan of Treatment Not on file [place] [facility] DENTAL
[2024-10-21 09:18] VITALS: BP 110/80; BMI 31.7
--- NOTE | 2024-10-21 09:18 | MHC.OFFVIS ---
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 No complaints. Last Pap/HPV was negative in 10/08 Last Mammogram was BI-RADS 1 03/10 Last Colonoscopy was in 02/07, the recommendation was to repeat in 10 years No previous screening DEXA scan [facility] Medical History Depression with anxiety Tubular adenoma of colon History of Graves' disease Osteopenia Personal history of nicotine dependence COPD (chronic obstructive pulmonary disease) Vitamin D deficiency DARIUSZ (obstructive sleep apnea) On anticoagulant therapy On beta sabine at home History of cardioversion Hypothyroid (~2022) Pelvic fracture Alcohol abuse PAF (paroxysmal atrial fibrillation) GERD (gastroesophageal reflux disease) HLD (hyperlipidemia) History of COPD Surgical History History of colonoscopy History of thyroidectomy (08/20/22) H/O foot surgery History of carotid endarterectomy History of salpingectomy Hx of rotator cuff surgery History of surgery on right wrist History of back surgery History of ankle surgery Family History Father CVD (cardiovascular disease) Hypertension Mother CVA (cerebral vascular accident) Paternal Grandmother Breast cancer Maternal Grandfather Mental health disorder Other Substance abuse in family Social History Housing: House Are you a primary care mgr to a significant other at home: No Do you presently have visiting nurse or other home services: No Alcohol intake: former Patient Tobacco Use Status: Former Tobacco user Tobacco use type: Cigarette e-Cigarette/Vaping Use: Never Used Second Hand Smoke Exposure: No Substance Use Type: Marijuana Advance Directives Date on File: 04/03/17 service: No Current occupational status: employed 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 Current occupational exposures/hazards: No Cognitive needs: No Hearing needs: No Vision needs: No Female Reproductive History Menstrual Age of Menarche: 11 Date of last pap smear: 10/01/23 Date of Mammogram: 02/19/24 Review of Systems Const All systems reviewed & are unremarkable except as noted in HPI and below Card Reports as per HPI Resp Reports as per HPI GI Reports as per HPI and Reports no additional complaints Reports as per HPI Physical Exam Vital Signs: Last Vital Signs BP 110/80 10/21/24 09:18 BMI result Body Mass Index 31.7 Const General: cooperative, healthy appearing and comfortable Chest Chest palpation & inspection: normal inspection of the chest and normal palpation of entire chest wall Breast/axilla inspection: normal inspection of the breasts and normal inspection of the axillae Breast/axilla palpation: normal palpation of the breasts, normal palpation of the axillae and no axillary lymphadenopathy Resp Effort & Inspection: normal respiratory effort Auscultation: clear to auscultation bilaterally Percussion: percussion normal Cardio Palpation: normal PMI Rate: regular rate Rhythm: regular rhythm Heart sounds: no murmurs and no rubs Peripheral pulses: Peripheral pulses 2+ throughout GI Inspection: Yes normal to inspection Palpation (GI): Soft to palpation, nontender, no guarding, not rigid and No hepatosplenomegaly present Percussion: Yes normal to percussion Auscultation: normal bowel sounds Rectal Exam - Female: deferred General: Yes bladder normal to palpation External Female Exam: No lesion Speculum Exam - Vagina: normal appearance of the vagina, normal palpation, normal vaginal discharge and not erythematous Speculum Exam - Cervix: normal appearance of the cervix and normal palpation Bimanual exam- vagina & uterus: normal bimanual exam, normal palpation, uterine size normal, bladder normal to palpation, consistency normal and normal palpation Bimanual Exam- Adnexa, other: normal adnexae, no masses and no tenderness Assessment & Plan Assessment & Plan (1) Well woman exam: Code(s): Z01.419 - Encounter for gynecological examination (general) (routine) without abnormal findings Category: Medical Plan: Co testing not indicated this year Counseled the patient about the recommended dietary allowance of 1200 mg of Calcium & 800 IU of vitamin D. Instructions given the patient to schedule next screening Mammogram in 03/11. Will order DEXA scan . The patient was instructed to perform monthly self-breast exams and to schedule a 2 week DEXA scan follow-up appointment and an annual exam in a year; All questions answered and the patient verbalized understanding. Orders: Orders XR DEXA axial skeleton Today Z78.0 - Asymptomatic menopausal state Coding Level of Care Code Est Pt Prev Care >65y(658[address]) Diagnoses Well woman exam Z01.419
== END 2024-10-21 09:37 | disposition home or self-care (01) ==
LOC: HO.HWS 08:24
PROVIDERS: PCP Family Medicine; Visit Provider Obstetrics & Gynecology
DX: Z01.419 Encounter for gynecological examination (general) (routine) without abnormal findings (principal)
CPT/HCPCS: 99397

== ENCOUNTER → 2024-10-21 08:24 | Outpatient (BNVA) | payer MEDICARE, MEDICAID, SELFPAY | PROVIDERS: PCP Family Medicine; Visit Provider Obstetrics & Gynecology | DX: Z01.419 Encounter for gynecological examination (general) (routine) without abnormal findings (principal); Z78.0 Asymptomatic menopausal state | CPT/HCPCS: 99397 ==

== ENCOUNTER 2024-11-04 11:41 | Outpatient (AMB) | payer MEDICARE, MEDICAID, SELFPAY ==
--- NOTE | 2024-11-04 11:44 | A.OFFVIS_ITS ---
Vital Signs 11/04/24 11:47 Height 6 ft Weight 234 lb BMI 31.7 Intake Visit Reasons: OV- RT shoulder pain, last injection 06/26/24 Intake Note: Matilde is a 63 year old female who presents today with complaints of right shoulder pain. Patient reports last injection on 06/26/24 provided her with relief for however she feels she torn something in her shoulder. States she was lifting herself up with her right arm when she had an increase of pain. States her pain is now radiating down her arm to her elbow and towards her collarbone. Allergies No Known Allergies Allergy (Verified 10/21/24 09:25) Medication List - Last Reconciled 11/04/24 by Estefani Mendoza PA-C acetaminophen 650 mg PO Q4H PRN albuterol sulfate 90 mcg/actuation 2 puffs inhalation Q4-6H PRN 30 days apixaban (Eliquis) 5 mg PO BID 90 days benzonatate 100 mg PO TID PRN betamethasone dipropionate 0.05% 1 appl topical DAILY 30 days digoxin 125 mcg PO DAILY incontinence pad, liner, disp As directed, 90 days levothyroxine 100 mcg PO DAILY 90 days lorazepam 1 mg PO BEDTIME PRN 30 days metoprolol tartrate 25 mg PO BID 90 days omeprazole 20 mg PO DAILY quetiapine 50 mg PO BEDTIME 30 days ropinirole 5 mg PO DAILY 90 days rosuvastatin 20 mg PO DAILY sertraline 50 mg (1/2 x 100 mg) PO DAILY 30 days umeclidinium-vilanterol 62.5-25 mcg/actuation (Anoro Ellipta) 1 inh inhalation DAILY 30 days umeclidinium-vilanterol 62.5-25 mcg/actuation (Anoro Ellipta) 1 inh inhalation DAILY 30 days valacyclovir 500 mg PO DAILY PRN 30 days HPI HPI OV- RT shoulder pain, last injection 06/26/24: Details: 64-year-old female returns to the office today for pain in the right shoulder. I last saw her in June of this year and gave her an injection which was helpful however few weeks ago she states she was pushing herself off of a chair in the shower when she felt this sharp pain in the shoulder. Since this incident she has had difficulty with raising the arm and reaching behind her body. She has difficulty with strength as well. PFSH Medical History Depression with anxiety Tubular adenoma of colon History of Graves' disease Osteopenia Personal history of nicotine dependence COPD (chronic obstructive pulmonary disease) Vitamin D deficiency DARIUSZ (obstructive sleep apnea) On anticoagulant therapy On beta sabine at home History of cardioversion Hypothyroid (~2022) Pelvic fracture Alcohol abuse PAF (paroxysmal atrial fibrillation) GERD (gastroesophageal reflux disease) HLD (hyperlipidemia) History of COPD Surgical History History of colonoscopy History of thyroidectomy (08/20/22) H/O foot surgery History of carotid endarterectomy History of salpingectomy Hx of rotator cuff surgery History of surgery on right wrist History of back surgery History of ankle surgery Family History Father CVD (cardiovascular disease) Hypertension Mother CVA (cerebral vascular accident) Paternal Grandmother Breast cancer Maternal Grandfather Mental health disorder Other Substance abuse in family Social History Housing: House Are you a primary hearing care professional to a significant other at home: No Do you presently have visiting nurse or other home services: No Alcohol intake: former Patient Tobacco Use Status: Former Tobacco user Tobacco use type: Cigarette e-Cigarette/Vaping Use: Never Used Second Hand Smoke Exposure: No Substance Use Type: Marijuana Advance Directives Date on File: 04/03/17 service: No Current occupational status: employed 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 Forward flexion limited to 100 degrees. Internal rotation to back pocket. She has weakness with belly press. Office Procedures AMB Joint Injection/Aspiration Joint Injection/Aspiration Primary Site: right shoulder Prep: site was prepped using aseptic technique, ethochloride spray was applied and injection warnings given Injected: 80 mg of, DepoMedrol, with 8 mL of, 1% plain lidocaine and in the subcromial space Approach Used: posterolateral Procedure: The patient tolerated the procedure well and there was some relief with the local anesthesia Coding 55666 - Glenohumeral/Tronchanteric Bursa/Intraarticular Procedure code (CPT) selection complete Assessment & Plan Assessment & Plan (1) Arthritis of shoulder region, right, degenerative: Code(s): M19.011 - Primary osteoarthritis, right shoulder Category: Medical Qualifiers: Osteoarthritis type: primary Qualified Code(s): M19.011 - Primary osteoarthritis, right shoulder (2) Impingement syndrome of right shoulder: Code(s): M75.41 - Impingement syndrome of right shoulder Category: Medical Plan We discussed options today which include an injection of the right shoulder along with an MRI. Because she is going away in the next few days she would like an injection to help with her discomfort. An MRI of the right shoulder has been ordered to further evaluate the extent of the rotator cuff given the limited function on exam. Once the scan is complete I will contact her to discuss the results. Orders: Orders MR shoulder RT wo con Today M77.8 - Other enthesopathies, not elsewhere classified Coding Level of Care Code Est Pt Level 3 (34913) Complex EM visit Add On G2211 Diagnoses Primary osteoarthritis of right shoulder M19.011 Osteoarthritis type: primary Impingement syndrome of right shoulder M75.41 CPT Codes Coding - Joint 7: 50857 - Glenohumeral/Tronchanteric Bursa/Intraarticular ([id number])
[2024-11-04 11:47] VITALS: BMI 31.7
--- OUTSIDE RECORDS SUMMARY | 2024-11-04 12:58 | XMS_ITS | Clinical Summary ---
Author Organization [facility] Facility Address [address] [address] Care Team Providers Care [employer] Hand Name Role Phone Mil Hadley MD Primary [...] patient's age to complete this topic Insurance [facility] Care Teams [employer] Hand Relationship Specialty Start Date End Date Mil Hadley MD [address] [facility] [address] [place] [id number] PCP - General Family Medicine 04/17/22
--- OUTSIDE RECORDS SUMMARY | 2024-11-04 12:58 | XMS_ITS | Clinical Summary ---
Author Organization [facility] Address [address] [place] [address] Care Team Providers Care Maintenance Supervisor Mechanical Name Role Phone Unavailable Primary Care Provider [...] Plan of Treatment Not on file Insurance [place] MEDICA[place] DENTAL [facility] DENTAL
== END 2024-11-04 12:48 | disposition home or self-care (01) ==
LOC: HO.HOS 11:42
PROVIDERS: PCP Family Medicine; Visit Provider Physician Assistant
DX: M19.011 Primary osteoarthritis, right shoulder (principal); M75.41 Impingement syndrome of right shoulder
CPT/HCPCS: 20610; 99213

== ENCOUNTER → 2024-11-04 11:41 | Outpatient (BNVA) | payer MEDICARE, MEDICAID, SELFPAY | PROVIDERS: PCP Family Medicine; Visit Provider Physician Assistant | DX: M75.41 Impingement syndrome of right shoulder (principal) | CPT/HCPCS: 20610; 99212; J1010; J2003 ==

== ENCOUNTER 2024-11-22 08:38 | Outpatient (REF) | payer MEDICARE, MEDICAID, SELFPAY ==
--- NOTE | ~2024-11-22 | MR_ITS ---
CLINICAL HISTORY: M77.8 - Other enthesopathies, not elsewhere classified MR right shoulder without gadolinium Comparison: OT - MR SHOULDER RT WO CON - 11/22/24 09:17 EDT Findings: No acute fractures. No pathologic bone lesions. Moderate periarticular osteophyte formation at the glenohumeral and acromioclavicular joints. Type II acromion. No joint effusion. Full-thickness tearing of the entire supraspinatus and infraspinatus tendons with medial retraction and atrophy. Low-grade intrasubstance and articular surface tearing of the mid and upper subscapularis tendon at the humeral insertion site extending to the musculotendinous junction. Teres minor is intact. No tears of the long head of biceps tendon. Diffuse degenerative fraying of the glenoid labrum. IMPRESSION: 1. Full-thickness tearing and atrophy of the supraspinatus and infraspinatus. 2. Low-grade tearing of the subscapularis. 3. Acromioclavicular and glenohumeral joint osteoarthritis. 4. Diffuse degenerative fraying of the glenoid labrum. This document has been electronically signed by: Butch Carrillo MD on 11/23/2024 15:27:44
== END 2024-11-22 08:39 | disposition home or self-care (01) ==
LOC: HO.MRI 08:38
PROVIDERS: PCP Family Medicine; Visit Provider Physician Assistant
DX: M77.8 Other enthesopathies, not elsewhere classified (principal)
CPT/HCPCS: 73221

== ENCOUNTER → 2024-11-22 08:48 | Outpatient (BNV) | payer MEDICARE, MEDICAID, SELFPAY | PROVIDERS: PCP Family Medicine; Visit Provider Radiology Diagnostic Radiology | DX: S43.431A Superior glenoid labrum lesion of right shoulder, initial encounter (principal); M75.121 Complete rotator cuff tear or rupture of right shoulder, not specified as traumatic; M19.011 Primary osteoarthritis, right shoulder | CPT/HCPCS: 73221 ==

== ENCOUNTER 2024-11-25 12:40 | Outpatient (REF) | payer MEDICARE, MEDICAID, SELFPAY ==
--- NOTE | ~2024-11-25 | MM_ITS ---
EXAMINATION: DXA BONE DENSITY AXIAL HISTORY: Z78.0 - Asymptomatic menopausal state TECHNIQUE: [employer] Dual energy absorptiometry (DEXA) of the lumbar spine, total left hip, and femoral neck was performed. COMPARISON: Comparison is made with the prior examination dated 04/30/2019. FINDINGS: The bone mineral density of the lumbar spine is 1.051, corresponding to a T-score of -1.1, and a Z-score of -0.7. This is indicative of osteopenia. This represents a BMD change of 11.3% compared to the prior exam. This is statistically significant. The bone mineral density of the left total hip is 0.938, corresponding to a T-score of -0.6, and a Z-score of -0.2. This is indicative of normal bone mineral density. This represents a BMD change of 23.1% compared to the prior exam. This is statistically significant. The bone mineral density of the left femoral neck is 0.997, corresponding to a T-score of -0.3, and a Z-score of 0.4. This is indicative of normal bone mineral density. This represents a BMD change of 12.9% compared to the prior exam. FRACTURE RISK: The FRAX index suggests a ten year probability of major osteoporotic fracture of 6.8%, and of hip fracture 0.3%. MM/XR DEXA axial skeleton IMPRESSION: Based on bone mineral density, and according to World Health Organization (WHO) criteria, the diagnosis is consistent with osteopenia. All bone density values are in grams per centimeter squared (g/cm2). Statistically, 68% of repeat scans fall within 1 SD (+/- 0.010 g/cm2 for AP spine L1-L4) and 1 SD (+/- 0.012 g/cm2 for femur total) FRAX is a trademark of the [employer]'s [place] [facility] [employer], a World Health Organization (WHO) Collaborating Center. Electronically signed by: Mickey Bailey MD 11/25/2024 01:49 PM EDT
--- OUTSIDE RECORDS SUMMARY | 2024-11-25 14:09 | XMS_ITS | Clinical Summary ---
Author Organization [facility] Address [address] [place] [address] Care Team Providers Care Sewage Plant Supervisor Name Role Phone Unavailable Primary Care Provider [...] Plan of Treatment Not on file [place] [facility] DENT[facility]
== END 2024-11-25 12:41 | disposition home or self-care (01) ==
LOC: HO.MAMMO 12:40
PROVIDERS: PCP Family Medicine; Visit Provider Obstetrics & Gynecology
DX: Z13.820 Encounter for screening for osteoporosis (principal); Z78.0 Asymptomatic menopausal state
CPT/HCPCS: 77080

== ENCOUNTER → 2024-11-25 13:00 | Outpatient (BNV) | payer MEDICARE, MEDICAID, SELFPAY | PROVIDERS: PCP Family Medicine; Visit Provider Radiology Diagnostic Radiology | DX: E28.39 Other primary ovarian failure (principal) | CPT/HCPCS: 77080 ==

== ENCOUNTER 2024-12-09 09:03 | Outpatient (AMB) | payer MEDICARE, MEDICAID, SELFPAY ==
--- NOTE | 2024-12-09 09:06 | A.OFFVIS_ITS ---
Intake Vital Signs 12/09/24 09:12 Height 6 ft Weight 229 lb BMI 31.1 BP 102/67 Blood Pressure Location Rt brachial Position Sitting Respiration 12 Pulse 68 Pulse Source Pulse Oximeter Temp 97.6 F Temp Source Oral Pulse Oximetry (%) 98 Oxygen Delivery Method Room Air Intake Visit Reasons: Annual Wellness Exam Dr. Vesta steiner Intake Note: AWV. Patient also need refill meds. Annual Giving Officer Required: No Allergies No Known Allergies Allergy (Verified 12/09/24 09:31) Medication List - Last Reconciled 12/09/24 by Libertad Joyce, [facility]- acetaminophen 650 mg PO Q4H PRN albuterol sulfate 90 mcg/actuation 2 puffs inhalation Q4-6H PRN 30 days apixaban (Eliquis) 5 mg PO BID 90 days benzonatate 100 mg PO TID PRN betamethasone dipropionate 0.05% 1 appl topical DAILY 30 days digoxin 125 mcg PO DAILY incontinence pad, liner, disp As directed, 90 days levothyroxine 100 mcg PO DAILY 90 days lorazepam 1 mg PO BEDTIME PRN 30 days metoprolol tartrate 25 mg PO BID 90 days omeprazole 20 mg PO DAILY quetiapine 50 mg PO BEDTIME 30 days ropinirole 5 mg PO DAILY 90 days rosuvastatin 20 mg PO DAILY sertraline 50 mg (1/2 x 100 mg) PO DAILY 30 days umeclidinium-vilanterol 62.5-25 mcg/actuation (Anoro Ellipta) 1 inh inhalation DAILY 30 days valacyclovir 500 mg PO DAILY PRN 30 days Do you need a note to return to daycare/school/sports/work: No HPI HPI Comments History of Present Illness Details Here today for AWV. The Medicare Annual Wellness Visit (AWV) is a yearly appointment with a health professional to identify health risks and help reduce them and to create or update a personalized prevention plan. During a Medicare AWV, health professionals should also review any current opioid prescriptions, detect any cognitive impairment, and establish or update medical and family history. 64 y/o F with osteopenia, Afib w seconda ry hypercoaguable state, prediabetes, DARIUSZ on CPAP, COPD, Hypothyroid, Vit D def, Etoh abuse, MDD, HLD, GERD, HTN, DANNI 1, Urinary incont, PVD SurgHx: History of thyroidectomy (08/20/22) H/O foot surgery History of carotid endarterectomy History of salpingectomy Hx of rotator cuff surgery History of surgery on right wrist Hx of colonoscopy History of back surgery History of ankle surgery FHx: Father CVD (cardiovascular disease) Hypertension Mother CVA (cerebral vascular accident) Paternal Grandmother Breast cancer SocHx: Y Health Maintenance: See scanned preventative medicine assessment with personalized health plan and screening schedule. Colon: 2021 repeat 5-7 yrs Mammo 02/2024 DEXA 11/2024 PAP 09/2023 Vaccines: needs Shingles otherwise UTD AAA screen: screened out EKG: done today [place] of Care: as documented in chart Visual Acuity: glasses, last exam 6 months ago Hearing Screening: no issues ACP: has HCP at home; Does not have ACP. Given MOLST and reviewed w/ her today. Dietary/Nutrition/Exercise Edu provided: Y During the course of the visit the patient was educated and counseled about appropriate screening and preventative services. Patient instructions were provided to the patient in written or electronic format. I have reviewed and verified the above information. History of Present Illness - The patient is a 64-year-old female pr esenting for an annual Medicare wellness visit. - Significant weight gain, would like re ferral for weight management. - prediabetic a1c today 5.9%. - Persistent facial milia, treated previ ously without adequate extraction. - Right shoulder MRI pending; cortisone treatment provides temporary relief. [facility] - Skin tears continuing while on blood t hinners and inhalers. - Noncompliance with CPAP due to mask di scomfort, leading to shortness of breath. - Chronic breathing difficulties with [place] PD, ongoing marijuana use. Active w/ pulm - Previous tobacco use ceased seven year s ago. 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 - Previously used tobacco, ceased seven years ago - Currently uses marijuana daily, ceased vaping - Has not consumed alcohol for over ten years - , health care proxy filed with - Quit cigarette smoking seven or eight years ago - Does not engage in physical exercise Health Maintenance - Tetanus shot up to date - Due for shingles vaccine; to be obtain ed at a pharmacy - Annual mammogram and colonoscopy up to date - Pap smear completed - Recent diabetes screening - Cholesterol levels last checked in [place] - Osteopenia identified on recent bone d ensity scan; taking Women's 50+ vitamins, including calcium and vitamin D supplements - Advanced care plan discussion, with fo екатерина provided for consideration Review of Systems - General: Reports feeling winded and ex periencing shortness of breath. - Cardiovascular: Denies dizziness. - Respiratory: Reports chronic breathing difficulties with use of marijuana and non-compliance with CPAP. - Integumentary: Reports facial milia, s kin tears. - Musculoskeletal: Reports right shoulde r pain. - Metabolic/Endocrinological: Reports si gnificant weight gain. - Psychiatric: Denies excessive tirednes s or fatigue. - Sexual Health: Denies being sexually a ctive. - Neurological: Denies difficulty drivin g. - Eye/Ear/Nose/Throat: Denies problems w ith hearing. - Oral and Dentition: Denies trouble eat ing or swallowing. Physical Exam General: Well developed, well nourished, in no acute distress. Appears stated age. Head: Normocephalic, atraumatic. Eyes: Pupils are equal, round and reactive to light and accommodation. Conjunctivae are clear. Vision grossly normal. Ears: TMs clear AU, EACS WNL. . Nose: Patent, without discharge. Neck: Supple, no adenopathy or thyromegaly. Noted a bump, likely a cyst, on the L shoulder where previous surgery was done. Breast: Edu on SBE Lungs: Clear to auscultation bilaterally. No rales, rhonchi or wheeze noted. Good air flow in all calero. Heart: Afib. No murmurs, click, rubs or gallops are noted. Abdomen: Bowel sounds present in all quadrants. The abdomen is soft, nontender, with no masses or organomegaly noted. No hernias are noted. However, there is a start of an umbilical hernia : Deferred. 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 Pulses: Peripheral pulses are equal and palpable bilaterally. Extremities: No clubbing, cyanosis nor edema is noted. Patient reports skin tears due to blood thinners and inhaler use. Neurologic: Gait and station normal. Cranial Nerves 2-12 intact. Motor strength grossly symmetrical and intact. No sensory loss. Balance normal. Cognitive assessment performed, minor short-term memory recall issue noted. Skin: No rashes, ulcers, or lesions noted. Turgor is good. Skin color is good. Hair and nails are without abnormalities. Patient reports facial milia, under dermatological care. Psych: Normal eye contact, affect and mood appropriate, and normal interactions. Patient is alert and appropriate to context. Results see below Discussion Notes I discussed weight management and a referral to a weight management group for medication assistance, which she agreed to pursue. She was informed about her prediabetes status with a glucose level of 5.9%, emphasizing its implications. She shared her concern regarding her facial milia and previous inadequate facials. I explained this requires knowledgeable extraction for better results, recommending a suitable dermatology consultation. I discussed her right-shoulder pain management recommended to fu with Ortho for MRI results. Current cortisone injections are beneficial, but progressing with further investigation was essential. I acknowledged her skin tears, associating them with blood thinner usage. There was a critical discussion on her non-compliance with the CPAP due to mask discomfort, and she agreed to manage this with updated equipment and will follow up with Dr. Alonso. The impact of chronic marijuana usage on COPD exacerbation was discussed, urging potential cessation. For the osteopenia, a regimen of appropriate vitamins was advised. Lastly, I provided detailed guidance on immunizations, screenings, and the necessity for a shingles vaccine at a pharmacy. Assessment and Plan 1. Obesity - Referral to weight management 2. Prediabetes - Monitor glucose; lifestyle advice 3. Hypothyroid TSH low, taking levo 100mcg QD now, reduce to 6 x/week and repeat labs in 6 weeks. 4. Milia - Dermatology referral for extraction 5. Right Shoulder Pain - Cortisone every 3 months; FU with [facility] 6. Skin Tears - Blood thinner management 7. Obstructive Sleep Apnea - CPAP equipment update; sleep specialis t follow-up 8. COPD - Advise on quitting marijuana 9. History of Tobacco Use - Continue cessation counseling 10. Atrial Fibrillation - cont w cards 11. Osteopenia - Calcium, vitamin D supplements 12. Umbilical Hernia - General surgery referral Patient Instructions - Follow up with weight management group for medications - Monitor blood sugar levels regularly f or prediabetes - Consider dermatology referral for bautista a extraction - Seek necessary follow-up after MRI res ults of shoulder - Monitor skin changes while on blood th inners - Update CPAP mask and use consistently to improve symptoms - Reduce or cease marijuana use as part of COPD management - Obtain shingles vaccine from the pharm acy - Maintain calcium and vitamin D intake FU WITH PCP IN 6 MONTHS FOR ROUTINE CHRONIC DZ MGMT Consent Patient was informed and verbally consented to the use of an ambient scribe for clinic note documentation during this visit. An additional 40 minutes was spent addressing the problem(s) noted at todays visit. This includes time spent before the visit reviewing the chart, time spent during the visit, and time spent after the visit on documentation reviewing laboratory results, diagnostic imaging, medications, performing a medically necessary evaluation, counseling on diagnoses, care coordination, ordering appropriate tests, ordering appropriate medications, review of tests performed by other providers, reporting test results with the patient, communication with other healthcare providers. [facility] Medical History Depression with anxiety Tubular adenoma of colon History of Graves' disease Osteopenia Personal history of nicotine dependence COPD (chronic obstructive pulmonary disease) Vitamin D deficiency DARIUSZ (obstructive sleep apnea) On anticoagulant therapy On beta sabine at home History of cardioversion Hypothyroid (~2022) Pelvic fracture Alcohol abuse PAF (paroxysmal atrial fibrillation) GERD (gastroesophageal reflux disease) HLD (hyperlipidemia) History of COPD Surgical History History of colonoscopy History of thyroidectomy (08/20/22) H/O foot surgery History of carotid endarterectomy History of salpingectomy Hx of rotator cuff surgery History of surgery on right wrist History of back surgery History of ankle surgery Family History Father CVD (cardiovascular disease) Hypertension Mother CVA (cerebral vascular accident) Paternal Grandmother Breast cancer Maternal Grandfather Mental health disorder Other Substance abuse in family Social History Housing: House Are you a primary healthcare interpreter to a significant other at home: No Do you presently have visiting nurse or other home services: No Alcohol intake: former Patient Tobacco Use Status: Former Tobacco user Tobacco use type: Cigarette e-Cigarette/Vaping Use: Never Used Second Hand Smoke Exposure: No Substance Use Type: Marijuana Advance Directives Date on File: 04/03/17 service: No Current occupational status: employed 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 Current occupational exposures/hazards: No Cognitive needs: No Hearing needs: No Vision needs: No Female Reproductive History Menstrual Age of Menarche: 11 Questionnaire Medicare Wellness Checkup What [age] What gender do you identify with?: female During the past 4 weeks, how much have you been bothered by emotional problems such as feeling anxious, depressed, irritable, sad or downhearted, and blue?: not at all During the past 4 weeks, has your physical & emotional health limited your social activities with family, friends, neighbors, or groups?: not at all During the past 4 weeks, how much bodily pain have you generally had?: mild pain During the past 4 weeks, was someone available to help you if you needed & wanted help?: yes, as much as I wanted During the past 4 weeks, what was the hardest physical activity you could do for at least 2 minutes?: light Can you get to places out of walking distance without help? (For eg., can you travel alone on buses, taxis or drive your car?): Yes Can you go shopping for groceries or clothes without someone's help?: Yes Can you prepare your own meals?: Yes Can you do your housework without help?: Yes Because of any health problems, do you need the help of another person with your personal care needs such as eating, bathing, dressing or getting around the house?: No Can you handle your own money without help?: Yes During the past 4 weeks, how would you rate your health in general?: fair During the past 4 weeks how have things been going for you?: pretty well Are you having difficulties driving your car?: no Do you always fasten your seat belt when you are in a car?: yes, usually During past 4 weeks, have you been bothered by the following: never: Falling or dizzy when standing up, Sexual problems?, Trouble eating well?, Teeth or denture problems?, Problems using the telephone? and Tiredness or fatigue? Have you fallen 2 or more times in the past year?: No Are you afraid of falling?: No Are you a smoker?: no During the past 4 weeks, how many drinks of wine, beer, or other alcoholic beverages did you have?: no alcohol at all Do you exercise for about 20 minutes 3 or more times a week?: yes, some of the time Have you been given information to help with the following?: no: Hazards in your house that might hurt you? and no: Keeping track of your medications? How often do you have trouble taking medicines the way you have been told to take them?: I always take medicine as prescribed How confident are you that you can control & manage most of your health problems?: very confident What is your race?: White Activity of Daily Living Bathing - sponge bath, tub bath or shower: receives no assistance (gets in/out by self, if usual bathing means Dressing - getting clothes from closets & drawers, including inner/outer garments & fasteners.: gets clothes & gets completely dressed without help Toileting - going to the 'toilet room' for urine/bowel elimination & cleaning self/arranging clothes: goes to toilet room, cleans self, arranges clothes without help Transfer: moves in & out of bed and chair without help (may use support object) Continence: controls urination/bowel movements completely by self Feeding: feeds self without help Total Score: 0 Information obtained from: patient Using telephone: independent Traveling: independent Shopping: independent Preparing meals: independent Housework: independent Taking medicine: independent Managing money: independent PHQ-9 Over the last 2 weeks, how often have you been bothered by any of the following problems? 1. Little interest or pleasure in doing things: not at all 2. Feeling down, depressed, or hopeless: not at all 3. Trouble falling or staying asleep, or sleeping too much: not at all 4. Feeling tired or having little energy: not at all 5. Poor appetite or overeating: not at all 6. Feeling bad about yourself - or that you are a failure or have let yourself or your family down: not at all 7. Trouble concentrating on things, such as reading the newspaper or watching television: not at all 8. Moving or speaking so slowly that other people could have noticed. Or the opposite - being so fidgety or restless that you have been moving around a lot more than usual: not at all 9. Thoughts that you would be better off or of hurting yourself in some way: not at all Total score: 0 Depression Screening Interpretation: Negative Depression Screening Done: Yes 26695 - PHQ-9 Billing: Yes Source: Developed by Drs. Mickey Woods, Sophie Moore, Cristobal Franks and colleagues, with an educational khloe from [employer]. Physical Exam Vital Signs: Last Vital Signs Temp 97.6 F 12/09/24 09:12 Pulse 68 12/09/24 09:12 Resp 12 12/09/24 09:12 BP 102/67 12/09/24 09:12 Pulse Ox 98 12/09/24 09:12 Oxygen Delivery Method Room Air 12/09/24 09:12 BMI result Body Mass Index 31.1 Office Procedures EKG [id number], Complete Vision Screening Right Eye: 20/50 Left Eye: 20/50 Bilateral: 20/25 Color: Pass Corrected: Pass (wearing glasses) 32057 - Vision Screening Results AMB Hemoglobin A1c AMB Hemoglobin A1c 5.9 % Last Edit by Anuradha Isabel MA on 12/09/24 09:29 Results Reviewed Results Reviewed: Laboratory Last Values Hgb A1c (Clinic) 5.9 % (4.0-6.0) 12/09/24 09:18 RUN: 12/09/24 4241 PAGE 1 [facility] [address] [place] [id number] Sinter Feeder: Mli Waldrop M.D. 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-BC Re12/09/24 Status: REG REF Location: [facility] Disch: SPEC : [id number] LUIGI: 12/09/24 STATUS: RES REQ : [id number] RECD: 12/09/24-[address]: Libertad Joyce GOLF COURSE EQUIPMENT OPERATOR-BC COMP: - ENTERED: 12/09/24-[address]: ORDERED: CMP, Lipid Panel, Vitamin D 25-OH, TSH Rflx Test Result Flag Reference Sodium 141 135-145 mmol/L Potassium 4.9 3.3-5.1 mmol/L CL 109 H 96-108 mmol/L CO2 24 22-29 mmol/L Gap 13 12-20 BUN 8 L 9-16 mg/dL Creat 0.67 0.5-1.4 mg/dL eGFR > 60 Chronic Kidney Disease: Estimated GFR < 60 mL/min/1.73m2 Severe Kidney Disease: Estimated GFR < 15 mL/min/1.73m2 Glucose, Random 94 60-115 mg/dL CA 9.6 8.4-10.2 mg/dL Total Bili 0.6 0.0-1.0 mg/dL AST (GOT) 31 5-31 U/L ALT (GPT) 16 0-31 U/L Protein, Total 7.1 6.5-8.0 g/dL Alb 4.5 3.5-5.0 g/dL Triglyceride 132 <150 mg/dL Desirable Triglyceride: less than 150 mg/dL Borderline High Triglyceride 150-199 mg/dL High Triglyceride: 200-499 mg/dL Very High Triglyceride: greater than or equal to 5OO mg/dL Cholesterol 116 <200 mg/dL Desirable Cholesterol: less than 200 mg/dL Borderline High Cholesterol: 200-239 mg/dL High Cholesterol: greater than 239 mg/dL LDL Calculated 47 <100 mg/dL Desirable LDL: less than 100 mg/dL Near Optimal/Above Optimal LDL: 110-129 mg/dL Borderline High LDL: 130-159 mg/dL High LDL: 160-189 mg/dL Very High LDL: greater than or equal to 190 mg/dL HDL 43 >40 mg/dL Desirable HDL: greater than 40 mg/dL Note: This HDL assay may give artificially low results in patients with liver disease. Alk Phos 58 39-117 U/L Vitamin D 25-OH PENDING TSH PENDING Assessment & Plan Assessment & Plan (1) Encounter for initial annual wellness visit (AWV) in Medicare patient: Onset Date: ~12/09/24 Code(s): Z00.00 - Encounter for general adult medical examination without abnormal findings (2) Pre-diabetes: Comment: 5.9% today Code(s): R73.03 - Prediabetes (3) PAF (paroxysmal atrial fibrillation): Comment: HISTORY OF PAROXYSMAL ATRIAL FIBRILLATION, PAST HISTORY OF CARDIOVERSION X2 IN 2021 PATIENT FOLLOWED BY CARDIOLOGY SERVICE. Code(s): I48.0 - Paroxysmal atrial fibrillation (4) Secondary hypercoagulable state: Code(s): D68.69 - Other thrombophilia (5) Hypothyroid: Onset Date: ~2022 Comment: (post-op hypothyroidism - hx graves - thyroidectomy 2022) Code(s): E03.9 - Hypothyroidism, unspecified Qualifiers: Hypothyroidism type: postoperative Qualified Code(s): E89.0 - Postprocedural hypothyroidism (6) Osteopenia: Comment: (Bone Dexa Lumbar T-score: -2.3 on04/30/19) 11/2024 Code(s): M85.80 - Other specified disorders of bone density and structure, unspecified site Qualifiers: Osteopenia location: multiple sites Qualified Code(s): M85.89 - Other specified disorders of bone density and structure, multiple sites (7) Vitamin D deficiency: Code(s): E55.9 - Vitamin D deficiency, unspecified (8) Urinary incontinence: Code(s): R32 - Unspecified urinary incontinence Qualifiers: Urinary Incontinence type: stress incontinence Qualified Code(s): N39.3 - Stress incontinence (female) (male) (9) COPD (chronic obstructive pulmonary disease): Comment: SHE DOES HAVE MILD TO MODERATE DEGREE OF COPD. FEELS BETTER WITH USING ANORO ELLIPTA ONCE A DAY. ALSO NEEDS TO USE ALBUTEROL ONCE IN A WHILE. Code(s): J44.9 - Chronic obstructive pulmonary disease, unspecified Qualifiers: COPD type: emphysema Emphysema type: other Qualified Code(s): J43.8 - Other emphysema (10) DARIUSZ (obstructive sleep apnea): Comment: PATIENT HAS DIAGNOSIS DARIUSZ SINCE 2021, IT WAS MILD BUT SHE HAS ASSOCIATED CARDIAC DISEASE SO SHE WAS STARTED ON CPAP THERAPY, INITIALLY SHE WAS VERY COMPLIANT AND BENEFITING FROM THE USE OF CPAP. SINCE NOVEMBER OF 2023 SHE HAS NOT BEEN USING THE CPAP REGULARLY SHE DID NOT HAVE PROPERLY FITTING FULLFACE MASK. SHE WANTS TO START USING THE CPAP. Code(s): G47.33 - Obstructive sleep apnea (adult) (pediatric) (11) Obesity (BMI 30-39.9): Code(s): E66.9 - Obesity, unspecified (12) Milia: Code(s): L72.0 - Epidermal cyst (13) Impingement syndrome of right shoulder: Code(s): M75.41 - Impingement syndrome of right shoulder (14) Alcohol dependence in remission: Code(s): F10.21 - Alcohol dependence, in remission (15) Hypertension: Code(s): I10 - Essential (primary) hypertension Qualifiers: Hypertension type: primary hypertension Qualified Code(s): I10 - Essential (primary) hypertension (16) ACP (advance care planning): Code(s): Z71.89 - Other specified counseling (17) Umbilical hernia: Code(s): K42.9 - Umbilical hernia without obstruction or gangrene Qualifiers: Obstruction and gangrene presence: without obstruction or gangrene Qualified Code(s): K42.9 - Umbilical hernia without obstruction or gangrene Plan . Orders: Orders AMB Hemoglobin A1c Today R73.03 - Prediabetes TSH reflex Free T4 Today E55.9 - Vitamin D deficiency, unspecified, I10 - Essential (primary) hypertension, M85.80 - Other specified disorders of bone density and structure, unspecified site, Z00.00 - Encounter for general adult medical examination without abnormal findings Comprehensive Met. Panel Today E55.9 - Vitamin D deficiency, unspecified, I10 - Essential (primary) hypertension, M85.80 - Other specified disorders of bone den sity and structure, unspecified site, Z00.00 - Encounter for general adult medical examination without abnormal findings Lipid Panel Today E55.9 - Vitamin D deficiency, unspecified, I10 - Essential (primary) hypertension, M85.80 - Other specified disorders of bone density and structure, unspecified site, Z00.00 - Encounter for general adult medical examination without abnormal findings Vitamin D 25-OH Total Today E55.9 - Vitamin D deficiency, unspecified, I10 - Essential (primary) hypertension, M85.80 - Other specified disorders of bone den sity and structure, unspecified site, Z00.00 - Encounter for general adult medical examination without abnormal findings TSH reflex Free T4 6 Weeks E03.9 - Hypothyroidism, unspecified Referrals Medical Weight Management Referral E66.9 - Obesity, unspecified General Surgery Referral K42.9 - Umbilical hernia without obstruction or gangrene Medications: New sertraline 50 mg PO DAILY 90 tabs 2RF Changed From quetiapine 50 mg PO BEDTIME 30 days 30 tabs 3RF To quetiapine 50 mg PO BEDTIME 90 tabs 3RF Refilled digoxin 125 mcg PO DAILY 90 tabs 3RF apixaban (Eliquis) 5 mg PO BID 180 tabs 2RF 90 days rosuvastatin 20 mg PO DAILY 90 tabs 3RF Patient Instructions: Health screenings for women You should visit your health care provider from time to time, even if you are healthy. The purpose of these visits is to: Screen for medical issues Assess your risk for future medical problems Encourage a healthy lifestyle Update vaccinations and other preventive care services Help you get to know your provider in case of an illness Information Even if you feel fine, you should still see your provider for regular checkups. These visits can help you avoid problems in the future. For example, the only way to find out if you have high blood pressure is to have it checked regularly. High blood sugar and high cholesterol levels also may not have any symptoms in the early stages. A simple blood test can check for these conditions. There are specific times when you should see your provider or receive specific health screenings. The [place] Preventive Services Task Force publishes a list of recommended screenings. Below are screening guidelines for women ages 18 to 39. BLOOD PRESSURE SCREENING Your blood pressure should be checked at least once every 3 to 5 years if: Your blood pressure is in the normal range (top number less than 120 mm Hg and bottom number less than 80 mm Hg) You don't have risk factors for high blood pressure Ask your provider if you need your blood pressure checked more often if: The top number is 120 to 129 mm Hg or the bottom number is 70 to 79 mm Hg You have diabetes, heart disease, kidney problems, are overweight, or have certain other health conditions You have a first-degree relative with high blood pressure You are Black You had high blood pressure during a If the top number is 130 mm Hg or greater or the bottom number is 80 mm Hg or greater, this is considered stage 1 hypertension. Schedule an appointment with your provider to learn how you can reduce your blood pressure. Watch for blood pressure screenings in your area. Ask your provider if you can stop in to have your blood pressure checked. BREAST CANCER SCREENING Experts do not agree about the benefits of breast self-exams in finding breast cancer or saving lives. Talk to your provider about what is best for you. A screening mammogram is not recommended for most women under age 40. Your provider may discuss and recommend mammograms, MRI scans, or ultrasounds if you have an increased risk for breast cancer, such as: A mother or sister who had breast cancer at a young age (most often starting screening earlier than the age the close relative was diagnosed) You carry a high-risk genetic marker CERVICAL CANCER SCREENING Cervical cancer screening should start at age 21 years unless your provider advises otherwise. After the first test: Women ages 21 through 29 should have a Pap test every 3 years. Exoprts do not agree on whether HPV testing is recommended for this age group. Women ages 30 through 65 should be screened with either a Pap test every 3 years or the HPV test every 5 years or both tests every 5 years (called cotesting ). Women who have been treated for precancer (cervical dysplasia) should continue to have Pap tests for 20 years after treatment or until age 65, whichever is longer. If you have had your uterus and cervix removed (total hysterectomy), and you have not been diagnosed with cervical cancer or precancer (high grade cervical neoplasia), you do not need cervical cancer screening. CHOLESTEROL SCREENING Cholesterol screening should begin at: Age 45 for women with no known risk factors for coronary heart disease Age 20 for women with known risk factors for coronary heart disease Repeat cholesterol screening should take place: Every 5 years for women with normal cholesterol levels More often if changes occur in lifestyle (including weight gain and diet) More often if you have diabetes, heart disease, kidney problems, or certain other conditions DIABETES SCREENING You should be screened for diabetes starting at age 35 and then repeated every 3 years if you have no risk factors for diabetes. Screening may need to start earlier and be repeated more often if you have other risk factors for diabetes, such as: You have a first degree relative with diabetes. You are overweight or have obesity. You have high blood pressure, prediabetes, or a history of heart disease. Screening for diabetes should be done if you are planning to become and you are overweight and have other risk factors such as high blood pressure. DENTAL EXAM Go to the dentist once or twice every year for an exam and cleaning. Your dentist will evaluate if you need more frequent visits. EYE EXAM Have an eye exam every 5 to 10 years before age 40. If you have vision problems, have an eye exam every 2 years or more often if recommended by your provider. You should have an eye exam that includes an examination of your retina (back of your eye) at least every year if you have diabetes. IMMUNIZATIONS Commonly needed vaccines include: Flu shot: get one every year. COVID-19 vaccine: ask your provider what is best for you. Tetanus-diphtheria and acellular pertussis (Tdap) vaccine: have one at or after age 19 as one of your tetanus-diphtheria vaccines if you did not receive it as an adolescent. Tetanus-diphtheria: have a booster (or Tdap) every 10 years. Varicella vaccine: receive 2 doses if you never had chickenpox or the varicella vaccine. Hepatitis B vaccine: receive 2, 3, or 4 doses, depending on your exact circumstances. Measles, mumps, and rubella (MMR) vaccine: receive 1 to 2 doses if you are not already immune to MMR. Your provider can tell you if you are immune. Ask your provider about the human papillomavirus (HPV) vaccine if: You have not received the HPV vaccine in the past You have not completed the full vaccine series (you should catch up on this shot) Ask your provider if you should receive other immunizations if you have certain health problems that increase your risk for some diseases such as pneumonia. INFECTIOUS DISEASE SCREENING Women who are sexually active should be screened for chlamydia and gonorrhea up until age 25. Women 25 years and older should be screened for chlamydia and gonorrhea if at high risk. Screening for hepatitis C: All adults ages 18 to 79 should get a one-time test for hepatitis C. people should be screened at every . Screening for human immunodeficiency virus (HIV): All people ages 15 to 65 should get a one-time test for HIV. Depending on your lifestyle and medical history, you may also need to be screened for infections such as syphilis and HIV, as well as other infections. PHYSICAL EXAM All adults should visit their provider from time to time, even if they are healthy. The purpose of these visits is to: Screen for disease Assess your risk of future medical problems Encourage a healthy lifestyle Update your vaccinations and other preventive care services Maintain a relationship with a provider in case of an illness Your height, weight, and BMI should be checked at every exam. During your exam, your provider may ask you about: Depression and anxiety Diet and exercise Alcohol and tobacco use Safety issues, such as using seat belts, smoke detectors, and intimate partner violence Your medicines and risk for interactions SKIN SELF-EXAM Your provider may check your skin for signs of skin cancer, especially if you're at high risk, such as if you: Have had skin cancer before Have close relatives with skin cancer Have a weakened immune system OTHER SCREENING Talk with your provider about colon cancer screening if you have a strong family history of colon cancer or polyps, or if you have had inflammatory bowel disease or polyps yourself. Routine bone density screening of women under 40 is not recommended. Quality Reporting (2019) Adult ([facility] 138/08/08/68) Smoking risk assessment performed?: Yes Patient Tobacco Use Status: Former Tobacco user Depression screening performed: Yes Screen Results: Yes Negative screen Recommended changes: lifestyle and weight reduction Systolic BP not done?: No Diastolic BP not done?: No BMI screening not done: No BMI High - Follow Up: Yes High-plan Sexual Activity Screening ([facility] 153) Sexually active?: No Immunizations ([facility] 147, 117) Annual Influenza Vaccine: No Measles Antibody Test: No Mumps Antibody Test: No Rubella Antibody Test: No Varicella Antibody Test: No Anti Hepatitis A IgG Antigen test: No Anti Hepatitis B Virus Surface Ab test: No Fall Risk Screening ([facility] 139) Last assessed Fall Risk: 12/09/24 Fall risk assessment: No Falls in past year Dementia Assessment ([facility] 149) Cognitive assessment recorded: Yes Assessment of cognition with standardized tool: Yes Depression/Bipolar (159/160/161/177) PHQ-9: Total score: 0 Ophthalmol:Cataracts Visual Acuity (133) Visual acuity exam performed: Yes (see results) Coding Level of Care Code Medicare IPPE (G0402) Est Pt Level 4 (86238) Diagnoses Encounter for initial annual wellness visit (AWV) in Medicare patient Z00.00 Pre-diabetes R73.03 PAF (paroxysmal atrial fibrillation) I48.0 Secondary hypercoagulable state D68.69 Postoperative hypothyroidism E89.0 Hypothyroidism type: postoperative Osteopenia of multiple sites M85.89 Osteopenia location: multiple sites Vitamin D deficiency E55.9 Stress incontinence of urine N39.3 Urinary Incontinence type: stress incontinence Other emphysema J43.8 COPD type: emphysema Emphysema type: other DARIUSZ (obstructive sleep apnea) G47.33 Obesity (BMI 30-39.9) E66.9 Milia L72.0 Impingement syndrome of right shoulder M75.41 Alcohol dependence in remission F10.21 Primary hypertension I10 Hypertension type: primary hypertension ACP (advance care planning) Z71.89 Umbilical hernia without obstruction and without gangrene K42.9 Obstruction and gangrene presence: without obstruction or gangrene CPT Codes Advance Care Planning - Time spent: 1-15 minutes, not on file ([id number]) EKG - CPT: 19239-[id number], Complete ([id number]) Vision Screening - Vision Screenin - Vision Screening ([id number]) Additional Codes PHQ-9 - 20614 - PHQ-9 Billing: Yes ([id number]) Advance Care Planning Advance Care Planning discussion: Exists, not on file Date of discussion: 12/09/24 Who was present: self Forms completed: Health Care Proxy, MOLST and Living will Time spent: 1-15 minutes, not on file Actual minutes spent: 5 Did not discuss due to Cultural/Spiritual beliefs: No
[2024-12-09 09:12] VITALS: BP 102/67; PULSE 68; RESP 12; TEMP 36.4; O2SAT 98; BMI 31.1
--- OUTSIDE RECORDS SUMMARY | 2024-12-09 09:48 | XMS_ITS | Clinical Summary ---
Author Organization [facility] Address [address] [place] [address] Care Team Providers Care Kitchen Aide Name Role Phone Unavailable Primary Care Provider [...] Plan of Treatment Not on file Insurance [place] MEDICAID DENTAL [facility]
== END 2024-12-09 10:04 | disposition home or self-care (01) ==
LOC: HO.HMCFM 09:04
PROVIDERS: PCP Family Medicine; Visit Provider Nurse Practitioner Family
DX: Z00.00 Encounter for general adult medical examination without abnormal findings (principal); I48.0 Paroxysmal atrial fibrillation; J43.8 Other emphysema; F10.21 Alcohol dependence, in remission; R73.03 Prediabetes; E89.0 Postprocedural hypothyroidism; M85.89 Other specified disorders of bone density and structure, multiple sites; E55.9 Vitamin D deficiency, unspecified; N39.3 Stress incontinence (female) (male); G47.33 Obstructive sleep apnea (adult) (pediatric); Z01.00 Encounter for examination of eyes and vision without abnormal findings; E66.9 Obesity, unspecified

== ENCOUNTER → 2024-12-09 09:03 | Outpatient (BNVA) | payer MEDICARE, MEDICAID, SELFPAY | PROVIDERS: PCP Family Medicine; Visit Provider Nurse Practitioner Family | DX: Z00.01 Encounter for general adult medical examination with abnormal findings (principal); R73.03 Prediabetes; I48.0 Paroxysmal atrial fibrillation; D68.69 Other thrombophilia; E89.0 Postprocedural hypothyroidism; M85.89 Other specified disorders of bone density and structure, multiple sites; E55.9 Vitamin D deficiency, unspecified; N39.3 Stress incontinence (female) (male); J43.8 Other emphysema; G47.33 Obstructive sleep apnea (adult) (pediatric); L72.0 Epidermal cyst; M75.41 Impingement syndrome of right shoulder; F10.21 Alcohol dependence, in remission; I10 Essential (primary) hypertension; K42.9 Umbilical hernia without obstruction or gangrene; E66.9 Obesity, unspecified; Z68.31 Body mass index [BMI] 31.0-31.9, adult; Z71.3 Dietary counseling and surveillance; Z71.89 Other specified counseling | CPT/HCPCS: 83036; 93005; 96127; 99212; G0402 ==

== ENCOUNTER 2024-12-09 10:28 | Outpatient (REF) | payer MEDICARE, MEDICAID, SELFPAY ==
[2024-12-09 14:30] LABS: Appearance Urine Clear; Color Urine Yellow; Glucose Urine UA Negative (Negative); Leukocyte Esterase Urine Negative (Negative); Nitrite Urine Negative (Negative); Urine Blood Negative (Negative); Urine Ketones Negative (Negative); Urine Protein Negative (Neg-Trace)
[2024-12-09 14:55] LABS: Alanine Aminotransferase 16 U/L (0-31); Albumin Level 4.5 g/dL (3.5-5.0); Alkaline Phosphatase 58 U/L (39-117); Anion Gap 13 (12-20); Aspartate Amino Transferase 31 U/L (5-31); Bilirubin Total 0.6 mg/dL (0.0-1.0); Blood Urea Nitrogen 8 mg/dL (9-16); Calcium 9.6 mg/dL (8.4-10.2); Carbon Dioxide 24 mmol/L (22-29); Chloride 109 mmol/L (96-108); Cholesterol 116 mg/dL (<200); Estimated Glomerular Filt Rate > 60; Glucose Random 94 mg/dL (60-115); HDL Cholesterol 43 mg/dL (>40); LDL Cholesterol Calculated 47 mg/dL (<100); Potassium 4.9 mmol/L (3.3-5.1); Sodium 141 mmol/L (135-145); Total Protein 7.1 g/dL (6.5-8.0); Triglycerides 132 mg/dL (<150)
[2024-12-09 15:07] LABS: TSH reflex Free T4 0.27 uIU/mL (0.32-4.0); Vitamin D 25-OH Total 76.7 ng/mL (>30)
[2024-12-09 15:52] LABS: Free T4 (Free Thyroxine) 1.07 ng/dL (0.71-1.85)
== END 2024-12-09 10:29 | disposition home or self-care (01) ==
LOC: HO.WFDLDS 10:28
PROVIDERS: Family Medicine; Visit Provider Nurse Practitioner Family
DX: Z00.00 Encounter for general adult medical examination without abnormal findings (principal); R73.03 Prediabetes; I10 Essential (primary) hypertension; M85.80 Other specified disorders of bone density and structure, unspecified site; E55.9 Vitamin D deficiency, unspecified; I48.91 Unspecified atrial fibrillation
CPT/HCPCS: 36415; 80053; 80061; 81003; 82306; 84439; 84443

== ENCOUNTER 2024-12-21 13:16 | Outpatient (AMB) | payer MEDICARE, MEDICAID, SELFPAY ==
[2024-12-21 13:17] VITALS: BMI 31.1
--- NOTE | 2024-12-21 13:17 | A.OFFVIS_ITS ---
Vital Signs 12/21/24 13:17 Height 6 ft Weight 229 lb BMI 31.1 Intake Visit Reasons: TEL- MR shoulder RT review Intake Note: Matilde is a 63 year old female who presents today for an MRI review of her right shoulder. Allergies No Known Allergies Allergy (Verified 12/21/24 13:18) HPI HPI TEL- MR shoulder RT review: Details: 64-year-old female presents for a telehealth visit MRI right shoulder. She continues to have discomfort with certain activities such as lifting or reaching. [facility] Medical History Depression with anxiety Tubular adenoma of colon History of Graves' disease Osteopenia Personal history of nicotine dependence COPD (chronic obstructive pulmonary disease) Vitamin D deficiency DARIUSZ (obstructive sleep apnea) On anticoagulant therapy On beta sabine at home History of cardioversion Hypothyroid (~2022) Pelvic fracture Alcohol abuse PAF (paroxysmal atrial fibrillation) GERD (gastroesophageal reflux disease) HLD (hyperlipidemia) History of COPD Surgical History History of colonoscopy History of thyroidectomy (08/20/22) H/O foot surgery History of carotid endarterectomy History of salpingectomy Hx of rotator cuff surgery History of surgery on right wrist History of back surgery History of ankle surgery Family History Father CVD (cardiovascular disease) Hypertension Mother CVA (cerebral vascular accident) Paternal Grandmother Breast cancer Maternal Grandfather Mental health disorder Other Substance abuse in family Social History Housing: House Are you a primary rn coronary care unit to a significant other at home: No Do you presently have visiting nurse or other home services: No Alcohol intake: former Patient Tobacco Use Status: Former Tobacco user Tobacco use type: Cigarette e-Cigarette/Vaping Use: Never Used Second Hand Smoke Exposure: No Substance Use Type: Marijuana Advance Directives Date on File: 04/03/17 service: No Current occupational status: employed 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 Current occupational exposures/hazards: No Cognitive needs: No Hearing needs: No Vision needs: No Female Reproductive History Menstrual Age of Menarche: 11 Review of Systems Const All systems reviewed & are unremarkable except as noted in HPI and below Physical Exam Vital Signs: BMI result Body Mass Index 31.1 Resp Effort & Inspection: normal respiratory effort and able to speak in complete sentences Telehealth Telehealth Patient verbally consented to treatment: Yes Patient verbally consented to billing insurance company: Yes Patient informed of any privacy concerns related to visit: Yes Minutes spent on Phone/Video with Pt.: 10 Results Reviewed Results Reviewed: IMPRESSION: 1. Full-thickness tearing and atrophy of the supraspinatus and infraspinatus. 2. Low-grade tearing of the subscapularis. 3. Acromioclavicular and glenohumeral joint osteoarthritis. 4. Diffuse degenerative fraying of the glenoid labrum. Assessment & Plan Assessment & Plan (1) Arthritis of shoulder region, right, degenerative: Code(s): M19.011 - Primary osteoarthritis, right shoulder Category: Medical Qualifiers: Osteoarthritis type: primary Qualified Code(s): M19.011 - Primary osteoarthritis, right shoulder Plan: MRI results were reviewed with the patient. Given the level of function she has with the shoulder she is not at this time a candidate for a shoulder arthroplasty. I did discuss the benefits of cortisone injection which she is interested in. She would like to make an appointment to have her shoulder injected and we will accommodate this. Coding Level of Care Code Tele Est Pt Level 3 (09313) Complex EM visit Add On G2211 Diagnoses Primary osteoarthritis of right shoulder M19.011 Osteoarthritis type: primary
--- OUTSIDE RECORDS SUMMARY | 2024-12-21 13:40 | XMS_ITS | Clinical Summary ---
Author Organization [facility] Facility Address [address] [address] Care Team Providers Care Nurse Consultant Name Role Phone Mil Hadley MD Primary [...] patient's age to complete this topic Insurance [facility] Care Teams Nurse Consultant Relationship Specialty Start Date End Date Mil Hadley MD [address] [facility] [address] [place] [phone] PCP - General Family Medicine 04/17/22
--- OUTSIDE RECORDS SUMMARY | 2024-12-21 13:40 | XMS_ITS | Clinical Summary ---
Author Organization [facility] Address [address] [place] [address] Care Team Providers Care Chief Medical Technologist Name Role Phone Unavailable Primary Care Provider [...] Plan of Treatment Not on file Insurance [place] MEDICAID DENTAL [facility] D[facility]
== END 2024-12-21 15:46 | disposition home or self-care (01) ==
LOC: HO.HOS 13:16
PROVIDERS: PCP Family Medicine; Visit Provider Physician Assistant
DX: M19.011 Primary osteoarthritis, right shoulder (principal)
CPT/HCPCS: 99213; G2211

== ENCOUNTER 2024-12-30 13:23 | Outpatient (AMB) | payer MEDICARE, MEDICAID, SELFPAY ==
--- NOTE | 2024-12-30 13:24 | MHC.OFFVIS ---
Intake Visit Reasons: Dexa Results Accompanied by: Self / Same As Patient Allergies No Known Allergies Allergy (Verified 12/30/24 13:25) HPI Comments Details: The patient is presenting for follow up regarding DEXA scan results which showed the following: The bone mineral density of the lumbar spine is 1.051, corresponding to a T-score of -1.1, and a Z-score of -0.7. This is indicative of osteopenia. This represents a BMD change of 11.3% compared to the prior exam. This is statistically significant. The bone mineral density of the left total hip is 0.938, corresponding to a T-score of -0.6, and a Z-score of -0.2. This is indicative of normal bone mineral density. This represents a BMD change of 23.1% compared to the prior exam. This is statistically significant. The bone mineral density of the left femoral neck is 0.997, corresponding to a T-score of -0.3, and a Z-score of 0.4. This is indicative of normal bone mineral density. This represents a BMD change of 12.9% compared to the prior exam. FRACTURE RISK: The FRAX index suggests a ten year probability of major osteoporotic fracture of 6.8%, and of hip fracture 0.3%. COUNT INCLUDES THE [facility] Medical History Depression with anxiety Tubular adenoma of colon History of Graves' disease Osteopenia Personal history of nicotine dependence COPD (chronic obstructive pulmonary disease) Vitamin D deficiency DARIUSZ (obstructive sleep apnea) On anticoagulant therapy On beta sabine at home History of cardioversion Hypothyroid (~2022) Pelvic fracture Alcohol abuse PAF (paroxysmal atrial fibrillation) GERD (gastroesophageal reflux disease) HLD (hyperlipidemia) History of COPD Surgical History History of colonoscopy History of thyroidectomy (08/20/22) H/O foot surgery History of carotid endarterectomy History of salpingectomy Hx of rotator cuff surgery History of surgery on right wrist History of back surgery History of ankle surgery Family History Father CVD (cardiovascular disease) Hypertension Mother CVA (cerebral vascular accident) Paternal Grandmother Breast cancer Maternal Grandfather Mental health disorder Other Substance abuse in family Social History Housing: House Are you a primary career services manager to a significant other at home: No Do you presently have visiting nurse or other home services: No Alcohol intake: former Patient Tobacco Use Status: Former Tobacco user Tobacco use type: Cigarette e-Cigarette/Vaping Use: Never Used Second Hand Smoke Exposure: No Substance Use Type: Marijuana Advance Directives Date on File: 04/03/17 service: No Current occupational status: employed 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 Current occupational exposures/hazards: No Cognitive needs: No Hearing needs: No Vision needs: No Female Reproductive History Menstrual Age of Menarche: 11 Review of Systems Const All systems reviewed & are unremarkable except as noted in HPI and below Reports as per HPI and Reports no additional complaints GI Reports no additional complaints Reports no additional complaints Assessment & Plan Assessment & Plan (1) Osteopenia: Code(s): M85.80 - Other specified disorders of bone density and structure, unspecified site Category: Medical Qualifiers: Osteopenia location: multiple sites Qualified Code(s): M85.89 - Other specified disorders of bone density and structure, multiple sites Plan: Discussed with the patient the DEXA results and FRAX risk. FRAX risk and T score showed no evidence of osteoporosis. Discussed with the patient all the options for osteoporosis prevention including lifestyle modifications including Ca+D supplements 1200 mg po qd/800 MIU, Weight bearing exercises and proteine supplements. The patient verbalized understanding and agreed plan will repeat DEXA in 2 years. Coding Level of Care Code Est Pt Level 3 (33911) Diagnoses Osteopenia of multiple sites M85.89 Osteopenia location: multiple sites
--- OUTSIDE RECORDS SUMMARY | 2024-12-30 14:10 | XMS_ITS | Clinical Summary ---
Author Organization [facility] Facility Address [address] [address] Care Team Providers Care Entry Processor Name Role Phone Mil Hadley MD Primary Care Provider [phone] Allergies No known active allergies Medications Eliquis [...] Cancer Screening: Sigmoidoscopy 2008 Influenza Vaccine (#1) 2025 Hepatitis B Vaccine Aged Out No longe r eligible based on patient's age to complete this topic Insurance [facility] Member Subscriber Plan / Payer (Ef fective 2022-Present) Name:Matilde Son Relation to Subscriber:Self Name:Matilde Son Payer ID:[id number] (NAIC) Group ID:[id number] Type:Not on file Address: [place] [phone] Care Teams Entry Processor Relationship Specialty Start Date End Date Mil Hadley MD [address] [facility] [address] [place] [phone] PCP - General Family Medicine 04/17/22
--- OUTSIDE RECORDS SUMMARY | 2024-12-30 14:10 | XMS_ITS | Clinical Summary ---
Author Organization [facility] Address [address] [place] [address] Care Team Providers Care Assistant Wrestling Coach Name Role Phone Unavailable Primary Care Provider [...] Plan of Treatment Not on file Insurance [place] MEDICAID DENTAL [facility]
== END 2024-12-30 13:36 | disposition home or self-care (01) ==
LOC: HO.HWS 13:23
PROVIDERS: PCP Family Medicine; Visit Provider Obstetrics & Gynecology
DX: M85.89 Other specified disorders of bone density and structure, multiple sites (principal)
CPT/HCPCS: 99213

== ENCOUNTER → 2024-12-30 13:23 | Outpatient (BNVA) | payer MEDICARE, MEDICAID, SELFPAY | PROVIDERS: PCP Family Medicine; Visit Provider Obstetrics & Gynecology | DX: M85.89 Other specified disorders of bone density and structure, multiple sites (principal) | CPT/HCPCS: 99212 ==

== ENCOUNTER 2025-01-20 06:40 | Outpatient (REF) | payer MEDICARE, MEDICAID, SELFPAY | END 2025-01-20 06:41 | disposition home or self-care (01) | LOC: HO.LAB 06:40 | PROVIDERS: PCP Family Medicine; Visit Provider Nurse Practitioner Family | DX: J43.8 Other emphysema (principal); G47.33 Obstructive sleep apnea (adult) (pediatric); E03.9 Hypothyroidism, unspecified; E66.9 Obesity, unspecified; Z68.32 Body mass index [BMI] 32.0-32.9, adult; Z99.89 Dependence on other enabling machines and devices; Z79.899 Other long term (current) drug therapy | CPT/HCPCS: 36415; 84443; 99212 ==

== ENCOUNTER 2025-01-20 09:34 | Outpatient (AMB) | payer MEDICARE, MEDICAID, SELFPAY ==
--- OUTSIDE RECORDS SUMMARY | 2025-01-20 09:57 | XMS_ITS | Clinical Summary ---
Author Organization [facility] Address [address] [place] [address] Care Team Providers Care Operations Program Manager Name Role Phone Unavailable Primary Care Provider [...] Plan of Treatment Not on file Insurance [place] [facility] D[facility]
--- OUTSIDE RECORDS SUMMARY | 2025-01-20 09:57 | XMS_ITS | Clinical Summary ---
Author Organization [facility] Facility Address [address] [address] Care Team Providers Care Quality Assurance Analyst Name Role Phone Mil Hadley MD Primary [...] patient's age to complete this topic Insurance [facility] Member Subscriber Plan / Payer (Ef fective 2022-Present) Name:Matilde Son Relation to Subscriber:Self Name:Matilde Son Payer ID:[id number] (NAIC) Group ID:[id number] Type:Not on file Address: [place] [phone] Care Teams Quality Assurance Analyst Relationship Specialty Start Date End Date Mil Hadley MD 10 [facility] [address] [place] [id number] PCP - General Family Medicine 04/17/22
[2025-01-20 10:12] VITALS: BP 120/78; PULSE 77; O2SAT 97; BMI 32.6
--- NOTE | 2025-01-20 10:12 | MHC.OFFVIS ---
Vital Signs 01/20/25 10:12 Height 5 ft 10 in Weight 227 lb 1.218 oz BMI 32.6 BP 120/78 Blood Pressure Location Lt brachial Position Sitting Pulse 77 Pulse Source Pulse Oximeter Pulse Oximetry (%) 97 Oxygen Delivery Method Room Air Intake Visit Reasons: COPD Intake Note: pt is here for follow up of dariusz/copd, she is short of breath with minor exertion, has cpap at home, needs refill on albuterol House Shorer Required: No Allergies No Known Allergies Allergy (Verified 01/20/25 10:33) Medication List - Last Reconciled 01/20/25 by Avery Alonso MD acetaminophen 650 mg PO Q4H PRN albuterol sulfate 90 mcg/actuation 2 puffs inhalation Q4-6H PRN 30 days apixaban (Eliquis) 5 mg PO BID 90 days digoxin 125 mcg PO DAILY incontinence pad, liner, disp As directed, 90 days levothyroxine 100 mcg PO DAILY 90 days lorazepam 1 mg PO BEDTIME PRN 30 days metoprolol tartrate 25 mg PO BID 90 days izckzsmdyyyu-We-tinb-minerals (Women's Daily Formula) tabs PO omeprazole 20 mg PO DAILY quetiapine 50 mg PO BEDTIME rosuvastatin 20 mg PO DAILY sertraline 50 mg PO DAILY umeclidinium-vilanterol 62.5-25 mcg/actuation (Anoro Ellipta) 1 inh inhalation DAILY 30 days Do you need a note to return to daycare/school/sports/work: No HPI HPI COPD: Details: 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 USES CPAP, REGULARLY EXCEPT IN THE LAST FEW MONTHS SHE DID NOT HAVE A WELL-FITTING MASK, AND WAS SOMEWHAT IRREGULAR IN USING THE CPAP. BREATHING HAS BEEN STABLE WITH ONLY MILD INTERMITTENT COUGH AND OCCASIONAL WHEEZING, SHE DOES GET SHORT OF BREATH IF SHE WALKS UP HILL OR CLIMBS STAIRS. BUT MOSTLY HER BREATHING REMAINS UNDER CONTROLLED WITH THE USE OF ANORO ELLIPTA AND HAS TO USE ALBUTEROL ONCE IN A WHILE. [facility] Medical History Depression with anxiety Tubular adenoma of colon History of Graves' disease Osteopenia Personal history of nicotine dependence COPD (chronic obstructive pulmonary disease) Vitamin D deficiency DARIUSZ (obstructive sleep apnea) On anticoagulant therapy On beta sabine at home History of cardioversion Hypothyroid (~2022) Pelvic fracture Alcohol abuse PAF (paroxysmal atrial fibrillation) GERD (gastroesophageal reflux disease) HLD (hyperlipidemia) History of COPD Surgical History History of colonoscopy History of thyroidectomy (08/20/22) H/O foot surgery History of carotid endarterectomy History of salpingectomy Hx of rotator cuff surgery History of surgery on right wrist History of back surgery History of ankle surgery Family History Father CVD (cardiovascular disease) Hypertension Mother CVA (cerebral vascular accident) Paternal Grandmother Breast cancer Maternal Grandfather Mental health disorder Other Substance abuse in family Social History Housing: House Are you a primary care transition mgr to a significant other at home: No Do you presently have visiting nurse or other home services: No Alcohol intake: former Patient Tobacco Use Status: Former Tobacco user Tobacco use type: Cigarette e-Cigarette/Vaping Use: Never Used Second Hand Smoke Exposure: No Substance Use Type: Marijuana Advance Directives Date on File: 04/03/17 service: No Current occupational status: employed 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 Current occupational exposures/hazards: No Cognitive needs: No Hearing needs: No Vision needs: No Female Reproductive History Menstrual Age of Menarche: 11 Review of Systems Const All systems reviewed & are unremarkable except as noted in HPI and below Eyes Reports no additional complaints ENT Reports no additional complaints Card Denies chest pain at rest, Reports irregular heart rhythm and Denies leg edema Resp Reports no additional complaints GI Reports heartburn (BEING TREATED WITH OMEPRAZOLE) Reports no additional complaints Musc Reports no additional complaints Skin/Breast Reports system reviewed and no additional complaints, except as documented Neuro Reports no additional complaints Psych Reports anxiety and Reports depression Endo Reports no additional complaints Nabil/Lymph Reports no additional complaints Aller/Immun Reports no additional complaints Physical Exam Vital Signs: Last Vital Signs Pulse 77 01/20/25 10:12 BP 120/78 01/20/25 10:12 Pulse Ox 97 01/20/25 10:12 Oxygen Delivery Method Room Air 01/20/25 10:12 BMI result Body Mass Index 32.6 Const General: healthy appearing, comfortable, no acute distress, alert and awake Orientation/consciousness: patient oriented x3 HEENT Other: PATIENT DOES HAVE PROMINENT RETROGANTHIA OF THE LOWER JAW. MALLAMPATI SCALE 3 Head: Yes normal to inspection General nose exam: No nasal polyps present and No nasal discharge present Face and sinus: Yes sinuses nontender Mouth: oropharynx normal Teeth and gingiva: other (RETROGANTHIA OF LOWER JAW) Throat: Yes posterior oropharynx normal Eyes General: appearance normal, both eyes and all related structures Neck Neck: Yes normal visual inspection, Yes no lymphadenopathy, Yes trachea midline and Yes no JVD Thyroid: Thyroid normal Chest Chest palpation & inspection: normal inspection of the chest, normal palpation of entire chest wall and no tenderness Resp Other: PERCUSSION NOTE IS RESONANT, BREATH SOUNDS ARE MODERATELY DISTANT WITH PROLONGED EXPIRATORY PHASE. SHE HAS NO AUDIBLE WHEEZES RHONCHI OR CREPITATIONS . Cardio Palpation: normal PMI Rate: regular rate Rhythm: regular rhythm Heart sounds: Gallop heart sound present and Murmur heart sound present Peripheral pulses: Peripheral pulses 2+ throughout GI Palpation (GI): Soft to palpation, nontender, No hepatosplenomegaly present and no masses Auscultation: normal bowel sounds Back/Spine/Pelvis Thoracic/Lumbar Spine: thoracic and lumbar spine normal to inspection Skin General skin exam: no rashes or lesions noted Neuro General: patient oriented x3 and no focal motor deficits Cranial nerves: Yes CN's II-XII intact bilaterally Extrem General: Yes normal to inspection, Yes no clubbing, cyanosis or edema and Yes no calf tenderness Psych Appearance: grossly normal and well kempt Speech and movement: Normal speech and movement present Results Reviewed Results Reviewed: COMPLIANCE REPORT SHOWS THAT SHE HAS USED 42/180 NIGHTS. WHEN SHE DOES USE SHE USES UP TO 5 TO 6 HOURS. SHE HAD A DEFECTIVE FULLFACE MASK AND HAS NOT BEEN ABLE TO GET A NEW ONE Assessment & Plan Assessment & Plan (1) Obesity (BMI 30-39.9): Comment: PATIENT REMAINS MODERATELY OBESE. DUE TO MULTIPLE JOINT ARTHRITIS SHE IS NOT ABLE TO DO ANY ACTIVE EXERCISE. SHE IS TRYING TO WATCH HER DIET, AND WEIGHT IS HOLDING STABLE. Code(s): E66.9 - Obesity, unspecified Category: Medical Plan: ENCOURAGED TO WATCH DIET MORE CAREFULLY. ALSO ENCOURAGED TO DO BREATHING EXERCISES, WELL UPPER BODY EXERCISES WITH MINIMAL WEIGHT IS. (2) DARIUSZ (obstructive sleep apnea): Comment: PATIENT HAS DIAGNOSIS DARIUSZ SINCE 2021, IT WAS MILD BUT SHE HAS ASSOCIATED CARDIAC DISEASE SO SHE WAS STARTED ON CPAP THERAPY, INITIALLY SHE WAS VERY COMPLIANT AND BENEFITING FROM THE USE OF CPAP. SINCE NOVEMBER OF 2023 SHE HAS BEEN USING CPAP SOMEWHAT IRREGULARLY. CLAIMS THAT SHE HAD A WORN OUT FACE MASK AND WAS NOT ABLE TO GET A NEW ONE. NOW THAT WE GAVE HER A MASK FROM THE OFFICE SHE PROMISES THAT SHE IS GOING TO USE THE CPAP ON A REGULAR BASIS EVERY NIGHT. Code(s): G47.33 - Obstructive sleep apnea (adult) (pediatric) Category: Medical Plan: PROVIDED A SAMPLE MASK WITH MEDIUM FITTING, ENCOURAGED HER TO USE CPAP ON A REGULAR BASIS. (3) COPD (chronic obstructive pulmonary disease): Comment: SHE DOES HAVE MILD TO MODERATE DEGREE OF COPD. FEELS BETTER WITH USING ANORO ELLIPTA ONCE A DAY. ALSO NEEDS TO USE ALBUTEROL ONCE IN A WHILE. Code(s): J44.9 - Chronic obstructive pulmonary disease, unspecified Category: Medical Qualifiers: COPD type: emphysema Emphysema type: other Qualified Code(s): J43.8 - Other emphysema Plan: ADVISED TO CONTINUE SAME AGENTS AND PRESCRIPTION FOR ALBUTEROL IS SENT. Coding Level of Care Code Est Pt Level 3 (29728) Diagnoses Obesity (BMI 30-39.9) E66.9 DARISUZ (obstructive sleep apnea) G47.33 Other emphysema J43.8 COPD type: emphysema Emphysema type: other
== END 2025-01-20 10:33 | disposition home or self-care (01) ==
LOC: HO.HPS 09:35
PROVIDERS: PCP Family Medicine; Visit Provider Internal Medicine
DX: E66.9 Obesity, unspecified (principal); G47.33 Obstructive sleep apnea (adult) (pediatric); J43.8 Other emphysema
CPT/HCPCS: 99213

== ENCOUNTER 2025-01-25 15:15 | Outpatient (AMB) | payer MEDICARE, MEDICAID, SELFPAY ==
--- NOTE | 2025-01-25 15:18 | MHC.PC.OV ---
Vital Signs 01/25/25 15:22 Height 5 ft 10 in Weight 228 lb 6 oz BMI 32.8 BP 111/71 Blood Pressure Location Lt brachial Position Sitting Respiration 13 Pulse 78 Pulse Source Pulse Oximeter Temp 97.9 F Temp Source Temporal Artery Scan Pulse Oximetry (%) 98 Oxygen Delivery Method Room Air Intake Visit Reasons: Podiatry referral. Toenail came off Intake Note: Patient is here for a referral for a Podiatry and also has question about the injection for losing weight. Technical Services Librarian Required: No Allergies No Known Allergies Allergy (Verified 01/25/25 15:19) Tobacco use date assessed: 01/25/25 Fall risk assessment: No Falls in past year Last assessed Fall Risk: 01/25/25 Dental Screening Dental Screen Date: 01/25/25 Did you have a dental visit in the last 12 months?: Yes Did you have a dental problem in the last 6 months where you did not have access to dental care?: No Was dental information given to patient?: Patient has dentist HPI Podiatry referral. Toenail came off HPI Details 64 y/o female presents today for a podiatry referral. Pt notes toenails have been coming off. Pt reports she would like a medication for weight loss. [facility] Medical History Depression with anxiety Tubular adenoma of colon History of Graves' disease Osteopenia Personal history of nicotine dependence COPD (chronic obstructive pulmonary disease) Vitamin D deficiency DARIUSZ (obstructive sleep apnea) On anticoagulant therapy On beta sabine at home History of cardioversion Hypothyroid (~2022) Pelvic fracture Alcohol abuse PAF (paroxysmal atrial fibrillation) GERD (gastroesophageal reflux disease) HLD (hyperlipidemia) History of COPD Surgical History History of colonoscopy History of thyroidectomy (08/20/22) H/O foot surgery History of carotid endarterectomy History of salpingectomy Hx of rotator cuff surgery History of surgery on right wrist History of back surgery History of ankle surgery Family History Father CVD (cardiovascular disease) Hypertension Mother CVA (cerebral vascular accident) Paternal Grandmother Breast cancer Maternal Grandfather Mental health disorder Other Substance abuse in family Social History Housing: House Are you a primary career development coordinator to a significant other at home: No Do you presently have visiting nurse or other home services: No Alcohol intake: former Patient Tobacco Use Status: Former Tobacco user Tobacco use type: Cigarette e-Cigarette/Vaping Use: Never Used Second Hand Smoke Exposure: No Substance Use Type: Marijuana Advance Directives Date on File: 04/03/17 service: No Current occupational status: employed 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 1. Little interest or pleasure in doing things: not at all 2. Feeling down, depressed, or hopeless: not at all 3. Trouble falling or staying asleep, or sleeping too much: not at all 4. Feeling tired or having little energy: not at all 5. Poor appetite or overeating: several days 6. Feeling bad about yourself - or that you are a failure or have let yourself or your family down: not at all 7. Trouble concentrating on things, such as reading the newspaper or watching television: not at all 8. Moving or speaking so slowly that other people could have noticed. Or the opposite - being so fidgety or restless that you have been moving around a lot more than usual: not at all 9. Thoughts that you would be better off or of hurting yourself in some way: not at all Total score: 1 Depression Screening Interpretation: Negative Depression Screening Done: Yes 35158 - PHQ-9 Billing: Yes Source: Developed by Drs. Mickey Woods, Sophie Moore, Cristobal Franks and colleagues, with an educational khloe from [employer]. Thrive Questionnaire Date Thrive assessed: 01/25/25 I am a: Patient What is your living situation today?: I have a steady place to live Within the past 12 months, did the food you bought not last and you didn't have the money to get more?: Never true Within the past 12 months, did you worry whether your food would run out before you got money to buy more?: Never true Do you have trouble paying for medicines?: No Do you have trouble getting transportation to medical appointments?: No Do you have trouble paying your heating and electricity bill?: I choose not to answer this question Do you have trouble taking care of your child, family member or friend?: I choose not to answer this question Do you have trouble with day-to-day activities such as bathing, preparing meals, shopping, managing finances, etc.?: No Are you currently unemployed and looking for a job?: I choose not to answer this question Are you interested in more education?: No Please select the resources that you would like help with: None Currently or been in a relationship where the following occur: No concerns reported and I choose not to answer THRIVE Score: 0 AUDIT C Alcohol Use Questionnaire (AUDIT-C) 1. How often do you have a drink containing alcohol?: Never Total Score: 0 GEORGE-7 AMB Questionnaire GEORGE-7 Date GEORGE - 7 assessed: 01/25/25 Feeling nervous, anxious, or on edge: 1 = Several days Not being able to stop or control worryin = Several days Worrying too much about different things: 1 = Several days Trouble relaxin = Several days Being so restless that it is hard to sit still: 0 = Not at all Becoming easily annoyed or irritable: 1 = Several days Feeling afraid as if something awful might happen: 0 = Not at all Total GEORGE-7 score (0-4 normal; 5-9 mild; 10-14 moderate; 15-21 severe): 5 Source: Developed by Drs. Mickey Woods, Sophie Moore, Cristobal Franks and colleagues, with an educational khloe from [employer]. GEORGE-7 Assessment Billing GEORGE-7 Assessment Tool: GEORGE-7 Assessment 92614 Review of Systems Const Denies chills, Denies fatigue, Denies fever(s), Denies headache(s) and Denies weakness ENT Denies dizziness and Denies headache(s) Card Denies chest pain, Denies lightheadedness, Denies dyspnea and Denies other (Palpitations) Resp Denies cough, Denies dyspnea, Denies wheezing and Denies other ( shortness of breath) Musc Denies numbness and Denies tingling Neuro Denies dizziness, Denies headache(s), Denies numbness, Denies tingling, Denies paresthesias and Denies weakness Psych Denies anxiety and Denies depression Endo Denies fatigue Aller/Immun Denies wheezing Physical exam (Primary Care) Vital Signs: Last Vital Signs Temp 97.9 F 01/25/25 15:22 Pulse 78 01/25/25 15:22 Resp 13 01/25/25 15:22 BP 111/71 01/25/25 15:22 Pulse Ox 98 01/25/25 15:22 Oxygen Delivery Method Room Air 01/25/25 15:22 BMI result Body Mass Index 32.8 Tobacco/Smoking Status: Tobacco use Status Tobacco use date assessed 01/25/25 01/25/25 15:24 Patient Tobacco Use Status Former Tobacco user 01/25/25 15:24 Tobacco use type Cigarette 01/25/25 15:24 e-Cigarette/Vaping Use Never Used 01/25/25 15:24 PHQ-9: PHQ-9 Score PHQ-9: Total score 1 01/25/25 15:24 Depression Screening Interpretation: Negative Thrive Assessment: Date of Thrive Assessment Date Thrive assessed 01/25/25 01/25/25 15:24 Currently or been in a relationship where the following occur: No concerns reported and I choose not to answer Const General: no acute distress and well developed Nutritional Appearance: well nourished Orientation/consciousness: patient oriented x3 HENMT Head: Yes normocephalic and Yes atraumatic Eyes General: appearance normal, both eyes and all related structures Pupils: Equal, round and reactive pupils present EOM: EOMs intact bilaterally Resp Effort & Inspection: normal respiratory effort Auscultation: clear to auscultation bilaterally Cardio Rate: regular rate Rhythm: regular rhythm Heart sounds: S1 normal heart sound present, S2 normal heart sound present, no gallops, no murmurs and no rubs Neuro General: patient oriented x3 and gait normal Cranial nerves: Yes Equal, round and reactive pupils present Psych Affect: normal affect Coding Level of Care Code Est Pt Level 4 (41712) Diagnoses Avulsed toenail S91.209A Obesity E66.9 DARIUSZ (obstructive sleep apnea) G47.33 Overgrown nail L60.2 Additional Codes GEORGE-7 Assessment Billing - GEORGE-7 Assessment Tool: GEORGE-7 Assessment 90897 ([id number]) PHQ-9 - 73543 - PHQ-9 Billing: Yes ([id number]) Assessment & Plan Assessment & Plan (1) Avulsed toenail: Code(s): S91.209A - Unspecified open wound of unspecified toe(s) with damage to nail, initial encounter Category: Medical (2) Obesity: Code(s): E66.9 - Obesity, unspecified Category: Medical (3) DARIUSZ (obstructive sleep apnea): Code(s): G47.33 - Obstructive sleep apnea (adult) (pediatric) Category: Medical (4) Overgrown nail: Code(s): L60.2 - Onychogryphosis Category: Medical Plan Obesity with BMI 32.8 and patient has sleep apnea. Start Zepbound Will follow-up in 1 month Thickened, overgrown nails and nail avulsion. Also everardo Referred to Podiatry Medications: New tirzepatide (weight loss) (Zepbound) for 4 weeks 2.5 mg (0.5 mL) subcut QWEEK 2 mL 3RF 28 days E66.9 - Obesity, unspecified, G47.33 - Obstructive sleep apnea (adult) (pediatric)
[2025-01-25 15:22] VITALS: BP 111/71; PULSE 78; RESP 13; TEMP 36.6; O2SAT 98; BMI 32.8
--- OUTSIDE RECORDS SUMMARY | 2025-01-25 15:32 | XMS_ITS | Clinical Summary ---
Author Organization [facility] Address [address] [place] [address] Care Team Providers Care Television Maintenance Worker Name Role Phone Unavailable Primary Care Provider [...] Plan of Treatment Not on file Insurance [place] MEDICAID DENTAL [facility] DENTAL
--- OUTSIDE RECORDS SUMMARY | 2025-01-25 15:32 | XMS_ITS | Clinical Summary ---
Author Organization [facility] Address [address] [address] Care Team Providers Care Java Application Developer Name Role Phone Mil Hadley MD Primary [...] patient's age to complete this topic Insurance [facility] Member Subscriber Plan / Payer (Ef fective 2022-Present) Name:Matilde Son Relation to Subscriber:Self Name:Matilde Son Payer ID:[id number] (NAIC) Group ID:[id number] Type:Not on file Address: [place] [phone] Care Teams Java Application Developer Relationship Specialty Start Date End Date Mil Hadley MD [address] [facility] [address] [place] [id number] PCP - General Family Medicine 04/17/22
== END 2025-01-25 15:49 | disposition home or self-care (01) ==
LOC: HO.HMCFM 15:16
PROVIDERS: PCP Family Medicine; Visit Provider Family Medicine
DX: L60.2 Onychogryphosis (principal); E66.9 Obesity, unspecified; Z68.32 Body mass index [BMI] 32.0-32.9, adult; G47.33 Obstructive sleep apnea (adult) (pediatric)

== ENCOUNTER → 2025-01-25 15:15 | Outpatient (BNVA) | payer MEDICARE, MEDICAID, SELFPAY | PROVIDERS: PCP Family Medicine; Visit Provider Family Medicine | DX: L60.2 Onychogryphosis (principal); G47.33 Obstructive sleep apnea (adult) (pediatric); E66.9 Obesity, unspecified; Z68.32 Body mass index [BMI] 32.0-32.9, adult; Z71.3 Dietary counseling and surveillance; Z13.31 Encounter for screening for depression | CPT/HCPCS: 96127; 99212 ==

== ENCOUNTER 2025-03-01 14:27 | Outpatient (AMB) | payer MEDICARE, MEDICAID, SELFPAY ==
--- NOTE | 2025-03-01 14:40 | MHC.OFFVIS ---
Vital Signs 03/01/25 15:06 Height 5 ft 10 in Weight 228 lb BMI 32.7 Intake Visit Reasons: INJ- RT shoulder injection Intake Note: Matilde is a 64 year old female who presents today for a right shoulder injection. Allergies No Known Allergies Allergy (Verified 03/01/25 15:02) Medication List - Last Reconciled 03/03/25 by Estefani Mendoza PA-C acetaminophen 650 mg PO Q4H PRN albuterol sulfate 90 mcg/actuation 2 puffs inhalation Q4-6H PRN 30 days apixaban (Eliquis) 5 mg PO BID 90 days digoxin 125 mcg PO DAILY incontinence pad, liner, disp As directed, 90 days levothyroxine 100 mcg PO DAILY 90 days lorazepam 1 mg PO BEDTIME PRN 30 days metoprolol tartrate 25 mg PO BID 90 days xflnrxufmcbx-Ke-iqmz-minerals (Women's Daily Formula) tabs PO omeprazole 20 mg PO DAILY quetiapine 50 mg PO BEDTIME rosuvastatin 20 mg PO DAILY sertraline 50 mg PO DAILY tirzepatide (weight loss) (Zepbound) 2.5 mg (0.5 mL) subcut QWEEK 28 days umeclidinium-vilanterol 62.5-25 mcg/actuation (Anoro Ellipta) 1 inh inhalation DAILY 30 days HPI HPI INJ- RT shoulder injection: Details: A 64-year-old female returns to the office today for her right shoulder. I previously injected her right shoulder which does give her good relief and she is able to perform her activities. The injection has worn off over the last several weeks which is limiting her ability to perform daily activities. [facility] Medical History Depression with anxiety Tubular adenoma of colon History of Graves' disease Osteopenia Personal history of nicotine dependence COPD (chronic obstructive pulmonary disease) Vitamin D deficiency DARIUSZ (obstructive sleep apnea) On anticoagulant therapy On beta sabine at home History of cardioversion Hypothyroid (~2022) Pelvic fracture Alcohol abuse PAF (paroxysmal atrial fibrillation) GERD (gastroesophageal reflux disease) HLD (hyperlipidemia) History of COPD Surgical History History of colonoscopy History of thyroidectomy (08/20/22) H/O foot surgery History of carotid endarterectomy History of salpingectomy Hx of rotator cuff surgery History of surgery on right wrist History of back surgery History of ankle surgery Family History Father CVD (cardiovascular disease) Hypertension Mother CVA (cerebral vascular accident) Paternal Grandmother Breast cancer Maternal Grandfather Mental health disorder Other Substance abuse in family Social History Housing: House Are you a primary director day care center to a significant other at home: No Do you presently have visiting nurse or other home services: No Alcohol intake: former Patient Tobacco Use Status: Former Tobacco user Tobacco use type: Cigarette e-Cigarette/Vaping Use: Never Used Second Hand Smoke Exposure: No Substance Use Type: Marijuana Advance Directives Date on File: 04/03/17 service: No Current occupational status: employed 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 Forward flexion limited to 100 degrees. Internal rotation to back pocket. She has weakness with belly press. Office Procedures AMB Joint Injection/Aspiration Joint Injection/Aspiration Primary Site: right shoulder Prep: site was prepped using aseptic technique, ethochloride spray was applied and injection warnings given Injected: 40 mg of (decadron), with 3 mL of, 1% plain lidocaine, 0.25% bupivacaine and in the subcromial space Approach Used: posterolateral Procedure: The patient tolerated the procedure well and there was some relief with the local anesthesia Coding 84136 - Glenohumeral/Tronchanteric Bursa/Intraarticular Procedure code (CPT) selection complete Assessment & Plan Assessment & Plan (1) Arthritis of shoulder region, right, degenerative: Code(s): M19.011 - Primary osteoarthritis, right shoulder Category: Medical Qualifiers: Osteoarthritis type: primary Qualified Code(s): M19.011 - Primary osteoarthritis, right shoulder (2) Impingement syndrome of right shoulder: Code(s): M75.41 - Impingement syndrome of right shoulder Category: Medical Plan We discussed options today, which include steroid injection. The patient did consent to move forward with the right shoulder injection, which was tolerated well. I recommended rest, ice, and elevation and OTC anti-inflammatories as needed for discomfort. If symptoms persist or worsen over the next 6-8 weeks, patient will contact the office, otherwise follow-up as needed. ? Coding Level of Care Code Est Pt Level 3 (77822) Complex EM visit Add On G2211 Diagnoses Primary osteoarthritis of right shoulder M19.011 Osteoarthritis type: primary Impingement syndrome of right shoulder M75.41 CPT Codes Coding - Joint 7: 44868 - Glenohumeral/Tronchanteric Bursa/Intraarticular ([id number])
[2025-03-01 15:06] VITALS: BMI 32.7
--- OUTSIDE RECORDS SUMMARY | 2025-03-01 19:56 | XMS_ITS | Clinical Summary ---
Author Organization [facility] Address [address] [place] [address] Care Team Providers Care Chain Mortiser Operator Name Role Phone Unavailable Primary Care Provider [...] Plan of Treatment Not on file Insurance [place] MEDICAID D[facility]AL [facility]
--- OUTSIDE RECORDS SUMMARY | 2025-03-01 19:56 | XMS_ITS | Clinical Summary ---
Author Organization [facility] Facility Address [address] [address] Care Team Providers Care Mobility Developer Name Role Phone Mil Hadley MD [...] patient's age to complete this topic Insurance [facility] Member Subscriber Plan / Payer (Ef fective 2022-Present) Name:Matilde Son Relation to Subscriber:Self Name:Matilde Son Payer ID:[id number] (NAIC) Group ID:[id number] Type:Not on file Address: [place] [phone] Care Teams Mobility Developer Relationship Specialty Start Date End Date Mil Hadley MD 10 [facility] [address] [place] [id number] PCP - General Family Medicine 04/17/22
== END 2025-03-01 15:20 | disposition home or self-care (01) ==
LOC: HO.HOS 14:28
PROVIDERS: PCP Family Medicine; Visit Provider Physician Assistant
DX: M19.011 Primary osteoarthritis, right shoulder (principal); M75.41 Impingement syndrome of right shoulder
CPT/HCPCS: 20610

== ENCOUNTER → 2025-03-01 14:27 | Outpatient (BNVA) | payer MEDICARE, MEDICAID, SELFPAY | PROVIDERS: PCP Family Medicine; Visit Provider Physician Assistant | DX: M17.11 Unilateral primary osteoarthritis, right knee (principal); M25.561 Pain in right knee | CPT/HCPCS: 20610; J0665; J1100; J2003 ==

== ENCOUNTER 2025-04-13 12:22 | Outpatient (AMB) | payer MEDICARE, MEDICAID, SELFPAY ==
[2025-04-13 12:38] VITALS: BP 122/60; PULSE 76; BMI 33.2
--- NOTE | 2025-04-13 12:38 | MHC.OFFVIS ---
Vital Signs 04/13/25 12:38 Height 5 ft 10 in Weight 231 lb 7.766 oz BMI 33.2 BP 122/60 Blood Pressure Location Lt brachial Position Sitting Pulse 76 Pulse Source Pulse Oximeter Intake Visit Reasons: 1 yr f/up Allergies No Known Allergies Allergy (Verified 03/01/25 15:02) Medication List - Last Reconciled 04/13/25 by Nishant Gutierres MD acetaminophen 650 mg PO Q4H PRN albuterol sulfate 90 mcg/actuation 2 puffs inhalation Q4-6H PRN 30 days apixaban (Eliquis) 5 mg PO BID 90 days digoxin 125 mcg PO DAILY incontinence pad, liner, disp As directed, 90 days levothyroxine 100 mcg PO DAILY 90 days lorazepam 1 mg PO BEDTIME PRN 30 days metoprolol tartrate 25 mg PO BID 90 days vxfdvuzdgkec-Zw-qhai-minerals (Women's Daily Formula) tabs PO omeprazole 20 mg PO DAILY quetiapine 50 mg PO BEDTIME rosuvastatin 20 mg PO DAILY sertraline 50 mg PO DAILY umeclidinium-vilanterol 62.5-25 mcg/actuation (Anoro Ellipta) 1 inh inhalation DAILY 30 days HPI Comments Details: Matilde returns for follow-up regarding atrial fibrillation. To recall, in 2017 she had visual symptoms that led to a diagnosis of severe carotid disease requiring urgent right carotid endarterectomy. She was then doing okay from cardiac standpoint, but then had hospitalization for atrial fibrillation and rapid rate. Then underwent KRISHAN and cardioversion. She was then placed on Multaq but in spite of this she had still had recurrent atrial fibrillation. Had another cardioversion and went on flecainide. However, still returned to atrial fibrillation. Hence now managed by rate control. She also saw EP but recommendation was to just do rate control. Since last seen, no new concerns. She has got no cardiac symptoms. She is worried that she has gained a lot of weight recently. [facility] Medical History Depression with anxiety Tubular adenoma of colon History of Graves' disease Osteopenia Personal history of nicotine dependence COPD (chronic obstructive pulmonary disease) Vitamin D deficiency DARIUSZ (obstructive sleep apnea) On anticoagulant therapy On beta sabine at home History of cardioversion Hypothyroid (~2022) Pelvic fracture Alcohol abuse PAF (paroxysmal atrial fibrillation) GERD (gastroesophageal reflux disease) HLD (hyperlipidemia) History of COPD Surgical History History of colonoscopy History of thyroidectomy (08/20/22) H/O foot surgery History of carotid endarterectomy History of salpingectomy Hx of rotator cuff surgery History of surgery on right wrist History of back surgery History of ankle surgery Family History Father CVD (cardiovascular disease) Hypertension Mother CVA (cerebral vascular accident) Paternal Grandmother Breast cancer Maternal Grandfather Mental health disorder Other Substance abuse in family Social History Housing: House Are you a primary healthcare facility administrator to a significant other at home: No Do you presently have visiting nurse or other home services: No Alcohol intake: former Patient Tobacco Use Status: Former Tobacco user Tobacco use type: Cigarette e-Cigarette/Vaping Use: Never Used Second Hand Smoke Exposure: No Substance Use Type: Marijuana Advance Directives Date on File: 04/03/17 service: No Current occupational status: employed 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 Current occupational exposures/hazards: No Cognitive needs: No Hearing needs: No Vision needs: No Female Reproductive History Menstrual Age of Menarche: 11 Review of Systems Const Denies weakness ENT Denies dizziness Card Denies chest pain, Denies chest pain with activity, Denies syncope, Denies rapid heart rate, Denies pedal edema, Denies edema, Denies leg edema, Denies lightheadedness, Denies palpitations, Denies dyspnea, Denies dyspnea on exertion and Denies orthopnea Resp Denies cough, Denies dyspnea and Denies dyspnea on exertion GI Denies hematochezia and Denies change in stool character Musc Denies abnormal gait, Denies muscle cramps, Denies muscle weakness, Denies numbness, Denies radiating pain into limb and Denies tingling Neuro Denies abnormal gait, Denies dizziness, Denies syncope, Denies numbness, Denies tingling and Denies weakness Endo Denies palpitations Physical Exam Vital Signs: Last Vital Signs Pulse 76 04/13/25 12:38 BP 122/60 04/13/25 12:38 BMI result Body Mass Index 33.2 Const General: comfortable and no acute distress Orientation/consciousness: patient oriented x3 HEENT Other: Unremarkable Head: Yes normal to inspection Neck Neck: Yes normal visual inspection Chest Chest palpation & inspection: normal inspection of the chest Resp Auscultation: clear to auscultation bilaterally Cardio Palpation: normal PMI Heart sounds: S1 normal heart sound present, S2 normal heart sound present, no gallops, no murmurs and no rubs GI Palpation (GI): Soft to palpation Back/Spine/Pelvis Other: unremarkable Skin General skin exam: no rashes or lesions noted Neuro General: patient oriented x3 Extrem General: Yes normal to inspection Psych Mental Status: mental status grossly normal Assessment & Plan Assessment & Plan (1) Persistent atrial fibrillation: Code(s): I48.19 - Other persistent atrial fibrillation Category: Medical Plan: Has failed cardioversions as well as antiarrhythmic drugs including Multaq and flecainide. She has been evaluated by EP and recommended rate control only. Continue current meds including beta-blockers/digoxin. Continue anticoagulation. Check digoxin level. Stable renal function. Cardiac testing- Myocardial perfusion imaging shows normal perfusion. In the KRISHAN seem to have normal LVEF, 55-60%. (2) Hyperthyroidism: Code(s): E05.90 - Thyrotoxicosis, unspecified without thyrotoxic crisis or storm Category: Medical Plan: Suspect thyroid issues affecting atrial fibrillation in the past. Status post thyroidectomy. (3) Bilateral carotid artery stenosis: Comment: 11/16/2016 - right carotid endarterectomy Code(s): I65.23 - Occlusion and stenosis of bilateral carotid arteries Category: Medical Plan: In the most recent carotid ultrasound, no significant stenosis in the right side. Minimal stenosis in the left side. On statins. Last LDL 52 mg/dL (4) DARIUSZ (obstructive sleep apnea): Code(s): G47.33 - Obstructive sleep apnea (adult) (pediatric) Category: Medical Plan: Advised to be compliant with CPAP. Plan Discussion Notes During the visit, we discussed the patient's weight gain and cardiovascular implications. We also reviewed her cardiovascular health, confirming no current symptoms of atrial fibrillation. The patient is advised to continue using her CPAP device for obstructive sleep apnea. Patient was informed and verbally consented to the use of an ambient scribe for clinic note documentation during this visit. Orders: Orders Digoxin Today I48.19 - Other persistent atrial fibrillation Patient Instructions: - Continue using CPAP device nightly for sleep apnea management. - Monitor weight and dietary habits. - Do lab work for digoxin level. - Schedule follow-up for cardiovascular health evaluation. Coding Level of Care Code Est Pt Level 4 (81497) Complex EM visit Add On G2211 Diagnoses Persistent atrial fibrillation I48.19 Hyperthyroidism E05.90 Bilateral carotid artery stenosis I65.23 DARIUSZ (obstructive sleep apnea) G47.33
--- OUTSIDE RECORDS SUMMARY | 2025-04-13 15:38 | XMS_ITS | Clinical Summary ---
Author Organization [facility] Facility Address [address] [address] Care Team Providers Care Show Jumping Instructor Name Role Phone Mil Hadley MD [...] patient's age to complete this topic Insurance [facility] Member Subscriber Plan / Payer (Ef fective 2022-Present) Name:Matilde Son Relation to Subscriber:Self Name:Matilde Son Payer ID:[id number] (NAIC) Group ID:[id number] Type:Not on file Address: [place] [phone] Care Teams Show Jumping Instructor Relationship Specialty Start Date End Date Mil Hadley MD 10 [facility] [address] [place] [id number] PCP - General Family Medicine 04/17/22
--- OUTSIDE RECORDS SUMMARY | 2025-04-13 15:38 | XMS_ITS | Clinical Summary ---
Author Organization [facility] Address [address] [place] [address] Care Team Providers Care Materials Technician Name Role Phone Unavailable Primary Care Provider [...] on file Insurance [place] [facility]
== END 2025-04-13 12:54 | disposition home or self-care (01) ==
LOC: HO.HCS 12:23
PROVIDERS: PCP Family Medicine; Visit Provider Internal Medicine
DX: I48.19 Other persistent atrial fibrillation (principal); E05.90 Thyrotoxicosis, unspecified without thyrotoxic crisis or storm; I65.23 Occlusion and stenosis of bilateral carotid arteries; G47.33 Obstructive sleep apnea (adult) (pediatric)
CPT/HCPCS: 99214; G2211

== ENCOUNTER → 2025-04-13 12:22 | Outpatient (BNVA) | payer MEDICARE, MEDICAID, SELFPAY | PROVIDERS: PCP Family Medicine; Visit Provider Internal Medicine | DX: I48.19 Other persistent atrial fibrillation (principal); I65.23 Occlusion and stenosis of bilateral carotid arteries; E05.90 Thyrotoxicosis, unspecified without thyrotoxic crisis or storm; G47.33 Obstructive sleep apnea (adult) (pediatric) | CPT/HCPCS: 99212 ==

== ENCOUNTER 2025-05-05 08:56 | Outpatient (REF) | payer MEDICARE, MEDICAID, SELFPAY ==
--- OUTSIDE RECORDS SUMMARY | 2025-05-05 16:35 | XMS_ITS | Clinical Summary ---
Author Organization [facility] Facility Address [address] [address] Care Team Providers Care Kier Tender Name Role Phone Mil Hadley MD Primary [...] patient's age to complete this topic Insurance [facility] Member Subscriber Plan / Payer (Ef fective 2022-Present) Name:Matilde Son Relation to Subscriber:Self Name:Matilde Son Payer ID:[id number] (NAIC) Group ID:[id number] Type:Not on file Address: [place] [phone] Care Teams Kier Tender Relationship Specialty Start Date End Date Mil Hadley MD 10 [facility] [address] [place] [id number] PCP - General Family Medicine 04/17/22
== END 2025-05-05 08:57 | disposition home or self-care (01) ==
LOC: HO.MAMMO 08:56
PROVIDERS: Visit Provider Family Medicine
DX: Z12.31 Encounter for screening mammogram for malignant neoplasm of breast (principal)
CPT/HCPCS: 77063; 77067

== ENCOUNTER → 2025-05-05 09:15 | Outpatient (BNV) | payer MEDICARE, MEDICAID, SELFPAY | PROVIDERS: Visit Provider Radiology Body Imaging | DX: Z12.31 Encounter for screening mammogram for malignant neoplasm of breast (principal) | CPT/HCPCS: 77063; 77067 ==

== ENCOUNTER 2025-05-19 08:41 | Outpatient (AMB) | payer MEDICARE, MEDICAID, SELFPAY ==
--- NOTE | 2025-05-19 08:45 | MHC.PC.OV ---
Vital Signs 05/19/25 08:51 Height 5 ft 10 in Weight 237 lb BMI 34.0 BP 123/78 Blood Pressure Location Rt brachial Position Sitting Respiration 16 Pulse 73 Pulse Source Pulse Oximeter Temp 97.4 F Temp Source Oral Pulse Oximetry (%) 96 Oxygen Delivery Method Room Air Intake Visit Reasons: [address] Mignon Walls Note: patient here for 6 month routine follow up Cyber Defense Analyst Required: No Is last menstrual period known: No Post menopausal: No Patient : No Allergies No Known Allergies Allergy (Verified 05/19/25 08:48) Medication List - Last Reconciled 05/19/25 by Mil Hadley MD acetaminophen 650 mg PO Q4H PRN albuterol sulfate 90 mcg/actuation 2 puffs inhalation Q4-6H PRN 30 days apixaban (Eliquis) 5 mg PO BID 90 days digoxin 125 mcg PO DAILY incontinence pad, liner, disp As directed, 90 days levothyroxine 100 mcg PO DAILY 90 days lorazepam 1 mg PO BEDTIME PRN 30 days metoprolol tartrate 25 mg PO BID 90 days qvlanaprmflp-Zt-ieha-minerals (Women's Daily Formula) tabs PO omeprazole 20 mg PO DAILY quetiapine 50 mg PO BEDTIME rosuvastatin 20 mg PO DAILY sertraline 50 mg PO DAILY umeclidinium-vilanterol 62.5-25 mcg/actuation (Anoro Ellipta) 1 inh inhalation DAILY 30 days Tobacco use date assessed: 05/19/25 Fall risk assessment: No Falls in past year Last assessed Fall Risk: 05/19/25 Dental Screening Dental Screen Date: 05/19/25 Did you have a dental visit in the last 12 months?: Yes Did you have a dental problem in the last 6 months where you did not have access to dental care?: No Was dental information given to patient?: Patient has dentist HPI [address] Crow HPI Details 64 y/o female presents for an extended exam. Pt notes insurance had declined her zepbound. Blood pressure today 123/78, 73p. She is on metoprolol 25mg b.i.d. Hx of paroxysmal AFib. Reports foot pain which has been affecting her ability to exercise. [facility] Medical History Depression with anxiety Tubular adenoma of colon History of Graves' disease Osteopenia Personal history of nicotine dependence COPD (chronic obstructive pulmonary disease) Vitamin D deficiency DARIUSZ (obstructive sleep apnea) On anticoagulant therapy On beta sabine at home History of cardioversion Hypothyroid (~2022) Pelvic fracture Alcohol abuse PAF (paroxysmal atrial fibrillation) GERD (gastroesophageal reflux disease) HLD (hyperlipidemia) History of COPD Surgical History History of colonoscopy History of thyroidectomy (08/20/22) H/O foot surgery History of carotid endarterectomy History of salpingectomy Hx of rotator cuff surgery History of surgery on right wrist History of back surgery History of ankle surgery Family History Father CVD (cardiovascular disease) Hypertension Mother CVA (cerebral vascular accident) Paternal Grandmother Breast cancer Maternal Grandfather Mental health disorder Other Substance abuse in family Social History Housing: House Are you a primary clinical care coordinator to a significant other at home: No Do you presently have visiting nurse or other home services: No Alcohol intake: former Patient Tobacco Use Status: Former Tobacco user Tobacco use type: Cigarette e-Cigarette/Vaping Use: Never Used Second Hand Smoke Exposure: No Substance Use Type: Marijuana Advance Directives Date on File: 04/03/17 Patient : No service: No Current occupational status: employed 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 Current occupational exposures/hazards: No Cognitive needs: No Hearing needs: No Vision needs: No Female Reproductive History Menstrual Age of Menarche: 11 Questionnaire Thrive Questionnaire Date Thrive assessed: 01/25/25 I am a: Patient What is your living situation today?: I have a steady place to live Within the past 12 months, did the food you bought not last and you didn't have the money to get more?: Never true Within the past 12 months, did you worry whether your food would run out before you got money to buy more?: Never true Do you have trouble paying for medicines?: No Do you have trouble getting transportation to medical appointments?: No Do you have trouble paying your heating and electricity bill?: I choose not to answer this question Do you have trouble taking care of your child, family member or friend?: I choose not to answer this question Do you have trouble with day-to-day activities such as bathing, preparing meals, shopping, managing finances, etc.?: No Are you currently unemployed and looking for a job?: I choose not to answer this question Are you interested in more education?: No Please select the resources that you would like help with: None THRIVE Score: 0 GEORGE-7 AMB Questionnaire GEORGE-7 Date GEORGE - 7 assessed: 01/25/25 Source: Developed by Drs. Mickey Woods, Sophie Moore, Cristobal Franks and colleagues, with an educational khloe from [employer]. Review of Systems Const Denies chills, Denies fatigue, Denies fever(s), Denies headache(s) and Denies weakness Eyes Denies change in vision ENT Denies dizziness and Denies headache(s) Card Denies dyspnea Resp Denies cough, Denies dyspnea, Denies wheezing and Denies other (shortness of breath) GI Denies abdominal pain, Denies melena, Denies hematochezia, Denies change in bowel habits, Denies dyspepsia and Denies nausea Denies hematuria and Denies dysuria Musc Denies numbness and Denies tingling Skin/Breast Denies rash, Denies unusual bruising and Denies wounds Neuro Denies dizziness, Denies headache(s), Denies numbness, Denies Sensory deficit (Neuro), Denies tingling and Denies weakness Psych Denies anxiety and Denies depression Endo Denies fatigue Nabil/Lymph Denies easy bleeding and Denies easy bruising Aller/Immun Denies wheezing Physical exam (Primary Care) Vital Signs: Last Vital Signs Temp 97.4 F 05/19/25 08:51 Pulse 73 05/19/25 08:51 Resp 16 05/19/25 08:51 BP 123/78 05/19/25 08:51 Pulse Ox 96 05/19/25 08:51 Oxygen Delivery Method Room Air 05/19/25 08:51 BMI result Body Mass Index 34.0 Tobacco/Smoking Status: Tobacco use Status Tobacco use date assessed 05/19/25 05/19/25 08:51 Patient Tobacco Use Status Former Tobacco user 05/19/25 08:46 Tobacco use type Cigarette 05/19/25 08:46 e-Cigarette/Vaping Use Never Used 05/19/25 08:46 Thrive Assessment: Date of Thrive Assessment Date Thrive assessed 01/25/25 05/19/25 08:46 Const General: well developed; No acute distress Nutritional Appearance: well nourished Orientation/consciousness: patient oriented x3 HENMT Head: Yes normocephalic and Yes atraumatic Ears: hearing grossly normal bilaterally and TM's normal bilaterally General nose exam: Normal external nose present and Normal nares present Mouth: Normal oral and palatal mucosa present and moist mucous membranes Teeth and gingiva: dentition normal Throat: Yes posterior oropharynx normal Eyes General: appearance normal, both eyes and all related structures Pupils: Equal, round and reactive pupils present EOM: EOMs intact bilaterally Neck Neck: Yes normal visual inspection, Yes no lymphadenopathy and Yes trachea midline Thyroid: Thyroid normal Carotids: no bruits Lymphatic: no lymphadenopathy noted Chest Chest palpation & inspection: normal inspection of the chest Resp Effort & Inspection: normal respiratory effort Auscultation: clear to auscultation bilaterally Cardio Rate: regular rate Rhythm: regular rhythm Heart sounds: S1 normal heart sound present, S2 normal heart sound present, no gallops, no murmurs and no rubs Bruits: no abdominal aortic bruits and no carotid bruits GI Palpation (GI): No Abdominal aortic bruit present, Soft to palpation, nontender, No hepatosplenomegaly present and No Rebound tenderness present Auscultation: normal bowel sounds General: Yes no CVA tenderness Back/Spine/Pelvis Back: no CVA tenderness Cervical Spine: cervical ROM normal and No Cervical spine tenderness Thoracic/Lumbar Spine: thoraco-lumbar ROM normal, No pain with thoraco-lumbar ROM, No thoracic spinal tenderness and No lumbar spinal tenderness Skin Lesions: no lesions Rashes: no rashes Trauma: no lacerations or abrasions Wounds: no wounds Nails: normal Neuro General: patient oriented x3 and gait normal Cranial nerves: Yes Equal, round and reactive pupils present Cognition (Neuro): normal cognition Gait exam (Neuro): Normal gait present Motor exam (neuro): 5/5 motor strength present throughout Sensory Exam: No Sensory deficit (Neuro) Deep tendon reflexes (DTR's): Right patellar reflex intensity grade: 2+ and Left patellar reflex intensity grade: 2+ Extrem General: Yes normal to inspection and No edema Psych Appearance: grossly normal Affect: normal affect Attitude: cooperative Thought process: Normal thought process present Coding Level of Care Code Est Pt Level 4 (36022) Diagnoses Obesity E66.9 Primary hypertension I10 Hypertension type: primary hypertension PAF (paroxysmal atrial fibrillation) I48.0 Pre-diabetes R73.03 Foot pain, bilateral M79.671; M79.672 Adult general medical exam Z00.00 Assessment & Plan Assessment & Plan (1) Obesity: Code(s): E66.9 - Obesity, unspecified Category: Medical Plan: Patient is still interested in a GLP 1 medication. Resent script. Will get prior authorization if needed due to patient with BMI greater than 35 and sleep apnea Patient says she may try to pay [id number] if needed (2) Hypertension: Code(s): I10 - Essential (primary) hypertension Category: Medical Qualifiers: Hypertension type: primary hypertension Qualified Code(s): I10 - Essential (primary) hypertension Plan: Blood pressure is controlled. Goal is less than 130/80 Continue medications (3) PAF (paroxysmal atrial fibrillation): Comment: HISTORY OF PAROXYSMAL ATRIAL FIBRILLATION, PAST HISTORY OF CARDIOVERSION X2 IN 2021 PATIENT FOLLOWED BY CARDIOLOGY SERVICE. Code(s): I48.0 - Paroxysmal atrial fibrillation Category: Medical Plan: Rate is well controlled. She is on digoxin and Eliquis Stable Follow-up with Cardiology as recommended (4) Pre-diabetes: Code(s): R73.03 - Prediabetes Category: Medical Plan: A1c was 5.9% at last check Will recheck this with her lab work (5) Foot pain, bilateral: Code(s): M79.671 - Pain in right foot; M79.672 - Pain in left foot Category: Medical Plan: Ongoing foot pain and this is affecting ability to exercise Encouraged cycling No this worsening (6) Adult general medical exam: Code(s): Z00.00 - Encounter for general adult medical examination without abnormal findings Category: Medical Plan: 64-year-old female presents for an extended exam Encouraged exercise Orders: Orders Comprehensive [place]. Panel Fast Today Z00.00 - Encounter for general adult medical examination without abnormal findings Lipid Panel Today Z00.00 - Encounter for general adult medical examination without abnormal findings Free T4 (Free Thyroxine) Today E03.9 - Hypothyroidism, unspecified Thyroid Stimulating Hormone Today E03.9 - Hypothyroidism, unspecified Triiodothyronine T3 Total Today E03.9 - Hypothyroidism, unspecified UA CC w/rflx Micro + Cult Today Z00.00 - Encounter for general adult medical examination without abnormal findings Hemoglobin A1c Today R73.01 - Impaired fasting glucose Complete Blood Count Auto Diff Today Z00.00 - Encounter for general adult medical examination without abnormal findings Microalbumin, Random (w Creat) Today I10 - Essential (primary) hypertension Medications: Refilled tirzepatide (weight loss) (Zepbound) for 4 weeks 2.5 mg (0.5 mL) subcut QWEEK 2 mL 3RF 28 days E66.9 - Obesity, unspecified, G47.33 - Obstructive sleep apnea (adult) (pediatric)
[2025-05-19 08:51] VITALS: BP 123/78; PULSE 73; RESP 16; TEMP 36.3; O2SAT 96; BMI 34.0
--- OUTSIDE RECORDS SUMMARY | 2025-05-19 08:59 | XMS_ITS | Clinical Summary ---
Author Organization [facility] Facility Address [address] [address] Care Team Providers Care Endocrinology Specialist Name Role Phone Mil Hadley MD Primary [...] patient's age to complete this topic Insurance [facility] Member Subscriber Plan / Payer (Ef fective 2022-Present) Name:Matilde Son Relation to Subscriber:Self Name:Matilde Son Payer ID:[id number] (NAIC) Group ID:[id number] Type:Not on file Address: [place] [phone] Care Teams Endocrinology Specialist Relationship Specialty Start Date End Date Mil Hadley MD 10 [facility] [address] [place] [id number] PCP - General Family Medicine 04/17/22
== END 2025-05-19 09:22 | disposition home or self-care (01) ==
LOC: HO.HMCFM 08:43
PROVIDERS: PCP Family Medicine; Visit Provider Family Medicine
DX: Z00.00 Encounter for general adult medical examination without abnormal findings (principal); I48.0 Paroxysmal atrial fibrillation; E66.9 Obesity, unspecified; Z68.34 Body mass index [BMI] 34.0-34.9, adult; I10 Essential (primary) hypertension; R73.03 Prediabetes; M79.671 Pain in right foot; M79.672 Pain in left foot

== ENCOUNTER → 2025-05-19 08:41 | Outpatient (BNVA) | payer MEDICARE, MEDICAID, SELFPAY | PROVIDERS: PCP Family Medicine; Visit Provider Family Medicine | DX: Z00.00 Encounter for general adult medical examination without abnormal findings (principal); R10.9 Unspecified abdominal pain; E66.9 Obesity, unspecified; I48.0 Paroxysmal atrial fibrillation; R73.03 Prediabetes; M79.671 Pain in right foot; M79.672 Pain in left foot; Z87.891 Personal history of nicotine dependence | CPT/HCPCS: 99202; 99397 ==

== ENCOUNTER 2025-05-19 10:00 | Outpatient (AMB) | payer MEDICARE, MEDICAID, SELFPAY ==
--- NOTE | 2025-05-19 10:06 | A.OFFVIS_ITS ---
Vital Signs 05/19/25 10:08 Height 5 ft 10 in Weight 236 lb 15.986 oz BMI 34.0 BP 123/78 Blood Pressure Location Rt brachial Position Sitting Pulse 73 Intake Visit Reasons: Hernia Intake Note: Patient referred by Libertad PHAN for assessment of Umbilical hernia. Patient c/o: Onset 2 years, navel, occasional discomfort when coughing, reports soft loose stools. Pier Hand Helper Required: No Accompanied by: Self / Same As Patient Allergies No Known Allergies Allergy (Verified 05/19/25 10:09) Medication List - Last Reconciled 05/19/25 by Delon Mann MD acetaminophen 650 mg PO Q4H PRN albuterol sulfate 90 mcg/actuation 2 puffs inhalation Q4-6H PRN 30 days apixaban (Eliquis) 5 mg PO BID 90 days digoxin 125 mcg PO DAILY incontinence pad, liner, disp As directed, 90 days levothyroxine 100 mcg PO DAILY 90 days lorazepam 1 mg PO BEDTIME PRN 30 days metoprolol tartrate 25 mg PO BID 90 days fhgfgdwjxiyf-Uj-gwne-minerals (Women's Daily Formula) tabs PO omeprazole 20 mg PO DAILY quetiapine 50 mg PO BEDTIME rosuvastatin 20 mg PO DAILY sertraline 50 mg PO DAILY tirzepatide (weight loss) (Zepbound) 2.5 mg (0.5 mL) subcut QWEEK 28 days umeclidinium-vilanterol 62.5-25 mcg/actuation (Anoro Ellipta) 1 inh inhalation DAILY 30 days HPI Comments Details: Patient reports long history of a ?hernia? in the right periumbilical region as well as pain in the area. She adds that for the past several weeks she has also had loose stools and unpredictable bowel habits. She denies any fevers chills nausea or vomiting. She denies any obstructive symptoms. Past surgical history is significant for ?operation? for an ectopic . [facility] Medical History Depression with anxiety Tubular adenoma of colon History of Graves' disease Osteopenia Personal history of nicotine dependence COPD (chronic obstructive pulmonary disease) Vitamin D deficiency DARIUSZ (obstructive sleep apnea) On anticoagulant therapy On beta sabine at home History of cardioversion Hypothyroid (~2022) Pelvic fracture Alcohol abuse PAF (paroxysmal atrial fibrillation) GERD (gastroesophageal reflux disease) HLD (hyperlipidemia) History of COPD Surgical History History of colonoscopy History of thyroidectomy (08/20/22) H/O foot surgery History of carotid endarterectomy History of salpingectomy Hx of rotator cuff surgery History of surgery on right wrist History of back surgery History of ankle surgery Family History Father CVD (cardiovascular disease) Hypertension Mother CVA (cerebral vascular accident) Paternal Grandmother Breast cancer Maternal Grandfather Mental health disorder Other Substance abuse in family Social History Housing: House Are you a primary acute care clinical nurse specialist to a significant other at home: No Do you presently have visiting nurse or other home services: No Alcohol intake: former Patient Tobacco Use Status: Former Tobacco user Tobacco use type: Cigarette e-Cigarette/Vaping Use: Never Used Second Hand Smoke Exposure: No Substance Use Type: Marijuana Advance Directives Date on File: 04/03/17 service: No Current occupational status: employed 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 Current occupational exposures/hazards: No Cognitive needs: No Hearing needs: No Vision needs: No Female Reproductive History Menstrual Age of Menarche: 11 Review of Systems Const All systems reviewed & are unremarkable except as noted in HPI and below Physical Exam Vital Signs: Last Vital Signs Pulse 73 05/19/25 10:08 BP 123/78 05/19/25 10:08 BMI result Body Mass Index 34.0 Const Orientation/consciousness: oriented to person, oriented to place and oriented to time HEENT Head: Yes normal to inspection, Yes normocephalic and Yes atraumatic Ears: hearing grossly normal bilaterally General nose exam: Normal external nose present Eyes General: appearance normal, both eyes and all related structures Sclerae: sclerae normal Pupils: Equal, round and reactive pupils present EOM: EOMs intact bilaterally Neck Neck: Yes normal visual inspection Chest Chest palpation & inspection: normal inspection of the chest Resp Effort & Inspection: normal respiratory effort and able to speak in complete sentences Cardio Rate: regular rate Rhythm: regular rhythm GI Other: Soft nontender nondistended slightly obese with a thickened abdominal wall. The region of the patient's discomfort is in the right periumbilical region. I can not appreciate any masses or hernias or scars here. She does elicit some point tenderness in the right periumbilical area however again there is no abnormality appreciated. No evidence of hepatosplenomegaly but her body habitus precludes detailed physical interrogation of her intra-abdominal contents. Back/Spine/Pelvis Cervical Spine: normal cervical lordosis Thoracic/Lumbar Spine: thoracic and lumbar spine normal to inspection Neuro General: oriented to person, oriented to place and oriented to time Cranial nerves: Yes Equal, round and reactive pupils present Assessment & Plan Assessment & Plan (1) Abdominal pain: Code(s): R10.9 - Unspecified abdominal pain Category: Medical Plan: I told the patient I could not appreciate a hernia however I felt her persistent problems with right-sided abdominal pain and reports of alteration of bowel habits to be concerning enough that interrogation of her intra-abdominal contents in the form of a CT scan is definitely indicated. We will see her back we have the results in the meantime she is encouraged to contact us should she have any questions or problems. She said she was happy with that plan. Orders: Orders CT abdomen w IV con Today R10.9 - Unspecified abdominal pain Coding Level of Care Code New Pt Level 3 (10874) Diagnoses Abdominal pain R10.9 Time Spent (min) 30 Comment Patient visit, record review and coordination of care time
[2025-05-19 10:08] VITALS: BP 123/78; PULSE 73; BMI 34.0
== END 2025-05-19 10:25 | disposition home or self-care (01) ==
LOC: HO.HGS 10:02
PROVIDERS: Visit Provider Surgery
DX: R10.9 Unspecified abdominal pain (principal)
CPT/HCPCS: 99203

== ENCOUNTER 2025-06-02 08:12 | Outpatient (AMB) | payer MEDICARE, MEDICAID, SELFPAY ==
--- NOTE | 2025-06-02 08:25 | A.OFFVIS_ITS ---
Intake Visit Reasons: INJ- RT shoulder injection last inj 03/01/25 Intake Note: Matilde is a 64 year old female who presents today for a right shoulder injection, last injection on 03/01/25. Patient reports her last injection provided relief for about a month. Finds no relief with use of OTC Tylenol and Motrin. She wi shes to repeat injection. Allergies No Known Allergies Allergy (Verified 06/02/25 08:31) Medication List - Last Reconciled 06/02/25 by Estefani Mendoza PA-C acetaminophen 650 mg PO Q4H PRN albuterol sulfate 90 mcg/actuation 2 puffs inhalation Q4-6H PRN 30 days apixaban (Eliquis) 5 mg PO BID 90 days digoxin 125 mcg PO DAILY incontinence pad, liner, disp As directed, 90 days levothyroxine 100 mcg PO DAILY 90 days lorazepam 1 mg PO BEDTIME PRN 30 days metoprolol tartrate 25 mg PO BID 90 days rqsfzkgnnoon-Lw-ybtv-minerals (Women's Daily Formula) tabs PO omeprazole 20 mg PO DAILY quetiapine 50 mg PO BEDTIME rosuvastatin 20 mg PO DAILY sertraline 50 mg PO DAILY tirzepatide (weight loss) (Zepbound) 2.5 mg (0.5 mL) subcut QWEEK 28 days umeclidinium-vilanterol 62.5-25 mcg/actuation (Anoro Ellipta) 1 inh inhalation DAILY 30 days valacyclovir 500 mg PO DAILY PRN 30 days HPI HPI INJ- RT shoulder injection last inj 03/01/25: Details: 64-year-old female returns to the office today for ongoing right shoulder pain. She saw me back in February for right shoulder injection which she states helped for approximately 1 month. She did have an MRI of her right shoulder in November which showed rotator cuff tear with atrophy. Aside from pain she has limited motion where she can just barely bring her hand to the top of her head and back of the head. [facility] Medical History Depression with anxiety Tubular adenoma of colon History of Graves' disease Osteopenia Personal history of nicotine dependence COPD (chronic obstructive pulmonary disease) Vitamin D deficiency DARIUSZ (obstructive sleep apnea) On anticoagulant therapy On beta sabine at home History of cardioversion Hypothyroid (~2022) Pelvic fracture Alcohol abuse PAF (paroxysmal atrial fibrillation) GERD (gastroesophageal reflux disease) HLD (hyperlipidemia) History of COPD Surgical History History of colonoscopy History of thyroidectomy (08/20/22) H/O foot surgery History of carotid endarterectomy History of salpingectomy Hx of rotator cuff surgery History of surgery on right wrist History of back surgery History of ankle surgery Family History Father CVD (cardiovascular disease) Hypertension Mother CVA (cerebral vascular accident) Paternal Grandmother Breast cancer Maternal Grandfather Mental health disorder Other Substance abuse in family Social History Housing: House Are you a primary residential care facility manager to a significant other at home: No Do you presently have visiting nurse or other home services: No Alcohol intake: former Patient Tobacco Use Status: Former Tobacco user Tobacco use type: Cigarette e-Cigarette/Vaping Use: Never Used Second Hand Smoke Exposure: No Substance Use Type: Marijuana Advance Directives Date on File: 04/03/17 service: No Current occupational status: employed 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 Forward flexion limited to 100 degrees. She can bring her hand just to the side of her head. Internal rotation to back pocket. She has weakness with belly press. Office Procedures AMB Joint Injection/Aspiration Joint Injection/Aspiration Primary Site: Right Shoulder Prep: site was prepped using aseptic technique, ethochloride spray was applied and injection warnings given Injected: 40 mg of, Decadron, with 3 mL of, 1% plain Lidocaine, 0.25% Bupivacaine and in the subcromial space Approach Used: posterolateral Procedure: The patient tolerated the procedure well and there was some relief with the local anesthesia Coding 98777 - Glenohumeral/Tronchanteric Bursa/Intraarticular Procedure code (CPT) selection complete Assessment & Plan Assessment & Plan (1) Arthritis of shoulder region, right, degenerative: Code(s): M19.011 - Primary osteoarthritis, right shoulder Category: Medical Qualifiers: Osteoarthritis type: primary Qualified Code(s): M19.011 - Primary osteoarthritis, right shoulder (2) Rotator cuff arthropathy of right shoulder: Code(s): M12.811 - Other specific arthropathies, not elsewhere classified, right shoulder Category: Medical (3) Impingement syndrome of right shoulder: Code(s): M75.41 - Impingement syndrome of right shoulder Category: Medical Plan We discussed options today, which include steroid injection. We did discuss the difference between subacromial versus glenohumeral joint injection. The patient did consent to move forward with the right shoulder subacromial injection, which was tolerated well. I also placed an order for a right shoulder glenohumeral joint injection under fluoroscopy to be done in the near future if she continues to have pain. We can rule out whether or not a specific joint injection would be more beneficial. We also briefly reviewed her MRI again and discussed the role of total shoulder arthroplasty which she is not ready to proceed with at this time. I recommended rest, ice, and elevation and OTC anti-inflammatories as needed for discomfort. If symptoms persist or worsen over the next 6-8 weeks, patient will contact the office, otherwise follow-up as needed. ? Orders: Orders [place] Guided Asp Inj Major Jt RT Today M12.811 - Other specific arthropathies, not elsewhere classified, right shoulder, M19.011 - Primary osteoarthritis, right shoulder Coding Level of Care Code Est Pt Level 3 (31564) Add On Problem Visit Only Diagnoses Primary osteoarthritis of right shoulder M19.011 Osteoarthritis type: primary Rotator cuff arthropathy of right shoulder M12.811 Impingement syndrome of right shoulder M75.41 CPT Codes Coding - Joint 7: 30929 - Glenohumeral/Tronchanteric Bursa/Intraarticular ([id number])
== END 2025-06-02 09:21 | disposition home or self-care (01) ==
LOC: HO.HOS 08:13
PROVIDERS: PCP Family Medicine; Visit Provider Physician Assistant
DX: M19.011 Primary osteoarthritis, right shoulder (principal); M12.811 Other specific arthropathies, not elsewhere classified, right shoulder; M75.41 Impingement syndrome of right shoulder
CPT/HCPCS: 20610; 99213

== ENCOUNTER → 2025-06-02 08:12 | Outpatient (BNVA) | payer MEDICARE, MEDICAID, SELFPAY | PROVIDERS: PCP Family Medicine; Visit Provider Physician Assistant | DX: M19.011 Primary osteoarthritis, right shoulder (principal); M75.41 Impingement syndrome of right shoulder | CPT/HCPCS: 20610; 99212; J0665; J1100; J2003 ==